=== PATIENT | male | born 1945 | race Caucasian/White ===

== ENCOUNTER 2022-01-26 15:00 | Observation (INO) | payer MEDICARE, OTHER, SELFPAY ==
[2022-01-26] VITALS (9 sets, daily range): BP systolic 93–149; BP diastolic 57–84; PULSE 46–97; RESP 19–25; TEMP 36.2–36.6; O2SAT 90–100
--- NOTE | ~2022-01-26 | XR_ITS ---
XR chest 2V 01/26/2022 16:31 Indication: Near syncope. Low blood pressure. Procedure: 2 view chest Comparison: Comparison to multiple prior studies sequentially, with oldest reviewed study dated 07/25. Findings: Bibasilar infiltrates. Borderline heart size. No pleural effusion or pneumothorax. No acute osseous abnormality. Impression: 1: Right basilar infiltrates may represent atelectasis, edema or developing pneumonia. Reviewed, dictated and finalized at location A. ERCIAL COLLECTIONS SPECIALIST Impression: 1: Right basilar infiltrates may represent atelectasis, edema or developing pne umonia.
--- NOTE | 2022-01-26 15:09 | ECG_ITS ---
Measurements Intervals [place] Rate: 46 P: [place]: 0 QRS: 95 QRSD: 110 T: 68 QT: 438 QTc: 385 Interpretive Statements ATRIAL FLUTTER WITH SLOW VENTRICULAR RESPONSE LOW QRS VOLTAGE IN PRECORDIAL LEADS [QRS DEFLECTION < 1.0 mV IN CHEST LEADS] BASELINE ARTIFACT LIMITS ECG INTERPRETATION ABNORMAL ECG COMPARED TO ECG 08/16/2019 08:57:20 ATRIAL FLUTTER NOW PRESENT Electronically Signed On 01-26-2022 16:07:31 SUPPORT STAFF by Michael Vides M.D.
--- NOTE | 2022-01-26 16:11 | ECG_ITS ---
Measurements Intervals [place] Rate: 66 P: [place]: 0 QRS: 72 QRSD: 98 T: 56 QT: 404 QTc: 424 Interpretive Statements ATRIAL FLUTTER LOW QRS VOLTAGE IN PRECORDIAL LEADS [QRS DEFLECTION < 1.0 mV IN CHEST LEADS] BASELINE ARTIFACT LIMITS INTERPRETATION ABNORMAL RHYTHM ECG COMPARED TO ECG 01/26/2022 15:12:32 NO SIGNIFICANT CHANGES Electronically Signed On 01-27-2022 9:40:26 WATCH LEADER by Michael Vides M.D.
[2022-01-26] MEDS: SODIUM CHLORIDE 0.9% IV 1,000 ML 999 ML IV CONT (16:40)
[2022-01-26 17:14] LABS: Basophils Percent Auto 0.3 % (0.2-1.2); Eosinophils Absolute Auto 0.4 K/mm3 (0-0.3); Eosinophils Percent Auto 3.7 % (0-4.4); Hematocrit 40.4 % (42.0-52.0); Hemoglobin 12.8 g/dL (14.0-18.0); Immature Granulocyte Absolute 0.03 K/mm3 (0.00-0.031); Immature Granulocyte Percent A 0.3 % (0-0.5); Lymphocytes Absolute Auto 0.98 K/mm3 (0.9-3.2); Mean Corpuscular HGB Conc 31.7 g/dl (32-36); Mean Corpuscular Hemoglobin 26.8 pg (26-34); Mean Corpuscular Volume 84.5 fl (80-100); Mean Platelet Volume 9.9 fl (7.4-10.4); Monocytes Absolute Auto 0.7 K/mm3 (0.1-0.6); Neutrophils Absolute Auto 7.7 K/mm3 (1.3-6.7); Neutrophils Percent Auto 78.7 % (45.5-73.1); Platelet Count Result 268 k/mm3 (150-375); Red Blood Count 4.78 M/mm3 (4.6-6.20); White Blood Count 9.8 K/mm3 (4.5-10.0)
--- NOTE | 2022-01-26 17:16 | ED.GENADULT ---
HPI - General Adult General Chief complaint: Recheck/Abnormal Lab/Rx Stated complaint: LOW BLOOD PRESSURE Time Seen by Provider: 01/26/22 16:10 History of Present Illness HPI narrative: Patient is a 76-year-old male who presents ER with near syncope. Patient reports he had multiple episodes today where he was bending over and would then stand up back up he would get lightheaded. It occurred while he was feeling up gas cans. It also occurs when he is walking up stairs or changing positions at home. No chest pain or chest pressure. No racing of the heart. Reports he called his PCP and tablet technician who instructed him to come to the ER for further evaluation. Denies any slurred speech. No facial droop. No weakness in arm or leg. Reports compliance with home medication. Patient reports history of cardiac ablation for arrhythmia. Chart review shows history of atrial flutter. Related Data Home Medications Medication Instructions Recorded Confirmed apixaban [Eliquis] 5 mg PO BID 01/26/22 01/26/22 atenolol 50 mg PO HS 01/26/22 01/26/22 diltiazem HCl 360 mg PO DAILY 01/26/22 01/26/22 finasteride 5 mg PO HS 01/26/22 01/26/22 glimepiride 4 mg PO DAILY 01/26/22 01/26/22 lisinopril 20 mg PO HS 01/26/22 01/26/22 loratadine 10 mg PO DAILY 01/26/22 01/26/22 metformin 1,000 mg PO BID 01/26/22 01/26/22 rosuvastatin 10 mg PO HS 01/26/22 01/26/22 tamsulosin 0.4 mg PO HS 01/26/22 01/26/22 Allergies Allergy/AdvReac Type Severity Reaction Status Date / Time No Known Allergies Allergy Verified 01/26/22 15:01 Review of Systems Review of Systems: All systems reviewed & are unremarkable except as noted in HPI and below Constitutional: Constitutional: Denies chills, Denies fever(s) and Denies weakness ENT: Denies nasal congestion and Denies sore throat Cardiovascular: Cardiovascular: Denies chest pain, Denies rapid heart rate, Denies radiating jaw, neck or arm pain and Denies slow heart rate Respiratory: Respiratory: Denies cough and Denies dyspnea Gastrointestinal: Gastrointestinal: Denies nausea and Denies vomiting Neurologic: Reports dizziness, Reports syncope (Near), Denies focal weakness and Denies numbness PMFSH Past Medical History Medical History (Updated 01/26/22 @ 22:05 by Bert Ayala MD) Atrial fibrillation and flutter CAD (coronary atherosclerotic disease) Diabetes Inguinal hernia Surgical History Surgical History (Updated 01/26/22 @ 17:23 by Bert Ayala MD) History of cardiac radiofrequency ablation Stented coronary artery Family History Family History (Updated 01/26/22 @ 21:41 by Nicolle Fierro RN) Other Unknown family medical history Social History Social History Smoking status: Never smoker Alcohol intake: never Substance use: never Spiritual care concerns: No Exam Narrative: GENERAL: Well-appearing, well-nourished, and in no acute distress. HEAD: Normocephalic, atraumatic. Ashes to forehead. EYES: PERRL and EOMI. ENT: Mucous membranes moist. CHEST: Clear to auscultation. No respiratory distress. HEART: Bradycardic and regular. Normal peripheral pulses. ABDOMEN: Soft, nontender, nondistended. EXTREMITIES: Normal range of motion. No edema. SKIN: Warm, dry, no rash. NEURO: Alert and oriented x3. PSYCH: Normal mood and affect. Course Course Emergency Course: Patient resting calmly. Blood pressure improving with fluids. Discussed case with cardiology. Plan is to admit for observation given bradycardia and hypotension with his near syncope. Patient could be dry and his medications are too strong. Could be he needs a med adjustment. Admit to hospitalist service. Vital Signs Vital signs: Vital Signs Temperature 98 F 01/26/22 15:03 Pulse Rate 46 L 01/26/22 15:03 Respiratory Rate 22 H 01/26/22 15:03 Blood Pressure 96/60 L 01/26/22 15:03 Pulse Oximetry 99 01/26/22 15:03 Temperature 98 F 01/26/22 15:03 Pulse Rate 66 01/26/22 18:1
[2022-01-26 17:21] LABS: Anion Gap 7 mmol/L (8-16); Blood Urea Nitrogen 15 mg/dL (9-20); Calcium 8.4 mg/dL (8.4-10.2); Carbon Dioxide 24 mmol/L (22-30); Chloride 102 mmol/L (98-107); Estimated CRCL calculation 54 ml/min; Estimated Glomerular Filt Rate 54; Glucose 111 mg/dL (65-110); Potassium 5.3 mmol/L (3.4-5.0); Sodium 133 mmol/L (137-145)
[2022-01-26 17:24] LABS: Partial Thromboplastin Time 34.5 SECONDS (22.3-36.8)
[2022-01-26 17:30] LABS: INR 1.3; Prothrombin Time 15.4 Seconds (11.1-14.7)
[2022-01-26 17:33] LABS: Troponin I < 0.012 ng/mL (0.000-0.034)
--- NOTE | 2022-01-26 19:14 | PC.NURSE ---
Called and added Trop on TSH that was drawn per nurse. 19:14
--- NOTE | 2022-01-26 19:17 | PC.NURSE ---
Report received from Zahra OLIVO & Josiah OLIVO
--- NOTE | 2022-01-26 19:54 | PM.IMHP ---
H&P: HPI History of Present Illness Date/Time: 01/26/22 19:54 Chief Complaint: Dizziness. Narrative: This is a 76-year-old male with past medical history significant for atrial flutter, anticoagulated rate controlled, benign prostatic hyperplasia, hypertension, type 2 diabetes mellitus controlled with oral agents and diet, obesity, dyslipidemia, coronary artery disease, history of ablation, history of PTCI. Patient presents to the emergency room after he had several episodes of dizziness and near syncopal episode. Patient denies any chest pain, palpitations, vision changes, diaphoresis, nausea, vomiting, chest pain, abdominal pain, diarrhea, no leg swelling, no PND, no orthopnea, no fevers, no rigors, no chills, no cough, no sputum production, patient has been his usual state of health patient noticed that this was happening mainly when he had postural changes from bending over to upright position. Preliminary workup was significant for EKG with atrial flutter heart rate in the 60s. A chest x-ray showed bilateral infiltrates. Patient is been admitted for further evaluation management and treatment. Review of Systems Review of Systems: Dizziness. Constitutional: Constitutional: Denies chills, Denies fatigue, Denies fever(s), Denies frequent falls, Denies headache(s), Denies malaise, Denies poor appetite and Denies weakness Eyes: Eyes: Denies change in vision ENT: Denies dysphagia, Reports dizziness, Denies nasal congestion, Denies nasal discharge, Denies nasal obstruction and Denies odynophagia Cardiovascular: Cardiovascular: Denies chest pain, Denies syncope, Denies pedal edema, Denies leg edema, Reports lightheadedness, Denies radiating jaw, neck or arm pain, Denies palpitations, Denies dyspnea on exertion, Denies orthopnea, Denies paroxysmal nocturnal dyspnea and Denies slow heart rate Respiratory: Respiratory: Denies cough, Denies excessive phlegm production, Denies dyspnea and Denies wheezing Gastrointestinal: Gastrointestinal: Denies abdominal pain, Denies dyspepsia, Denies heartburn, Denies diarrhea, Denies nausea and Denies vomiting Genitourinary: Genitourinary: Reports no additional male genitourinary complaints and Reports as per HPI Musculoskeletal: Musculoskeletal: Denies back pain, Denies arthralgias, Denies muscle weakness and Denies neck pain Integumentary/Breasts: Skin/Breast: Denies rash Neurologic: Denies focal weakness and Denies Sensory deficit (Neuro) Psychiatric: Psychiatric: Reports no additional psychiatric complaints and Reports as per HPI Endocrine: Endocrine: Denies cold intolerance, Denies heat intolerance, Denies polyphagia, Denies polydipsia, Denies polyuria and Denies palpitations Hematologic/Lymphatic: Hematologic/Lymphatic: Reports no additional hematologic/lymphatic complaints and Reports as per HPI Allergic/Immunologic: Allergic/Immunologic: Reports no additional allergic/immunologic complaints and Reports as per HPI PMFSH Past Medical History Medical History (Updated 01/27/22 @ 03:07 by Mac Durand MD) Atrial fibrillation and flutter CAD (coronary atherosclerotic disease) Diabetes Inguinal hernia Surgical History Surgical History (Updated 01/26/22 @ 17:23 by Bert Ayala MD) History of cardiac radiofrequency ablation Stented coronary artery Family History Family History (Updated 01/26/22 @ 21:41 by Nicolle Fierro RN) Other Unknown family medical history Social History Social History Smoking status: Never smoker Alcohol intake: never Substance use: never Spiritual care concerns: No Meds Home Medications and Allergies Home Medications Medication Instructions Recorded Confirmed Type apixaban [Eliquis] 5 mg PO BID 01/26/22 01/26/22 History atenolol 50 mg PO HS 01/26/22 01/26/22 History diltiazem HCl 360 mg PO DAILY 01/26/22 01/26/22 History finasteride 5 mg PO HS 01/26/22 01/26/22 History glimepiride 4 mg PO DAILY 01/26/22 01/26/22 Hist
[2022-01-26 20:05] LABS: Troponin I < 0.012 ng/mL (0.000-0.034)
--- NOTE | 2022-01-26 21:37 | ADMGEN ---
This patient, Joo Forman, was admitted to Medical Room 258-. Patient/family oriented to hospital policies and general routines including ID bracelet, bed and alarms, visiting hours, pain management, procedures, bathroom and other care routines, personal items, smoking policy, room service/diet, and visiting hours. Information on how to activate the Rapid Response Team has been discussed. Patient/Family are encouraged to report perceived risks to care and to ask questions if they do not understand what they are told or what they should do.
[2022-01-26 22:07] LABS: Glucose Point of Care 142 mg/dl (65-105)
[2022-01-26 22:26] LABS: Troponin I < 0.012 ng/mL (0.000-0.034)
[2022-01-27] VITALS (17 sets, daily range): BP systolic 107–150; BP diastolic 63–107; PULSE 66–136; RESP 16–21; TEMP 36.2–36.5; O2SAT 90–97
--- NOTE | 2022-01-27 | ECHO_ITS ---
Patient Info Name: Joo Fomran Age: 76 years : 1945 Gender: Male Ht: 70 in Wt: 235 lbs BSA: 2.33 m2 HR: 68 bpm BP: 134 / 96 mmHg Heart Rhythm: Atrial Flutter Exam Date: 01/27/2022 9:47 AM Exam Location: [facility] Patient Status: Outpatient Admit Date: 01/26/2022 Staff Ordering Physician: Mac Durand MD Marshmallow Runner: Aung Orona, ROSITA, RT Attending Provider: Oriana Park MD Referring Physician: Kizzy POND; Exam Type: CA echo doppler color flow Study Info Indications R00.1 - Bradycardia, unspecified R55 - Syncope and collapse Complete two-dimensional, color flow and Doppler transthoracic echocardiogram is performed. Strain analysis performed. Summary 1. Complete two-dimensional, color flow and Doppler transthoracic echocardiogram is performed. 2. Strain analysis performed. 3. Left ventricular systolic function is low normal, estimated at 50-55%. 4. The anterior wall, and apical cap are hypokinetic. 5. Left ventricular chamber dimension is mildly enlarged. 6. There is mildly increased left ventricular wall thickness. 7. The left ventricular diastolic function is indeterminate. 8. Global longitudinal strain is abnormal at -12 %. 9. Left atrial chamber dimension is moderately enlarged. 10. Right atrial chamber dimension is mildly enlarged. 11. There is mild aortic valve regurgitation. 12. There is moderate mitral valve regurgitation. 13. There is mild tricuspid valve regurgitation. 14. Moderate pulmonary hypertension, estimated pulmonary arterial systolic pressure is 51 mmHg. Left Ventricle Left ventricular systolic function is low normal, estimated at 50-55%. Left ventricular chamber dimension is mildly enlarged. There is mildly increased left ventricular wall thickness. The left ventricular diastolic function is indeterminate. Global longitudinal strain is abnormal at -12 %. The anterior wall, and apical cap are hypokinetic. All other miller appear normal. Right Ventricle Right ventricular chamber dimension is normal. Right ventricular systolic function is normal. Left Atria Left atrial chamber dimension is moderately enlarged. Right Atria Right atrial chamber dimension is mildly enlarged. Atrial Septum Intact interatrial septum visualized by color flow imaging. Aortic Valve The aortic valve is trileaflet. There is mild aortic valve sclerosis. There is no aortic valve stenosis. There is mild aortic valve regurgitation. Pulmonic Valve The pulmonic valve is normal. There is no pulmonic valve stenosis. There is trace pulmonic regurgitation. Mitral Valve The mitral valve has thickened leaflets. There is no mitral valve stenosis. There is moderate mitral valve regurgitation. Tricuspid Valve The tricuspid valve leaflets are normal. There is no significant tricuspid valve stenosis. There is mild tricuspid valve regurgitation. Moderate pulmonary hypertension, estimated pulmonary arterial systolic pressure is 51 mmHg. Pericardium/Pleural The pericardium appears normal. There is trivial pericardial effusion. Inferior Vena Cava Normal inferior vena cava with <50% collapse upon inspiration consistent with elevated right atrial pressure, 10 mmHg. Aorta The aortic root size at the sinus of Valsalva is normal. Left Ventricular Outflow Tract Name Value Normal ------
--- NOTE | 2022-01-27 02:58 | ECG_ITS ---
Measurements Intervals [place] Rate: 133 P: [place]: 0 QRS: 66 QRSD: 140 T: 8 QT: 313 QTc: 467 Interpretive Statements ATRIAL FLUTTER WITH RAPID VENTRICULAR RESPONSE INTRAVENTRICULAR CONDUCTION DELAY [130+ ms QRS DURATION] ABNORMAL ECG COMPARED TO ECG 01/26/2022 16:17:17 INTRAVENTRICULAR CONDUCTION DELAY NOW PRESENT Electronically Signed On 01-27-2022 9:57:24 AIR SAMPLING AND MONITORING by Michael Vides M.D.
[2022-01-27] MEDS: cefTRIAXone 2 GM in SODIUM CHLORIDE 0.9% IV 100 ML 200 ML IVPB ×2 (03:25→20:59)
[2022-01-27] MEDS: atenoloL 50 MG TABLET PO (04:31)
[2022-01-27] MEDS: FINASTERIDE 5 MG TABLET PO ×2 (04:31→20:57)
[2022-01-27] MEDS: TAMSULOSIN HCL 0.4 MG CAPSULE PO ×2 (04:31→20:57)
[2022-01-27] MEDS: lisinopriL 20 MG TABLET PO ×2 (04:31→20:57)
[2022-01-27] MEDS: dilTIAZem HCL CD 180 MG CAP.ER.24H 360 MG PO (06:17)
--- NOTE | 2022-01-27 06:19 | PC.NURSE ---
PT HR REMAINING IN THE 130S DESPITE RECEIVING NIGHTTIME BP/HR MEDS AROUND 0430. CALLED DR GILLESPIE SHE STATED IT WAS OK TO GIVE 9AM DOSE OF CARDIZEM EARLY AT 0615.
[2022-01-27 07:57] LABS: Glucose Point of Care 116 mg/dl (65-105)
--- NOTE | 2022-01-27 08:47 | PC.NURSE ---
Dr Almanza notified of pt on tele with heartrate 135 ST, bp 150/80
[2022-01-27 09:02] LABS: Alanine Aminotransferase 15 U/L (4-50); Alkaline Phosphatase 73 U/L (38-126); Anion Gap 9 mmol/L (8-16); Aspartate Amino Transferase 31 U/L (17-59); Blood Urea Nitrogen 11 mg/dL (9-20); Calcium 8.3 mg/dL (8.4-10.2); Carbon Dioxide 23 mmol/L (22-30); Chloride 102 mmol/L (98-107); Estimated CRCL calculation 76 ml/min; Estimated Glomerular Filt Rate > 60; Glucose 175 mg/dL (65-110); Potassium 4.5 mmol/L (3.4-5.0); Sodium 134 mmol/L (137-145)
[2022-01-27] MEDS: metFORMIN HCL 500 MG TABLET 1000 MG PO ×2 (09:17→17:07)
[2022-01-27] MEDS: APIXABAN 5 MG TABLET PO ×2 (09:17→17:08)
[2022-01-27] MEDS: LORATADINE 10 MG TABLET PO (09:17)
--- NOTE | 2022-01-27 09:19 | PM.CNCAR ---
Assessment and Plan Assessment and plan (1) CAD (coronary atherosclerotic disease): Code(s): I25.10 - Atherosclerotic heart disease of [place] coronary artery without angina pectoris Status: Acute Assessment and Plan: Asymptomatic. Continue statin (2) Near syncope: Code(s): R55 - Syncope and collapse Status: Acute Assessment and Plan: He has near syncopal because of marked bradycardia. He is reverted back into atrial flutter with slow ventricular response. Will reduce his atenolol to 25 mg daily as well as reduce his diltiazem to 120 mg daily. He may need one if not both of the stopped in the future but will need to keep him on telemetry to assess response. Continue anticoagulation. Will also plan on cardioversion tomorrow. He eventually needs referral back to electrophysiology. Will keep NPO after midnight. 2D echocardiogram Doppler is ordered will be reviewed. Will check a TSH and free T4 level. (3) Bradycardia: Code(s): R00.1 - Bradycardia, unspecified Status: Acute Assessment and Plan: As detailed above (4) Paroxysmal atrial flutter: Code(s): I48.92 - Unspecified atrial flutter Status: Acute Assessment and Plan: Recurrent. Continue anticoagulation (5) Chronic anticoagulation: Code(s): Z79.01 - detention (current) use of anticoagulants Status: Acute Assessment and Plan: On Eliquis. No bleeding problems. Will DC IV fluids History of Present Illness History of Present Illness Consult date/time: 01/27/22 09:19 Requesting physician: Bert Ayala MD Consult reason: Other (Presyncope, bradycardia, atrial flutter) Reason For Visit: Near Syncope, Bradycardia, Atrial Flutter Narrative: Requesting provider: Dr. Ayala Date of service 01/27/2022 Reason for consultation, near syncope, bradycardia, atrial flutter History patient is a 76-year-old male who has history of coronary disease in atrial flutter. He presented to the hospital back in 2003 secondary to acute coronary syndrome and underwent stenting to the LAD. He follows with Dr. Cannon as an outpatient. In he also received did stent to the diagonal branch also at that time. He has developed atrial fibrillation over the subsequent years. This has resulted in cardioversions in the past as well as 2 ablation procedures out at [facility] by electrophysiology for both atrial fibrillation and flutter. He called the office yesterday after having a significant presyncopal episode. Patient was getting gas and suddenly felt very dizzy and weak feeling everywhere. He ended up going home where he continued to feel very poorly. He had extreme dizziness but did not actually pass out. He checked his blood pressure and heart rate is heart rate was in the 40s is blood pressure was in 80s. He called the office and was instructed appropriately to go to the emergency department for further workup evaluation. He was found to be in atrial flutter with slow ventricular response the heart rate in 40s. He was hypotensive. He was given fluids and his blood pressure did finally increased. Overnight he went into atrial flutter with rapid ventricular response and is currently in atrial flutter with controlled response rate. He is no longer dizzy this morning. Denies any syncope, paroxysmal nocturnal dyspnea, orthopnea, chest pain or edema. No palpitations or bleeding problems. Review of Systems Review of Systems: All systems reviewed & are unremarkable except as noted in HPI and below Constitutional: Constitutional: Reports weakness Eyes: Eyes: Denies blurry vision ENT: Reports Normal hearing present Cardiovascular: Cardiovascular: Denies chest pain Respiratory: Respiratory: Denies dyspnea Gastrointestinal: Gastrointestinal: Denies abdominal pain Genitourinary: Genitourinary: Denies dysuria Musculoskeletal: Musculoskeletal: Denies neck pain Integumentary/Breasts: S
--- NOTE | 2022-01-27 11:28 | PC.NURSE ---
Carmita Jackson SALES REVIEW CLERK notified of hr dropping in 30's a flutter then jumping back up into the 50's. Pt is bed ans asymptomatic at this time.
[2022-01-27 11:32] LABS: Glucose Point of Care 127 mg/dl (65-105)
--- NOTE | 2022-01-27 14:31 | PC.NURSE ---
On 01/27/22, the student, [Ivett Jameson], provided care and completed [facility] documentation on this patient. I have reviewed the student's documentation and agree with the findings.
--- NOTE | 2022-01-27 16:00 | PM.IMPN ---
Progress Note: A&P Additional Plan Assessment and plan (1) Near syncope: Code(s): R55 - Syncope and collapse Status: Acute Assessment and Plan: - Daily intake and output - Troponin - x3. - ECHO = LVSF low normal at 50-55%. Mild hypokinesis of anterior wall and apical cap. Enlargement of LV chamber. mind AVR, moderate MVR, and Mild TCR. There is moderate pulmonary Hypertension. - Supervisor Firearms has consulted and will be doing a cardioversion tomorrow. - NPO after MN - Continue Telemetry (2) Symptomatic Bradycardia: Code(s): R00.1 - Bradycardia, unspecified Status: Acute Assessment and Plan: - Likely secondary to combination of beta-blockers and calcium channel blockers. Continue to monitor. - Further treatment and recommendations per Cardiology. (3) CAD (coronary atherosclerotic disease): Code(s): I25.10 - Atherosclerotic heart disease of [place] coronary artery without angina pectoris Status: Acute Assessment and Plan: - Chest pain-free - Continue to monitor (4) Atrial fibrillation and flutter: Code(s): I48.91 - Unspecified atrial fibrillation; I48.92 - Unspecified atrial flutter Status: Inactive Assessment and Plan: - Rate control and anticoagulated. - Continue to monitor. (5) Diabetes: Code(s): E11.9 - Type 2 diabetes mellitus without complications Status: Inactive Additional Plan - Accu-Cheks AC and HS - Insulin sliding scale - Holding metformin and glimepiride - Continue to monitor Time Spent With Patient Time with patient: 15 - 25 minutes Subjective Date/time seen: 01/27/22 1245 This pt. was examined at the bedside today in interval assessment. He has been evaluated by Cardiology and will be cardioverted tomorrow. He is NPO after MN. Currently his rate is stable and he is asymptomatic. He has no CP, palpitations, Dyspnea or any N/V. Review of Systems Review of Systems: A 12 point ROS was performed and is otherwise negative except as in HPI. All systems reviewed & are unremarkable except as noted in HPI and below Exam Narrative: Exam Narrative: Patient is laying in the stretcher. Const: General: cooperative, comfortable, no acute distress, well developed, alert and awake Nutritional Appearance: overweight Orientation/consciousness: patient oriented x3 HENMT: Head: normal to inspection, normocephalic and atraumatic Ears: hearing grossly normal bilaterally General nose exam: Normal external nose present Face and sinus: normal facial exam Mouth: Yes Normal oral and palatal mucosa present Eyes: General: appearance normal, both eyes and all related structures Alignment and Position: alignment normal Sclera: sclerae normal Pupils: Equal, round and reactive pupils present EOM: EOMs intact bilaterally Neck: Neck: normal visual inspection, full ROM, no lymphadenopathy, supple and no JVD Thyroid: thyroid normal Lymphatic: no lymphadenopathy noted Resp: Effort & Inspection: normal respiratory effort, able to speak in complete sentences and no cough Auscultation: clear to auscultation bilaterally, no crackles, no rales, no rhonchi and no wheezes Cardio: Jugular venous distension: no JVD Rate: regular rate Rhythm: regular rhythm Heart sounds: S1 normal heart sound present, S2 normal heart sound present, no gallops and no murmurs GI: Inspection: normal to inspection GI Palp: Yes Soft to palpation, No Tenderness to palpation present (GI), No Guarding due to palpation present (GI), Yes No hepatosplenomegaly present and No Rebound tenderness present : General: Yes deferred Skin: Rashes: no rashes Wounds: no wounds Neuro: General: patient oriented x3 and CN's II-XI intact bilaterally Cranial nerves: Yes CN's II-XII intact bilaterally and Yes Equal, round and reactive pupils present Cognition (Neuro): normal cognition Speech: normal speech Gait exam (Neuro): Normal gait present Motor exam (neuro): 5/5 motor strength
[2022-01-27 17:22] LABS: Glucose Point of Care 100 mg/dl (65-105)
[2022-01-27] MEDS: atenoloL 25 MG TABLET PO (20:57)
[2022-01-27] MEDS: ROSUVASTATIN 10 MG TABLET PO (20:57)
[2022-01-27 21:05] LABS: Glucose Point of Care 97 mg/dl (65-105)
[2022-01-28] VITALS (15 sets, daily range): BP systolic 117–153; BP diastolic 66–111; PULSE 61–139; RESP 14–22; TEMP 36–36.2; O2SAT 94–100; BMI 33.6
--- NOTE | 2022-01-28 | ECG_ITS ---
Measurements Intervals [place] Rate: 137 P: [place]: 0 QRS: 47 QRSD: 96 T: 17 QT: 296 QTc: 447 Interpretive Statements ATRIAL FLUTTER WITH RAPID VENTRICULAR RESPONSE INDETERMINATE AXIS PATTERN CONSISTENT WITH PULMONARY DISEASE ABNORMAL EKG Electronically Signed On 01-28-2022 10:41:52 HORIZONTAL RESAW OPERATOR by Michael Vides M.D.
--- NOTE | 2022-01-28 01:16 | PC.NURSE ---
PT HR INCREASED SUSTAINING IN THE 130S AND AT A FEW POINTS REACHING THE 150S CONTACTED DR MONTES. LEFT MESSAGE THROUGH THE EXCHANGE. RETURNED MY CALL AROUND 20 MINUTES LATER AND STATED HE DID NOT WANT TO DO ANYTHING ABOUT THE PATIENTS UNSTABLE HEART RATE.
[2022-01-28 04:51] LABS: Basophils Percent Auto 0.3 % (0.2-1.2); Eosinophils Absolute Auto 0.3 K/mm3 (0-0.3); Eosinophils Percent Auto 4.1 % (0-4.4); Hematocrit 40.7 % (42.0-52.0); Hemoglobin 12.6 g/dL (14.0-18.0); Immature Granulocyte Absolute 0.03 K/mm3 (0.00-0.031); Immature Granulocyte Percent A 0.4 % (0-0.5); Lymphocytes Absolute Auto 1.06 K/mm3 (0.9-3.2); Lymphocytes Percent Auto 15.2 % (18.3-44.2); Mean Corpuscular Hemoglobin 25.8 pg (26-34); Mean Corpuscular Volume 83.4 fl (80-100); Mean Platelet Volume 9.3 fl (7.4-10.4); Monocytes Absolute Auto 0.5 K/mm3 (0.1-0.6); Monocytes Percent Auto 7.6 % (2.6-8.5); Neutrophils Absolute Auto 5.1 K/mm3 (1.3-6.7); Neutrophils Percent Auto 72.4 % (45.5-73.1); Platelet Count Result 210 k/mm3 (150-375); Red Blood Count 4.88 M/mm3 (4.6-6.20); Red Cell Distribution Width 15.9 % (11.5-14.5)
[2022-01-28 04:58] LABS: Anion Gap 8 mmol/L (8-16); Blood Urea Nitrogen 10 mg/dL (9-20); Calcium 8.3 mg/dL (8.4-10.2); Carbon Dioxide 24 mmol/L (22-30); Chloride 105 mmol/L (98-107); Estimated CRCL calculation 76 ml/min; Estimated Glomerular Filt Rate > 60; Glucose 115 mg/dL (65-110); Magnesium 1.7 mg/dL (1.6-2.3); Potassium 4.1 mmol/L (3.4-5.0); Sodium 137 mmol/L (137-145)
[2022-01-28 07:46] LABS: Glucose Point of Care 119 mg/dl (65-105)
--- NOTE | 2022-01-28 08:00 | PC.NURSE ---
Spoke with the nurse from chest pain about patient's medications. She reviewed medications and stated patient may receive all medications this morning before cardioversion.
[2022-01-28] MEDS: APIXABAN 5 MG TABLET PO (08:14)
[2022-01-28] MEDS: LORATADINE 10 MG TABLET PO (08:14)
[2022-01-28] MEDS: metFORMIN HCL 500 MG TABLET 1000 MG PO (08:14)
--- NOTE | 2022-01-28 09:20 | PM.IMPN ---
Progress Note: A&P Additional Plan Assessment and plan (1) Near syncope: Code(s): R55 - Syncope and collapse Status: Acute Assessment and Plan: - Daily intake and output - Troponin - x3. - ECHO = LVSF low normal at 50-55%. Mild hypokinesis of anterior wall and apical cap. Enlargement of LV chamber. mind AVR, moderate MVR, and Mild TCR. There is moderate pulmonary Hypertension. - Health Education Coordinator has consulted and will hopefully be doing a cardioversion today as noted in the Cardiology progress notes. Pt. is tachycardic this AM in the 130s. He has been dosed with his AM Diltiazem with Cardiology's permission. Awaiting to see what happens. - NPO after MN - Continue Telemetry (2) Symptomatic Bradycardia: Code(s): R00.1 - Bradycardia, unspecified Status: Acute Assessment and Plan: - Likely secondary to combination of beta-blockers and calcium channel blockers. Continue to monitor. - Further treatment and recommendations per Cardiology. (3) CAD (coronary atherosclerotic disease): Code(s): I25.10 - Atherosclerotic heart disease of [place] coronary artery without angina pectoris Status: Acute Assessment and Plan: - Chest pain-free - Continue to monitor (4) Atrial fibrillation and flutter: Code(s): I48.91 - Unspecified atrial fibrillation; I48.92 - Unspecified atrial flutter Status: Inactive Assessment and Plan: - Rate fluctuating today with pulse reaching 120s and 130s overnight. - Continue to monitor. - Awaiting definitive treatment plan from Cardiology. (5) Diabetes: Code(s): E11.9 - Type 2 diabetes mellitus without complications Status: Inactive Additional Plan - Accu-Cheks AC and HS - Insulin sliding scale - Holding metformin and glimepiride - Continue to monitor Time Spent With Patient Time with patient: 15 - 25 minutes Subjective Date/time seen: 01/28/22 0730 This pt. was examined at the bedside this morning in interval assessment. He has continued episodes of RVR and remains in Atrial Fibrillation. According to Cardiology note, he will be cardioverted today. I was advised by the RN that she called and talked to them and that he was not on the schedule for a procedure today, however, Cardiology did keep him NPO. As he is tachycardic this morning, the pt. was given his Diltiazem as OK'd by Cards. He has no new complaints of pain or palpitations, he just continues to feel weak overall. Review of Systems Review of Systems: A full 12 point ROS was completed and is otherwise negative with exception of what is mentioned in HPI. All systems reviewed & are unremarkable except as noted in HPI and below Exam Narrative: Exam Narrative: Patient is laying in the stretcher. Const: General: cooperative, comfortable, no acute distress, well developed, alert and awake Nutritional Appearance: overweight Orientation/consciousness: patient oriented x3 HENMT: Head: normal to inspection, normocephalic and atraumatic Ears: hearing grossly normal bilaterally General nose exam: Normal external nose present Face and sinus: normal facial exam Mouth: Yes Normal oral and palatal mucosa present Eyes: General: appearance normal, both eyes and all related structures Alignment and Position: alignment normal Sclera: sclerae normal Pupils: Equal, round and reactive pupils present EOM: EOMs intact bilaterally Neck: Neck: normal visual inspection, full ROM, no lymphadenopathy, supple and no JVD Thyroid: thyroid normal Lymphatic: no lymphadenopathy noted Resp: Effort & Inspection: normal respiratory effort, able to speak in complete sentences and no cough Auscultation: clear to auscultation bilaterally, no crackles, no rales, no rhonchi and no wheezes Cardio: Jugular venous distension: no JVD Rate: regular rate Rhythm: regular rhythm Heart sounds: S1 normal heart sound present, S2 normal heart sound present, no gallops and no murmurs GI: Inspection: normal t
[2022-01-28 11:29] LABS: Glucose Point of Care 110 mg/dl (65-105)
--- NOTE | 2022-01-28 12:15 | PC.NURSE ---
To cardioversion. Report given. All questions answered.
--- NOTE | 2022-01-28 12:15 | ECG_ITS ---
Measurements Intervals [place] Rate: 62 P: 70 NM: 197 QRS: 0 QRSD: 93 T: 33 QT: 406 QTc: 415 Interpretive Statements SINUS RHYTHM LOW QRS VOLTAGE IN PRECORDIAL LEADS [QRS DEFLECTION < 1.0 mV IN CHEST LEADS] ANTERIOR MYOCARDIAL INFARCTION , OF INDETERMINATE AGE [40+ ms Q WAVE AND/OR ST/T ABNORMALITY IN V3/V4] INFERIOR MYOCARDIAL INFARCTION , OF INDETERMINATE AGE [40+ ms Q WAVE AND/OR ST/T ABNORMALITY IN II/aVF] COMPARED TO ECG 01/28/2022 10:27:45 SINUS RHYTHM REPLACES ATRIAL FLUTTER Electronically Signed On 01-28-2022 16:00:30 STAGE DRIVER by Arnold Cannon M.D.
--- NOTE | 2022-01-28 13:09 | P.PCNCC_ITS ---
Cardiac Cath Procedure Note Date of procedure:: 01/28/22 Performing physician:: Arnold Cannon MD Indication:: Persistent atrial flutter Brief clinical history:: this is a 76-year-old man with a history of coronary disease and atrial arrhythmias. He presented to the hospital with symptomatic bradycardia with atrial flutter with slow ventricular response. He is chronically anticoagulated with apixaban. He has undergone previous AF ablation. An attempt at restoring sinus rhythm has been recommended electrically. Procedure Procedure performed:: DC cardioversion Sedation/Medication given:: IV propofol and aliquots total dosage of 70 mg Estimated blood loss:: no blood loss Procedure note:: patient was brought to the cardiac catheterization lab in the postabsorptive state defibrillator patches were placed in the AP position. He had IV access in the left upper extremity. Saline was running at a good flush rate. He was sedated with propofol and aliquots with a total dosage of 70 mg which provided excellent procedural sedation. He was then counter shocked with 200 joules in a synchronized fashion x1 shock restoring normal sinus rhythm. Findings:: As above Conclusion:: successful uncomplicated DC cardioversion of atrial flutter restoring sinus rhythm using 200 joules x1 shock. Arnold Cannon MD [facility]
--- NOTE | 2022-01-28 15:04 | PM.DS ---
DS: Admitting Diagnosis Discharge Date 01/28/22 Admitting Diagnosis Near Syncope, Bradycardia, CAD, A-fib/A-flutter, DM DS: Discharge Diagnosis Discharge Diagnosis (1) Near syncope: Code(s): R55 - Syncope and collapse Status: Acute Assessment and Plan: - Pt. was cardioverted today and is asymptomatic. - Stable for discharge from cardiology standpoint. (2) Bradycardia: Code(s): R00.1 - Bradycardia, unspecified Status: Acute Assessment and Plan: - Cardiology made recommendations for medicine changes. (3) CAD (coronary atherosclerotic disease): Code(s): I25.10 - Atherosclerotic heart disease of [place] coronary artery without angina pectoris Status: Acute Assessment and Plan: - Chest pain-free - Continue to monitor (4) Atrial fibrillation and flutter: Code(s): I48.91 - Unspecified atrial fibrillation; I48.92 - Unspecified atrial flutter Status: Inactive Assessment and Plan: - Rate control and anticoagulated. - Cardioversion performed today by Cardiology. Successful conversion back to NSR in the 60s. (5) Diabetes: Code(s): E11.9 - Type 2 diabetes mellitus without complications Status: Inactive DS: Summary Hospital Course Reason for hospitalization: Near Syncopal Episode Hospital Course: This 76 year old male patient with significant PMH of Atrial Flutter/Fib on chronic anticoagulation, BPH, HTN, DM, Obesity, HLD, CAD, Ablation, PTCI previously, who presented to the ER after becoming dizzy and having near syncopal episode. He denied any pain, orthopnea, edema of legs or dyspnea. He was found to be in Atrial Fibrillation with RVR. He was admitted to the hospital and cardiac workup was started. His troponin's were negative and Cardiology evaluated. ECHO was performed that showed a low normal LVSF at 50-55%. Pt's heart rate was refractory to Cardizem and would continually rebound tachycardic. The pt. was taken today for a Cardioversion that was successful without any further complication and the pt. was easily converted back into NSR with one shock of 200 Joules. Cardiology has made medication changes as recommendations for discharge as noted in the discharge plan. Pt. is stable for discharge at this time. Status at Discharge Cognitive/behavioral status at discharge: Normal Functional status at discharge: independent ambulation Overall status at discharge: patient is back to baseline Time Spent with Patient Time attestation: Total time spent providing and/or coordinating discharge services: Time spent: Greater than 30 minutes Exam Narrative: Exam Narrative: Patient is laying in the stretcher. Const: General: cooperative, comfortable, no acute distress, well developed, alert and awake Nutritional Appearance: overweight Orientation/consciousness: patient oriented x3 HENMT: Head: normal to inspection, normocephalic and atraumatic Ears: hearing grossly normal bilaterally General nose exam: Normal external nose present Face and sinus: normal facial exam Mouth: Yes Normal oral and palatal mucosa present Eyes: General: appearance normal, both eyes and all related structures Alignment and Position: alignment normal Sclera: sclerae normal Pupils: Equal, round and reactive pupils present EOM: EOMs intact bilaterally Neck: Neck: normal visual inspection, full ROM, no lymphadenopathy, supple and no JVD Thyroid: thyroid normal Lymphatic: no lymphadenopathy noted Resp: Effort & Inspection: normal respiratory effort, able to speak in complete sentences and no cough Auscultation: clear to auscultation bilaterally, no crackles, no rales, no rhonchi and no wheezes Cardio: Jugular venous distension: no JVD Rate: regular rate Rhythm: regular rhythm Heart sounds: S1 normal heart sound present, S2 normal heart sound present, no gallops and no murmurs GI: Inspection: normal to inspection GI Palp: Yes Soft to palpation, No Tenderness to palpation pr
== END 2022-01-28 15:57 | disposition home or self-care (01) ==
LOC: ANHED 16:10 → ANH2MED 20:07
PROVIDERS: Internal Medicine; Internal Medicine Cardiovascular Disease; Specialist; Admitting Provider Family Medicine; Emergency Provider Emergency Medicine; PCP Family Medicine; Visit Provider Nurse Practitioner Adult Health
PROC: 5A2204Z Restoration of Cardiac Rhythm, Single (ICD-10-PCS; principal; 2022-01-28 12:45)
DX: R55 Syncope and collapse (principal); R00.1 Bradycardia, unspecified; I48.20 Chronic atrial fibrillation, unspecified; I25.10 Atherosclerotic heart disease of native coronary artery without angina pectoris; E11.9 Type 2 diabetes mellitus without complications; E78.5 Hyperlipidemia, unspecified; N40.0 Benign prostatic hyperplasia without lower urinary tract symptoms; Z95.5 Presence of coronary angioplasty implant and graft; Z79.01 Long term (current) use of anticoagulants; Z79.84 Long term (current) use of oral hypoglycemic drugs; I27.20 Pulmonary hypertension, unspecified; I08.3 Combined rheumatic disorders of mitral, aortic and tricuspid valves
CPT/HCPCS: 36415; 71046; 80048; 80053; 82948; 83735; 84436; 84443; 84484; 85025; 85610; 85730; 87040; 92960; 93005; 93306; 96361; 96365; 96366; 96367; 99285; A9270; G0378; J0456; J0696; J7030; J7040

== ENCOUNTER 2022-03-16 00:29 | Day surgery (SDC) | payer MEDICARE, OTHER, SELFPAY ==
[2022-03-15 15:04] VITALS: BMI 34.4
--- NOTE | 2022-03-16 08:30 | ECG_ITS ---
Measurements Intervals [place] Rate: 61 P: 73 [place]: 225 QRS: 30 QRSD: 97 T: 19 QT: 436 QTc: 442 Interpretive Statements SINUS RHYTHM WITH FIRST DEGREE AV BLOCK INDETERMINATE AXIS LOW QRS VOLTAGE IN PRECORDIAL LEADS [QRS DEFLECTION < 1.0 mV IN CHEST LEADS] CANNOT RULE OUT INFERIOR MYOCARDIAL INFARCTION, PROBABLY OLD [40+ ms Q WAVE AND/OR ST/T ABNORMALITY IN II/aVF] CANNOT RULE OUT ANTERIOR MYOCARDIAL INFARCTION, OF INDETERMINATE AGE [40+ ms Q WAVE IN V1-V4] ABNORMAL ECG COMPARED TO ECG 03/16/2022 08:57:05 SINUS RHYTHM HAS REPLACED ATRIAL FLUTTER Electronically Signed On 03-16-2022 18:01:45 CDT by Miguel Ford M.D.
[2022-03-16 09:07] VITALS: BP 155/92; PULSE 70; RESP 18; TEMP 36.4; O2SAT 97; BMI 33.2
[2022-03-16 09:20] LABS: Anion Gap 7 mmol/L (8-16); Blood Urea Nitrogen 11 mg/dL (9-20); Calcium 8.8 mg/dL (8.4-10.2); Carbon Dioxide 25 mmol/L (22-30); Chloride 104 mmol/L (98-107); Estimated CRCL calculation 73 ml/min; Estimated Glomerular Filt Rate > 60; Glucose 115 mg/dL (65-110); Magnesium 1.9 mg/dL (1.6-2.3); Potassium 4.3 mmol/L (3.4-5.0); Sodium 136 mmol/L (137-145)
--- NOTE | 2022-03-16 10:05 | WPDMODSED ---
Moderate Sedation Note-Pt Data Patient Data Diagnosis: Recurrent atrial flutter Present Complaint: Generalized fatigue Procedure to be performed/Plan: DC cardioversion Allergies Allergy/AdvReac Type Severity Reaction Status Date / Time No Known Allergies Allergy Verified 03/16/22 08:53 Home Medications Medication Instructions Recorded Confirmed Type Eliquis 5 mg PO BID 01/26/22 03/16/22 History finasteride 5 mg PO HS 01/26/22 03/16/22 History glimepiride 4 mg PO DAILY 01/26/22 03/16/22 History lisinopril 20 mg PO HS 01/26/22 03/16/22 History loratadine 10 mg PO DAILY 01/26/22 03/16/22 History metformin 1,000 mg PO BID 01/26/22 03/16/22 History tamsulosin 0.4 mg PO HS 01/26/22 03/16/22 History diltiazem HCl 360 mg PO DAILY 03/15/22 03/15/22 History rosuvastatin 10 mg PO DAILY 03/15/22 03/16/22 History sotalol 80 mg PO BID 03/15/22 03/15/22 History Current Medications: Active Medications Sodium Chloride (Normal Saline Iv) 1,000 mls @ 30 mls/hr IV CONT .Q24H DEBORAH Sedation/Anesthesia: No previous sedation/anesthesia problems (including family history). [facility] Past Medical History Medical History (Updated 01/27/22 @ 09:25 by Michael Vides MD) Atrial fibrillation and flutter CAD (coronary atherosclerotic disease) Chronic anticoagulation Diabetes Inguinal hernia Surgical History Surgical History (Updated 01/26/22 @ 17:23 by Bert Ayala MD) History of cardiac radiofrequency ablation Stented coronary artery Family History Family History (Updated 01/27/22 @ 09:23 by Michael Vides MD) Father Cerebrovascular accident Mother No problems noted. Other Unknown family medical history Social History Social History Smoking status: Never smoker Alcohol intake: never Substance use: never Substance use type: does not use Living arrangements: with family Spiritual care concerns: No Mod Sed Physical Exam Physical Exam Pre Procedural Exam: Normal: Neck, Throat, Airway, Lungs, Heart Size, Heart Rate, Neuro Exam and Extremities and Variation: Appearance (Overweight gentleman no apparent distress) and Heart Rhythm (Irregularly irregular) Hours since solid foods: 12 Hours since liquid intake: 12 Mallampati Classification: class II Internal Medicine - PN: Obj Da Vital Signs Vital Signs: Vital Signs - 24 hr 03/16/22 09:07 Temperature 36.4 C Pulse Rate 70 Respiratory Rate 18 Blood Pressure 155/92 H Pulse Oximetry 97 Meds/Results Medications: Active Medications Generic Name Dose Route Start Last Admin Trade Name Freq PRN Reason Stop Dose Admin Sodium Chloride 1,000 mls @ 30 mls/hr 03/16/22 08:30 Normal Saline Iv IV CONT .Q24H DEBORAH Labs CBC & Chem 7: 03/16/22 08:59 Labs: Laboratory Results - last 24 hr 03/16/22 08:59 Sodium 136 L Potassium 4.3 Chloride 104 Carbon Dioxide 25 Anion Gap 7 L BUN 11 Creatinine 0.90 Estim Creat Clear Calc 73 Estimated GFR > 60 Glucose 115 H Calcium 8.8 Magnesium 1.9 ASA Classification/Sedation ASA Classification/Sedation ASA Class: II Emergent: No Risks: Risks, benefits and alternatives explained and patient/family accepted plan for sedation. Patient re-evaluated immediately prior to sedation.
[2022-03-16 10:15] VITALS: BP 154/95; PULSE 88; RESP 18; O2SAT 99
[2022-03-16 10:21] VITALS: BP 145/82; PULSE 59; RESP 19; O2SAT 99
--- NOTE | 2022-03-16 10:21 | WPDCARDPROC ---
Cardiac Cath Procedure Note Date of procedure:: 03/16/22 Performing physician:: Arnold Cannon MD Indication:: Recurrent atrial flutter Brief clinical history:: This is a 76-year-old man with history of atrial flutter who has been treated with medication and ablation previously. He presents for outpatient cardioversion this morning being restarted on sotalol in attempt to restore sinus rhythm again. Procedure Procedure performed:: DC cardioversion Sedation/Medication given:: IV propofol and aliquots total dosage of 70 mg Estimated blood loss:: None Procedure note:: Patient was brought to the cardiac liaison inspection laboratory assistant holding area where he was in the postabsorptive state. Defibrillator patches were placed in the AP position. He was then sedated using propofol in aliquots with a total dose of 70 mg being administered. This provided excellent procedural sedation. He was then cardioverted with 200 joules in a synchronized fashion restoring normal sinus rhythm. Findings:: As above Conclusion:: Successful uncomplicated DC cardioversion terminating atrial flutter restoring sinus rhythm using 200 joules x1 shock Arnold Cannon MD [facility]
[2022-03-16 10:30] VITALS: BP 134/69; PULSE 57; RESP 11; O2SAT 97
--- NOTE | 2022-03-16 10:30 | ECG_ITS ---
Measurements Intervals [place] Rate: 86 P: [place]: 0 QRS: 34 QRSD: 100 T: 25 QT: 360 QTc: 431 Interpretive Statements ATRIAL FLUTTER/TACHYCARDIA LOW QRS VOLTAGE IN PRECORDIAL LEADS [QRS DEFLECTION < 1.0 mV IN CHEST LEADS] CANNOT RULE OUT ANTERIOR MYOCARDIAL INFARCTION , PROBABLY OLD [35 ms Q WAVE IN V3/V4] CANNOT RULE OUT INFERIOR MYOCARDIAL INFARCTION , PROBABLY OLD [40+ ms Q WAVE AND/OR ST/T ABNORMALITY IN II/aVF] ABNORMAL ECG COMPARED TO ECG 01/28/2022 13:06:49 ATRIAL FLUTTER NOW PRESENT Electronically Signed On 03-16-2022 17:56:45 CDT by Miguel Ford M.D.
[2022-03-16 10:45] VITALS: BP 123/74; PULSE 57; RESP 20; O2SAT 95
[2022-03-16 11:00] VITALS: BP 135/77; PULSE 57; RESP 15; O2SAT 97
== END 2022-03-16 11:43 | disposition home or self-care (01) ==
PROVIDERS: PCP Family Medicine; Visit Provider Specialist
PROC: 5A2204Z Restoration of Cardiac Rhythm, Single (ICD-10-PCS; principal; 2022-03-16 10:00)
DX: I48.92 Unspecified atrial flutter (principal); I25.10 Atherosclerotic heart disease of native coronary artery without angina pectoris; Z79.01 Long term (current) use of anticoagulants; Z79.84 Long term (current) use of oral hypoglycemic drugs; Z95.5 Presence of coronary angioplasty implant and graft
CPT/HCPCS: 36415; 80048; 83735; 92960; J2704; J7040

== ENCOUNTER 2022-12-15 11:49 | Emergency (ER) | payer OTHER, MEDICARE, SELFPAY ==
--- NOTE | ~2022-12-15 | US_ITS ---
EXAMINATION: US scrotum doppler DATE: 12/15/2022 13:37 INDICATION: Testicular pain and swelling TECHNIQUE: Testicular sonogram utilizing grayscale and Doppler COMPARISON: None. FINDINGS: The right testis measures 5.9 x 3.1 x 3.1 cm. The left testis measures 2.3 x 2.5 x 3.5 cm. There is a pair of cysts versus septated cyst together measuring 10 x 8 x 4 mm in the left testis near the rete testes Symmetric normal grayscale appearance to both testes. Vascular flow is identified at both jayne jayne however there is significantly more prominent in the left testis consistent with hyperemia and li carol orchitis. Anechoic epididymal cysts at the head of the right epididymis, the larger measuring 1 .3 cm in maximal diameter. Right epididymis is otherwise normal with normal vascular flow. There are a few small anechoic epididymal cyst at the head of the left epididymis, the largest measuring 9 mm i n maximal diameter. The left epididymis appears normal on grayscale imaging but with asymmetric incre ased vascular flow relative to the right consistent with epididymitis. There is no varicocele. Small to moderate left hydrocele. IMPRESSION: 1. Hyperemia of the left testis and epididymis consistent with left-sided epididymoorchitis. 2. Small to moderate sized likely reactive left hydrocele. Reviewed, dictated and finalized at location A. TRAINER IMPRESSION: 1. Hyperemia of the left testis and epididymis consistent with left-sided epid idymoorchitis. 2. Small to moderate sized likely reactive left hydrocele.
[2022-12-15 12:19] VITALS: BP 126/60; PULSE 70; RESP 18; TEMP 36.6; O2SAT 97
[2022-12-15 15:30] VITALS: BP 156/63; PULSE 66; RESP 16; O2SAT 98
[2022-12-15 15:40] VITALS: BP 166/68; PULSE 67; RESP 18; O2SAT 96
[2022-12-15 16:01] LABS: Basophils Percent Auto 0.2 % (0.2-1.2); Eosinophils Absolute Auto 0.3 K/mm3 (0-0.3); Eosinophils Percent Auto 2.8 % (0-4.4); Hematocrit 41.7 % (42.0-52.0); Hemoglobin 13.1 g/dL (14.0-18.0); Immature Granulocyte Absolute 0.05 K/mm3 (0.00-0.031); Immature Granulocyte Percent A 0.4 % (0-0.5); Lymphocytes Absolute Auto 1.32 K/mm3 (0.9-3.2); Lymphocytes Percent Auto 11.1 % (18.3-44.2); Mean Corpuscular HGB Conc 31.4 g/dl (32-36); Mean Corpuscular Volume 85.8 fl (80-100); Mean Platelet Volume 9.8 fl (7.4-10.4); Monocytes Absolute Auto 1.2 K/mm3 (0.1-0.6); Monocytes Percent Auto 10.1 % (2.6-8.5); Neutrophils Percent Auto 75.4 % (45.5-73.1); Platelet Count Result 215 k/mm3 (150-375); Red Blood Count 4.86 M/mm3 (4.6-6.20); Red Cell Distribution Width 15.4 % (11.5-14.5); White Blood Count 11.9 K/mm3 (4.5-10.0)
[2022-12-15] MEDS: levoFLOXacin 500 MG TABLET PO (16:01)
[2022-12-15 16:02] LABS: Appearance Urine Cloudy (Clear); Bilirubin Urine 1+ (Negative); Blood Urine 3+ (Negative); Color Urine Yellow (Yellow); Glucose Urine UA Trace mg/dL (Negative); Ketones Urine Negative (Negative); Leukocyte Esterase Ur 3+ LEU/UL (Negative); Nitrate Urine Negative (Negative); Protein Urine 3+ mg/dL (Negative); Specific Grav Ur 1.025 (1.001-1.035)
[2022-12-15 16:08] LABS: Bacteria Urine Trace /hpf; RBC Urine >75 /hpf (0-2); Squamous Epithelial Cell Urine Few /hpf (Few); WBC Urine >75 /hpf
[2022-12-15 16:15] VITALS: BP 120/72; PULSE 65; RESP 16; O2SAT 98
[2022-12-15 16:21] LABS: Add Urine Microscopic? YES
--- NOTE | 2022-12-15 16:21 | ED.MALEGU ---
HPI - Male Genitourinary General Chief complaint: Urogenital-Male Stated complaint: swollen testicle Time Seen by Provider: 12/15/22 14:44 History of Present Illness HPI Narrative: Patient states that the last few days he has been having creasing pain with urination, as well as some possible back pain, he is in today because he noticed increasing swelling and pain to his left testicle. Related Data Home Medications Medication Instructions Recorded Confirmed apixaban 5 mg tablet (Eliquis) 5 mg PO BID 01/26/22 03/16/22 finasteride 5 mg tablet 5 mg PO HS 01/26/22 03/16/22 glimepiride 4 mg tablet 4 mg PO DAILY 01/26/22 03/16/22 lisinopril 20 mg tablet 20 mg PO HS 01/26/22 03/16/22 loratadine 10 mg tablet 10 mg PO DAILY 01/26/22 03/16/22 metformin 1,000 mg tablet 1,000 mg PO BID 01/26/22 03/16/22 tamsulosin 0.4 mg capsule 0.4 mg PO HS 01/26/22 03/16/22 diltiazem HCl 120 mg capsule,24 360 mg PO DAILY 03/15/22 03/15/22 hr,extended release rosuvastatin 10 mg tablet 10 mg PO DAILY 03/15/22 03/16/22 sotalol 80 mg tablet 80 mg PO BID 03/15/22 03/15/22 Allergies Allergy/AdvReac Type Severity Reaction Status Date / Time No Known Allergies Allergy Verified 03/16/22 08:53 Review of Systems Review of Systems: CONST: No fever. HEENT: No sore throat C/V: No chest pain RESP: No cough GI: Some flank pain : dysuria. Left testicular swelling and pain M/S: No joint pain. SKIN: No rash. NEURO: [No headache or focal numbness or weakness] PSYCH: [No depression] [facility] Past Medical History Medical History Atrial fibrillation and flutter CAD (coronary atherosclerotic disease) Chronic anticoagulation Diabetes Inguinal hernia Surgical History Surgical History History of cardiac radiofrequency ablation Stented coronary artery Family History Family History Father Cerebrovascular accident Mother No problems noted. Other Unknown family medical history Social History Social History Smoking status: Never smoker Alcohol intake: never Substance use: never Substance use type: does not use Spiritual care concerns: No Exam Narrative: EXAMINATION OF ORGAN SYSTEMS/BODY AREAS: Constitutional: Vital signs per nursing GENERAL:[No acute distress, non-toxic appearing.] HEAD: Normal with no signs of head trauma. EYES: EOMI, conjunctiva normal ENT: Hearing grossly intact LUNGS: Nonlabored breathing. HEART: [Regular rate and rhythm] ABD: [Soft], [nontender to palpation] : Swelling and tenderness to left testicle EXT: Normal range of motion SKIN: [No rashes or lesions.] NEURO: [Alert and oriented x 3. No gross focal sensory or strength deficits.] PSYCH: Normal affect Course Vital Signs Vital signs: Vital Signs Temperature 97.9 F 12/15/22 12:19 Pulse Rate 70 12/15/22 12:19 Respiratory Rate 18 12/15/22 12:19 Blood Pressure 126/60 12/15/22 12:19 Pulse Oximetry 97 12/15/22 12:19 Oxygen Delivery Room Air 12/15/22 12:19 Temperature 97.9 F 12/15/22 12:19 Pulse Rate 65 12/15/22 16:15 Respiratory Rate 16 12/15/22 16:15 Blood Pressure 120/72 12/15/22 16:15 Pulse Oximetry 98 12/15/22 16:15 Oxygen Delivery Room Air 12/15/22 15:40 MDM - Male Genitourinary MDM Narrative Medical decision making narrative: 77-year-old male year-old patient presenting with left testicular pain and urinary symptoms consistent with UTI. Urinalysis is obtained and positive for signs of infection. Urine culture sent. Scrotal ultrasound obtained which confirms epididymo-orchitis. Patient started on levofloxacin after I checked an EKG as I did note that patient was on sotalol, Interpreted by me. [Sinus rhythm]. Rate 89. [Normal] axis. OR-interval [normal]. QRS duration [normal]. QTc [normal
[2022-12-15 16:26] LABS: Anion Gap 6 mmol/L (8-16); Blood Urea Nitrogen 10 mg/dL (9-20); Calcium 8.3 mg/dL (8.4-10.2); Carbon Dioxide 25 mmol/L (22-30); Chloride 105 mmol/L (98-107); Estimated CRCL calculation 93 ml/min; Estimated Glomerular Filt Rate > 60; Glucose 53 mg/dL (65-110); Potassium 4.2 mmol/L (3.4-5.0); Sodium 136 mmol/L (137-145)
[2022-12-15 17:57] LABS: Glucose Point of Care 121 mg/dl (65-105)
--- NOTE | 2022-12-15 18:44 | ECG_ITS ---
Measurements Intervals [place] Rate: 72 P: 65 [place]: 205 QRS: 40 QRSD: 95 T: 43 QT: 378 QTc: 414 Interpretive Statements SINUS RHYTHM BORDERLINE AV CONDUCTION DELAY LOW QRS VOLTAGE IN PRECORDIAL LEADS ANTEROSEPTAL INFARCT, AGE INDETERMINATE BASELINE ARTIFACT- I, III, AVF, V1 ABNORMAL ECG NO SIGNIFICANT CHANGES Electronically Signed On 12-15-2022 20:19:47 PULP AND PAPER TESTER by Feng Reddy D.O.
[2022-12-15 19:00] LABS: Glucose Point of Care 141 mg/dl (65-105)
[2022-12-15 19:15] VITALS: BP 168/76; PULSE 72; RESP 16; O2SAT 96
== END 2022-12-15 19:15 | disposition home or self-care (01) ==
PROVIDERS: Emergency Provider Emergency Medicine; PCP Family Medicine
DX: I48.91 Unspecified atrial fibrillation (principal); I48.92 Unspecified atrial flutter; I25.10 Atherosclerotic heart disease of native coronary artery without angina pectoris; E11.9 Type 2 diabetes mellitus without complications; Z95.5 Presence of coronary angioplasty implant and graft; N39.0 Urinary tract infection, site not specified; R31.9 Hematuria, unspecified; N45.3 Epididymo-orchitis; Z79.84 Long term (current) use of oral hypoglycemic drugs; Z79.01 Long term (current) use of anticoagulants
CPT/HCPCS: 36415; 51702; 76870; 80048; 81001; 82948; 85025; 87086; 87147; 87181; 87186; 93005; 93976; 99284; A9270

== ENCOUNTER 2022-12-25 16:16 | Emergency (ER) | payer MEDICARE, OTHER, SELFPAY ==
[2022-12-25 16:29] VITALS: BP 149/69; PULSE 104; RESP 15; TEMP 37.2; O2SAT 97
[2022-12-25 17:05] VITALS: BP 146/60; PULSE 89; RESP 18; TEMP 36.8; O2SAT 97
--- NOTE | 2022-12-25 17:08 | ED.GENADULT ---
HPI - General Adult General Chief complaint: Urogenital-Male Stated complaint: URINARY RETENTION Time Seen by Provider: 12/25/22 16:58 Source: RN notes reviewed History of Present Illness HPI narrative: Patient presents emergency department from home for urinary retention. Patient states has been unable to urinate since yesterday afternoon. States that is associated with lower abdominal pressure. Patient states that he has recently been treated for a infection in his testicles and had a catheter present that was recently removed and he was followed up with urologist denies any fevers or chills chest pain shortness of breath states his pressure in his testicles has been improving Related Data Home Medications Medication Instructions Recorded Confirmed apixaban 5 mg tablet (Eliquis) 5 mg PO BID 01/26/22 03/16/22 finasteride 5 mg tablet 5 mg PO HS 01/26/22 03/16/22 glimepiride 4 mg tablet 4 mg PO DAILY 01/26/22 03/16/22 lisinopril 20 mg tablet 20 mg PO HS 01/26/22 03/16/22 loratadine 10 mg tablet 10 mg PO DAILY 01/26/22 03/16/22 metformin 1,000 mg tablet 1,000 mg PO BID 01/26/22 03/16/22 tamsulosin 0.4 mg capsule 0.4 mg PO HS 01/26/22 03/16/22 diltiazem HCl 120 mg capsule,24 360 mg PO DAILY 03/15/22 03/15/22 hr,extended release rosuvastatin 10 mg tablet 10 mg PO DAILY 03/15/22 03/16/22 sotalol 80 mg tablet 80 mg PO BID 03/15/22 03/15/22 Allergies Allergy/AdvReac Type Severity Reaction Status Date / Time No Known Allergies Allergy Verified 03/16/22 08:53 Review of Systems Review of Systems: Gen.: Denies fevers or chills ENT: Denies congestion Respiratory: Denies shortness of breath or cough CV: Denies chest pain or palpitations GI: Reports lower abdominal pain denies nausea, emesis or diarrhea see HPI Musculoskeletal: Denies back pain or muscle pain Neuro: Denies numbness, tingling, weakness or focal weakness Skin: Denies rash Except as documented, all other systems reviewed and negative PMFSH Past Medical History Medical History Atrial fibrillation and flutter CAD (coronary atherosclerotic disease) Chronic anticoagulation Diabetes Inguinal hernia Surgical History Surgical History History of cardiac radiofrequency ablation Stented coronary artery Family History Family History Father Cerebrovascular accident Mother No problems noted. Other Unknown family medical history Social History Social History Smoking status: Never smoker Alcohol intake: never Substance use: never Substance use type: does not use Living arrangements: with family Spiritual care concerns: No Exam Narrative: APPEARANCE: No acute distress, nontoxic, resting in bed EYES: EOMI HEENT: Normocephalic, atraumatic, OMM RESPIRATORY: No respiratory distress Clear to auscultation bilaterally with no rhonchi wheezing or rales. CARDIOVASCULAR: Regular rate and rhythm without murmurs rubs or gallops. ABDOMINAL: Mild firmness in lower abdomen with mild distention noted nontender to palpation no rebound : Uncircumcised male no phimosis or paraphimosis mild scrotal edema no tenderness of the bilateral testicles, no scrotal erythema MUSCULOSKELETAl: Moves all extremities. No clubbing, cyanosis or edema. NEURO: Awake and alert. Following commands, speech normal, no focal deficits SKIN:: Warm, dry. No rashes lesions or abrasions PSYCHIATRIC: Normal affect/mood, Course Course Emergency Course: Patient with Hughes catheter in place emergency department approximately 300 mL out states she is feeling much better Discussed with Dr. Michael for Dr. Morrison for urology. Agrees with plan for discharge and follow-up as an outpatient Discussed with patient results of workup and diagnosis. Discussed need for follow-up with
[2022-12-25 17:21] LABS: Basophils Percent Auto 0.2 % (0.2-1.2); Eosinophils Absolute Auto 0.3 K/mm3 (0-0.3); Eosinophils Percent Auto 4.4 % (0-4.4); Hematocrit 39.3 % (42.0-52.0); Hemoglobin 12.6 g/dL (14.0-18.0); Immature Granulocyte Absolute 0.03 K/mm3 (0.00-0.031); Immature Granulocyte Percent A 0.5 % (0-0.5); Lymphocytes Percent Auto 10.6 % (18.3-44.2); Mean Corpuscular HGB Conc 32.1 g/dl (32-36); Mean Corpuscular Hemoglobin 27.1 pg (26-34); Mean Corpuscular Volume 84.5 fl (80-100); Mean Platelet Volume 8.9 fl (7.4-10.4); Monocytes Absolute Auto 0.8 K/mm3 (0.1-0.6); Monocytes Percent Auto 14.1 % (2.6-8.5); Neutrophils Percent Auto 70.2 % (45.5-73.1); Platelet Count Result 172 k/mm3 (150-375); Red Blood Count 4.65 M/mm3 (4.6-6.20); Red Cell Distribution Width 15.6 % (11.5-14.5); White Blood Count 5.7 K/mm3 (4.5-10.0)
[2022-12-25 17:22] LABS: Appearance Urine Slightly Cloudy (Clear); Bilirubin Urine Negative (Negative); Blood Urine Trace-intact (Negative); Color Urine Yellow (Yellow); Glucose Urine UA Negative (Negative); Ketones Urine Negative (Negative); Leukocyte Esterase Ur Negative LEU/UL (Negative); Nitrate Urine Negative (Negative); Protein Urine Negative (Negative); Specific Grav Ur 1.025 (1.001-1.035); Urobilinogen Urine 0.2 mg/dL (<2.0); pH Urine 5.5 (5.0-9.0)
[2022-12-25 17:31] LABS: Anion Gap 7 mmol/L (8-16); Blood Urea Nitrogen 14 mg/dL (9-20); Calcium 8.8 mg/dL (8.4-10.2); Carbon Dioxide 27 mmol/L (22-30); Chloride 99 mmol/L (98-107); Estimated CRCL calculation 50 ml/min; Estimated Glomerular Filt Rate 54; Glucose 72 mg/dL (65-110); Potassium 3.8 mmol/L (3.4-5.0); Sodium 133 mmol/L (137-145)
[2022-12-25 17:39] LABS: Bacteria Urine Trace /hpf; Calcium Oxalate Crystals Urine Present /hpf; Mucus Urine Rare /lpf; WBC Urine 0-3 /hpf
[2022-12-25 17:43] LABS: Add Urine Microscopic? YES
[2022-12-25 18:25] VITALS: BP 148/66; PULSE 86; RESP 18; O2SAT 96
== END 2022-12-25 18:27 | disposition home or self-care (01) ==
PROVIDERS: Emergency Provider Emergency Medicine; PCP Family Medicine
DX: R33.9 Retention of urine, unspecified (principal); I48.91 Unspecified atrial fibrillation; I48.92 Unspecified atrial flutter; I25.10 Atherosclerotic heart disease of native coronary artery without angina pectoris; E11.9 Type 2 diabetes mellitus without complications; Z79.84 Long term (current) use of oral hypoglycemic drugs; Z79.01 Long term (current) use of anticoagulants; Z95.5 Presence of coronary angioplasty implant and graft
CPT/HCPCS: 36415; 51702; 80048; 81001; 85025; 99283

== ENCOUNTER 2023-01-24 03:26 | Emergency (ER) | payer MEDICARE, OTHER, SELFPAY ==
[2023-01-24] VITALS (10 sets, daily range): BP systolic 154–178; BP diastolic 71–77; PULSE 69–72; RESP 17–18; TEMP 35.8; O2SAT 93–100
--- NOTE | 2023-01-24 04:50 | PC.NURSE ---
Per MD Go, aggarwal catheter exchanged at this time. 225ml yellow urine return.
[2023-01-24 04:53] LABS: Basophils Percent Auto 0.2 % (0.2-1.2); Eosinophils Absolute Auto 0.7 K/mm3 (0-0.3); Eosinophils Percent Auto 7.6 % (0-4.4); Hematocrit 40.5 % (42.0-52.0); Hemoglobin 12.9 g/dL (14.0-18.0); Immature Granulocyte Absolute 0.05 K/mm3 (0.00-0.031); Immature Granulocyte Percent A 0.6 % (0-0.5); Lymphocytes Absolute Auto 1.44 K/mm3 (0.9-3.2); Lymphocytes Percent Auto 16.6 % (18.3-44.2); Mean Corpuscular HGB Conc 31.9 g/dl (32-36); Mean Corpuscular Hemoglobin 27.2 pg (26-34); Mean Corpuscular Volume 85.3 fl (80-100); Mean Platelet Volume 9.9 fl (7.4-10.4); Monocytes Absolute Auto 0.6 K/mm3 (0.1-0.6); Monocytes Percent Auto 7.4 % (2.6-8.5); Neutrophils Absolute Auto 5.9 K/mm3 (1.3-6.7); Neutrophils Percent Auto 67.6 % (45.5-73.1); Platelet Count Result 193 k/mm3 (150-375); Red Blood Count 4.75 M/mm3 (4.6-6.20); Red Cell Distribution Width 15.9 % (11.5-14.5); White Blood Count 8.7 K/mm3 (4.5-10.0)
[2023-01-24 05:02] LABS: Appearance Urine Clear (Clear); Bacteria Urine None Seen /hpf; Bilirubin Urine Negative (Negative); Blood Urine 3+ (Negative); Color Urine Yellow (Yellow); Glucose Urine UA Negative (Negative); Ketones Urine Negative (Negative); Leukocyte Esterase Ur Trace LEU/UL (Negative); Need Manual Microscopic Reviewed; Nitrate Urine Negative (Negative); Non Pathogenic Casts 0-2; Protein Urine 1+ mg/dL (Negative); Specific Grav Ur 1.015 (1.001-1.035); Squamous Epithelial Cell Urine None seen /hpf (Few); WBC Urine 0-5 /hpf
[2023-01-24 05:03] LABS: Add Urine Microscopic? YES
[2023-01-24 05:11] LABS: Alanine Aminotransferase 15 U/L (6-50); Albumin Level 3.8 g/dL (3.5-5.1); Alkaline Phosphatase 58 U/L (38-126); Anion Gap 4 mmol/L (8-16); Aspartate Amino Transferase 16 U/L (17-59); Bilirubin,Total 0.7 mg/dL (0.2-1.3); Blood Urea Nitrogen 13 mg/dL (9-20); Calcium 8.4 mg/dL (8.4-10.2); Carbon Dioxide 26 mmol/L (22-30); Chloride 102 mmol/L (98-107); Estimated CRCL calculation 80 ml/min; Estimated Glomerular Filt Rate > 60; Glucose 98 mg/dL (65-110); Potassium 3.9 mmol/L (3.4-5.0); Sodium 132 mmol/L (137-145)
--- NOTE | 2023-01-24 05:29 | ED.MALEGU ---
HPI - Male Genitourinary General Chief complaint: Urogenital-Male Stated complaint: clogged catheter Time Seen by Provider: 01/24/23 04:16 Source: patient Mode of arrival: ambulatory Limitations: no limitations History of Present Illness HPI Narrative: This is a 77 year old male with history of urinary retention who presents for evaluation decreased urinary outpatient. Patient states last night he noticed that he did not have any drainage in his aggarwal bag since 8 pm . He is having lower abdominal pressure and bladder spasms. He also notes some leakage around his catheter. He denies nausea, vomiting, weakness, back pain or hematuria . He has appointment with urology tomorrow. Related Data Home Medications Medication Instructions Recorded Confirmed apixaban 5 mg tablet (Eliquis) 5 mg PO BID 01/26/22 12/26/22 finasteride 5 mg tablet 5 mg PO HS 01/26/22 03/16/22 glimepiride 4 mg tablet 4 mg PO DAILY 01/26/22 12/26/22 lisinopril 20 mg tablet 20 mg PO HS 01/26/22 12/26/22 loratadine 10 mg tablet 10 mg PO DAILY 01/26/22 12/26/22 metformin 1,000 mg tablet 1,000 mg PO BID 01/26/22 12/26/22 tamsulosin 0.4 mg capsule 0.4 mg PO HS 01/26/22 12/26/22 diltiazem HCl 120 mg capsule,24 360 mg PO DAILY 03/15/22 12/26/22 hr,extended release rosuvastatin 10 mg tablet 10 mg PO DAILY 03/15/22 12/26/22 sildenafil 100 mg tablet 100 mg PO 12/26/22 12/26/22 Allergies Allergy/AdvReac Type Severity Reaction Status Date / Time No Known Allergies Allergy Verified 01/24/23 04:10 Review of Systems Constitutional: Constitutional: Denies weakness Cardiovascular: Cardiovascular: Denies syncope, Denies rapid heart rate, Denies irregular heart rhythm, Denies leg edema and Denies dyspnea Respiratory: Respiratory: Denies chest congestion, Denies hemoptysis, Denies excessive phlegm production and Denies dyspnea Gastrointestinal: Gastrointestinal: Reports abdominal pain, Denies hematochezia, Denies diarrhea and Denies vomiting Genitourinary: Genitourinary: Denies hematuria, Reports oliguria, Denies dysuria, Denies penile discharge and Denies testicular pain Musculoskeletal: Musculoskeletal: Denies joint swelling, Denies loss of height and Denies muscle weakness Neurologic: Denies syncope, Denies focal weakness and Denies weakness PMFSH Past Medical History Medical History Atherosclerosis of aorta Atherosclerotic heart disease of [place] coronary artery without angina pectoris Atrial fibrillation and flutter Bradycardia Chronic anticoagulation Diabetes Heart failure, unspecified Hypertensive heart disease with heart failure Male erectile dysfunction, unspecified Pulmonary hypertension, unspecified Pure hypercholesterolemia, unspecified Type 2 diabetes mellitus with diabetic neuropathy, 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 Other Unknown family medical history Social History Social History Smoking status: Never smoker Alcohol intake: never Substance use: never Substance use type: does not use Living arrangements: with family Spiritual care concerns: No Exam Const: General: no acute distress and alert Nutritional Appearance: well nourished HENMT: Head: normal to inspection Eyes: EOM: EOMs intact bilaterally Chest: Chest palpation & inspection: normal inspection of the chest Resp: Effort & Inspection: normal respiratory effort Auscultation: clear to auscultation bilaterally Cardio: Rate: regular rate Rhythm: regular rhythm Heart sounds:
== END 2023-01-24 05:54 | disposition home or self-care (01) ==
PROVIDERS: Emergency Provider General Practice; PCP Family Medicine
DX: R33.9 Retention of urine, unspecified (principal); T83.9XXA Unspecified complication of genitourinary prosthetic device, implant and graft, initial encounter; I25.10 Atherosclerotic heart disease of native coronary artery without angina pectoris; I48.91 Unspecified atrial fibrillation; Z79.01 Long term (current) use of anticoagulants; I11.0 Hypertensive heart disease with heart failure; I50.9 Heart failure, unspecified; E78.5 Hyperlipidemia, unspecified; E11.40 Type 2 diabetes mellitus with diabetic neuropathy, unspecified; Z79.84 Long term (current) use of oral hypoglycemic drugs
CPT/HCPCS: 36415; 51702; 80053; 81001; 85025; 99283

== ENCOUNTER 2023-04-28 22:35 | Emergency (ER) | payer MEDICARE, OTHER, SELFPAY ==
[2023-04-28 22:39] VITALS: BP 158/97; PULSE 56; RESP 18; TEMP 37; O2SAT 98
--- NOTE | 2023-04-28 23:20 | PC.NURSE ---
This RN assumed care of patient.
--- NOTE | 2023-04-28 23:35 | PC.NURSE ---
Pt to ED with c/o of indwelling catheter not draining. Pt presents with indwelling catheter in tact. Pt had urine drainage or dribbling present. Bladder scan showed 211 mL.
--- NOTE | 2023-04-28 23:52 | PC.NURSE ---
16Fr aggarwal catheter irrigated using sterile saline. Approx 20ml instilled and approx 220ml returned. Urine is dark in color with mucus present but no obvious blood noted. Another 20ml instilled to continue irrigating, but could not draw syringe back. Repeat bladder scan shows 60ml urine retained. Pt reports feeling relief of pressure in his bladder. Aggarwal reconnected to leg bag.
--- NOTE | 2023-04-29 00:54 | ED.MALEGU ---
HPI - Male Genitourinary General Chief complaint: Urogenital-Male Stated complaint: catheter not draining since 1700 Time Seen by Provider: 04/29/23 00:48 History of Present Illness HPI Narrative: 77-year-old male with a history of urinary retention reports for evaluation of his Hughes catheter not draining. Patient states he had his catheter switch by his urologist, Dr. Morrison on 04/27. States the following day, he noticed blood in his catheter. Patient states he called Dr. Morrison' office who advised him to drink more fluids. States later in afternoon his catheter stopped draining around 3 PM, therefore he came to the ED. He denies fever, bodyaches, chills, abdominal pain or back pain. Related Data Home Medications Medication Instructions Recorded Confirmed apixaban 5 mg tablet (Eliquis) 5 mg PO BID 01/26/22 12/26/22 finasteride 5 mg tablet 5 mg PO HS 01/26/22 03/16/22 glimepiride 4 mg tablet 4 mg PO DAILY 01/26/22 12/26/22 lisinopril 20 mg tablet 20 mg PO HS 01/26/22 12/26/22 loratadine 10 mg tablet 10 mg PO DAILY 01/26/22 12/26/22 metformin 1,000 mg tablet 1,000 mg PO BID 01/26/22 12/26/22 tamsulosin 0.4 mg capsule 0.4 mg PO HS 01/26/22 12/26/22 diltiazem HCl 120 mg capsule,24 360 mg PO DAILY 03/15/22 12/26/22 hr,extended release rosuvastatin 10 mg tablet 10 mg PO DAILY 03/15/22 12/26/22 sildenafil 100 mg tablet 100 mg PO 12/26/22 12/26/22 Allergies Allergy/AdvReac Type Severity Reaction Status Date / Time No Known Allergies Allergy Verified 04/28/23 22:36 Review of Systems Review of Systems: CONSTITUTIONAL: Denies fever, chills EYES: Denies visual changes, redness, or discharge. ENT: Denies rhinorrhea, congestion, sore throat, or otalgia. CARDIOVASCULAR: Denies chest pain, palpitations, or edema. RESPIRATORY: Denies cough or dyspnea. GASTROINTESTINAL: Denies abdominal pain, nausea, vomiting, or diarrhea. GENITOURINARY: See HPI SKIN: Denies rash or itching. MUSCULOSKELETAL: Denies back pain, joint pain, or myalgia. NEUROLOGIC: Denies headache, numbness, dizziness, or weakness. PSYCHIATRIC: Denies anxiety or depression. 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 Other Unknown family medical history Social History Social History Smoking status: Never smoker Alcohol intake: never Substance use: never Substance use type: does not use Living arrangements: with family Spiritual care concerns: No Exam Narrative: GENERAL: Well-appearing, in no acute distress. HEAD: Normocephalic NECK: Supple. CHEST: No respiratory distress. Clear to auscultation, no adventitious breath sounds. HEART: Regular rate and rhythm. No murmur heard. Normal peripheral pulses. ABDOMEN: Soft, nontender, normal active bowel sounds. : Hughes catheter in place with leg bag. No penile discharge, rash or swelling. EXTREMITIES: Normal range of motion. No edema. SKIN: Warm, dry, no rash. NEURO: No focal deficits. Alert and oriented x3. PSYCH: Normal mood and affect.
--- NOTE | 2023-04-29 01:15 | PC.NURSE ---
Approx 50ml urine drained out of aggarwal bag and sent for UA.
[2023-04-29 01:25] LABS: Appearance Urine Cloudy (Clear); Bacteria Urine None Seen /hpf; Bilirubin Urine Negative (Negative); Blood Urine 3+ (Negative); Color Urine Yellow (Yellow); Glucose Urine UA Negative (Negative); Ketones Urine Negative (Negative); Leukocyte Esterase Ur 2+ LEU/UL (Negative); Need Manual Microscopic Reviewed; Nitrate Urine Negative (Negative); Non Pathogenic Casts 0-2; Protein Urine 2+ mg/dL (Negative); RBC Urine >100 /hpf (0-2); Specific Grav Ur 1.012 (1.001-1.035); Squamous Epithelial Cell Urine Few /hpf (Few); Urobilinogen Urine 0.2 mg/dL (<2.0); WBC Urine 21-50 /hpf; pH Urine 5.5 (5.0-9.0)
[2023-04-29 01:30] LABS: Add Urine Microscopic? YES
== END 2023-04-29 02:20 | disposition home or self-care (01) ==
PROVIDERS: Emergency Provider Physician Assistant; PCP Family Medicine
DX: T83.098A Other mechanical complication of other urinary catheter, initial encounter (principal); N39.0 Urinary tract infection, site not specified; I48.91 Unspecified atrial fibrillation; I48.92 Unspecified atrial flutter; I25.10 Atherosclerotic heart disease of native coronary artery without angina pectoris; I70.0 Atherosclerosis of aorta; I50.9 Heart failure, unspecified; I11.0 Hypertensive heart disease with heart failure; I27.20 Pulmonary hypertension, unspecified; E11.42 Type 2 diabetes mellitus with diabetic polyneuropathy; E11.59 Type 2 diabetes mellitus with other circulatory complications; Z95.5 Presence of coronary angioplasty implant and graft; Z79.01 Long term (current) use of anticoagulants; Z79.84 Long term (current) use of oral hypoglycemic drugs; Y84.6 Urinary catheterization as the cause of abnormal reaction of the patient, or of later complication, without mention of misadventure at the time of the procedure
CPT/HCPCS: 81001; 87077; 87086; 87186; 99283

== ENCOUNTER 2023-07-26 01:42 | Emergency (ER) | payer MEDICARE, OTHER, SELFPAY ==
[2023-07-26 01:44] VITALS: BP 164/88; PULSE 75; RESP 18; TEMP 36.4; O2SAT 96
--- NOTE | 2023-07-26 02:02 | PC.NURSE ---
Patient was bladder scanned. 120mL was recorded.
--- NOTE | 2023-07-26 04:36 | PC.NURSE ---
Patient was called in triage area to take vitals twice once at 0359 and again at 0435. No answer either time.
== END 2023-07-26 04:36 | disposition left against medical advice (07) ==
LOC: ANHED 05:39
PROVIDERS: PCP Family Medicine
DX: Z43.6 Encounter for attention to other artificial openings of urinary tract (principal)
CPT/HCPCS: 99199

== ENCOUNTER 2023-11-28 20:51 | Emergency (ER) | payer MEDICARE, OTHER, SELFPAY ==
[2023-11-28 21:26] VITALS: BP 125/47; PULSE 57; RESP 20; TEMP 36.6; O2SAT 98
[2023-11-28 22:13] LABS: Influenza A QL RT-PCR Negative (Negative); Influenza B QL RT-PCR Negative (Negative); RSV RNA, RT-PCR Negative (Negative); SARS-CoV-2 RNA PCR Negative (Negative)
--- NOTE | 2023-11-29 00:52 | ED.URI ---
HPI - URI/Sore Throat General Chief Complaint: Upper Respiratory Infection Stated Complaint: cough Time Seen by Provider: 11/28/23 23:41 History of Present Illness HPI Narrative: 78-year-old male presents to the emergency department for RSV testing. Patient presents with his family at bedside. His great granddaughter chest positive for RSV arm urgency department earlier the day and he is requesting testing given close contact. He denies symptoms including nasal congestion, cough, chest pain or shortness of breath, otalgia or sore throat. Denies fever. Related Data Home Medications Medication Instructions Recorded Confirmed apixaban 5 mg tablet (Eliquis) 5 mg PO BID 01/26/22 06/26/23 glimepiride 4 mg tablet 4 mg PO DAILY 01/26/22 06/26/23 lisinopril 20 mg tablet 20 mg PO HS 01/26/22 06/26/23 loratadine 10 mg tablet 10 mg PO DAILY 01/26/22 06/26/23 metformin 1,000 mg tablet 1,000 mg PO BID 01/26/22 06/26/23 diltiazem HCl 120 mg capsule,24 360 mg PO DAILY 03/15/22 06/26/23 hr,extended release rosuvastatin 10 mg tablet 10 mg PO DAILY 03/15/22 06/26/23 sildenafil 100 mg tablet 100 mg PO 12/26/22 12/26/22 Allergies Allergy/AdvReac Type Severity Reaction Status Date / Time No Known Allergies Allergy Verified 11/28/23 21:35 Review of Systems Review of Systems: CONSTITUTIONAL: Denies fever, chills, or sweats. EYES: Denies visual changes, redness, or discharge. ENT: Denies rhinorrhea, congestion, sore throat, or otalgia. CARDIOVASCULAR: Denies chest pain, palpitations, or edema. RESPIRATORY: Denies cough or dyspnea. GASTROINTESTINAL: Denies abdominal pain, nausea, vomiting, or diarrhea. GENITOURINARY: Denies dysuria or hematuria. SKIN: Denies rash or itching. MUSCULOSKELETAL: Denies back pain, joint pain, or myalgia. NEUROLOGIC: Denies headache, numbness, or weakness. PSYCHIATRIC: Denies anxiety or depression. 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 Other Unknown family medical history Social History Social History Smoking status: Never smoker Alcohol intake: never Substance use: never Substance use type: does not use Lack of Transportation: No Lack of Food: Never True Current Housing: I Have Housing Concerned About Future Housing: No Difficulty Paying Gas/Electric Bills: No Difficulty Paying for Meds: No Currently Unemployed: No Education: Associate Degree Difficulty w/ Childcare or Family Care: No Living arrangements: with family Occupation/Education: retired Gender identity (if verbalized by the patient): Male Sexual Orientation (if Verbalized by the Patient): Straight or Heterosexual Spiritual care concerns: No Exam Narrative: GENERAL: Well-appearing, well-nourished, and in no acute distress. HEAD: Normocephalic, atraumatic. EYES: PERRLA and EOMI. ENT: Nares clear, no rhinorrhea or epistaxis. Mucous membranes moist. Posterior pharynx without erythema or edema. No tonsillar hypertrophy. Uvula is midline. Bi
== END 2023-11-29 01:13 | disposition home or self-care (01) ==
PROVIDERS: Student in an Organized Health Care Education/Training Program; Emergency Provider Physician Assistant; PCP Family Medicine
DX: Z20.828 Contact with and (suspected) exposure to other viral communicable diseases (principal); E11.9 Type 2 diabetes mellitus without complications; I48.91 Unspecified atrial fibrillation; I25.10 Atherosclerotic heart disease of native coronary artery without angina pectoris; I11.0 Hypertensive heart disease with heart failure; I50.9 Heart failure, unspecified; Z20.822 Contact with and (suspected) exposure to COVID-19
CPT/HCPCS: 87637; 99283

== ENCOUNTER 2024-04-09 23:17 | Emergency (ER) | payer MEDICARE, OTHER, SELFPAY ==
[2024-04-09 23:22] VITALS: BP 181/72; PULSE 61; RESP 16; TEMP 36.6; O2SAT 98
--- NOTE | 2024-04-09 23:26 | PC.NURSE ---
at time of triage no urine in aggarwal bag.
--- NOTE | 2024-04-09 23:56 | ED.GENADULT ---
HPI - General Adult General Chief complaint: Urogenital-Male Stated complaint: cath problems Time Seen by Provider: 04/09/24 23:21 History of Present Illness HPI narrative: This is a 78-year-old male with a chronic indwelling Hughes presenting for Hughes malfunction. Patient is concerned because his Hughes did not drain throughout most of the day. He did notice that he has had some leakage around the Hughes that is associated with bladder spasms. The urine that has come out of his Hughes has been dark. The patient says that he has not drink any water all day. He denies fevers chills nausea vomiting diarrhea or flank pain. Patient had his Hughes switched out earlier today in Dr. Morrison' office. Related Data Home Medications Medication Instructions Recorded Confirmed apixaban 5 mg tablet (Eliquis) 5 mg PO BID 01/26/22 01/05/24 loratadine 10 mg tablet 10 mg PO DAILY 01/26/22 01/05/24 sildenafil 100 mg tablet 100 mg PO 12/26/22 01/05/24 Allergies Allergy/AdvReac Type Severity Reaction Status Date / Time No Known Allergies Allergy Verified 04/09/24 23:25 [facility] Past Medical History Medical History Atherosclerosis of aorta Atherosclerotic heart disease of [place] coronary artery without angina pectoris Atrial fibrillation and flutter Bradycardia Chronic anticoagulation Diabetes Heart failure, unspecified Hypertensive heart disease with heart failure Male erectile dysfunction, unspecified Pulmonary hypertension, unspecified Pure hypercholesterolemia, unspecified Type 2 diabetes mellitus with diabetic neuropathy, 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 Other Unknown family medical history Social History Social History Smoking status: Never smoker Alcohol intake: never Substance use: never Substance use type: does not use Lack of Transportation: No Lack of Food: Never True Current Housing: I Have Housing Concerned About Future Housing: No Difficulty Paying Gas/Electric Bills: No Difficulty Paying for Meds: No Currently Unemployed: No Education: Associate Degree Difficulty w/ Childcare or Family Care: No Living arrangements: with family Occupation/Education: retired Gender identity (if verbalized by the patient): Male Sexual Orientation (if Verbalized by the Patient): Straight or Heterosexual Spiritual care concerns: No Exam Narrative: APPEARANCE: No apparent distress. Head: atraumatic. EYES: EOMI, NOSE: Atraumatic NECK: Trachea midline RESPIRATORY: No increased rate of breathing CARDIOVASCULAR: RRR, ABDOMINAL: mild suprapubic tenderness, no suprapubic fullness, no guarding no rebound no CVA tenderness, ultrasound showed decompressed bladder MUSCULOSKELETAl: No obvious deformities NEURO: Alert. Moving 4/4 extremities SKIN:: Warm, dry. Normal color PSYCHIATRIC: Normal affect Course Vital Signs Vital signs: Vital Signs Temperature 98 F 04/09/24 23:22 Pulse Rate 61 04/09/24 23:22 Respiratory Rate 16 04/09/24 23:22 Blood Pressure 181/72 H 04/09/24 23:22 Pulse Oximetry 98 04/09/24 23:22 Oxygen Delivery Room Air 04/09/24 23:22 Temperature 98 F 04/09/24 23:22 Pulse Rate 61 04/09/24 23:22 Respiratory Rate 16 04/09/24 23:22 Blood Pressure 181/72 H 04/09/24 23:22 Pulse Oximetry 98 04/09/24 23:22 Oxygen Delivery Room Air 04/09/24 23:22 Medical Decision Making MDM Narrative Medical decision making narrative: -Course: 78-year-old male p
[2024-04-10 00:17] LABS: Appearance Urine Turbid (Clear); Bacteria Urine 4+ /hpf; Bilirubin Urine Negative (Negative); Blood Urine 3+ (Negative); Budding Yeast Urine Present /hpf; Color Urine Dark Yellow (Yellow); Glucose Urine UA Negative (Negative); Ketones Urine Negative (Negative); Leukocyte Esterase Ur 2+ LEU/UL (Negative); Need Manual Microscopic Reviewed; Nitrate Urine Positive (Negative); Non Pathogenic Casts 0-2; Protein Urine 3+ mg/dL (Negative); RBC Urine >100 /hpf (0-2); Specific Grav Ur 1.016 (1.001-1.035); Squamous Epithelial Cell Urine Occasional /hpf (Few); WBC Urine >100 /hpf (0-3); pH Urine 5.5 (5.0-9.0)
[2024-04-10 00:21] LABS: Add Urine Microscopic? YES
[2024-04-10] MEDS: CIPROFLOXACIN 400 MG/D5W 200ML 200 ML 200 MG IVPB (00:51)
[2024-04-10 00:58] LABS: Basophils Percent Auto 0.2 % (0.2-1.2); Eosinophils Absolute Auto 0.7 K/mm3 (0-0.3); Eosinophils Percent Auto 8.1 % (0-4.4); Hematocrit 37.3 % (42.0-52.0); Hemoglobin 11.7 g/dL (14.0-18.0); Immature Granulocyte Absolute 0.03 K/mm3 (0.00-0.031); Immature Granulocyte Percent A 0.3 % (0-0.5); Lymphocytes Percent Auto 18.6 % (18.3-44.2); Mean Corpuscular HGB Conc 31.4 g/dl (32-36); Mean Corpuscular Hemoglobin 26.7 pg (26-34); Mean Platelet Volume 9.4 fl (7.4-10.4); Monocytes Absolute Auto 0.6 K/mm3 (0.1-0.6); Monocytes Percent Auto 7.2 % (2.6-8.5); Neutrophils Absolute Auto 5.7 K/mm3 (1.3-6.7); Neutrophils Percent Auto 65.6 % (45.5-73.1); Platelet Count Result 199 k/mm3 (150-375); Red Blood Count 4.39 M/mm3 (4.6-6.20); Red Cell Distribution Width 15.2 % (11.5-14.5); White Blood Count 8.6 K/mm3 (4.5-10.0)
[2024-04-10 01:10] LABS: Alanine Aminotransferase 9 U/L (6-50); Albumin Level 3.9 g/dL (3.5-5.1); Alkaline Phosphatase 64 U/L (38-126); Anion Gap 9 mmol/L (4-12); Aspartate Amino Transferase 17 U/L (17-59); Bilirubin,Total 0.8 mg/dL (0.2-1.3); Blood Urea Nitrogen 17 mg/dL (9-20); Calcium 8.7 mg/dL (8.4-10.2); Carbon Dioxide 23 mmol/L (22-30); Chloride 106 mmol/L (98-107); Estimated CRCL calculation 55 ml/min; Estimated Glomerular Filt Rate > 60; Glucose 72 mg/dL (65-110); Lactic Acid Reflex 0.7 mmol/L (0.7-2.0); Potassium 3.7 mmol/L (3.4-5.0); Sodium 138 mmol/L (137-145)
[2024-04-10 02:15] VITALS: BP 118/76; PULSE 68; RESP 16; O2SAT 97
== END 2024-04-10 02:25 | disposition home or self-care (01) ==
PROVIDERS: Emergency Provider Emergency Medicine; PCP Family Medicine
DX: T83.091A Other mechanical complication of indwelling urethral catheter, initial encounter (principal); N39.0 Urinary tract infection, site not specified; I48.91 Unspecified atrial fibrillation; Z79.01 Long term (current) use of anticoagulants; I25.10 Atherosclerotic heart disease of native coronary artery without angina pectoris; E78.00 Pure hypercholesterolemia, unspecified; E11.9 Type 2 diabetes mellitus without complications; I11.0 Hypertensive heart disease with heart failure
CPT/HCPCS: 36415; 51702; 80053; 81001; 83605; 85025; 87040; 87077; 87086; 87088; 87186; 96365; 99284; J0744

== ENCOUNTER 2024-07-05 13:22 | Outpatient (CLI) | payer MEDICARE, SELFPAY ==
--- NOTE | ~2024-07-05 | CT_ITS ---
Non-contrast CT scan of the Abdomen and Pelvis Clinical indication: Urinary retention Technique: 2.5 mm axial scans were obtained through the abdomen and pelvis without intravenous or or al contrast. Dose reduction technique was used on this scan by utilizing automated exposure control a nd iterative reconstruction technique. The dose-length product (DLP) was 988.58 mGy-cm. Findings: Images through the lung bases reveal no abnormalities. There are two 8 mm renal stones in the dilated left renal pelvis, nonobstructing. No left hydronephro sis. No left ureteral stone. No right renal or right ureteral stone. No right hydronephrosis. The liver, spleen, pancreas, and adrenals appear normal. Multiple large calcified gallstones are pres ent. There are atherosclerotic calcifications of the aorta. . There is no evidence of bowel obstruction. Images through the pelvis were performed. There is no evidence of ascites or lymphadenopathy. Hughes c atheter present in the urinary bladder. Prostate gland markedly enlarged. There is large fat-containi ng right inguinal hernia, with portion of the right ureter probably also entering into the hernia. Bilateral L5 pars interarticularis defects are present, without subluxation. Impression: Nonobstructing stones in the left renal pelvis, as detailed above. Large fat-containing right inguinal hernia, with probably portion of the right ureter entering into t he hernia as well. Cholelithiasis. Prostatomegaly. Reviewed, dictated and finalized at [facility]. Impression: Nonobstructing stones in the left renal pelvis, as detailed above. Large fat-containing right inguinal hernia, with probably portion of the right ureter entering into the hernia as well. Cholelithiasis. Prostatomegaly.
== END 2024-07-05 13:23 ==
LOC: MICIMG 13:23
PROVIDERS: PCP Physician Assistant; Visit Provider Physician Assistant
DX: R33.9 Retention of urine, unspecified (principal); N20.0 Calculus of kidney; K80.20 Calculus of gallbladder without cholecystitis without obstruction; N40.0 Benign prostatic hyperplasia without lower urinary tract symptoms; K40.90 Unilateral inguinal hernia, without obstruction or gangrene, not specified as recurrent
CPT/HCPCS: 74176

== ENCOUNTER 2024-07-22 12:34 | Emergency (ER) | payer MEDICARE, SELFPAY ==
[2024-07-22 12:44] VITALS: BP 130/57; PULSE 53; RESP 18; TEMP 36.6; O2SAT 100
--- NOTE | 2024-07-22 12:51 | ED.URI ---
HPI - URI/Sore Throat General Chief Complaint: Upper Respiratory Infection Stated Complaint: covid symptoms History of Present Illness HPI Narrative: did not see this pt. visit cancelled as pt wanted covid test to take home with him. Related Data Home Medications Medication Instructions Recorded Confirmed loratadine 10 mg tablet 10 mg PO DAILY 01/26/22 07/22/24 sildenafil 100 mg tablet 100 mg PO PRN 12/26/22 07/22/24 Allergies Allergy/AdvReac Type Severity Reaction Status Date / Time No Known Allergies Allergy Verified 07/22/24 12:48 [facility] Past Medical History Medical History Atherosclerosis of aorta Atherosclerotic heart disease of [place] coronary artery without angina pectoris Atrial fibrillation and flutter Bradycardia Chronic anticoagulation Diabetes Heart failure, unspecified Hypertensive heart disease with heart failure Male erectile dysfunction, unspecified Pulmonary hypertension, unspecified Pure hypercholesterolemia, unspecified Type 2 diabetes mellitus with diabetic neuropathy, 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 Other Unknown family medical history Social History Social History Smoking status: Never smoker Alcohol intake: never Substance use: never Substance use type: does not use Do You Feel Safe in your Home?: Yes Lack of Transportation: No Lack of Food: Never True Current Housing: I Have Housing Concerned About Future Housing: No Difficulty Paying Gas/Electric Bills: No Difficulty Paying for Meds: No Currently Unemployed: No Education: Associate Degree Difficulty w/ Childcare or Family Care: No Living arrangements: with family Occupation/Education: retired Gender identity (if verbalized by the patient): Male Sexual Orientation (if Verbalized by the Patient): Straight or Heterosexual Spiritual care concerns: No Course Course Level of Care: Express Care Visit Vital Signs Vital signs: Vital Signs Temperature 36.6 C 07/22/24 12:44 Pulse Rate 53 L 07/22/24 12:44 Respiratory Rate 18 07/22/24 12:44 Blood Pressure 130/57 L 07/22/24 12:44 Pulse Oximetry 100 07/22/24 12:44 Oxygen Delivery Room Air 07/22/24 12:44 Temperature 36.6 C 07/22/24 12:44 Pulse Rate 53 L 07/22/24 12:44 Respiratory Rate 18 07/22/24 12:44 Blood Pressure 130/57 L 07/22/24 12:44 Pulse Oximetry 100 07/22/24 12:44 Oxygen Delivery Room Air 07/22/24 12:44 Discharge Plan Discharge Patient Disposition: Left Without Being Sn Triaged Prescriptions: No Action sildenafil 100 mg tablet 100 mg PO PRN loratadine 10 mg Tablet 10 mg PO DAILY metformin 1,000 mg tablet 1,000 mg PO BID Qty: 200 1RF rosuvastatin 10 mg tablet 10 mg PO DAILY Qty: 100 1RF diltiazem HCl [DILT-XR] 180 mg capsule,ext.rel 24h degradable 180 mg PO DAILY Qty: 100 1RF sotalol 80 mg tablet 80 mg PO BID Qty: 200 1RF lisinopril 20 mg tablet 20 mg PO HS Qty: 100 1RF glimepiride 4 mg tablet 4 mg PO DAILY Qty: 100 1RF finasteride 5 mg tablet 5 mg PO HS Qty: 90 1RF Eliquis 5 mg tablet 5 mg PO BID Qty: 200 2RF molnupiravir 200 mg capsule 800 mg PO Q12H 5 Days Qty: 40 0RF Follow-up/Referrals: Pratik Hernandez MD [Primary Care Provider] -
--- NOTE | 2024-07-22 12:55 | PC.NURSE ---
Patient presents to the urgent care clinic needing covid test kits. This nurse informed him that we do not give out the covid test kits, but I can test him for covid. He declined covid testing in the clinic stating I needs the test kits, I would rather not been seen by the provider if I am going to be charged a urgent care visit Patient proceded to leave. Patient seen by the nurse, but not the provider.
== END 2024-07-22 12:55 | disposition left against medical advice (07) ==
LOC: EXPTROY 12:38
PROVIDERS: Emergency Provider Nurse Practitioner Family; PCP Family Medicine
DX: Z53.21 Procedure and treatment not carried out due to patient leaving prior to being seen by health care provider (principal)
CPT/HCPCS: 99199

== ENCOUNTER 2024-08-09 12:45 | Outpatient (CLI) | payer MEDICARE, SELFPAY ==
--- NOTE | 2024-08-09 12:54 | ECG_ITS ---
Test Date: 2024-08-09 13:07:40 Measurements Intervals Dante Rate: 62 P: 63 DE: 199 QRS: 11 QRSD: 96 T: 28 QT: 429 QTc: 439 Interpretive Statements SINUS RHYTHM LOW QRS VOLTAGE IN PRECORDIAL LEADS EXTENSIVE ANTERIOR INFARCT, AGE INDETERMINATE ANTERIOR INFARCT, AGE INDETERMINATE BASELINE ARTIFACT- I, III ABNORMAL ECG No previous ECG available for comparison Electronically Signed On 08-09-2024 13:11:26 CDT by Feng Reddy D.O.
== END 2024-08-09 12:46 | disposition home or self-care (01) ==
LOC: ANHSURGERY 12:51
PROVIDERS: PCP Family Medicine; Visit Provider Urology
DX: I11.0 Hypertensive heart disease with heart failure (principal); I50.9 Heart failure, unspecified
CPT/HCPCS: 93005

== ENCOUNTER 2024-08-15 01:44 | Day surgery (SDC) | payer MEDICARE, SELFPAY ==
--- NOTE | 2024-07-30 07:58 | PM.HPGS ---
History of Present Illness History of Present Illness Consent: Risks, benefits, and alternatives have been discussed and questions answered. Patient agrees to proceed with procedure. Chief complaint: left renal stone,urine retention Narrative: Joo Forman is a 78 year old male with an atonic bladder recurrent chronic urethral catheterization. He is developed significant urethral irritation and, after discussion, opted for placement of a suprapubic catheter. CT imaging also demonstrates 2 stones in his left renal pelvis. We will plan cystoscopy with left ureteroscopy, laser lithotripsy ureteral / renal pelvic stones with possible retrograde pyelography and stent placement at the time of his suprapubic catheter placement. He is aware of the risk including, but not limited to, bowel injury, ureteral injury, need for additional procedures for the stones Review of Systems Review of Systems: All systems reviewed & are unremarkable except as noted in HPI and below PMFSH Past Medical History Medical History Atherosclerosis of aorta Atherosclerotic heart disease of [place] coronary artery without angina pectoris Atrial fibrillation and flutter Bradycardia Chronic anticoagulation Diabetes Heart failure, unspecified Hypertensive heart disease with heart failure Male erectile dysfunction, unspecified Pulmonary hypertension, unspecified Pure hypercholesterolemia, unspecified Type 2 diabetes mellitus with diabetic neuropathy, 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 Other Unknown family medical history Social History Social History Smoking status: Never smoker Alcohol intake: never Substance use: never Substance use type: does not use Do You Feel Safe in your Home?: Yes Lack of Transportation: No Lack of Food: Never True Current Housing: I Have Housing Concerned About Future Housing: No Difficulty Paying Gas/Electric Bills: No Difficulty Paying for Meds: No Currently Unemployed: No Education: Associate Degree Difficulty w/ Childcare or Family Care: No Living arrangements: with family Occupation/Education: retired Gender identity (if verbalized by the patient): Male Sexual Orientation (if Verbalized by the Patient): Straight or Heterosexual Spiritual care concerns: No Meds Home Medications and Allergies Home Medications Medication Instructions Recorded Confirmed Type loratadine 10 mg tablet 10 mg PO DAILY 01/26/22 07/22/24 History sildenafil 100 mg tablet 100 mg PO PRN 12/26/22 07/22/24 History metformin 1,000 mg tablet 1,000 mg PO BID #200 tabs 03/11/24 07/22/24 Rx rosuvastatin 10 mg tablet 10 mg PO DAILY #100 tabs 03/11/24 07/22/24 Rx apixaban 5 mg tablet (Eliquis) 5 mg PO BID #200 tabs 06/21/24 07/09/24 Rx diltiazem HCl 180 mg 180 mg PO DAILY #100 caps 06/21/24 07/22/24 Rx capsule,extended release 24 hr, controlled (DILT-XR) finasteride 5 mg tablet 5 mg PO HS #90 tabs 06/21/24 07/22/24 Rx glimepiride 4 mg tablet 4 mg PO DAILY #100 tabs 06/21/24 07/22/24 Rx lisinopril 20 mg tablet 20 mg PO HS #100 tabs 06/21/24 07/22/24 Rx sotalol 80 mg tablet 80 mg PO BID #200 tabs 06/21/24 07/22/24 Rx Allergies Allergy/AdvReac Type Severity Reaction Status Date / Time No Known Allergies Allergy Verified 07/22/24 12:48 Exam Const: General: no acute distress Resp: Effort & Inspection: normal respiratory effort GI: Inspection: non-distended GI Palp: No abdominal tenderness and No Guarding due to pal
[2024-08-09 08:52] VITALS: BMI 30.2
--- NOTE | 2024-08-09 09:28 | PC.NURSE ---
Report to the Outpatient Waiting Room, entrance under the green pavilion located off [facility], at time _7:15AM_ on date _08/15/24_. Planned Procedure Time: _9:15AM_.? Time changes happen often and if your time is changed the preop area will call you the afternoon before. - You and your visitor will be asked to self-screen and do not enter if you have any COVID symptoms. Please call surgeon if you need to reschedule. - A mask is optional within the hospital at this time. Patients may have clear liquids (water, carbonated beverages, clear teas, apple juice) until 3 hours prior to surgery with a maximum of 20 ounces. - No food from midnight until time of surgery and no smoking. Take only the following medications with a SIP of water on the morning of surgery: __DILTIAZEM & SOTALOL DO NOT STOP ANY OF YOUR OTHER PRESCRIPTION MEDICATIONS PRIOR TO SURGERY EXCEPT THE FOLLOWING Medications to discontinue per physician ____HOLD ELIQUIS PER DR SANTOS-PATIENT ASKING MD AT APPOINTMENT TODAY Please no make-up, nail greenlandic, hairspray, perfume, deodorant, or body powder the day of surgery.? No jewelry (including any body piercings) or valuables the day of surgery, leave them at home.? Please take a shower or bath the night before, or the morning of, surgery with an antibacterial soap.? Wear comfortable, loose fitting clothing.? - Jewelry must be removed prior to entering the operating room.? Rings and piercings that are not removed may be cut off. - The hospital will not accept responsibility for valuables.? - Please leave all valuables, including medications, at home the day of surgery. If you are going home after surgery, a licensed public transit bus driver must drive you home.? - NO public transportation without another adult if you receive anesthesia. - We recommend that an adult stay with you for 24 hours following discharge. - We also recommend that you do not drive, make important decision, drink alcoholic beverages, or take any drugs that were not prescribed by your health care provider for at least 24 hours after your discharge time. Follow any additional instructions given to you from your surgeon. Telephone instructions given to ____PATIENT and asked if any additional questions and then verbalized understanding. Patient advised to call surgeon office or pre surgery nurse liaison [phone] if any additional questions.
[2024-08-15] VITALS (11 sets, daily range): BP systolic 137–159; BP diastolic 60–70; PULSE 52–55; RESP 12–18; TEMP 36.2; O2SAT 96–100
--- NOTE | ~2024-08-15 | XR_ITS ---
EXAMINATION: XR fluoroscopy no charge DATE: 08/15/2024 10:07 INDICATION: Suprapubic tube placement. TECHNIQUE: 3 intraoperative fluoroscopic views of the abdomen and pelvis were obtained. I was not pre sent. Fluoroscopy exposure time was 17 seconds. COMPARISON: CT abdomen and pelvis 07/05/2024 FINDINGS: Images demonstrate an instrument overlying the bladder. IMPRESSION: 1. Instrument overlying the bladder. Reviewed, dictated and finalized at location A.
--- NOTE | 2024-08-15 06:44 | WPDHPUPDATE1 ---
History and Physical Update Update Date/Time: 08/15/24 06:44 History and Physical has been reviewed, including an updated exam of the patient. There are NO changes in the patient's condition. Risks, benefits, and alternatives have been discussed and questions answered. Patient agrees to proceed with procedure.
[2024-08-15] MEDS: LACTATED RINGERS 1,000 ML 30 ML IV CONT (07:38)
[2024-08-15 07:45] LABS: Glucose Point of Care 74 mg/dl (65-105)
--- NOTE | 2024-08-15 09:05 | WPDANESEPPF ---
Anes - Initial Pre Proc Eval Procedure: Operation Date: 08/15/24 09:15 Proposed Procedures p Cystoscopy, Left Ureteroscopy, Possible Left Retrograde Pyelogram, Possible Left Stone Extraction, Possible Left Stent Placement, Possible Holmium Laser Procedure, - Ricardo Morrison MD s Insertion Suprapubic Tube - Ricardo Morrison MD Date/Time: 08/15/24 09:05 Surgeon: Ricardo Morrison MD Pre Op Diagnosis: left renal stone,urine retention Patient Data Age: 78 Gender: M Height: 1.75 m Weight: 93 kg Last Vital Signs Temp 36.2 C L 08/15/24 07:25 Pulse 53 L 08/15/24 07:25 Resp 18 08/15/24 07:25 BP 139/63 08/15/24 07:25 Pulse Ox 97 08/15/24 07:25 O2 Del Method Room Air 08/15/24 07:25 Allergies Allergy/AdvReac Type Severity Reaction Status Date / Time No Known Allergies Allergy Verified 08/15/24 07:28 Home Medications Medication Instructions Recorded Confirmed Type loratadine 10 mg tablet 10 mg PO DAILY 01/26/22 08/15/24 History metformin 1,000 mg tablet 1,000 mg PO BID #200 tabs 03/11/24 08/15/24 Rx rosuvastatin 10 mg tablet 10 mg PO DAILY #100 tabs 03/11/24 08/15/24 Rx apixaban 5 mg tablet (Eliquis) 5 mg PO BID #200 tabs 06/21/24 08/15/24 Rx diltiazem HCl 180 mg 180 mg PO DAILY #100 caps 06/21/24 08/15/24 Rx capsule,extended release 24 hr, controlled (DILT-XR) finasteride 5 mg tablet 5 mg PO HS #90 tabs 06/21/24 08/15/24 Rx glimepiride 4 mg tablet 4 mg PO DAILY #100 tabs 06/21/24 08/15/24 Rx lisinopril 20 mg tablet 20 mg PO HS #100 tabs 06/21/24 08/15/24 Rx sotalol 80 mg tablet 80 mg PO BID #200 tabs 06/21/24 08/15/24 Rx nitroglycerin 0.4 mg sublingual 0.4 mg sublingual DIRECTED 08/09/24 08/15/24 History tablet Laboratory Tests 08/15/24 07:43 POC Capillary Glucose 74 mg/dl (65-105) Patient hx anesthesia problems: none Family hx anesthesia problems: none Results Review: All pre-operative results and documents have been reviewed as part of the pre-operative evaluation. 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 Other Unknown family medical history Social History Social History Smoking status: Never smoker Alcohol intake: never Substance use: never Substance use type: does not use Do You Feel Safe in your Home?: Yes Lack of Transportation: No Lack of Food: Never True Current Housing: I Have Housing Concerned About Future Housing: No Difficulty Paying Gas/Electric Bills: No Difficulty Paying for Meds: No Currently Unemployed: No Education: Associate Degree Difficulty w/ Childcare or Family Care: No Living arrangements: with family Additional living arrangements comments: & GRANDCHILDREN Occupation/Education: retired Gender identity (if verbalized by the patient): Male Sexual Orientation (if Verbalized by the Patient): Straight or Heterosexual Spiritual care concerns: No Anes - Eval Final PreProcedure Day of Procedure 08/15/24 09:05 Patient w
[2024-08-15] MEDS: ceFAZolin 2 GM/D5W 50 ML 2 GM/50 ML BAG IVPB (09:17)
[2024-08-15] MEDS: LIDOCAINE HCL 1% LOCAL INJ 20 ML VIAL 5 ML INFILTRATE (09:58)
[2024-08-15 10:15] LABS: Glucose Point of Care 89 mg/dl (65-105)
--- NOTE | 2024-08-15 10:21 | W.PM.PROC2 ---
Procedure Note - Detailed Date of Procedure 08/15/24 Pre-op Diagnosis Left renal stone, atonic bladder with urinary retention Post-op Diagnosis Same Procedure Performed Cystoscopy, attempted left ureteroscopy, placement suprapubic catheter Surgeon Ricardo Morrison MD Anesthesia General Description of Procedure patient is brought to the op suite was prepped draped in routine sterile fashion while in dorsal lithotomy position after the uneventful induction of a general anesthetic. Cystoscopy was undertaken with a 19 F rigid cystoscope. He has no urethral stricture but a massively enlarged prostate with large median lobe. His prostate is quite friable and bleeds with simple cystoscopy. Due to the size of his prostate I was unable to identify his ureteral orifices. In light of the fact that his renal stone for lower pole and not obstructing I opted not to pursue additional intervention for that at this time. I did fill his bladder and place a spinal needle at the anticipated site of suprapubic catheter placement. A 0.035 in glidewire was advanced to the bladder and the suprapubic tract was dilated 22 F with Amplatz dilators. An 18 F catheter was placed through the dome of the bladder to act as a suprapubic catheter. This was secured with a 3-0 nylon. Blood loss was less than 10 cc. He tolerated this procedure well. Estimated Blood Loss 5 Pathology None sent
[2024-08-15] MEDS: oxyCODONE HCL (*CRX) 5 MG TAB IR PO (12:15)
--- NOTE | 2024-08-15 12:15 | SUR.PHASEII ---
1155 - MD Parres contacted regarding hematuria in leg bag with clots. MD at bedside to perform bladder irrigation. Pt is to be discharge home with irrigation kit per MD. Education provided to pt and spouse ([place]).
== END 2024-08-15 12:45 | disposition home or self-care (01) ==
PROVIDERS: PCP Family Medicine; Visit Provider Urology
PROC: (CPT 52352; principal; 2024-08-15 09:15)
PROC: 0T9B30Z Drainage of Bladder with Drainage Device, Percutaneous Approach (ICD-10-PCS; CPT 51102; 2024-08-15 09:15)
DX: N20.0 Calculus of kidney (principal); N31.2 Flaccid neuropathic bladder, not elsewhere classified; R33.8 Other retention of urine; N40.0 Benign prostatic hyperplasia without lower urinary tract symptoms; I11.0 Hypertensive heart disease with heart failure; I50.9 Heart failure, unspecified; I25.10 Atherosclerotic heart disease of native coronary artery without angina pectoris; I70.0 Atherosclerosis of aorta; I48.91 Unspecified atrial fibrillation; I48.92 Unspecified atrial flutter; N52.9 Male erectile dysfunction, unspecified; I27.20 Pulmonary hypertension, unspecified; E78.00 Pure hypercholesterolemia, unspecified; E11.40 Type 2 diabetes mellitus with diabetic neuropathy, unspecified; E11.59 Type 2 diabetes mellitus with other circulatory complications; R39.11 Hesitancy of micturition; R33.9 Retention of urine, unspecified; E66.9 Obesity, unspecified; Z68.30 Body mass index [BMI] 30.0-30.9, adult; Z79.84 Long term (current) use of oral hypoglycemic drugs; Z79.01 Long term (current) use of anticoagulants; Z98.890 Other specified postprocedural states; Z95.5 Presence of coronary angioplasty implant and graft; Z86.79 Personal history of other diseases of the circulatory system; Z82.49 Family history of ischemic heart disease and other diseases of the circulatory system
CPT/HCPCS: 51102; 82948; 99199; A9270; C1726; C1769; C1894; J0690; J1100; J2405; J2704; J3010; J7120

== ENCOUNTER 2024-10-21 10:17 | Emergency (ER) | payer MEDICARE, SELFPAY ==
--- NOTE | ~2024-10-21 | CT_ITS ---
CT abdomen pelvis w con Ordering provider: Lyudmila Diaz III, DO History: 79 years Male with . low abdominal pain . Comparison: None. Technique: CT abdomen and pelvis with IV and without oral contrast. Automated exposure control and it erative reconstruction technique were employed. The dose-length product was 720.06 mGy-cm. 100 mL Omnipaque 350 was given IV. Findings: VISUALIZED LOWER CHEST: Normal. Thickening in the pleura is seen posteriorly. UPPER ABDOMINAL ORGANS: Liver: Normal. Minimal fluid around the liver. Gallbladder: Cholelithiasis. Spleen: Normal. Benign calcifications. Stomach/duodenum: Normal. Pancreas: Normal. Adrenals: Normal. Kidneys: Left hydronephrotic changes with a kidney stone measuring 9 mm. Stone in the left renal pelv is also seen measuring 8 mm. Slight dilatation of the left ureter with no definite stones in the uret er. Fat stranding seen in the left ureter. Mild right hydronephrotic changes. Slight dilatation of the right ureter which is seen to extend into the right inguinal hernia. PELVIC ORGANS: Suprapubic catheter is noted. Slight thickening of the bladder wall is seen. Enlarged prostate. Stranding is seen bilaterally in the pelvic fat around the bladder. BOWEL AND MESENTERY: Colon: Mild sigmoid diverticulosis without diverticulitis. Normal appendix. Small Bowel: Normal. No obstruction. Peritoneum/mesentery: No free air with minimal free fluid in the pelvis. No mesenteric lymphadenopath y. RETROPERITONEUM: Mild atheromatous disease of the abdominal aorta. No retroperitoneal lymphadenopat hy. MUSCULOSKELETAL: Superficial soft tissues: Right fat-containing inguinal hernias larger on the right side. Otherwise, The superficial soft tissues are normal. Bones: Age appropriate degenerative changes of the spine. IMPRESSION: 1. No evidence of appendicitis, diverticulitis or intestinal obstruction. 2. Left kidney stones with hydronephrotic changes and hydroureter. 3. Right hydronephrotic changes with no definite stones. 4. Fat stranding seen around the left ureter and around the bladder. This may be inflammatory or due to the obstruction or post procedural. Clinical correlation advised. 5. Suprapubic catheter with thickened wall of the bladder and enlarged prostate. 6. Bilateral fat containing inguinal hernias 7. Cholelithiasis. Reviewed, dictated and finalized at location [facility] IMPRESSION: 1. No evidence of appendicitis, diverticulitis or intestinal obstruction. 2. Left kidney stones with hydronephrotic changes and hydroureter. 3. Right hydronephrotic changes with no definite stones. 4. Fat stranding seen around the left ureter and around the bladder. This may be inflammatory or due to the obstruction or post procedural. Clinical correlat ion advised. 5. Suprapubic catheter with thickened wall of the bladder and enlarged prostat e. 6. Bilateral fat containing inguinal hernias 7. Cholelithiasis.
[2024-10-21 10:19] VITALS: BP 163/70; PULSE 74; RESP 16; TEMP 36.2; O2SAT 99
[2024-10-21 12:33] VITALS: BP 162/65; PULSE 73; RESP 17; O2SAT 97
--- NOTE | 2024-10-21 12:36 | ED_ITS ---
HPI - Nausea/Vomiting/Diarrhea General Chief complaint: Nausea/Vomiting/Diarrhea Stated complaint: constipation, now diarrhea, pains in my penis Time Seen by Provider: 10/21/24 12:12 History of Present Illness HPI Narrative: Pt says he had very little appetite two days ago and later developed crampy abdominal pain which was intermittent in nature. Pt thought he was constipated because he had cramps but could not move bowels. Pt says the cramps started again and now is having diarrhea. Pt denies vomiting. 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 Related Data Home Medications Medication Instructions Recorded Confirmed loratadine 10 mg tablet 10 mg PO DAILY 01/26/22 10/07/24 nitroglycerin 0.4 mg sublingual 0.4 mg sublingual DIRECTED 08/09/24 10/07/24 tablet tamsulosin 0.4 mg capsule 0.4 mg PO DAILY 10/04/24 10/07/24 Allergies Allergy/AdvReac Type Severity Reaction Status Date / Time No Known Allergies Allergy Verified 10/04/24 08:44 Review of Systems Review of Systems: All systems reviewed & are unremarkable except as noted in HPI and below [facility] Past Medical History Medical History Atherosclerosis of aorta Atherosclerotic heart disease of [place] coronary artery without angina pectoris Atrial fibrillation and flutter Bradycardia Chronic anticoagulation Diabetes Heart failure, unspecified Hypertensive heart disease with heart failure Male erectile dysfunction, unspecified Pulmonary hypertension, unspecified Pure hypercholesterolemia, unspecified Type 2 diabetes mellitus with diabetic neuropathy, 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 Other Unknown family medical history Social History Social History Smoking status: Never smoker Alcohol intake: never Substance use: never Substance use type: does not use Do You Feel Safe in your Home?: Yes Lack of Transportation: No Lack of Food: Never True Current Housing: I Have Housing Concerned About Future Housing: No Difficulty Paying Gas/Electric Bills: No Difficulty Paying for Meds: No Currently Unemployed: No Education: Associate Degree Difficulty w/ Childcare or Family Care: No Living arrangements: with family Additional living arrangements comments: & GRANDCHILDREN Occupation/Education: retired Gender identity (if verbalized by the patient): Male Sexual Orientation (if Verbalized by the Patient): Straight or Heterosexual Spiritual care concerns: No Exam Const: General: healthy appearing and no acute distress Nutritional Appearance: well nourished Orientation/consciousness: patient oriented x3 Limitations: no limitations HENMT: Mouth: Yes dry mucous membranes Cardio: Rate: regular rate Rhythm: regular rhythm GI: GI Palp: Yes Soft to palpation and Yes Tenderness to palpation present (GI) (low abdomen) Auscultation: normal bowel sounds Neuro: General: patient oriented x3, moves all extremities and no focal motor deficits Cranial nerves: Yes Nystagmus not present Speech: normal speech Extrem: General: normal to inspection and no clubbing, cyanosis or edema Psych: Mental Status: mental status grossly normal Affect: normal affect Attitude: cooperative Course Vital Signs Vital signs: Vital Signs Temperature 97.2 F L 10/21/24 10:19 Pulse Rate 74 10/21/24 10:19 Respiratory Rate 16 10/21/24 10:19 Blood Pressure 163/70 H 10/21/24 10:19 Pulse Oximetry 99 10/21/24 10:19 Temperature 97.5 F L 10/21/24 15:02 Pulse Rate 77 10/21/24 15:02 Respiratory Rate 17 10/21/24 15:02 Blood Pressure 170/70 H 10/21/24 15:02 Pulse Oximetry 98 10/21/24 15:02 MDM - Nausea/Vomiting/Diarrhea MDM Narrative Medical decision making narrative: pt has crampy pain and diarrhea and looks a little dry. will check labs and get CT given recent suprpubic cather insertin and low abdominla tenderness. CT unremarkable, wnc elevated but elecrolytes fine, UA infected. will place on antibiotics and bentyl and home Differential Diagnosis Differential diagnosis: Likely gastroenteritis, dehydration and other (absces or leakage or post of complication) Lab Data 10/21/24 12:35 10/21/24 12:49 Labs: Lab Results 10/21/24 10/21/24 10/21/24 Range/Units 06:50 12:35 12:49 WBC 17.7 H (4.5-10.0) K/mm3 RBC 4.71 (4.6-6.20) M/mm3 Hgb 12.5 L (14.0-18.0) g/dL Hct 40.3 L (42.0-52.0) % MCV 85.6 (80-100) fl MCH 26.5 (26-34) pg MCHC 31.0 L (32-36) g/dl RDW 16.0 H (11.5-14.5) % Plt Count 264 (150-375) k/mm3 MPV 9.2 (7.4-10.4) fl Immature Gran % (Auto) 0.5 (0-0.5) % Neut % (Auto) 89.1 H (45.5-73.1) % Lymph % (Auto) 5.1 L (18.3-44.2) % [place] % (Auto) 5.1 (2.6-8.5) % Eos % (Auto) 0.1 (0-4.4) % Baso % (Auto) 0.1 L (0.2-1.2) % Lymph # (Auto) 0.90 (0.9-3.2) K/mm3 [place] # (Auto) 0.9 H (0.1-0.6) K/mm3 Eos # (Auto) 0.0 (0-0.3) K/mm3 Baso # (Auto) 0.0 (0.0-0.1) K/mm3 Abs Immat Gran (auto) 0.09 H (0.00-0.031) K/mm3 Absolute Neuts (auto) 15.8 H (1.3-6.7) K/mm3 Absolute Nucleated RBC 0.000 (0.0-0.012) K/mm3 Nucleated RBC % 0.0 (0.0-0.2) % PT 22.4 H (11.1-14.7) Seconds INR 1.9 APTT 37.7 H (22.3-36.8) Seconds Sodium 137 (137-145) mmol/L Potassium 4.7 (3.4-5.0) mmol/L Chloride 105 (98-107) mmol/L Carbon Dioxide 21 L (22-30) mmol/L Anion Gap 11 (4-12) mmol/L BUN 29 H D (9-20) mg/dL Creatinine 1.80 H 1.90 H (0.7-1.3) mg/dL Estim Creat Clear Calc 31 29 ml/min Estimated GFR 37 L 34 L (59 - ) Glucose 114 H (65-110) mg/dL Calcium 9.2 (8.4-10.2) mg/dL Total Bilirubin 1.2 (0.2-1.3) mg/dL AST 29 (17-59) U/L ALT 14 (6-50) U/L Alkaline Phosphatase 56 (38-126) U/L Total Protein 7.0 (6.3-8.2) g/dL Albumin 4.2 (3.5-5.1) g/dL Lipase 39 (23-300) U/L Urine Color (Yellow) Urine Appearance (Clear) Urine pH (5.0-9.0) Ur Specific [place] (1.001-1.035) Urine Protein (Negative) mg/dL Urine Glucose (UA) (Negative) mg/dL Urine Ketones (Negative) mg/dL Ur Blood (Man) (Negative) Urine Nitrate (Negative) Urine Bilirubin (Negative) Urine Urobilinogen (<2.0) mg/dL Add Ur Microanalysis Leukocyte Esterase Rfl (Negative) SCAR/UL Urine RBC (0-2) /hpf Urine WBC (0-3) /hpf Ur Squamous Epith Cells (Few) /hpf Triple Phos Crystals (None) /hpf Urine Bacteria /hpf Urine Casts 10/21/ Range/Units 13:10 WBC (4.5-10.0) K/mm3 RBC (4.6-6.20) M/mm3 Hgb (14.0-18.0) g/dL Hct (42.0-52.0) % MCV (80-100) fl MCH (26-34) pg MCHC (32-36) g/dl RDW (11.5-14.5) % Plt Count (150-375) k/mm3 MPV (7.4-10.4) fl Immature Gran % (Auto) (0-0.5) % Neut % (Auto) (45.5-73.1) % Lymph % (Auto) (18.3-44.2) % [place] % (Auto) (2.6-8.5) % Eos % (Auto) (0-4.4) % Baso % (Auto) (0.2-1.2) % Lymph # (Auto) (0.9-3.2) K/mm3 [place] # (Auto) (0.1-0.6) K/mm3 Eos # (Auto) (0-0.3) K/mm3 Baso # (Auto) (0.0-0.1) K/mm3 Abs Immat Gran (auto) (0.00-0.031) K/mm3 Absolute Neuts (auto) (1.3-6.7) K/mm3 Absolute Nucleated RBC (0.0-0.012) K/mm3 Nucleated RBC % (0.0-0.2) % PT (11.1-14.7) Seconds INR APTT (22.3-36.8) Seconds Sodium (137-145) mmol/L Potassium (3.4-5.0) mmol/L Chloride (98-107) mmol/L Carbon Dioxide (22-30) mmol/L Anion Gap (4-12) mmol/L BUN (9-20) mg/dL Creatinine (0.7-1.3) mg/dL Estim Creat Clear Calc ml/min Estimated GFR (59 - ) Glucose (65-110) mg/dL Calcium (8.4-10.2) mg/dL Total Bilirubin (0.2-1.3) mg/dL AST (17-59) U/L ALT (6-50) U/L Alkaline Phosphatase (38-126) U/L Total Protein (6.3-8.2) g/dL Albumin (3.5-5.1) g/dL Lipase (23-300) U/L Urine Color [place] H (Yellow) Urine Appearance Turbid H (Clear) Urine pH 8.5 (5.0-9.0) Ur Specific [place] 1.021 (1.001-1.035) Urine Protein 4+ H (Negative) mg/dL Urine Glucose (UA) Negative (Negative) mg/dL Urine Ketones Negative (Negative) mg/dL Ur Blood (Man) 3+ H (Negative) Urine Nitrate Negative (Negative) Urine Bilirubin Negative (Negative) Urine Urobilinogen 0.2 (<2.0) mg/dL Add Ur Microanalysis Reviewed Leukocyte Esterase Rfl 3+ H (Negative) SCAR/UL Urine RBC >100 H (0-2) /hpf Urine WBC >100 H (0-3) /hpf Ur Squamous Epith Cells Few (Few) /hpf Triple Phos Crystals Present H (None) /hpf Urine Bacteria 4+ /hpf Urine Casts >20 Discharge Plan Discharge Clinical Impression: Acute UTI, Diarrhea Patient Disposition: Home, Self-Care Condition: Improved Instructions: Antibiotic Form, Urinary Tract Infection in Men (DC), Acute Diarrhea (ED) Prescriptions: New cefdinir 300 mg capsule 300 mg PO Q12H Qty: 14 0RF dicyclomine 20 mg tablet 20 mg PO QID PRN (Reason: abdominal pain) Qty: 20 0RF No Action tamsulosin 0.4 mg capsule 0.4 mg PO DAILY loratadine 10 mg Tablet 10 mg PO DAILY nitroglycerin 0.4 mg tablet, sublingual 0.4 mg sublingual DIRECTED diltiazem HCl [DILT-XR] 180 mg capsule,ext.rel 24h degradable 180 mg PO DAILY Qty: 100 1RF Patient Comments: QAM sotalol 80 mg tablet 80 mg PO BID Qty: 200 1RF lisinopril 20 mg tablet 20 mg PO HS Qty: 100 1RF glimepiride 4 mg tablet 4 mg PO DAILY Qty: 100 1RF Patient Comments: QAM Eliquis 5 mg tablet 5 mg PO BID Qty: 200 2RF Hold Instructions: Resume on 08/17/24. rosuvastatin 10 mg tablet 10 mg PO DAILY Qty: 100 1RF metformin 1,000 mg tablet 1,000 mg PO BID Qty: 200 1RF finasteride 5 mg tablet 5 mg PO HS Qty: 100 1RF hydrocortisone 2.5 % cream with perineal applicator 1 applic RECTAL DAILY PRN (Reason: hemorrhoids) Qty: 30 0RF Follow-up/Referrals: Pratik Hernandez MD [Primary Care Provider] -
[2024-10-21 12:40] LABS: Basophils Percent Auto 0.1 % (0.2-1.2); Eosinophils Percent Auto 0.1 % (0-4.4); Hematocrit 40.3 % (42.0-52.0); Hemoglobin 12.5 g/dL (14.0-18.0); Immature Granulocyte Absolute 0.09 K/mm3 (0.00-0.031); Immature Granulocyte Percent A 0.5 % (0-0.5); Lymphocytes Percent Auto 5.1 % (18.3-44.2); Mean Corpuscular Hemoglobin 26.5 pg (26-34); Mean Corpuscular Volume 85.6 fl (80-100); Mean Platelet Volume 9.2 fl (7.4-10.4); Monocytes Absolute Auto 0.9 K/mm3 (0.1-0.6); Monocytes Percent Auto 5.1 % (2.6-8.5); Neutrophils Absolute Auto 15.8 K/mm3 (1.3-6.7); Neutrophils Percent Auto 89.1 % (45.5-73.1); Platelet Count Result 264 k/mm3 (150-375); Red Blood Count 4.71 M/mm3 (4.6-6.20); White Blood Count 17.7 K/mm3 (4.5-10.0)
[2024-10-21 12:51] LABS: Estimated CRCL calculation 29 ml/min; Estimated Glomerular Filt Rate 34
[2024-10-21 12:57] LABS: Albumin Level 4.2 g/dL (3.5-5.1); Aspartate Amino Transferase 29 U/L (17-59); Bilirubin,Total 1.2 mg/dL (0.2-1.3); Blood Urea Nitrogen 29 mg/dL (9-20); Calcium 9.2 mg/dL (8.4-10.2); Carbon Dioxide 21 mmol/L (22-30); Estimated CRCL calculation 31 ml/min; Estimated Glomerular Filt Rate 37; Glucose 114 mg/dL (65-110)
[2024-10-21 12:58] LABS: INR 1.9; Prothrombin Time 22.4 Seconds (11.1-14.7)
[2024-10-21 12:59] LABS: Partial Thromboplastin Time 37.7 Seconds (22.3-36.8)
[2024-10-21] MEDS: ONDANSETRON INJ 4 MG/2 ML VIAL IV PUSH (13:03)
[2024-10-21] MEDS: MORPHINE SULFATE (*CRX) 4 MG/ML INJ IV PUSH (13:03)
[2024-10-21] MEDS: SODIUM CHLORIDE 0.9% IV 1,000 ML 999 ML IV CONT (13:03)
[2024-10-21 13:04] LABS: Alanine Aminotransferase 14 U/L (6-50); Alkaline Phosphatase 56 U/L (38-126); Anion Gap 11 mmol/L (4-12); Chloride 105 mmol/L (98-107); Lipase 39 U/L (23-300); Potassium 4.7 mmol/L (3.4-5.0); Sodium 137 mmol/L (137-145)
[2024-10-21 13:41] LABS: Bacteria Urine 4+ /hpf; Need Manual Microscopic Reviewed; Non Pathogenic Casts >20; RBC Urine >100 /hpf (0-2); Squamous Epithelial Cell Urine Few /hpf (Few); Triple Phosphate Crystal Urine Present /hpf; WBC Urine >100 /hpf (0-3)
[2024-10-21 13:42] LABS: Add Urine Microscopic? YES; Appearance Urine Turbid (Clear); Bilirubin Urine Negative (Negative); Blood Urine 3+ (Negative); Color Urine Orange (Yellow); Glucose Urine UA Negative (Negative); Ketones Urine Negative (Negative); Leukocyte Esterase Ur 3+ LEU/UL (Negative); Nitrate Urine Negative (Negative); Protein Urine 4+ mg/dL (Negative); Specific Grav Ur 1.021 (1.001-1.035); Urobilinogen Urine 0.2 mg/dL (<2.0); pH Urine 8.5 (5.0-9.0)
[2024-10-21 15:02] VITALS: BP 170/70; PULSE 77; RESP 17; TEMP 36.4; O2SAT 98
== END 2024-10-21 15:04 | disposition home or self-care (01) ==
PROVIDERS: Emergency Provider Emergency Medicine; PCP Family Medicine
DX: N39.0 Urinary tract infection, site not specified (principal); R19.7 Diarrhea, unspecified; I25.10 Atherosclerotic heart disease of native coronary artery without angina pectoris; I48.91 Unspecified atrial fibrillation; Z79.01 Long term (current) use of anticoagulants; E11.9 Type 2 diabetes mellitus without complications; I11.0 Hypertensive heart disease with heart failure; I50.9 Heart failure, unspecified
CPT/HCPCS: 36415; 74177; 80053; 81001; 83690; 85025; 85610; 85730; 87086; 96361; 96374; 96375; 99284; J2270; J2405; J7030; Q9967

== ENCOUNTER 2024-10-23 04:28 | Inpatient (IN) | payer MEDICARE, SELFPAY ==
[2024-10-23] VITALS (24 sets, daily range): BP systolic 97–174; BP diastolic 50–106; PULSE 69–164; RESP 13–26; TEMP 36.3–38.1; O2SAT 92–100; BMI 29.9
--- NOTE | ~2024-10-23 | XR_ITS ---
EXAMINATION: XR chest 1V portable DATE: 10/23/2024 05:22 INDICATION: Weakness. Atrial fibrillation. TECHNIQUE: A single frontal view of the chest was obtained. COMPARISON: Chest 2 views 01/26/2022, CT abdomen and pelvis 10/21/2024 FINDINGS: There is mild atelectasis at left lung base. A calcified right lung nodule and calcified ri ght hilar lymph nodes are consistent with old granulomatous disease. No pleural effusion or pneumotho rax. The heart size is normal. IMPRESSION: 1. Mild atelectasis at left lung base. Reviewed, dictated and finalized at location A. EST FIELD TICKETER
--- NOTE | 2024-10-23 04:33 | ECG_ITS ---
Test Date: 2024-10-23 07:42:51 Measurements Intervals [place] Rate: 116 P: 0 DC: 0 QRS: 18 QRSD: 102 T: 16 QT: 359 QTc: 499 Interpretive Statements ATRIAL FLUTTER/TACHYCARDIA WITH RAPID VENTRICULAR RESPONSE ANTEROLATERAL MYOCARDIAL INFARCTION , PROBABLY OLD MINIMAL Q WAVES- INFERIOR LEADS ABNORMAL ECG Compared to ECG 08/09/2024 13:07:40 Sinus rhythm no longer present Electronically Signed On 10-23-2024 08:26:56 TABULATING CLERK by Feng Reddy D.O.
[2024-10-23 04:42] LABS: Basophils Percent Auto 0.1 % (0.2-1.2); Hemoglobin 11.9 g/dL (14.0-18.0); Immature Granulocyte Absolute 0.16 K/mm3 (0.00-0.031); Immature Granulocyte Percent A 1.1 % (0-0.5); Lymphocytes Absolute Auto 0.41 K/mm3 (0.9-3.2); Lymphocytes Percent Auto 2.8 % (18.3-44.2); Mean Corpuscular HGB Conc 32.2 g/dl (32-36); Mean Corpuscular Hemoglobin 26.6 pg (26-34); Mean Corpuscular Volume 82.8 fl (80-100); Mean Platelet Volume 9.4 fl (7.4-10.4); Monocytes Absolute Auto 0.7 K/mm3 (0.1-0.6); Neutrophils Absolute Auto 13.2 K/mm3 (1.3-6.7); Platelet Count Result 193 k/mm3 (150-375); Red Blood Count 4.47 M/mm3 (4.6-6.20); White Blood Count 14.5 K/mm3 (4.5-10.0)
[2024-10-23] MEDS: dilTIAZem 100 MG/100 ML 100 MG/100 ML BAG IV CONT (04:47)
[2024-10-23] MEDS: dilTIAZem HCl INJ 25 MG/5 ML VIAL 20 MG IV PUSH (04:49)
[2024-10-23 04:56] LABS: Alanine Aminotransferase 23 U/L (6-50); Albumin Level 3.6 g/dL (3.5-5.1); Alkaline Phosphatase 74 U/L (38-126); Anion Gap 10 mmol/L (4-12); Aspartate Amino Transferase 76 U/L (17-59); Bilirubin,Total 1.2 mg/dL (0.2-1.3); Blood Urea Nitrogen 42 mg/dL (9-20); Calcium 8.4 mg/dL (8.4-10.2); Carbon Dioxide 21 mmol/L (22-30); Chloride 99 mmol/L (98-107); Estimated CRCL calculation 38 ml/min; Estimated Glomerular Filt Rate 39; Glucose 123 mg/dL (65-110); Potassium 3.8 mmol/L (3.4-5.0); Sodium 130 mmol/L (137-145)
[2024-10-23 05:13] LABS: NT Pro B Type Natriuretic Pept 3260 pg/mL (19.9-100)
[2024-10-23 05:13] LABS: Bacteria Urine 2+ /hpf; Bilirubin Urine Negative (Negative); Blood Urine 3+ (Negative); Color Urine Yellow (Yellow); Glucose Urine UA Negative (Negative); Ketones Urine Trace mg/dL (Negative); Leukocyte Esterase Ur 3+ LEU/UL (Negative); Nitrate Urine Positive (Negative); Non Pathogenic Casts 0-2; Protein Urine 2+ mg/dL (Negative); RBC Urine 51-100 /hpf (0-2); Specific Grav Ur 1.012 (1.001-1.035); Squamous Epithelial Cell Urine None Seen /hpf (Few); Urobilinogen Urine 0.2 mg/dL (<2.0); WBC Urine >100 /hpf (0-3); pH Urine 5.5 (5.0-9.0)
[2024-10-23 05:14] LABS: Add Urine Microscopic? YES
[2024-10-23 05:15] LABS: Appearance Urine Cloudy (Clear)
--- NOTE | 2024-10-23 05:18 | ED.GENADULT ---
HPI - General Adult General Chief complaint: Weakness Stated complaint: weakness, low blood sugar Time Seen by Provider: 10/23/24 04:37 History of Present Illness HPI narrative: Patient is 71 year old gentleman last evening. Patient has prior history of atrial fibrillation and takes Cardizem the patient states that he has been feeling weak today reports that he is not really able to get up and walk around for the last few days the patient did have a blood sugar 51 whenever EMS arrived, the patient was found patient ventricular rate 160s the patient denies chest pain Related Data Home Medications Medication Instructions Recorded Confirmed loratadine 10 mg tablet 10 mg PO DAILY 01/26/22 10/07/24 nitroglycerin 0.4 mg sublingual 0.4 mg sublingual DIRECTED 08/09/24 10/07/24 tablet tamsulosin 0.4 mg capsule 0.4 mg PO DAILY 10/04/24 10/07/24 Allergies Allergy/AdvReac Type Severity Reaction Status Date / Time No Known Allergies Allergy Verified 10/04/24 08:44 [facility] Past Medical History Medical History Atherosclerosis of aorta Atherosclerotic heart disease of [place] coronary artery without angina pectoris Atrial fibrillation and flutter Bradycardia Chronic anticoagulation Diabetes Heart failure, unspecified Hypertensive heart disease with heart failure Male erectile dysfunction, unspecified Pulmonary hypertension, unspecified Pure hypercholesterolemia, unspecified Type 2 diabetes mellitus with diabetic neuropathy, 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 Other Unknown family medical history Social History Social History Smoking status: Never smoker Alcohol intake: never Substance use: never Substance use type: does not use Do You Feel Safe in your Home?: Yes Lack of Transportation: No Lack of Food: Never True Current Housing: I Have Housing Concerned About Future Housing: No Difficulty Paying Gas/Electric Bills: No Difficulty Paying for Meds: No Currently Unemployed: No Education: Associate Degree Difficulty w/ Childcare or Family Care: No Living arrangements: with family Additional living arrangements comments: & GRANDCHILDREN Occupation/Education: retired Gender identity (if verbalized by the patient): Male Sexual Orientation (if Verbalized by the Patient): Straight or Heterosexual Spiritual care concerns: No Course Vital Signs Vital signs: Vital Signs Temperature 37.6 C H 10/23/24 04:25 Pulse Rate 164 H 10/23/24 04:25 Respiratory Rate 20 10/23/24 04:25 Blood Pressure 147/106 H 10/23/24 04:25 Pulse Oximetry 98 10/23/24 04:25 Oxygen Delivery Room Air 10/23/24 04:25 Temperature 37.6 C H 10/23/24 04:25 Pulse Rate 140 H 10/23/24 06:09 Respiratory Rate 20 10/23/24 04:25 Blood Pressure 120/56 L 10/23/24 06:09 Pulse Oximetry 98 10/23/24 04:25 Oxygen Delivery Room Air 10/23/24 04:25 Medical Decision Making [facility] Narrative Medical decision making narrative: Differential diagnosis includes AFib RVR, UTI, sepsis, pneumonia, ACS EKG initially showed atrial fibrillation with rapid ventricular response the patient has prior history of AFib the patient was started on a Cardizem drip Urinalysis shows greater than 100 white blood cells the patient does have a leukocytosis with a white count of 14 5 creatinine was 1.7 Vital Signs Vital Signs: Vital Signs Temperature 37.6 C H 10/23/24 04:25 Pulse Rate 164 H 10/23/24 04:25 Respiratory Rate 20 10/23/24 04:25 Blood Pressure 147/106 H 10/23/24 04:25 Pulse Oximetry 98 10/23/24 04:25 Oxygen Delivery Room Air 10/23/24 04:25 Temperature 37.6 C H 10/23/24 04:25 Pulse Rate 140 H 10/23/24 06:09 Respiratory Rate 20 10/23/24 04:25 Blood Pressure 120/56 L 10/23/24 06:09 Pulse Oximetry 98 10/23/24 04:25 Oxygen Delivery Room Air 10/23/24 04:25 Lab Data 10/23/24 04:36 10/23/24 04:36 Labs: Lab Results 10/23/24 10/23/24 Range/Units 04:36 04:56 WBC 14.5 H (4.5-10.0) K/mm3 RBC 4.47 L (4.6-6.20) M/mm3 Hgb 11.9 L (14.0-18.0) g/dL Hct 37.0 L (42.0-52.0) % MCV 82.8 (80-100) fl MCH 26.6 (26-34) pg MCHC 32.2 (32-36) g/dl RDW 16.0 H (11.5-14.5) % Plt Count 193 (150-375) k/mm3 MPV 9.4 (7.4-10.4) fl Immature Gran % (Auto) 1.1 H (0-0.5) % Neut % (Auto) 91.0 H (45.5-73.1) % Lymph % (Auto) 2.8 L (18.3-44.2) % [place] % (Auto) 5.0 (2.6-8.5) % Eos % (Auto) 0.0 (0-4.4) % Baso % (Auto) 0.1 L (0.2-1.2) % Lymph # (Auto) 0.41 L (0.9-3.2) K/mm3 [place] # (Auto) 0.7 H (0.1-0.6) K/mm3 Eos # (Auto) 0.0 (0-0.3) K/mm3 Baso # (Auto) 0.0 (0.0-0.1) K/mm3 Abs Immat Gran (auto) 0.16 H (0.00-0.031) K/mm3 Absolute Neuts (auto) 13.2 H (1.3-6.7) K/mm3 Absolute Nucleated RBC 0.000 (0.0-0.012) K/mm3 Nucleated RBC % 0.0 (0.0-0.2) % Sodium 130 L (137-145) mmol/L Potassium 3.8 (3.4-5.0) mmol/L Chloride 99 (98-107) mmol/L Carbon Dioxide 21 L (22-30) mmol/L Anion Gap 10 (4-12) mmol/L BUN 42 H D (9-20) mg/dL Creatinine 1.70 H (0.7-1.3) mg/dL Estim Creat Clear Calc 38 ml/min Estimated GFR 39 L (59 - ) Glucose 123 H (65-110) mg/dL Calcium 8.4 (8.4-10.2) mg/dL Magnesium 2.0 (1.6-2.3) mg/dL Total Bilirubin 1.2 (0.2-1.3) mg/dL AST 76 H (17-59) U/L ALT 23 (6-50) U/L Alkaline Phosphatase 74 (38-126) U/L Troponin I 0.048 H* (0.000-0.034) ng/mL NT-Pro-B Natriuret Pep 3260 H (19.9-100) pg/mL Total Protein 6.0 L (6.3-8.2) g/dL Albumin 3.6 (3.5-5.1) g/dL Urine Color Yellow (Yellow) Urine Appearance Cloudy H (Clear) Urine pH 5.5 (5.0-9.0) Ur Specific [place] 1.012 (1.001-1.035) Urine Protein 2+ H (Negative) mg/dL Urine Glucose (UA) Negative (Negative) mg/dL Urine Ketones Trace H (Negative) mg/dL Ur Blood (Man) 3+ H (Negative) Urine Nitrate Positive H (Negative) Urine Bilirubin Negative (Negative) Urine Urobilinogen 0.2 (<2.0) mg/dL Leukocyte Esterase Rfl 3+ H (Negative) SCAR/UL Urine RBC 51-100 H (0-2) /hpf Urine WBC >100 H (0-3) /hpf Ur Squamous Epith Cells None seen (Few) /hpf Urine Bacteria 2+ H /hpf Urine Casts 0-2 Critical Care Time Critical Care Time Critical Care Time: Yes Total Critical Care Time: 30 Discharge Plan Discharge Clinical Impression: Atrial fibrillation with RVR, Acute UTI Patient Disposition: Still a Patient Condition: Stable Prescriptions: No Action tamsulosin 0.4 mg capsule 0.4 mg PO DAILY loratadine 10 mg Tablet 10 mg PO DAILY cefdinir 300 mg capsule 300 mg PO Q12H Qty: 14 0RF dicyclomine 20 mg tablet 20 mg PO QID PRN (Reason: abdominal pain) Qty: 20 0RF nitroglycerin 0.4 mg tablet, sublingual 0.4 mg sublingual DIRECTED diltiazem HCl [DILT-XR] 180 mg capsule,ext.rel 24h degradable 180 mg PO DAILY Qty: 100 1RF Patient Comments: QAM sotalol 80 mg tablet 80 mg PO BID Qty: 200 1RF lisinopril 20 mg tablet 20 mg PO HS Qty: 100 1RF glimepiride 4 mg tablet 4 mg PO DAILY Qty: 100 1RF Patient Comments: QAM Eliquis 5 mg tablet 5 mg PO BID Qty: 200 2RF Hold Instructions: Resume on 08/17/24. rosuvastatin 10 mg tablet 10 mg PO DAILY Qty: 100 1RF metformin 1,000 mg tablet 1,000 mg PO BID Qty: 200 1RF finasteride 5 mg tablet 5 mg PO HS Qty: 100 1RF hydrocortisone 2.5 % cream with perineal applicator 1 applic RECTAL DAILY PRN (Reason: hemorrhoids) Qty: 30 0RF Follow-up/Referrals: Pratik Hernandez MD [Primary Care Provider] - Time of Disposition: 06:22
[2024-10-23 05:24] LABS: Troponin I 0.048 ng/mL (0.000-0.034)
[2024-10-23] MEDS: ACETAMINOPHEN 500 MG TABLET 1000 MG PO (05:42)
[2024-10-23] MEDS: SODIUM CHLORIDE 0.9% IV 1,000 ML 999 ML IV CONT ×2 (06:20→06:27)
[2024-10-23] MEDS: ASPIRIN 81 MG CHEWABLE TABLET 324 MG PO (06:26)
--- NOTE | 2024-10-23 07:31 | ECG_ITS ---
Test Date: 2024-10-23 04:30:10 Measurements Intervals [place] Rate: 154 P: 0 VT: 0 QRS: -5 QRSD: 102 T: -4 QT: 303 QTc: 486 Interpretive Statements ATRIAL FIBRILLATION WITH RAPID VENTRICULAR RESPONSE ANTEROSEPTAL INFARCT, AGE INDETERMINATE BORDERLINE ST-T WAVE ABNORMALITY- INFERIOR LEADS BASELINE ARTIFACT- I, II, III, AVR, AVL,A VF, V1-V6 ABNORMAL ECG Compared to ECG 08/09/2024 13:07:40 SINUS RHYTHM NO LONGER PRESENT Electronically Signed On 10-23-2024 09:32:46 [employer] PLANTER by Feng Reddy D.O.
[2024-10-23 08:36] LABS: Troponin I 0.049 ng/mL (0.000-0.034)
[2024-10-23] MEDS: SODIUM CHLORIDE 0.9% IV 1,000 ML 75 ML IV CONT ×2 (08:51→20:25)
--- NOTE | 2024-10-23 09:15 | P.HP_ITS ---
H&P: HPI History of Present Illness Date/Time: 10/23/24 09:15 Chief Complaint: Generalized weakness Narrative: 79 years old male with history of hypertension, no dependent diabetes, atrial fibrillation had recently placed suprapubic catheter was admitted through the emergency room with a complaint of having generalized weakness going on for the last few days. EMS also found that patient was hypoglycemic and got better with treatment. On arrival in the ER patient was found to atrial fibrillation with rapid ventricular response. Patient also was found to have urinary tract infection. However patient denied any chest pain or shortness of breath. Patient also denied fever. In the ER patient was started on Cardizem drip. Culture were done and antibiotic was started. Patient was transferred to [facility] treatment. At present patient is feeling slightly better. Patient denies any chest pain or shortness breath, however patient troponin is high. Review of Systems Review of Systems: All systems reviewed & are unremarkable except as noted in HPI and below (the history and physical examination.) [facility] Past Medical History Medical History (Updated 10/23/24 @ 09:22 by Robby Albert MD) Atherosclerosis of aorta Atherosclerotic heart disease of [place] coronary artery without angina pectoris Atrial fibrillation and flutter Bradycardia Chronic anticoagulation Diabetes Heart failure, unspecified Hypertensive heart disease with heart failure Male erectile dysfunction, unspecified Pulmonary hypertension, unspecified Pure hypercholesterolemia, unspecified Type 2 diabetes mellitus with diabetic neuropathy, 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 Other Unknown family medical history Social History Social History Smoking status: Never smoker Alcohol intake: never Substance use: never Substance use type: does not use Do You Feel Safe in your Home?: Yes Lack of Transportation: No Lack of Food: Never True Current Housing: I Have Housing Concerned About Future Housing: No Difficulty Paying Gas/Electric Bills: No Difficulty Paying for Meds: No Currently Unemployed: No Education: Associate Degree Difficulty w/ Childcare or Family Care: No Living arrangements: with family Additional living arrangements comments: & GRANDCHILDREN Occupation/Education: retired Gender identity (if verbalized by the patient): Male Sexual Orientation (if Verbalized by the Patient): Straight or Heterosexual Spiritual care concerns: No Meds Home Medications and Allergies Home Medications Medication Instructions Recorded Confirmed Type loratadine 10 mg tablet 10 mg PO DAILY 01/26/22 10/07/24 History apixaban 5 mg tablet (Eliquis) 5 mg PO BID #200 tabs 06/21/24 10/07/24 Rx diltiazem HCl 180 mg 180 mg PO DAILY #100 caps 06/21/24 10/07/24 Rx capsule,extended release 24 hr, controlled (DILT-XR) glimepiride 4 mg tablet 4 mg PO DAILY #100 tabs 06/21/24 10/07/24 Rx lisinopril 20 mg tablet 20 mg PO HS #100 tabs 06/21/24 10/07/24 Rx sotalol 80 mg tablet 80 mg PO BID #200 tabs 06/21/24 10/07/24 Rx nitroglycerin 0.4 mg sublingual 0.4 mg sublingual DIRECTED 08/09/24 10/07/24 History tablet finasteride 5 mg tablet 5 mg PO HS #100 tabs 09/24/24 10/07/24 Rx metformin 1,000 mg tablet 1,000 mg PO BID #200 tabs 09/24/24 10/07/24 Rx rosuvastatin 10 mg tablet 10 mg PO DAILY #100 tabs 09/24/24 10/07/24 Rx hydrocortisone 2.5 % topical cream 1 applic RECTAL DAILY PRN 10/01/24 10/07/24 Rx with perineal applicator hemorrhoids #30 grams tamsulosin 0.4 mg capsule 0.4 mg PO DAILY 10/04/24 10/07/24 History cefdinir 300 mg capsule 300 mg PO Q12H #14 caps 10/21/24 Rx dicyclomine 20 mg tablet 20 mg PO QID PRN abdominal pain 10/21/24 Rx #20 tabs Allergies Allergy/AdvReac Type Severity Reaction Status Date / Time No Known Allergies Allergy Verified 10/23/24 06:30 Vital Signs Vital Signs - 24 hr 10/23/24 04:25 10/23/24 04:47 10/23/24 05:30 Temperature 37.6 C H Pulse Rate 164 H 161 H 155 H Respiratory Rate 20 Blood Pressure 147/106 H 174/81 H 98/77 L Pulse Oximetry 98 Oxygen Delivery Room Air 10/23/24 06:09 10/23/24 06:31 10/23/24 05:55 Temperature 37.3 C Pulse Rate 140 H 142 H Respiratory Rate 13 Blood Pressure 120/56 L 120/56 L Pulse Oximetry 98 Oxygen Delivery 10/23/24 05:57 10/23/24 06:50 10/23/24 07:02 Temperature Pulse Rate 136 H 128 H 117 H Respiratory Rate 26 H 17 17 Blood Pressure 120/56 L 137/80 149/57 H Pulse Oximetry 95 98 100 Oxygen Delivery 10/23/24 07:17 10/23/24 08:14 Temperature Pulse Rate 123 H 113 H Respiratory Rate 20 15 Blood Pressure 117/73 125/84 Pulse Oximetry 100 99 Oxygen Delivery Exam Narrative: Exam Const: General: healthy a ppearing and no ac [place] distress Nutr itional Appearance : well nourished Orientation/consci ousness: patient o riented x3 Limita tions: no limitati ons HENMT: Mouth: Yes dry muc ous membranes Cardio: Rate: irregular ra te Rhythm: irregu lar rhythm GI: GI Palp: Yes Soft to palpation and Y es Tenderness to p alpation present ( GI) (low abdomen) Auscultation: nor mal bowel sounds S upra pubic cathete r in place. Neuro: General: patient o riented x3, moves all extremities an d no focal motor d eficits Cranial n erves: Yes Nystagm us not present Sp eech: normal speec h Extrem: General: normal to inspection and no clubbing, cyanosi s or edema Psych: Mental Status: men vinnie status grossly normal Affect: n ormal affect Atti tude: cooperative H&P: Results Labs Labs: Short CBC 10/23/24 Range/Units 04:36 WBC 14.5 H (4.5-10.0) K/mm3 Hgb 11.9 L (14.0-18.0) g/dL Hct 37.0 L (42.0-52.0) % Plt Count 193 (150-375) k/mm3 BMP 10/23/24 04:36 Sodium 130 L Potassium 3.8 Chloride 99 Carbon Dioxide 21 L BUN 42 H D Creatinine 1.70 H Glucose 123 H Calcium 8.4 Cardiac Enzymes 10/23/24 10/23/24 Range/Units 04:36 06:11 Troponin I 0.048 H* 0.049 H* (0.000-0.034) ng/mL Liver Function 10/23/24 Range/Units 04:36 Total Bilirubin 1.2 (0.2-1.3) mg/dL AST 76 H (17-59) U/L ALT 23 (6-50) U/L Alkaline Phosphatase 74 (38-126) U/L Albumin 3.6 (3.5-5.1) g/dL Urine 10/23/24 Range/Units 04:56 Urine Color Yellow (Yellow) Urine Appearance Cloudy H (Clear) Urine pH 5.5 (5.0-9.0) Ur Specific [place] 1.012 (1.001-1.035) Urine Protein 2+ H (Negative) mg/dL Urine Glucose (UA) Negative (Negative) mg/dL Assessment and Plan Assessment and plan (1) Atrial fibrillation with RVR: Code(s): I48.91 - Unspecified atrial fibrillation Status: Acute Assessment and Plan: Plan is to continue with Cardizem drip. Control heart rate. Continue with anticoagulation. Cardiology consult. (2) Acute UTI: Code(s): N39.0 - Urinary tract infection, site not specified Status: Acute Assessment and Plan: Urine culture was sent. Patient is on IV ceftriaxone. (3) Diabetes: Code(s): E11.9 - Type 2 diabetes mellitus without complications Status: Acute Assessment and Plan: Continue home medication monitor closely. (4) Essential hypertension: Code(s): I10 - Essential (primary) hypertension Status: Acute Assessment and Plan: Continue with home medications and monitor closely (5) Renal insufficiency: Code(s): N28.9 - Disorder of kidney and ureter, unspecified Status: Acute Assessment and Plan: Gentle hydration and monitor closely. (6) Abnormal cardiac enzyme level: Code(s): R74.8 - Abnormal levels of other serum enzymes Status: Acute Assessment and Plan: Cardiology evaluation and serial cardiac enzymes. Quality VTE Prophylaxis VTE prophylaxis: pharmacologic ordered Patient will stay for more than 2 days in the hospital. Patient is full code at present. Plan is to admit on telemetry bed. Continue home medication. Control heart. Cardiology consult.
[2024-10-23] MEDS: FINASTERIDE 5 MG TABLET PO (10:07)
[2024-10-23] MEDS: TAMSULOSIN HCL 0.4 MG CAPSULE PO (10:07)
[2024-10-23] MEDS: ROSUVASTATIN 10 MG TABLET PO (10:07)
[2024-10-23] MEDS: APIXABAN 5 MG TABLET PO ×2 (10:07→20:25)
[2024-10-23] MEDS: dilTIAZem 100 MG/100 ML 100 MG/100 ML BAG 20 MG IV CONT ×2 (10:10→11:52)
--- NOTE | 2024-10-23 11:31 | PM.CNCAR ---
Assessment and Plan Assessment and plan (1) Atrial fibrillation with RVR: Code(s): I48.91 - Unspecified atrial fibrillation Status: Acute Assessment and Plan: Likely precipitated by UTI, not taking his meds since 10/21 (seems like he missed two doses of Sotalol and Diltiazem). Continue Diltiazem drip for now. Wean off as tolerated by heart rates. On Sotalol 80mg BID at home. Resume Sotalol, however, will reduce the dose in half due to CHRISTOPHER. Check an EKG 1 hour after each Sotalol dose. If CHRISTOPHER resolves, then probably will be able to increase his Sotalol dose back to his usual 80mg BID. (2) Acute UTI: Code(s): N39.0 - Urinary tract infection, site not specified Status: Acute Assessment and Plan: On antibiotics as per Hospitalist. (3) CHRISTOPHER (acute kidney injury): Code(s): N17.9 - Acute kidney failure, unspecified Status: Acute Assessment and Plan: Closely monitor renal function. (4) Atherosclerotic heart disease of [place] coronary artery without angina pectoris: Qualifiers: [place] vs. transplanted heart: [place] heart Qualified Code(s): I25.10 - Atherosclerotic heart disease of [place] coronary artery without angina pectoris Code(s): I25.10 - Atherosclerotic heart disease of [place] coronary artery without angina pectoris Status: Acute Assessment and Plan: Stable, continue statin. (5) Chronic anticoagulation: Code(s): Z79.01 - oysterman (current) use of anticoagulants Status: Acute Assessment and Plan: Continue Eliquis. (6) Essential hypertension: Code(s): I10 - Essential (primary) hypertension Status: Acute Assessment and Plan: Stable (7) Diabetes: Code(s): E11.9 - Type 2 diabetes mellitus without complications Status: Acute Assessment and Plan: Management as per Hospitalist. History of Present Illness History of Present Illness Consult date/time: 10/23/24 11:31 Requesting physician: Robby Albert MD Consult reason: atrial fibrillation Reason For Visit: UTI, Elevated Troponin, AFib with RVR Narrative: We are consulted for atrial fibrillation with RVR. Patient follows with Dr. Cannon. He has coronary artery disease s/p stent to the LAD and diagonal and history of atrial fibrillation / atrial flutter. He has been maintained on Sotalol since 2021. Patient presented to [place] this morning for weakness. He was recently seen in the ED on 10/21, diagnosed with a UTI, and prescribed an antibiotic, but had not started taking it. In the ER this morning, he was noted to be in atrial fibrillation with RVR. Started on Diltiazem drip. Upon my evaluation, patient denies any palpitations from the RVR, does not even notice it per his words. He has not taken any of his medications since 10/21. Workup shows WBC of 14.5, was 17.7. Troponins are 0.048, 0.049. Of note, patient now has an CHRISTOPHER. Review of Systems Review of Systems: All systems reviewed & are unremarkable except as noted in HPI and below (HPI) [facility] Past Medical History Medical History Atherosclerosis of aorta Atherosclerotic heart disease of [place] coronary artery without angina pectoris Atrial fibrillation and flutter Bradycardia Chronic anticoagulation Diabetes Heart failure, unspecified Hypertensive heart disease with heart failure Male erectile dysfunction, unspecified Pulmonary hypertension, unspecified Pure hypercholesterolemia, unspecified Type 2 diabetes mellitus with diabetic neuropathy, 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 Other Unknown family medical history Social History Social History Smoking status: Never smoker Alcohol intake: never Substance use: never Substance use type: does not use Do You Feel Safe in your Home?: Yes Lack of Transportation: No Lack of Food: Never True Current Housing: I Have Housing Concerned About Future Housing: No Difficulty Paying Gas/Electric Bills: No Difficulty Paying for Meds: No Currently Unemployed: No Education: Associate Degree Difficulty w/ Childcare or Family Care: No Living arrangements: with family Additional living arrangements comments: & GRANDCHILDREN Occupation/Education: retired Gender identity (if verbalized by the patient): Male Sexual Orientation (if Verbalized by the Patient): Straight or Heterosexual Spiritual care concerns: No Meds Home Medications and Allergies Home Medications Medication Instructions Recorded Confirmed Type loratadine 10 mg tablet 10 mg PO DAILY 01/26/22 10/23/24 History apixaban 5 mg tablet (Eliquis) 5 mg PO BID #200 tabs 06/21/24 10/23/24 Rx diltiazem HCl 180 mg 180 mg PO DAILY #100 caps 06/21/24 10/23/24 Rx capsule,extended release 24 hr, controlled (DILT-XR) glimepiride 4 mg tablet 4 mg PO DAILY #100 tabs 06/21/24 10/23/24 Rx lisinopril 20 mg tablet 20 mg PO HS #100 tabs 06/21/24 10/23/24 Rx sotalol 80 mg tablet 80 mg PO BID #200 tabs 06/21/24 10/23/24 Rx nitroglycerin 0.4 mg sublingual 0.4 mg sublingual DIRECTED 08/09/24 10/23/24 History tablet finasteride 5 mg tablet 5 mg PO HS #100 tabs 09/24/24 10/23/24 Rx metformin 1,000 mg tablet 1,000 mg PO BID #200 tabs 09/24/24 10/23/24 Rx rosuvastatin 10 mg tablet 10 mg PO DAILY #100 tabs 09/24/24 10/23/24 Rx hydrocortisone 2.5 % topical cream 1 applic RECTAL DAILY PRN 10/01/24 10/23/24 Rx with perineal applicator hemorrhoids #30 grams tamsulosin 0.4 mg capsule 0.4 mg PO DAILY 10/04/24 10/23/24 History Allergies Allergy/AdvReac Type Severity Reaction Status Date / Time No Known Allergies Allergy Verified 10/23/24 06:30 Vital Signs Vital Signs - 24 hr 10/23/24 04:25 10/23/24 04:47 10/23/24 05:30 Temperature 37.6 C H Pulse Rate 164 H 161 H 155 H Respiratory Rate 20 Blood Pressure 147/106 H 174/81 H 98/77 L Pulse Oximetry 98 Oxygen Delivery Room Air 10/23/24 06:09 10/23/24 06:31 10/23/24 05:55 Temperature 37.3 C Pulse Rate 140 H 142 H Respiratory Rate 13 Blood Pressure 120/56 L 120/56 L Pulse Oximetry 98 Oxygen Delivery 10/23/24 05:57 10/23/24 06:50 10/23/24 07:02 Temperature Pulse Rate 136 H 128 H 117 H Respiratory Rate 26 H 17 17 Blood Pressure 120/56 L 137/80 149/57 H Pulse Oximetry 95 98 100 Oxygen Delivery 10/23/24 07:17 10/23/24 08:14 10/23/24 10:02 Temperature 36.8 C Pulse Rate 123 H 113 H 133 H Respiratory Rate 20 15 20 Blood Pressure 117/73 125/84 115/64 Pulse Oximetry 100 99 99 Oxygen Delivery 10/23/24 10:10 10/23/24 11:19 Temperature 36.3 C L Pulse Rate 138 H 137 H Respiratory Rate 20 Blood Pressure 115/64 117/66 Pulse Oximetry 98 Oxygen Delivery Exam Const: General: comfortable and no acute distress HENMT: Mouth: Yes dry mucous membranes Eyes: General: appearance normal, both eyes and all related structures Sclera: sclerae normal Resp: Effort & Inspection: normal respiratory effort Cardio: Rate: tachycardic Rhythm: abnormal rhythm irregularly irregular Heart sounds: no murmurs Skin: General skin exam: normal color Psych: Mental Status: mental status grossly normal Affect: normal affect Results Labs and Meds 10/23/24 04:36 10/23/24 04:36 Lab results: Cardiac Enzymes 10/23/24 10/23/24 Range/Units 04:36 06:11 AST 76 H (17-59) U/L Troponin I 0.048 H* 0.049 H* (0.000-0.034) ng/mL CBC 10/23/24 Range/Units 04:36 WBC 14.5 H (4.5-10.0) K/mm3 RBC 4.47 L (4.6-6.20) M/mm3 Hgb 11.9 L (14.0-18.0) g/dL Hct 37.0 L (42.0-52.0) % Plt Count 193 (150-375) k/mm3 Lymph # (Auto) 0.41 L (0.9-3.2) K/mm3 [place] # (Auto) 0.7 H (0.1-0.6) K/mm3 Eos # (Auto) 0.0 (0-0.3) K/mm3 Baso # (Auto) 0.0 (0.0-0.1) K/mm3 Comprehensive Metabolic Panel 10/23/24 Range/Units 04:36 Sodium 130 L (137-145) mmol/L Potassium 3.8 (3.4-5.0) mmol/L Chloride 99 (98-107) mmol/L Carbon Dioxide 21 L (22-30) mmol/L BUN 42 H D (9-20) mg/dL Creatinine 1.70 H (0.7-1.3) mg/dL Glucose 123 H (65-110) mg/dL Calcium 8.4 (8.4-10.2) mg/dL AST 76 H (17-59) U/L ALT 23 (6-50) U/L Alkaline Phosphatase 74 (38-126) U/L Total Protein 6.0 L (6.3-8.2) g/dL Albumin 3.6 (3.5-5.1) g/dL Intake and Output 10/22/24 10/23/24 10/23/24 23:59 07:59 15:59 Intake Total 60.1 2000 Balance 60.1 2000 Intake: IV 60.1 2000 Sodium Chloride 0.9% IV 1,000 2000 ml @ 999 mls/hr IV CONT .Q1H1M STA Rx#:[id number] dilTIAZem 100 MG/100 ML 100 mg 10.1 In 100 ml @ 5 MG/HR 5 mls/hr IV CONT .Q20H STA Rx#:[id number] cefTRIAXone 1 GM/NS 50 ML 1 gm 50 In 50 ml @ 100 mls/hr IVPB ONCE STA Rx#:[id number] Patient Weight 10/23/24 23:59 Weight 92.1 kg
[2024-10-23] MEDS: SOTALOL HCL 80 MG TABLET PO (11:54)
--- NOTE | 2024-10-23 13:48 | ECG_ITS ---
Test Date: 2024-10-23 13:57:41 Measurements Intervals [place] Rate: 79 P: 0 [place]: 0 QRS: 3 QRSD: 100 T: 16 QT: 421 QTc: 483 Interpretive Statements ATRIAL FLUTTER/TACHYCARDIA INCOMPLETE RIGHT BUNDLE BRANCH BLOCK LOW QRS VOLTAGE IN PRECORDIAL LEADS CPMSODER INFERIOR INFARCT, AGE INDETERMINATE ANTEROLATERAL INFARCT, AGE INDETERMINATE ABNORMAL ECG Compared to ECG 10/23/2024 07:42:51 HEART RATE HAS DECREASED Electronically Signed On 10-23-2024 14:25:37 SUPERVISOR OF GUIDANCE AND TESTING by Feng Reddy D.O.
--- NOTE | 2024-10-23 15:29 | ADMGEN ---
This patient, Joo Forman, was admitted to IMU Room 213-01 at 0825. Patient/family oriented to hospital policies and general routines including ID bracelet, bed and alarms, visiting hours, pain management, procedures, bathroom and other care routines, personal items, smoking policy, room service/diet, and visiting hours. Information on how to activate the Rapid Response Team has been discussed. Patient/Family are encouraged to report perceived risks to care and to ask questions if they do not understand what they are told or what they should do.
[2024-10-23 16:16] LABS: Glucose Point of Care 103 mg/dl (65-105)
[2024-10-23] MEDS: SOTALOL HCL 40 MG TABLET PO (17:10)
--- NOTE | 2024-10-23 18:54 | ECG_ITS ---
Test Date: 2024-10-23 19:01:30 Measurements Intervals [place] Rate: 102 P: 0 [place]: 0 QRS: 7 QRSD: 102 T: 6 QT: 388 QTc: 506 Interpretive Statements ATRIAL FLUTTER/TACHYCARDIA WITH RAPID VENTRICULAR RESPONSE ANTEROLATERAL INFARCT, AGE INDETERMINATE INFERIOR INFARCT, AGE INDETERMINATE BASELINE ARTIFACT- I, II, AVR, V5 ABNORMAL ECG Compared to ECG 10/23/2024 13:57:41 HEART RATE HAS INCREASED Electronically Signed On 10-24-2024 07:25:34 APPLICATION SYSTEMS ADMINISTRATOR by Feng Reddy D.O.
[2024-10-23 20:52] LABS: Glucose Point of Care 144 mg/dl (65-105)
[2024-10-23] MEDS: ACETAMINOPHEN 325 MG TABLET 650 MG PO (23:19)
[2024-10-24] VITALS (13 sets, daily range): BP systolic 96–167; BP diastolic 59–109; PULSE 136–144; RESP 18–22; TEMP 36.8–38.2; O2SAT 96–98
[2024-10-24 05:04] LABS: Hematocrit 38.7 % (42.0-52.0); Hemoglobin 11.8 g/dL (14.0-18.0); Mean Corpuscular HGB Conc 30.5 g/dl (32-36); Mean Corpuscular Hemoglobin 25.9 pg (26-34); Mean Corpuscular Volume 85.1 fl (80-100); Mean Platelet Volume 9.8 fl (7.4-10.4); Platelet Count Result 164 k/mm3 (150-375); Red Blood Count 4.55 M/mm3 (4.6-6.20); Red Cell Distribution Width 15.9 % (11.5-14.5); White Blood Count 8.3 K/mm3 (4.5-10.0)
[2024-10-24 05:16] LABS: Alanine Aminotransferase 19 U/L (6-50); Alkaline Phosphatase 71 U/L (38-126); Anion Gap 10 mmol/L (4-12); Aspartate Amino Transferase 44 U/L (17-59); Bilirubin,Total 0.9 mg/dL (0.2-1.3); Blood Urea Nitrogen 29 mg/dL (9-20); Calcium 7.6 mg/dL (8.4-10.2); Carbon Dioxide 23 mmol/L (22-30); Chloride 103 mmol/L (98-107); Estimated CRCL calculation 47 ml/min; Estimated Glomerular Filt Rate 53; Glucose 104 mg/dL (65-110); Potassium 3.1 mmol/L (3.4-5.0); Sodium 136 mmol/L (137-145)
[2024-10-24] MEDS: ROSUVASTATIN 10 MG TABLET PO (08:16)
[2024-10-24] MEDS: TAMSULOSIN HCL 0.4 MG CAPSULE PO (08:16)
[2024-10-24] MEDS: SOTALOL HCL 40 MG TABLET PO (08:16)
[2024-10-24] MEDS: FINASTERIDE 5 MG TABLET PO (08:17)
[2024-10-24] MEDS: APIXABAN 5 MG TABLET PO ×2 (08:17→20:48)
[2024-10-24 08:39] LABS: Glucose Point of Care 107 mg/dl (65-105)
--- NOTE | 2024-10-24 10:09 | ECG_ITS ---
Test Date: 2024-10-24 10:23:03 Measurements Intervals [place] Rate: 139 P: 0 [place]: 0 QRS: -8 QRSD: 96 T: -3 QT: 302 QTc: 460 Interpretive Statements ATRIAL FLUTTER/TACHYCARDIA WITH RAPID VENTRICULAR RESPONSE LOW QRS VOLTAGE IN PRECORDIAL LEADS ANTERIOR INFARCT, AGE INDETERMINATE INFERIOR INFARCT, AGE INDETERMINATE BASELINE ARTIFACT- I, III, AVR, AVL, V2 ABNORMAL ECG Compared to ECG 10/23/2024 19:01:30 HEART RATE HAS INCREASED Electronically Signed On 10-24-2024 11:49:22 BIOTECHNICIAN by Feng Reddy D.O.
--- NOTE | 2024-10-24 10:55 | PM.IMPN ---
Progress Note: A&P Assessment and Plan (1) Sepsis: Code(s): A41.9 - Sepsis, unspecified organism Status: Acute Assessment and Plan: Patient blood culture is positive for CAD negative rods. Patient ceftriaxone was increased to 2 g IV piggyback daily. Will monitor urine and blood culture report (2) Atrial fibrillation with RVR: Code(s): I48.91 - Unspecified atrial fibrillation Status: Acute Assessment and Plan: Plan is to continue with Cardizem drip. Control heart rate. Continue with anticoagulation. Cardiology consult noted. (3) Acute UTI: Code(s): N39.0 - Urinary tract infection, site not specified Status: Acute Assessment and Plan: Urine culture was sent. Patient is on IV ceftriaxone. (4) Diabetes: Code(s): E11.9 - Type 2 diabetes mellitus without complications Status: Acute Assessment and Plan: Continue home medication monitor closely. (5) Essential hypertension: Code(s): I10 - Essential (primary) hypertension Status: Acute Assessment and Plan: Continue with home medications and monitor closely (6) Renal insufficiency: Code(s): N28.9 - Disorder of kidney and ureter, unspecified Status: Acute Assessment and Plan: Gentle hydration and monitor closely. (7) Abnormal cardiac enzyme level: Code(s): R74.8 - Abnormal levels of other serum enzymes Status: Acute Assessment and Plan: Cardiology evaluation and serial cardiac enzymes. Subjective Date/time seen: 10/24/24 10:55 Patient was seen during the morning rounds today. Patient is feeling slightly better. No shortness of breath or chest pain. No abdominal pain, nausea, no vomiting. Mood state Review of Systems Review of Systems: All systems reviewed & are unremarkable except as noted in HPI and below (the history and physical examination.) Exam Narrative: Exam Const: General: healthy a ppearing and no ac shruti distress Nutr itional Appearance : well nourished Orientation/consci ousness: patient o riented x3 Limita tions: no limitati ons HENMT: Mouth: Yes dry muc ous membranes Cardio: Rate: irregular ra te Rhythm: irregu lar rhythm GI: GI Palp: Yes Soft to palpation and Y es Tenderness to p alpation present ( GI) (low abdomen) Auscultation: nor mal bowel sounds S upra pubic cathete r in place. Neuro: General: patient o riented x3, moves all extremities an d no focal motor d eficits Cranial n erves: Yes Nystagm us not present Sp eech: normal speec h Extrem: General: normal to inspection and no clubbing, cyanosi s or edema Psych: Mental Status: men vinnie status grossly normal Affect: n ormal affect Atti tude: cooperative Objective Data Vital Signs Vital Signs: Vital Signs - 24 hr 10/23/24 11:19 10/23/24 11:52 10/23/24 11:52 Temperature 36.3 C L Pulse Rate 137 H 132 H 132 H Respiratory Rate 20 Blood Pressure 117/66 115/64 115/64 Pulse Oximetry 98 Oxygen Delivery 10/23/24 12:00 10/23/24 12:00 10/23/24 14:41 Temperature Pulse Rate 131 H 69 Respiratory Rate Blood Pressure 97/50 L Pulse Oximetry Oxygen Delivery Room Air 10/23/24 12:00 10/23/24 14:00 10/23/24 15:45 Temperature 37.4 C Pulse Rate 132 H 69 78 Respiratory Rate 20 Blood Pressure 115/64 97/50 L 99/51 L Pulse Oximetry 95 Oxygen Delivery 10/23/24 16:00 10/23/24 17:10 10/23/24 16:00 Temperature Pulse Rate 98 78 Respiratory Rate Blood Pressure 99/51 L Pulse Oximetry Oxygen Delivery Room Air 10/23/24 17:10 10/23/24 16:00 10/23/24 20:00 Temperature 37.4 C Pulse Rate 94 71 100 Respiratory Rate 20 Blood Pressure 134/70 Pulse Oximetry 98 Oxygen Delivery 10/23/24 20:00 10/23/24 20:00 10/23/24 22:00 Temperature Pulse Rate 108 H 118 H Respiratory Rate Blood Pressure Pulse Oximetry Oxygen Delivery Room Air 10/23/24 23:36 10/23/24 23:40 10/24/24 00:00 Temperature 38.1 C H Pulse Rate 139 H 136 H Respiratory Rate 20 Blood Pressure 138/79 Pulse Oximetry 92 Oxygen Delivery Room Air 10/24/24 02:00 10/24/24 04:00 10/24/24 04:00 Temperature 37.1 C Pulse Rate 136 H 139 H Respiratory Rate 22 H Blood Pressure 159/92 H Pulse Oximetry 96 Oxygen Delivery Room Air 10/24/24 04:00 10/24/24 06:00 10/24/24 08:16 Temperature Pulse Rate 138 H 140 H 142 H Respiratory Rate Blood Pressure Pulse Oximetry Oxygen Delivery 10/24/24 08:00 10/24/24 08:00 10/24/24 10:00 Temperature 37.2 C Pulse Rate 142 H 142 H 142 H Respiratory Rate 18 Blood Pressure 140/98 H Pulse Oximetry 97 Oxygen Delivery Intake/Output Intake/Output: Intake & Output 10/21/24 10/22/24 10/23/24 10/24/24 23:59 23:59 23:59 23:59 Intake Total 3522.9 1010 Output Total 1100 1400 Balance 2422.9 -390 Meds/Results Medications: Active Medications Generic Name Dose Route Start Last Admin Trade Name Freq PRN Reason Stop Dose Admin Acetaminophen 650 mg 10/23/24 06:20 10/23/24 23:19 Acetaminophen 325 Mg Tablet PO 650 mg Q4H PRN Administration Mild Pain (1-3) or Fever Apixaban 5 mg 10/23/24 09:30 10/24/24 08:17 Apixaban 5 Mg Tablet PO 5 mg Q12HR DEBORAH Administration Dextrose 12.5 gm 10/23/24 16:01 Dextrose 50% 25 Gm/50 Ml Syringe IV PUSH PRN PRN Hypoglycemia Protocol Finasteride 5 mg 10/23/24 09:30 10/24/24 08:17 Finasteride 5 Mg Tablet PO 5 mg QAM DEBORAH Administration Glucagon 1 mg 10/23/24 16:01 Glucagon For Inj 1 Mg Vial IM PRN PRN Hypoglycemia Protocol Glucose 15 gm 10/23/24 16:01 Glucose Oral Gel 15 Gm Of Glucse In 37.5 Gm Tube PO PRN PRN Hypoglycemia Protocol Dextrose 1,000 mls @ 100 mls/hr 10/23/24 16:01 Dextrose 5% 1,000 Ml IVPB PRN PRN Hypoglycemia Protocol Ceftriaxone Sodium 2 gm in 100 mls @ 200 mls/hr 10/25/24 09:00 Rocephin 2 Gm/Ns 100 Ml IVPB DAILY DEBORAH Insulin Aspart 2 - 5 units 10/23/24 17:00 10/24/24 10:11 Insulin Aspart (*Bkc) 100 Units/Ml SUB-Q Not Given TIDWM DEBORAH Protocol Ondansetron HCl 4 mg 10/23/24 06:20 Ondansetron Inj 4 Mg/2 Ml Vial IV PUSH Q4H PRN Nausea Rosuvastatin Calcium 10 mg 10/23/24 09:30 10/24/24 08:16 Rosuvastatin 10 Mg Tablet PO 10 mg QAM DEBORAH Administration Sotalol HCl 40 mg 10/23/24 17:00 10/24/24 08:16 Sotalol Hcl 40 Mg Tablet PO 40 mg BID DEBORAH Administration Tamsulosin HCl 0.4 mg 10/23/24 09:30 10/24/24 08:16 Tamsulosin Hcl 0.4 Mg Capsule PO 0.4 mg QAM DEBORAH Administration Radiology Results: ITS Impressions Chest X-Ray 10/23/24 06:03 IMPRESSION: 1. Mild atelectasis at left lung base. Labs Labs: Laboratory Results - last 24 hr 10/23/24 10/23/24 10/24/24 16:14 20:49 04:49 WBC 8.3 RBC 4.55 L Hgb 11.8 L Hct 38.7 L MCV 85.1 MCH 25.9 L MCHC 30.5 L RDW 15.9 H Plt Count 164 MPV 9.8 Sodium 136 L Potassium 3.1 L Chloride 103 Carbon Dioxide 23 Anion Gap 10 BUN 29 H D Creatinine 1.30 Estim Creat Clear Calc 47 Estimated GFR 53 L Glucose 104 POC Capillary Glucose 103 144 H Calcium 7.6 L Total Bilirubin 0.9 AST 44 ALT 19 Alkaline Phosphatase 71 Total Protein 6.0 L Albumin 3.0 L 10/24/24 07:54 WBC RBC Hgb Hct MCV MCH MCHC RDW Plt Count MPV Sodium Potassium Chloride Carbon Dioxide Anion Gap BUN Creatinine Estim Creat Clear Calc Estimated GFR Glucose POC Capillary Glucose 107 H Calcium Total Bilirubin AST ALT Alkaline Phosphatase Total Protein Albumin Quality VTE Prophylaxis VTE prophylaxis: pharmacologic ordered
--- NOTE | 2024-10-24 11:10 | PM.PNCARD ---
Progress Note: A&P Assessment and Plan (1) Paroxysmal atrial flutter: Code(s): I48.92 - Unspecified atrial flutter Status: Acute Plan 79-year-old man with history of atrial fib and atrial flutter presenting with weakness/shortness of breath could get off the floor at his home and found to be in atrial flutter with RVR. Patient states that he was taking his sotalol without missing doses which is not with the admitting notes indicate. In any event he is hemodynamically stable I will advance the dosage of his sotalol back to 80 mg twice daily today and scheduled for electrical cardioversion tomorrow morning. Anticipate referral to electrophysiology after this to consider flutter ablation. 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 He has a history of atrial fib and flutter and has had at least 2 ablation procedures elsewhere no arrhythmias for a number of years. He is persisting in atrial flutter on telemetry at this time otherwise appears to be asymptomatic is comfortable and visiting with family. Exam Const: General: comfortable and no acute distress HENMT: Face/Nose/Sinus: Normal nares present Eyes: Sclera: sclerae normal Pupils: Equal, round and reactive pupils present Neck: Neck: supple and no JVD Resp: Effort & Inspection: normal respiratory effort Auscultation: clear to auscultation bilaterally Cardio: Rate: tachycardic Rhythm: regular rhythm GI: GI Palp: Yes Soft to palpation Auscultation: normal bowel sounds Skin: General skin exam: normal color Neuro: Other: Alert and oriented x3 Extrem: General: normal to inspection Objective Data Vital Signs Vital Signs: Vital Signs - 24 hr 10/23/24 11:19 10/23/24 11:52 10/23/24 11:52 Temperature 36.3 C L Pulse Rate 137 H 132 H 132 H Respiratory Rate 20 Blood Pressure 117/66 115/64 115/64 Pulse Oximetry 98 Oxygen Delivery 10/23/24 12:00 10/23/24 12:00 10/23/24 14:41 Temperature Pulse Rate 131 H 69 Respiratory Rate Blood Pressure 97/50 L Pulse Oximetry Oxygen Delivery Room Air 10/23/24 12:00 10/23/24 14:00 10/23/24 15:45 Temperature 37.4 C Pulse Rate 132 H 69 78 Respiratory Rate 20 Blood Pressure 115/64 97/50 L 99/51 L Pulse Oximetry 95 Oxygen Delivery 10/23/24 16:00 10/23/24 17:10 10/23/24 16:00 Temperature Pulse Rate 98 78 Respiratory Rate Blood Pressure 99/51 L Pulse Oximetry Oxygen Delivery Room Air 10/23/24 17:10 10/23/24 16:00 10/23/24 20:00 Temperature 37.4 C Pulse Rate 94 71 100 Respiratory Rate 20 Blood Pressure 134/70 Pulse Oximetry 98 Oxygen Delivery 10/23/24 20:00 10/23/24 20:00 10/23/24 22:00 Temperature Pulse Rate 108 H 118 H Respiratory Rate Blood Pressure Pulse Oximetry Oxygen Delivery Room Air 10/23/24 23:36 10/23/24 23:40 10/24/24 00:00 Temperature 38.1 C H Pulse Rate 139 H 136 H Respiratory Rate 20 Blood Pressure 138/79 Pulse Oximetry 92 Oxygen Delivery Room Air 10/24/24 02:00 10/24/24 04:00 10/24/24 04:00 Temperature 37.1 C Pulse Rate 136 H 139 H Respiratory Rate 22 H Blood Pressure 159/92 H Pulse Oximetry 96 Oxygen Delivery Room Air 10/24/24 04:00 10/24/24 06:00 10/24/24 08:16 Temperature Pulse Rate 138 H 140 H 142 H Respiratory Rate Blood Pressure Pulse Oximetry Oxygen Delivery 10/24/24 08:00 10/24/24 08:00 10/24/24 10:00 Temperature 37.2 C Pulse Rate 142 H 142 H 142 H Respiratory Rate 18 Blood Pressure 140/98 H Pulse Oximetry 97 Oxygen Delivery Intake/Output Intake/Output: Intake & Output 10/21/24 10/22/24 10/23/24 10/24/24 23:59 23:59 23:59 23:59 Intake Total 3522.9 1010 Output Total 1100 1400 Balance 2422.9 -390 Meds/Results Medications: Active Medications Generic Name Dose Route Start Last Admin Trade Name Freq PRN Reason Stop Dose Admin Acetaminophen 650 mg 10/23/24 06:20 10/23/24 23:19 Acetaminophen 325 Mg Tablet PO 650 mg Q4H PRN Administration Mild Pain (1-3) or Fever Apixaban 5 mg 10/23/24 09:30 10/24/24 08:17 Apixaban 5 Mg Tablet PO 5 mg Q12HR DEBORAH Administration Dextrose 12.5 gm 10/23/24 16:01 Dextrose 50% 25 Gm/50 Ml Syringe IV PUSH PRN PRN Hypoglycemia Protocol Finasteride 5 mg 10/23/24 09:30 10/24/24 08:17 Finasteride 5 Mg Tablet PO 5 mg QAM DEBORAH Administration Glucagon 1 mg 10/23/24 16:01 Glucagon For Inj 1 Mg Vial IM PRN PRN Hypoglycemia Protocol Glucose 15 gm 10/23/24 16:01 Glucose Oral Gel 15 Gm Of Glucse In 37.5 Gm Tube PO PRN PRN Hypoglycemia Protocol Dextrose 1,000 mls @ 100 mls/hr 10/23/24 16:01 Dextrose 5% 1,000 Ml IVPB PRN PRN Hypoglycemia Protocol Ceftriaxone Sodium 2 gm in 100 mls @ 200 mls/hr 10/25/24 09:00 Rocephin 2 Gm/Ns 100 Ml IVPB DAILY DEBORAH Insulin Aspart 2 - 5 units 10/23/24 17:00 10/24/24 10:11 Insulin Aspart (*Bkc) 100 Units/Ml SUB-Q Not Given TIDWM [facility] Protocol Ondansetron HCl 4 mg 10/23/24 06:20 Ondansetron Inj 4 Mg/2 Ml Vial IV PUSH Q4H PRN Nausea Rosuvastatin Calcium 10 mg 10/23/24 09:30 10/24/24 08:16 Rosuvastatin 10 Mg Tablet PO 10 mg QAM DEBORAH Administration Sotalol HCl 80 mg 10/24/24 17:00 Sotalol Hcl 80 Mg Tablet PO BID DEBORAH Tamsulosin HCl 0.4 mg 10/23/24 09:30 10/24/24 08:16 Tamsulosin Hcl 0.4 Mg Capsule PO 0.4 mg QAM DEBORAH Administration Radiology Results: ITS Impressions Chest X-Ray 10/23/24 06:03 IMPRESSION: 1. Mild atelectasis at left lung base. Labs Labs: Laboratory Results - last 24 hr 10/23/24 10/23/24 10/24/24 16:14 20:49 04:49 WBC 8.3 RBC 4.55 L Hgb 11.8 L Hct 38.7 L MCV 85.1 MCH 25.9 L MCHC 30.5 L RDW 15.9 H Plt Count 164 MPV 9.8 Sodium 136 L Potassium 3.1 L Chloride 103 Carbon Dioxide 23 Anion Gap 10 BUN 29 H D Creatinine 1.30 Estim Creat Clear Calc 47 Estimated GFR 53 L Glucose 104 POC Capillary Glucose 103 144 H Calcium 7.6 L Total Bilirubin 0.9 AST 44 ALT 19 Alkaline Phosphatase 71 Total Protein 6.0 L Albumin 3.0 L 10/24/24 07:54 WBC RBC Hgb Hct MCV MCH MCHC RDW Plt Count MPV Sodium Potassium Chloride Carbon Dioxide Anion Gap BUN Creatinine Estim Creat Clear Calc Estimated GFR Glucose POC Capillary Glucose 107 H Calcium Total Bilirubin AST ALT Alkaline Phosphatase Total Protein Albumin
[2024-10-24 11:58] LABS: Glucose Point of Care 111 mg/dl (65-105)
[2024-10-24] MEDS: SODIUM CHLORIDE 0.9% IV 1,000 ML 75 ML IV CONT (13:03)
[2024-10-24] MEDS: POTASSIUM CHLORIDE 20 MEQ ER TABLET 40 MEQ PO (13:04)
[2024-10-24 16:35] LABS: Glucose Point of Care 106 mg/dl (65-105)
[2024-10-24] MEDS: SOTALOL HCL 80 MG TABLET PO (18:50)
--- NOTE | 2024-10-24 20:15 | PC.NURSE ---
[id number], bp 140s-150s, Dr. Cannon called and notified, no new orders at this time, he is aware.
[2024-10-25] VITALS (24 sets, daily range): BP systolic 130–172; BP diastolic 73–112; PULSE 71–148; RESP 14–22; TEMP 36.9–37.2; O2SAT 96–99
[2024-10-25 05:50] LABS: Alanine Aminotransferase 24 U/L (6-50); Albumin Level 2.9 g/dL (3.5-5.1); Alkaline Phosphatase 85 U/L (38-126); Anion Gap 9 mmol/L (4-12); Aspartate Amino Transferase 50 U/L (17-59); Bilirubin,Total 0.8 mg/dL (0.2-1.3); Blood Urea Nitrogen 25 mg/dL (9-20); Calcium 7.7 mg/dL (8.4-10.2); Carbon Dioxide 21 mmol/L (22-30); Chloride 104 mmol/L (98-107); Estimated CRCL calculation 52 ml/min; Estimated Glomerular Filt Rate 59; Glucose 90 mg/dL (65-110); Potassium 3.3 mmol/L (3.4-5.0); Sodium 134 mmol/L (137-145)
[2024-10-25 08:18] LABS: Glucose Point of Care 89 mg/dl (65-105)
[2024-10-25] MEDS: cefTRIAXone 2 GM/NS 100 ML 2 GM/100 ML BAG IVPB (08:48)
[2024-10-25] MEDS: SOTALOL HCL 80 MG TABLET PO ×2 (08:49→17:03)
[2024-10-25] MEDS: ROSUVASTATIN 10 MG TABLET PO (08:49)
[2024-10-25] MEDS: TAMSULOSIN HCL 0.4 MG CAPSULE PO (08:49)
[2024-10-25] MEDS: FINASTERIDE 5 MG TABLET PO (08:49)
[2024-10-25] MEDS: APIXABAN 5 MG TABLET PO ×2 (08:49→20:15)
[2024-10-25 11:28] LABS: Glucose Point of Care 81 mg/dl (65-105)
--- NOTE | 2024-10-25 12:13 | P.PNIM_ITS ---
Progress Note: A&P Assessment and Plan (1) Sepsis: Code(s): A41.9 - Sepsis, unspecified organism Status: Acute Assessment and Plan: Patient blood culture is positive for gram negative rods. Ceftriaxone 2 g daily Urine culture 10/23: Providencia rettgeri Blood culture x2 Providencia rettgeri Urine culture 10/23: Enterococcus species (2) Atrial fibrillation with RVR: Code(s): I48.91 - Unspecified atrial fibrillation Status: Acute Assessment and Plan: Patient on sotalol the dose of which is increased Plan cardioversion today Cardiology on board (3) Acute UTI: Code(s): N39.0 - Urinary tract infection, site not specified Status: Acute Assessment and Plan: Urine culture with Providencia and Enterococcus On ceftriaxone Add vancomycin for Enterococcus coverage (4) Diabetes: Code(s): E11.9 - Type 2 diabetes mellitus without complications Status: Acute Assessment and Plan: Continue home medication monitor closely. (5) Essential hypertension: Code(s): I10 - Essential (primary) hypertension Status: Acute Assessment and Plan: Continue with home medications and monitor closely (6) Renal insufficiency: Code(s): N28.9 - Disorder of kidney and ureter, unspecified Status: Acute Assessment and Plan: Gentle hydration and monitor closely. Admission creatinine 1.8 CHRISTOPHER resolved (7) Abnormal cardiac enzyme level: Code(s): R74.8 - Abnormal levels of other serum enzymes Status: Acute Assessment and Plan: Cardiology evaluation and serial cardiac enzymes. Plan DVT prophylaxis on Eliquis Code status full code Subjective Date/time seen: 10/25/24 12:13 Interval history: Chart reviewed. Still in AFib with RVR Review of Systems Review of Systems: All systems reviewed & are unremarkable except as noted in HPI and below (the history and physical examination.) Exam Narrative: Const: General: healthy appearing and no acute distress Nutritional Appearance: well nourished Orientation/consciousness: patient oriented x3 Limitations: no limitations HENMT: Mouth: Yes dry mucous membranes Cardio: Rate: irregular rate Rhythm: irregular rhythm GI: GI Palp: Yes Soft to palpation and Yes Tenderness to palpation present (GI) (low abdomen) Auscultation: normal bowel sounds Supra pubic catheter in place. Neuro: General: patient oriented x3, moves all extremities and no focal motor deficits Cranial nerves: Yes Nystagmus not present Speech: normal speech Extrem: General: normal to inspection and no clubbing, cyanosis or edema Psych: Mental Status: mental status grossly normal Affect: normal affect Attitude: cooperative Objective Data Vital Signs Vital Signs: Vital Signs - 24 hr 10/24/24 15:11 10/24/24 16:00 10/24/24 16:00 Temperature 100.7 F H Pulse Rate 144 H 144 H Respiratory Rate 18 18 Blood Pressure 96/59 L 159/109 H Pulse Oximetry 98 98 Oxygen Delivery Room Air 10/24/24 16:00 10/24/24 18:55 10/24/24 20:00 Temperature 98.6 F Pulse Rate 144 H 144 H 143 H Respiratory Rate 18 Blood Pressure 167/108 H Pulse Oximetry 97 Oxygen Delivery 10/25/24 00:00 10/24/24 22:00 10/25/24 02:00 Temperature 98.8 F Pulse Rate 143 H 142 H 144 H Respiratory Rate 18 Blood Pressure 156/101 H Pulse Oximetry 97 Oxygen Delivery 10/25/24 00:00 10/25/24 04:00 10/25/24 04:00 Temperature 98.4 F Pulse Rate 143 H 145 H 145 H Respiratory Rate 14 Blood Pressure 166/112 H Pulse Oximetry 97 Oxygen Delivery 10/25/24 06:00 10/25/24 07:46 10/25/24 08:49 Temperature 98.4 F Pulse Rate 145 H 146 H 147 H Respiratory Rate 16 Blood Pressure 172/107 H Pulse Oximetry 97 Oxygen Delivery 10/25/24 11:35 Temperature 98.4 F Pulse Rate 146 H Respiratory Rate 18 Blood Pressure 150/103 H Pulse Oximetry 97 Oxygen Delivery Intake/Output Intake/Output: Intake & Output 10/22/24 10/23/24 10/24/24 10/25/24 23:59 23:59 23:59 23:59 Intake Total 3522.9 4590 1475 Output Total 2856 2625 2009 Balance 2422.9 1965 -535 Meds/Results Medications: Active Medications Generic Name Dose Route Start Last Admin Trade Name Freq PRN Reason Stop Dose Admin Acetaminophen 650 mg 10/23/24 06:20 10/23/24 23:19 Acetaminophen 325 Mg Tablet PO 650 mg Q4H PRN Administration Mild Pain (1-3) or Fever Apixaban 5 mg 10/23/24 09:30 10/25/24 08:49 Apixaban 5 Mg Tablet PO 5 mg Q12HR DEBORAH Administration Dextrose 12.5 gm 10/23/24 16:01 Dextrose 50% 25 Gm/50 Ml Syringe IV PUSH PRN PRN Hypoglycemia Protocol Finasteride 5 mg 10/23/24 09:30 10/25/24 08:49 Finasteride 5 Mg Tablet PO 5 mg QAM DEBORAH Administration Glucagon 1 mg 10/23/24 16:01 Glucagon For Inj 1 Mg Vial IM PRN PRN Hypoglycemia Protocol Glucose 15 gm 10/23/24 16:01 Glucose Oral Gel 15 Gm Of Glucse In 37.5 Gm Tube PO PRN PRN Hypoglycemia Protocol Dextrose 1,000 mls @ 100 mls/hr 10/23/24 16:01 Dextrose 5% 1,000 Ml IVPB PRN PRN Hypoglycemia Protocol Ceftriaxone Sodium 2 gm in 100 mls @ 200 mls/hr 10/25/24 09:00 10/25/24 08:48 Rocephin 2 Gm/Ns 100 Ml IVPB 200 mls/hr DAILY DEBORAH Administration Insulin Aspart 2 - 5 units 10/23/24 17:00 10/25/24 07:44 Insulin Aspart (*Bkc) 100 Units/Ml SUB-Q Not Given TIDWM [facility] Protocol Ondansetron HCl 4 mg 10/23/24 06:20 Ondansetron Inj 4 Mg/2 Ml Vial IV PUSH Q4H PRN Nausea Rosuvastatin Calcium 10 mg 10/23/24 09:30 10/25/24 08:49 Rosuvastatin 10 Mg Tablet PO 10 mg QAM DEBORAH Administration Sotalol HCl 80 mg 10/24/24 17:00 10/25/24 08:49 Sotalol Hcl 80 Mg Tablet PO 80 mg BID DEBORAH Administration Tamsulosin HCl 0.4 mg 10/23/24 09:30 10/25/24 08:49 Tamsulosin Hcl 0.4 Mg Capsule PO 0.4 mg QAM DEBORAH Administration Radiology Results: ITS Impressions Chest X-Ray 10/23/24 06:03 IMPRESSION: 1. Mild atelectasis at left lung base. Labs Labs: Laboratory Results - last 24 hr 10/24/24 10/25/24 10/25/24 15:53 05:19 07:21 Sodium 134 L Potassium 3.3 L Chloride 104 Carbon Dioxide 21 L Anion Gap 9 BUN 25 H Creatinine 1.20 Estim Creat Clear Calc 52 Estimated GFR 59 Glucose 90 POC Capillary Glucose 106 H 89 Calcium 7.7 L Total Bilirubin 0.8 AST 50 ALT 24 Alkaline Phosphatase 85 Total Protein 6.0 L Albumin 2.9 L 10/25/24 11:21 Sodium Potassium Chloride Carbon Dioxide Anion Gap BUN Creatinine Estim Creat Clear Calc Estimated GFR Glucose POC Capillary Glucose 81 Calcium Total Bilirubin AST ALT Alkaline Phosphatase Total Protein Albumin
--- NOTE | 2024-10-25 12:40 | P.SEDATION_ITS ---
Moderate Sedation Note-Pt Data Patient Data Diagnosis: Recurrent atrial flutter Present Complaint: Dyspnea/palpitation Procedure to be performed/Plan: DC cardioversion Allergies Allergy/AdvReac Type Severity Reaction Status Date / Time No Known Allergies Allergy Verified 10/23/24 06:30 Home Medications Medication Instructions Recorded Confirmed Type loratadine 10 mg tablet 10 mg PO DAILY 01/26/22 10/23/24 History apixaban 5 mg tablet (Eliquis) 5 mg PO BID #200 tabs 06/21/24 10/23/24 Rx diltiazem HCl 180 mg 180 mg PO DAILY #100 caps 06/21/24 10/23/24 Rx capsule,extended release 24 hr, controlled (DILT-XR) glimepiride 4 mg tablet 4 mg PO DAILY #100 tabs 06/21/24 10/23/24 Rx lisinopril 20 mg tablet 20 mg PO HS #100 tabs 06/21/24 10/23/24 Rx sotalol 80 mg tablet 80 mg PO BID #200 tabs 06/21/24 10/23/24 Rx nitroglycerin 0.4 mg sublingual 0.4 mg sublingual DIRECTED 08/09/24 10/23/24 History tablet finasteride 5 mg tablet 5 mg PO HS #100 tabs 09/24/24 10/23/24 Rx metformin 1,000 mg tablet 1,000 mg PO BID #200 tabs 09/24/24 10/23/24 Rx rosuvastatin 10 mg tablet 10 mg PO DAILY #100 tabs 09/24/24 10/23/24 Rx hydrocortisone 2.5 % topical cream 1 applic RECTAL DAILY PRN 10/01/24 10/23/24 Rx with perineal applicator hemorrhoids #30 grams tamsulosin 0.4 mg capsule 0.4 mg PO DAILY 10/04/24 10/23/24 History Current Medications: Active Medications Acetaminophen (Acetaminophen 325 Mg Tablet) 650 mg PO Q4H PRN PRN Reason: Mild Pain (1-3) or Fever Last Admin: 10/23/24 23:19 Dose: 650 mg Apixaban (Apixaban 5 Mg Tablet) 5 mg PO Q12HR DEBORAH Last Admin: 10/25/24 08:49 Dose: 5 mg Dextrose (Dextrose 50% 25 Gm/50 Ml Syringe) 12.5 gm IV PUSH PRN PRN; Protocol PRN Reason: Hypoglycemia Finasteride (Finasteride 5 Mg Tablet) 5 mg PO QAM [facility] Last Admin: 10/25/24 08:49 Dose: 5 mg Glucagon (Glucagon For Inj 1 Mg Vial) 1 mg IM PRN PRN; Protocol PRN Reason: Hypoglycemia Glucose (Glucose Oral Gel 15 Gm Of Glucse In 37.5 Gm Tube) 15 gm PO PRN PRN; Protocol PRN Reason: Hypoglycemia Dextrose (Dextrose 5% 1,000 Ml) 1,000 mls @ 100 mls/hr IVPB PRN PRN; Protocol PRN Reason: Hypoglycemia Ceftriaxone Sodium (Rocephin 2 Gm/Ns 100 Ml) 2 gm in 100 mls @ 200 mls/hr IVPB DAILY [facility] Last Admin: 10/25/24 08:48 Dose: 200 mls/hr Potassium Chloride 40 meq/ (Sodium Chloride) 520 mls @ 130 mls/hr IVPB ONCE ONE Stop: 10/25/24 16:59 Vancomycin HCl (Vancomycin 1,500 Mg/Ns 500 Ml) 1,500 mg in 500 mls @ 250 mls/hr IVPB Q24H DEBORAH Insulin Aspart (Insulin Aspart (*Bkc) 100 Units/Ml) 2 - 5 units SUB-Q TIDWM DEBORAH; Protocol Last Admin: 10/25/24 07:44 Dose: Not Given Ondansetron HCl (Ondansetron Inj 4 Mg/2 Ml Vial) 4 mg IV PUSH Q4H PRN PRN Reason: Nausea Rosuvastatin Calcium (Rosuvastatin 10 Mg Tablet) 10 mg PO QAM [facility] Last Admin: 10/25/24 08:49 Dose: 10 mg Sotalol HCl (Sotalol Hcl 80 Mg Tablet) 80 mg PO BID [facility] Last Admin: 10/25/24 08:49 Dose: 80 mg Tamsulosin HCl (Tamsulosin Hcl 0.4 Mg Capsule) 0.4 mg PO QAM [facility] Last Admin: 10/25/24 08:49 Dose: 0.4 mg Sedation/Anesthesia: No previous sedation/anesthesia problems (including family history). 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 Other Unknown family medical history Social History Social History Smoking status: Never smoker Alcohol intake: never Substance use: never Substance use type: does not use Do You Feel Safe in your Home?: Yes Lack of Transportation: No Lack of Food: Never True Current Housing: I Have Housing Concerned About Future Housing: No Difficulty Paying Gas/Electric Bills: No Difficulty Paying for Meds: No Currently Unemployed: No Education: Associate Degree Difficulty w/ Childcare or Family Care: No Living arrangements: with family Additional living arrangements comments: & GRANDCHILDREN Occupation/Education: retired Gender identity (if verbalized by the patient): Male Sexual Orientation (if Verbalized by the Patient): Straight or Heterosexual Spiritual care concerns: No Mod Sed Physical Exam Physical Exam Pre Procedural Exam: Normal: Appearance, Neck, Throat, Airway, Lungs, Heart Size, Neuro Exam and Extremities and Variation: Heart Rate (Atrial flutter with two-to-one conduction) and Heart Rhythm Hours since solid foods: 14 Hours since liquid intake: 14 Mallampati Classification: class II Internal Medicine - PN: Obj Da Vital Signs Vital Signs: Vital Signs - 24 hr 10/24/24 15:11 10/24/24 16:00 10/24/24 16:00 Temperature 38.2 C H Pulse Rate 144 H 144 H Respiratory Rate 18 18 Blood Pressure 96/59 L 159/109 H Pulse Oximetry 98 98 Oxygen Delivery Room Air 10/24/24 16:00 10/24/24 18:55 10/24/24 20:00 Temperature 37.0 C Pulse Rate 144 H 144 H 143 H Respiratory Rate 18 Blood Pressure 167/108 H Pulse Oximetry 97 Oxygen Delivery 10/25/24 00:00 10/24/24 22:00 10/25/24 02:00 Temperature 37.1 C Pulse Rate 143 H 142 H 144 H Respiratory Rate 18 Blood Pressure 156/101 H Pulse Oximetry 97 Oxygen Delivery 10/25/24 00:00 10/25/24 04:00 10/25/24 04:00 Temperature 36.9 C Pulse Rate 143 H 145 H 145 H Respiratory Rate 14 Blood Pressure 166/112 H Pulse Oximetry 97 Oxygen Delivery 10/25/24 06:00 10/25/24 07:46 10/25/24 08:49 Temperature 36.9 C Pulse Rate 145 H 146 H 147 H Respiratory Rate 16 Blood Pressure 172/107 H Pulse Oximetry 97 Oxygen Delivery 10/25/24 11:35 Temperature 36.9 C Pulse Rate 146 H Respiratory Rate 18 Blood Pressure 150/103 H Pulse Oximetry 97 Oxygen Delivery Intake/Output Intake/Output: Intake & Output 10/22/24 10/23/24 10/24/24 10/25/24 23:59 23:59 23:59 23:59 Intake Total 3522.9 4590 1475 Output Total 1100 2625 2010 Balance 2422.9 1965 -535 Meds/Results Medications: Active Medications Generic Name Dose Route Start Last Admin Trade Name Freq PRN Reason Stop Dose Admin Acetaminophen 650 mg 10/23/24 06:20 10/23/24 23:19 Acetaminophen 325 Mg Tablet PO 650 mg Q4H PRN Administration Mild Pain (1-3) or Fever Apixaban 5 mg 10/23/24 09:30 10/25/24 08:49 Apixaban 5 Mg Tablet PO 5 mg Q12HR DEBORAH Administration Dextrose 12.5 gm 10/23/24 16:01 Dextrose 50% 25 Gm/50 Ml Syringe IV PUSH PRN PRN Hypoglycemia Protocol Finasteride 5 mg 10/23/24 09:30 10/25/24 08:49 Finasteride 5 Mg Tablet PO 5 mg QAM DEBORAH Administration Glucagon 1 mg 10/23/24 16:01 Glucagon For Inj 1 Mg Vial IM PRN PRN Hypoglycemia Protocol Glucose 15 gm 10/23/24 16:01 Glucose Oral Gel 15 Gm Of Glucse In 37.5 Gm Tube PO PRN PRN Hypoglycemia Protocol Dextrose 1,000 mls @ 100 mls/hr 10/23/24 16:01 Dextrose 5% 1,000 Ml IVPB PRN PRN Hypoglycemia Protocol Ceftriaxone Sodium 2 gm in 100 mls @ 200 mls/hr 10/25/24 09:00 10/25/24 08:48 Rocephin 2 Gm/Ns 100 Ml IVPB 200 mls/hr DAILY DEBORAH Administration Potassium Chloride 40 meq/ 520 mls @ 130 mls/hr 10/25/24 13:00 Sodium Chloride IVPB 10/25/24 16:59 ONCE ONE Vancomycin HCl 1,500 mg in 500 mls @ 250 mls/hr 10/25/24 13:00 Vancomycin 1,500 Mg/Ns 500 Ml IVPB Q24H [facility] Insulin Aspart 2 - 5 units 10/23/24 17:00 10/25/24 07:44 Insulin Aspart (*Bkc) 100 Units/Ml SUB-Q Not Given TIDWM [facility] Protocol Ondansetron HCl 4 mg 10/23/24 06:20 Ondansetron Inj 4 Mg/2 Ml Vial IV PUSH Q4H PRN Nausea Rosuvastatin Calcium 10 mg 10/23/24 09:30 10/25/24 08:49 Rosuvastatin 10 Mg Tablet PO 10 mg QAM DEBORAH Administration Sotalol HCl 80 mg 10/24/24 17:00 10/25/24 08:49 Sotalol Hcl 80 Mg Tablet PO 80 mg BID DEBORAH Administration Tamsulosin HCl 0.4 mg 10/23/24 09:30 10/25/24 08:49 Tamsulosin Hcl 0.4 Mg Capsule PO 0.4 mg QAM DEBORAH Administration Radiology Results: ITS Impressions Chest X-Ray 10/23/24 06:03 IMPRESSION: 1. Mild atelectasis at left lung base. Labs 10/24/24 04:49 10/25/24 05:19 Labs: Laboratory Results - last 24 hr 10/24/24 10/25/24 10/25/24 15:53 05:19 07:21 Sodium 134 L Potassium 3.3 L Chloride 104 Carbon Dioxide 21 L Anion Gap 9 BUN 25 H Creatinine 1.20 Estim Creat Clear Calc 52 Estimated GFR 59 Glucose 90 POC Capillary Glucose 106 H 89 Calcium 7.7 L Total Bilirubin 0.8 AST 50 ALT 24 Alkaline Phosphatase 85 Total Protein 6.0 L Albumin 2.9 L 10/25/24 11:21 Sodium Potassium Chloride Carbon Dioxide Anion Gap BUN Creatinine Estim Creat Clear Calc Estimated GFR Glucose POC Capillary Glucose 81 Calcium Total Bilirubin AST ALT Alkaline Phosphatase Total Protein Albumin ASA Classification/Sedation ASA Classification/Sedation ASA Class: III Emergent: No Risks: Risks, benefits and alternatives explained and patient/family accepted plan for sedation. Patient re-evaluated immediately prior to sedation.
--- NOTE | 2024-10-25 12:46 | ECG_ITS ---
Test Date: 2024-10-25 09:47:37 Measurements Intervals [place] Rate: 147 P: 0 CO: 0 QRS: -14 QRSD: 92 T: 13 QT: 298 QTc: 466 Interpretive Statements ATRIAL FLUTTER/TACHYCARDIA WITH RAPID VENTRICULAR RESPONSE INFERIOR INFARCT, AGE INDETERMINATE ANTEROLATERAL INFARCT, AGE INDETERMINATE BASELINE ARTIFACT- I, II, AVR ABNORMAL ECG Compared to ECG 10/24/2024 10:23:03 No significant changes Electronically Signed On 10-25-2024 13:21:20 DROP PIT WORKER by Feng Reddy D.O.
--- NOTE | 2024-10-25 12:50 | P.PCNCC_ITS ---
Cardiac Cath Procedure Note Date of procedure:: 10/25/24 Performing physician:: Arnold Cannon MD Indication:: Recurrent persistent atrial flutter Brief clinical history:: This is a 79-year-old man with atrial fib and atrial flutter was admitted with a symptomatic recurrence of his atrial flutter. He DC cardioversion has been recommended for today. He is on sotalol for rhythm control and apixaban for [facility] anticoagulation Procedure Procedure performed:: DC cardioversion Sedation/Medication given:: IV propofol total dose at 40 mg Estimated blood loss:: None Procedure note:: Patient was brought to the cardiac director of laboratory operations holding area where he was in the supine position with defibrillator patches placed in the AP position. He was then sedated with propofol 140 mg bolus provided excellent sedation. He was then counter shocked with 200 joules in a synchronized fashion x1 shock restoring sinus rhythm. Findings:: As above Conclusion:: Successful uncomplicated DC cardioversion of atrial flutter restoring sinus rhythm using 200 joules x1 shock Arnold Cannon MD [facility]
--- NOTE | 2024-10-25 12:53 | P.PNCA_ITS ---
Progress Note: A&P Assessment and Plan (1) Paroxysmal atrial flutter: Code(s): I48.92 - Unspecified atrial flutter Status: Acute Plan 79-year-old man with history of atrial fib and atrial flutter with symptomatic recurrence of atrial flutter. He has been cardioverted electrically restoring sinus rhythm. He should be maintained on sotalol and apixaban. If he is stable this afternoon following recovery from sedation he can be discharged I will arrange timely follow-up in my office. Arnold Cannon MD [facility] Subjective Date/time seen: Date of service 10/25/24 12:53 Interval history: Follow-up visit in this 79-year-old man with coronary artery disease with previous PCI to the LAD/ diagonal and admission to the hospital with symptomatic recurrent atrial flutter. He has a history of atrial fib and flutter and has had at least 2 ablation procedures elsewhere no arrhythmias for a number of years. He is persisting in atrial flutter on telemetry at this time otherwise appears to be asymptomatic is comfortable and visiting with family. 11 08/16/2024: Patient is doing well following DC cardioversion a short time ago restoring sinus rhythm. Exam Const: General: comfortable and no acute distress HENMT: Face/Nose/Sinus: Normal nares present Mouth: Yes dry mucous membranes Eyes: General: appearance normal, both eyes and all related structures Sclera: sclerae normal Pupils: Equal, round and reactive pupils present Neck: Neck: supple and no JVD Resp: Effort & Inspection: normal respiratory effort Auscultation: clear to auscultation bilaterally Cardio: Rate: tachycardic Rhythm: regular rhythm and abnormal rhythm irregularly irregular Heart sounds: no murmurs GI: Auscultation: normal bowel sounds Skin: General skin exam: normal color Neuro: Cranial nerves: Yes Equal, round and reactive pupils present Other: Alert and oriented x3 Extrem: General: normal to inspection Psych: Mental Status: mental status grossly normal Affect: normal affect Objective Data Vital Signs Vital Signs: Vital Signs - 24 hr 10/24/24 15:11 10/24/24 16:00 10/24/24 16:00 Temperature 38.2 C H Pulse Rate 144 H 144 H Respiratory Rate 18 18 Blood Pressure 96/59 L 159/109 H Pulse Oximetry 98 98 Oxygen Delivery Room Air Oxygen Flow Rate 10/24/24 16:00 10/24/24 18:55 10/24/24 20:00 Temperature 37.0 C Pulse Rate 144 H 144 H 143 H Respiratory Rate 18 Blood Pressure 167/108 H Pulse Oximetry 97 Oxygen Delivery Oxygen Flow Rate 10/25/24 00:00 10/24/24 22:00 10/25/24 02:00 Temperature 37.1 C Pulse Rate 143 H 142 H 144 H Respiratory Rate 18 Blood Pressure 156/101 H Pulse Oximetry 97 Oxygen Delivery Oxygen Flow Rate 10/25/24 00:00 10/25/24 04:00 10/25/24 04:00 Temperature 36.9 C Pulse Rate 143 H 145 H 145 H Respiratory Rate 14 Blood Pressure 166/112 H Pulse Oximetry 97 Oxygen Delivery Oxygen Flow Rate 10/25/24 06:00 10/25/24 07:46 10/25/24 08:49 Temperature 36.9 C Pulse Rate 145 H 146 H 147 H Respiratory Rate 16 Blood Pressure 172/107 H Pulse Oximetry 97 Oxygen Delivery Oxygen Flow Rate 10/25/24 11:35 10/25/24 12:40 10/25/24 12:45 Temperature 36.9 C Pulse Rate 146 H 148 H 75 Respiratory Rate 18 22 H 19 Blood Pressure 150/103 H 146/109 H 130/91 H Pulse Oximetry 97 98 99 Oxygen Delivery Nasal Cannula Nasal Cannula Oxygen Flow Rate 2 2 Intake/Output Intake/Output: Intake & Output 10/22/24 10/23/24 10/24/24 10/25/24 23:59 23:59 23:59 23:59 Intake Total 3522.9 4590 1475 Output Total 1100 2625 2009 Balance 2422.9 1965 -535 Meds/Results Medications: Active Medications Generic Name Dose Route Start Last Admin Trade Name Freq PRN Reason Stop Dose Admin Acetaminophen 650 mg 10/23/24 06:20 10/23/24 23:19 Acetaminophen 325 Mg Tablet PO 650 mg Q4H PRN Administration Mild Pain (1-3) or Fever Apixaban 5 mg 10/23/24 09:30 10/25/24 08:49 Apixaban 5 Mg Tablet PO 5 mg Q12HR DEBORAH Administration Dextrose 12.5 gm 10/23/24 16:01 Dextrose 50% 25 Gm/50 Ml Syringe IV PUSH PRN PRN Hypoglycemia Protocol Finasteride 5 mg 10/23/24 09:30 10/25/24 08:49 Finasteride 5 Mg Tablet PO 5 mg QAM DEBORAH Administration Glucagon 1 mg 10/23/24 16:01 Glucagon For Inj 1 Mg Vial IM PRN PRN Hypoglycemia Protocol Glucose 15 gm 10/23/24 16:01 Glucose Oral Gel 15 Gm Of Glucse In 37.5 Gm Tube PO PRN PRN Hypoglycemia Protocol Dextrose 1,000 mls @ 100 mls/hr 10/23/24 16:01 Dextrose 5% 1,000 Ml IVPB PRN PRN Hypoglycemia Protocol Ceftriaxone Sodium 2 gm in 100 mls @ 200 mls/hr 10/25/24 09:00 10/25/24 08:48 Rocephin 2 Gm/Ns 100 Ml IVPB 200 mls/hr DAILY DEBORAH Administration Potassium Chloride 40 meq/ 520 mls @ 130 mls/hr 10/25/24 13:00 Sodium Chloride IVPB 10/25/24 16:59 ONCE ONE Vancomycin HCl 1,500 mg in 500 mls @ 250 mls/hr 10/25/24 13:00 Vancomycin 1,500 Mg/Ns 500 Ml IVPB Q24H DEBORAH Insulin Aspart 2 - 5 units 10/23/24 17:00 10/25/24 12:48 Insulin Aspart (*Bkc) 100 Units/Ml SUB-Q Not Given TIDWM [facility] Protocol Ondansetron HCl 4 mg 10/23/24 06:20 Ondansetron Inj 4 Mg/2 Ml Vial IV PUSH Q4H PRN Nausea Rosuvastatin Calcium 10 mg 10/23/24 09:30 10/25/24 08:49 Rosuvastatin 10 Mg Tablet PO 10 mg QAM DEBORAH Administration Sotalol HCl 80 mg 10/24/24 17:00 10/25/24 08:49 Sotalol Hcl 80 Mg Tablet PO 80 mg BID DEBORAH Administration Tamsulosin HCl 0.4 mg 10/23/24 09:30 10/25/24 08:49 Tamsulosin Hcl 0.4 Mg Capsule PO 0.4 mg QAM DEBORAH Administration Radiology Results: ITS Impressions Chest X-Ray 10/23/24 06:03 IMPRESSION: 1. Mild atelectasis at left lung base. Labs Labs: Laboratory Results - last 24 hr 10/24/24 10/25/24 10/25/24 15:53 05:19 07:21 Sodium 134 L Potassium 3.3 L Chloride 104 Carbon Dioxide 21 L Anion Gap 9 BUN 25 H Creatinine 1.20 Estim Creat Clear Calc 52 Estimated GFR 59 Glucose 90 POC Capillary Glucose 106 H 89 Calcium 7.7 L Total Bilirubin 0.8 AST 50 ALT 24 Alkaline Phosphatase 85 Total Protein 6.0 L Albumin 2.9 L 10/25/24 11:21 Sodium Potassium Chloride Carbon Dioxide Anion Gap BUN Creatinine Estim Creat Clear Calc Estimated GFR Glucose POC Capillary Glucose 81 Calcium Total Bilirubin AST ALT Alkaline Phosphatase Total Protein Albumin
--- NOTE | 2024-10-25 13:03 | ECG_ITS ---
Test Date: 2024-10-25 12:52:42 Measurements Intervals [place] Rate: 76 P: 67 [place]: 171 QRS: 30 QRSD: 98 T: 42 QT: 418 QTc: 471 Interpretive Statements SINUS RHYTHM LOW QRS VOLTAGE IN LIMB LEADS INFERIOR INFARCT, AGE INDETERMINATE ANTERIOR INFARCT, AGE INDETERMINATE ABNORMAL ECG Compared to ECG 10/25/2024 09:47:37 ATRIAL FLUTTER NO LONGER PRESENT Electronically Signed On 10-25-2024 13:20:12 DUMP MOTORMAN by Feng Reddy D.O.
[2024-10-25] MEDS: POTASSIUM CHLORIDE INJ 40 MEQ in SODIUM CHLORIDE 0.9% IV 500 ML 130 MEQ IVPB (14:00)
[2024-10-25] MEDS: VANCOMYCIN 1,500 MG/NS 500 ML 1,500 MG/500 ML BAG 250 MG IVPB (14:01)
[2024-10-25 16:22] LABS: Glucose Point of Care 101 mg/dl (65-105)
--- NOTE | 2024-10-25 18:07 | ECG_ITS ---
Test Date: 2024-10-25 18:07:09 Measurements Intervals [place] Rate: 75 P: 65 ME: 169 QRS: 18 QRSD: 98 T: 31 QT: 435 QTc: 487 Interpretive Statements SINUS RHYTHM WITH OCCASIONAL SUPRAVENTRICULAR PREMATURE COMPLEXES LOW QRS VOLTAGE IN PRECORDIAL LEADS ANTERIOR INFARCT, AGE INDETERMINATE ABNORMAL ECG Compared to ECG 10/25/2024 12:52:42 No significant changes Electronically Signed On 10-26-2024 07:34:17 COILED TUBING SUPERVISOR by Feng Reddy D.O.
[2024-10-25 20:24] LABS: Glucose Point of Care 90 mg/dl (65-105)
[2024-10-26] VITALS (18 sets, daily range): BP systolic 150–165; BP diastolic 71–118; PULSE 69–143; RESP 16–18; TEMP 36.5–37.4; O2SAT 95–98
[2024-10-26 05:08] LABS: Basophils Percent Auto 0.2 % (0.2-1.2); Eosinophils Absolute Auto 0.4 K/mm3 (0-0.3); Eosinophils Percent Auto 4.2 % (0-4.4); Hematocrit 34.2 % (42.0-52.0); Hemoglobin 10.8 g/dL (14.0-18.0); Immature Granulocyte Absolute 0.11 K/mm3 (0.00-0.031); Immature Granulocyte Percent A 1.3 % (0-0.5); Lymphocytes Absolute Auto 0.63 K/mm3 (0.9-3.2); Lymphocytes Percent Auto 7.4 % (18.3-44.2); Mean Corpuscular HGB Conc 31.6 g/dl (32-36); Mean Corpuscular Hemoglobin 26.3 pg (26-34); Mean Corpuscular Volume 83.4 fl (80-100); Mean Platelet Volume 10.3 fl (7.4-10.4); Monocytes Absolute Auto 0.8 K/mm3 (0.1-0.6); Monocytes Percent Auto 9.9 % (2.6-8.5); Neutrophils Absolute Auto 6.5 K/mm3 (1.3-6.7); Platelet Count Result 183 k/mm3 (150-375); Red Cell Distribution Width 15.9 % (11.5-14.5); White Blood Count 8.5 K/mm3 (4.5-10.0)
[2024-10-26 05:30] LABS: Alanine Aminotransferase 28 U/L (6-50); Albumin Level 2.6 g/dL (3.5-5.1); Alkaline Phosphatase 86 U/L (38-126); Anion Gap 4 mmol/L (4-12); Aspartate Amino Transferase 57 U/L (17-59); Bilirubin,Total 0.7 mg/dL (0.2-1.3); Blood Urea Nitrogen 25 mg/dL (9-20); Calcium 7.6 mg/dL (8.4-10.2); Carbon Dioxide 24 mmol/L (22-30); Chloride 104 mmol/L (98-107); Estimated CRCL calculation 56 ml/min; Estimated Glomerular Filt Rate > 60; Glucose 66 mg/dL (65-110); Magnesium 1.9 mg/dL (1.6-2.3); Potassium 3.5 mmol/L (3.4-5.0); Sodium 132 mmol/L (137-145)
[2024-10-26 07:46] LABS: Glucose Point of Care 67 mg/dl (65-105)
[2024-10-26] MEDS: SOTALOL HCL 80 MG TABLET PO ×2 (08:30→19:31)
[2024-10-26] MEDS: APIXABAN 5 MG TABLET PO ×2 (08:30→21:04)
[2024-10-26] MEDS: cefTRIAXone 2 GM/NS 100 ML 2 GM/100 ML BAG IVPB (08:31)
[2024-10-26] MEDS: ROSUVASTATIN 10 MG TABLET PO (08:31)
[2024-10-26] MEDS: FINASTERIDE 5 MG TABLET PO (08:31)
[2024-10-26] MEDS: TAMSULOSIN HCL 0.4 MG CAPSULE PO (08:31)
--- NOTE | 2024-10-26 09:30 | ECG_ITS ---
Test Date: 2024-10-26 09:39:06 Measurements Intervals [place] Rate: 69 P: 75 [place]: 180 QRS: 17 QRSD: 100 T: 26 QT: 440 QTc: 473 Interpretive Statements SINUS RHYTHM WITH SINUS ARRHYTHMIA LOW QRS VOLTAGE IN PRECORDIAL LEADS ANTEROSEPTAL INFARCT, AGE INDETERMINATE ABNORMAL ECG Compared to ECG 10/25/2024 18:07:09 No significant changes Electronically Signed On 10-26-2024 14:11:11 MASTER PLUMBER by Feng Reddy D.O.
[2024-10-26 11:17] LABS: Glucose Point of Care 69 mg/dl (65-105)
--- NOTE | 2024-10-26 11:49 | PM.IMPN ---
Progress Note: A&P Assessment and Plan (1) Sepsis: Code(s): A41.9 - Sepsis, unspecified organism Status: Acute Assessment and Plan: Patient blood culture is positive for gram negative rods. Ceftriaxone 2 g daily Urine culture 10/23: Providencia rettgeri Blood culture x2 Providencia rettgeri Urine culture 10/23: Enterococcus species Add vancomycin. Sensitive to ampicillin (2) Atrial fibrillation with RVR: Code(s): I48.91 - Unspecified atrial fibrillation Status: Acute Assessment and Plan: Patient on sotalol the dose of which is increased Plan cardioversion today Cardiology on board (3) Acute UTI: Code(s): N39.0 - Urinary tract infection, site not specified Status: Acute Assessment and Plan: Urine culture with Providencia and Enterococcus. On ceftriaxone will likely switch to Bactrim at discharge Add vancomycin for Enterococcus coverage. Sensitive to ampicillin will switch to amoxicillin (4) Diabetes: Code(s): E11.9 - Type 2 diabetes mellitus without complications Status: Acute Assessment and Plan: Continue home medication monitor closely. (5) Essential hypertension: Code(s): I10 - Essential (primary) hypertension Status: Acute Assessment and Plan: Continue with home medications and monitor closely (6) Renal insufficiency: Code(s): N28.9 - Disorder of kidney and ureter, unspecified Status: Acute Assessment and Plan: Gentle hydration and monitor closely. Admission creatinine 1.8 CHRISTOPHER resolved (7) Abnormal cardiac enzyme level: Code(s): R74.8 - Abnormal levels of other serum enzymes Status: Acute Assessment and Plan: Cardiology evaluation and serial cardiac enzymes. Plan DVT prophylaxis on Eliquis Code status full code Subjective Date/time seen: 10/26/24 11:49 Interval history: Working with therapy. Back to sinus rhythm. Weakness persists. Denies any other complaints. Review of Systems Review of Systems: All systems reviewed & are unremarkable except as noted in HPI and below (the history and physical examination.) Exam Narrative: Const: General: healthy appearing and no acute distress Nutritional Appearance: well nourished Orientation/consciousness: patient oriented x3 Limitations: no limitations HENMT: Mouth: Yes dry mucous membranes Cardio: Regular rate and rhythm GI: GI Palp: Yes Soft to palpation and Yes Tenderness to palpation present (GI) (low abdomen) Auscultation: normal bowel sounds Supra pubic catheter in place. Neuro: General: patient oriented x3, moves all extremities and no focal motor deficits Cranial nerves: Yes Nystagmus not present Speech: normal speech Extrem: General: normal to inspection and no clubbing, cyanosis or edema Psych: Mental Status: mental status grossly normal Affect: normal affect Attitude: cooperative Objective Data Vital Signs Vital Signs: Vital Signs - 24 hr 10/25/24 12:40 10/25/24 12:45 10/25/24 12:50 Temperature Pulse Rate 148 H 75 78 Respiratory Rate 22 H 19 20 Blood Pressure 146/109 H 130/91 H 143/76 H Pulse Oximetry 98 99 99 Oxygen Delivery Nasal Cannula Nasal Cannula Room Air Oxygen Flow Rate 2 2 10/25/24 13:00 10/25/24 13:15 10/25/24 13:30 Temperature Pulse Rate 77 81 77 Respiratory Rate 20 20 20 Blood Pressure 137/85 141/81 H 152/86 H Pulse Oximetry 98 98 98 Oxygen Delivery Room Air Room Air Room Air Oxygen Flow Rate 10/25/24 13:45 10/25/24 15:45 10/25/24 12:00 Temperature 98.5 F Pulse Rate 80 77 146 H Respiratory Rate 20 18 Blood Pressure 151/96 H 154/86 H Pulse Oximetry 98 98 Oxygen Delivery Room Air Oxygen Flow Rate 10/25/24 17:03 10/25/24 18:00 10/25/24 20:15 Temperature 98.5 F Pulse Rate 82 83 72 Respiratory Rate 18 Blood Pressure 151/73 H Pulse Oximetry 98 Oxygen Delivery Oxygen Flow Rate 10/25/24 20:00 10/25/24 22:00 10/25/24 22:54 Temperature 99.0 F Pulse Rate 73 71 75 Respiratory Rate 18 Blood Pressure 160/76 H Pulse Oximetry 96 Oxygen Delivery Oxygen Flow Rate 10/26/24 00:00 10/26/24 02:00 10/26/24 04:16 Temperature 98.9 F Pulse Rate 78 73 75 Respiratory Rate 18 Blood Pressure 165/81 H Pulse Oximetry 95 Oxygen Delivery Oxygen Flow Rate 10/26/24 04:00 10/26/24 06:00 10/26/24 08:15 Temperature 98.9 F Pulse Rate 76 78 72 Respiratory Rate 18 Blood Pressure 158/78 H Pulse Oximetry 96 Oxygen Delivery Oxygen Flow Rate 10/26/24 08:00 10/26/24 10:08 10/26/24 10:00 Temperature Pulse Rate 75 70 Respiratory Rate Blood Pressure Pulse Oximetry Oxygen Delivery Room Air Oxygen Flow Rate 10/26/24 11:20 10/26/24 11:36 Temperature 97.7 F Pulse Rate 74 Respiratory Rate 18 Blood Pressure 150/72 H Pulse Oximetry 96 Oxygen Delivery Room Air Oxygen Flow Rate Intake/Output Intake/Output: Intake & Output 10/23/24 10/24/24 10/25/24 10/26/24 23:59 23:59 23:59 23:59 Intake Total 3522.9 4590 1955 1390 Output Total 1100 2625 2009 999 Balance 2422.9 1965 - 390 Meds/Results Medications: Active Medications Generic Name Dose Route Start Last Admin Trade Name Freq PRN Reason Stop Dose Admin Acetaminophen 650 mg 10/23/24 06:20 10/23/24 23:19 Acetaminophen 325 Mg Tablet PO 650 mg Q4H PRN Administration Mild Pain (1-3) or Fever Apixaban 5 mg 10/23/24 09:30 10/26/24 08:30 Apixaban 5 Mg Tablet PO 5 mg Q12HR DEBORAH Administration Dextrose 12.5 gm 10/23/24 16:01 Dextrose 50% 25 Gm/50 Ml Syringe IV PUSH PRN PRN Hypoglycemia Protocol Finasteride 5 mg 10/23/24 09:30 10/26/24 08:31 Finasteride 5 Mg Tablet PO 5 mg QAM DEBORAH Administration Glucagon 1 mg 10/23/24 16:01 Glucagon For Inj 1 Mg Vial IM PRN PRN Hypoglycemia Protocol Glucose 15 gm 10/23/24 16:01 Glucose Oral Gel 15 Gm Of Glucse In 37.5 Gm Tube PO PRN PRN Hypoglycemia Protocol Dextrose 1,000 mls @ 100 mls/hr 10/23/24 16:01 Dextrose 5% 1,000 Ml IVPB PRN PRN Hypoglycemia Protocol Ceftriaxone Sodium 2 gm in 100 mls @ 200 mls/hr 10/25/24 09:00 10/26/24 08:31 Rocephin 2 Gm/Ns 100 Ml IVPB 200 mls/hr DAILY DEBORAH Administration Vancomycin HCl 1,500 mg in 500 mls @ 250 mls/hr 10/25/24 13:00 10/26/24 10:41 Vancomycin 1,500 Mg/Ns 500 Ml IVPB Infused Q24H DEBORAH Infusion Insulin Aspart 2 - 5 units 10/23/24 17:00 10/26/24 11:19 Insulin Aspart (*Bkc) 100 Units/Ml SUB-Q Not Given TIDWM [facility] Protocol Ondansetron HCl 4 mg 10/23/24 06:20 Ondansetron Inj 4 Mg/2 Ml Vial IV PUSH Q4H PRN Nausea Rosuvastatin Calcium 10 mg 10/23/24 09:30 10/26/24 08:31 Rosuvastatin 10 Mg Tablet PO 10 mg QAM DEBORAH Administration Sotalol HCl 80 mg 10/24/24 17:00 10/26/24 08:30 Sotalol Hcl 80 Mg Tablet PO 80 mg BID DEBORAH Administration Tamsulosin HCl 0.4 mg 10/23/24 09:30 10/26/24 08:31 Tamsulosin Hcl 0.4 Mg Capsule PO 0.4 mg QAM DEBORAH Administration Radiology Results: ITS Impressions Chest X-Ray 10/23/24 06:03 IMPRESSION: 1. Mild atelectasis at left lung base. Labs Labs: Laboratory Results - last 24 hr 10/25/24 10/25/24 10/26/24 16:11 20:21 04:24 WBC 8.5 RBC 4.10 L Hgb 10.8 L Hct 34.2 L MCV 83.4 MCH 26.3 MCHC 31.6 L RDW 15.9 H Plt Count 183 MPV 10.3 Immature Gran % (Auto) 1.3 H Neut % (Auto) 77.0 H Lymph % (Auto) 7.4 L [place] % (Auto) 9.9 H Eos % (Auto) 4.2 Baso % (Auto) 0.2 Lymph # (Auto) 0.63 L [place] # (Auto) 0.8 H Eos # (Auto) 0.4 H Baso # (Auto) 0.0 Abs Immat Gran (auto) 0.11 H Absolute Neuts (auto) 6.5 Absolute Nucleated RBC 0.000 Nucleated RBC % 0.0 Sodium 132 L Potassium 3.5 Chloride 104 Carbon Dioxide 24 Anion Gap 4 BUN 25 H Creatinine 1.10 Estim Creat Clear Calc 56 Estimated GFR > 60 Glucose 66 POC Capillary Glucose 101 90 Calcium 7.6 L Magnesium 1.9 Total Bilirubin 0.7 AST 57 ALT 28 Alkaline Phosphatase 86 Total Protein 6.0 L Albumin 2.6 L 10/26/24 10/26/24 07:43 11:12 WBC RBC Hgb Hct MCV MCH MCHC RDW Plt Count MPV Immature Gran % (Auto) Neut % (Auto) Lymph % (Auto) [place] % (Auto) Eos % (Auto) Baso % (Auto) Lymph # (Auto) [place] # (Auto) Eos # (Auto) Baso # (Auto) Abs Immat Gran (auto) Absolute Neuts (auto) Absolute Nucleated RBC Nucleated RBC % Sodium Potassium Chloride Carbon Dioxide Anion Gap BUN Creatinine Estim Creat Clear Calc Estimated GFR Glucose POC Capillary Glucose 67 69 Calcium Magnesium Total Bilirubin AST ALT Alkaline Phosphatase Total Protein Albumin
--- NOTE | 2024-10-26 14:30 | PC.NURSE ---
Patient blood glucose was 67 at time of breakfast. Patient asymptomatic, breakfast tray in front of him. Patient refused recheck. Patient blood sugar 69 at time of lunch. Patient asymptomatic, lunch tray in front of him. Patient refused recheck.
[2024-10-26 14:46] LABS: Glucose Point of Care 123 mg/dl (65-105)
--- NOTE | 2024-10-26 14:46 | PC.NURSE ---
This patient, Joo Forman, was received from IMU room 213 on 10/26/24 at 1446. Report received from PALLAVI Ward. Patient oriented to unit policies and routines.
[2024-10-26 18:30] LABS: Glucose Point of Care 92 mg/dl (65-105)
--- NOTE | 2024-10-26 20:46 | ECG_ITS ---
Test Date: 2024-10-26 20:59:16 Measurements Intervals [place] Rate: 130 P: 0 [place]: 0 QRS: 78 QRSD: 107 T: 39 QT: 358 QTc: 527 Interpretive Statements ATRIAL FLUTTER/TACHYCARDIA WITH RAPID VENTRICULAR RESPONSE WITH VENTRICULAR PREMATURE COMPLEX LOW QRS VOLTAGE IN LIMB LEADS ANTEROSEPTAL INFARCT, AGE INDETERMINATE INFERIOR INFARCT, AGE INDETERMINATE ABNORMAL ECG Compared to ECG 10/26/2024 09:39:06 SINUS RHYTHM NO LONGER PRESENT Electronically Signed On 10-26-2024 22:01:32 BUTTON BREAKER by Feng Reddy D.O.
[2024-10-26] MEDS: AMOXICILLIN/CLAVULANATE K 875-125 MG TAB 1 TABLET PO (21:04)
[2024-10-26] MEDS: lisinopriL 20 MG TABLET PO (21:04)
[2024-10-26 21:08] LABS: Glucose Point of Care 108 mg/dl (65-105)
--- NOTE | 2024-10-26 23:00 | PC.NURSE ---
This patient, Joo Forman, was received from [[id number] ] on 10/26/24 at 2300 for initiation of diltiazem drip. Patient/family oriented to unit policies and routines
--- NOTE | 2024-10-26 23:10 | PC.NURSE ---
This patient, Joo Forman, was transferred to [[facility]] on 10/26/24 at 2305. Personal belongings sent with patient. Report given to [Jaylyn]. Appropriate documentation sent with patient.
[2024-10-26] MEDS: dilTIAZem 100 MG/100 ML 100 MG/100 ML BAG IV CONT (23:16)
[2024-10-27] VITALS (25 sets, daily range): BP systolic 96–159; BP diastolic 55–99; PULSE 59–147; RESP 14–20; TEMP 36.6–37.7; O2SAT 96–100
[2024-10-27 04:56] LABS: Basophils Percent Auto 0.3 % (0.2-1.2); Eosinophils Absolute Auto 0.3 K/mm3 (0-0.3); Immature Granulocyte Absolute 0.39 K/mm3 (0.00-0.031); Immature Granulocyte Percent A 4.3 % (0-0.5); Lymphocytes Absolute Auto 0.73 K/mm3 (0.9-3.2); Mean Corpuscular HGB Conc 33.3 g/dl (32-36); Mean Corpuscular Hemoglobin 26.9 pg (26-34); Mean Corpuscular Volume 80.7 fl (80-100); Mean Platelet Volume 9.7 fl (7.4-10.4); Monocytes Absolute Auto 0.9 K/mm3 (0.1-0.6); Monocytes Percent Auto 9.6 % (2.6-8.5); Neutrophils Absolute Auto 6.8 K/mm3 (1.3-6.7); Neutrophils Percent Auto 74.8 % (45.5-73.1); Platelet Count Result 210 k/mm3 (150-375); Red Blood Count 4.46 M/mm3 (4.6-6.20); Red Cell Distribution Width 15.8 % (11.5-14.5); White Blood Count 9.1 K/mm3 (4.5-10.0)
[2024-10-27 05:14] LABS: Alanine Aminotransferase 33 U/L (6-50); Albumin Level 2.8 g/dL (3.5-5.1); Alkaline Phosphatase 88 U/L (38-126); Anion Gap 5 mmol/L (4-12); Aspartate Amino Transferase 53 U/L (17-59); Bilirubin,Total 0.7 mg/dL (0.2-1.3); Blood Urea Nitrogen 20 mg/dL (9-20); Calcium 7.7 mg/dL (8.4-10.2); Carbon Dioxide 25 mmol/L (22-30); Chloride 102 mmol/L (98-107); Estimated CRCL calculation 52 ml/min; Estimated Glomerular Filt Rate 59; Glucose 120 mg/dL (65-110); Magnesium 1.7 mg/dL (1.6-2.3); Potassium 3.2 mmol/L (3.4-5.0); Sodium 132 mmol/L (137-145)
[2024-10-27 08:06] LABS: Glucose Point of Care 122 mg/dl (65-105)
[2024-10-27] MEDS: dilTIAZem 100 MG/100 ML 100 MG/100 ML BAG 15 MG IV CONT (09:53)
[2024-10-27] MEDS: POTASSIUM CHLORIDE 20 MEQ ER TABLET 40 MEQ PO (09:56)
[2024-10-27] MEDS: TAMSULOSIN HCL 0.4 MG CAPSULE PO (09:57)
[2024-10-27] MEDS: APIXABAN 5 MG TABLET PO ×2 (09:57→20:17)
[2024-10-27] MEDS: FINASTERIDE 5 MG TABLET PO (09:57)
[2024-10-27] MEDS: SOTALOL HCL 80 MG TABLET PO (09:57)
[2024-10-27] MEDS: AMOXICILLIN/CLAVULANATE K 875-125 MG TAB 1 TABLET PO ×2 (09:57→20:18)
[2024-10-27] MEDS: LORATADINE 10 MG TABLET PO (09:57)
[2024-10-27] MEDS: ROSUVASTATIN 10 MG TABLET PO (09:57)
[2024-10-27] MEDS: cefTRIAXone 2 GM/NS 100 ML 2 GM/100 ML BAG IVPB (10:08)
--- NOTE | 2024-10-27 10:55 | ECG_ITS ---
Test Date: 2024-10-27 11:01:29 Measurements Intervals [place] Rate: 144 P: 0 [place]: 0 QRS: 6 QRSD: 110 T: 16 QT: 326 QTc: 506 Interpretive Statements ATRIAL FLUTTER/TACHYCARDIA WITH RAPID VENTRICULAR RESPONSE POSSIBLE INFERIOR MYOCARDIAL INFARCTION , PROBABLY OLD [30 ms Q WAVE IN II/aVF] ANTEROSEPTAL MYOCARDIAL INFARCTION , PROBABLY OLD [40+ ms Q WAVE IN V1-V4] Compared to ECG 10/26/2024 20:59:16 Ventricular premature complex(es) no longer present Electronically Signed On 10-27-2024 12:19:10 INVESTMENT DIRECTOR by Reno Stallworth M.D.
--- NOTE | 2024-10-27 11:00 | P.PNCA_ITS ---
Progress Note: A&P Assessment and Plan (1) Atrial fibrillation with RVR: Code(s): I48.91 - Unspecified atrial fibrillation Status: Acute Plan Paroxysmal atrial flutter recurrent episodes since yesterday not controlled with diltiazem Sepsis and UTI CHRISTOPHER improved Diabetes mellitus type 2 Hypertension controlled Plan NPO midnight for possible cardioversion tomorrow D/C sotalol and start amiodarone infusion tomorrow if frequent recurrences then consider A flutter ablation Continue lisinopril Continue apixaban Subjective Date/time seen: 10/27/24 11:00 Interval history: No acute events Tele: A flutter with RVR Review of Systems Review of Systems: All systems reviewed & are unremarkable except as noted in HPI and below Exam Const: General: comfortable and no acute distress HENMT: Face/Nose/Sinus: Normal nares present Eyes: Sclera: sclerae normal Pupils: Equal, round and reactive pupils present Neck: Neck: supple and no JVD Resp: Effort & Inspection: normal respiratory effort Auscultation: clear to auscultation bilaterally Cardio: Rate: tachycardic Rhythm: regular rhythm GI: GI Palp: Yes Soft to palpation Auscultation: normal bowel sounds Skin: General skin exam: normal color Neuro: Other: Alert and oriented x3 Extrem: General: normal to inspection Objective Data Vital Signs Vital Signs: Vital Signs - 24 hr 10/26/24 11:20 10/26/24 11:36 10/26/24 12:00 Temperature 36.5 C Pulse Rate 74 76 Respiratory Rate 18 Blood Pressure 150/72 H Pulse Oximetry 96 Oxygen Delivery Room Air 10/26/24 14:00 10/26/24 16:00 10/26/24 16:00 Temperature 36.7 C Pulse Rate 79 69 76 Respiratory Rate 16 Blood Pressure 156/71 H Pulse Oximetry 98 Oxygen Delivery 10/26/24 16:00 10/26/24 19:31 10/26/24 20:28 Temperature 37.4 C Pulse Rate 86 130 H Respiratory Rate 16 Blood Pressure 155/80 H Pulse Oximetry 98 Oxygen Delivery Room Air 10/26/24 20:00 10/26/24 20:00 10/26/24 20:32 Temperature Pulse Rate 78 143 H Respiratory Rate Blood Pressure Pulse Oximetry Oxygen Delivery Room Air 10/26/24 23:16 10/26/24 23:05 10/27/24 00:13 Temperature 36.8 C 37.1 C Pulse Rate 142 H 136 H 147 H Respiratory Rate 16 16 Blood Pressure 157/118 H 157/81 H 141/96 H Pulse Oximetry 95 96 Oxygen Delivery 10/27/24 00:00 10/27/24 00:00 10/26/24 23:05 Temperature Pulse Rate 144 H 130 H Respiratory Rate Blood Pressure Pulse Oximetry Oxygen Delivery Room Air 10/27/24 01:55 10/27/24 02:14 10/27/24 02:00 Temperature Pulse Rate 142 H 141 H 141 H Respiratory Rate Blood Pressure 129/93 H 129/93 H Pulse Oximetry Oxygen Delivery 10/27/24 03:49 10/27/24 04:00 10/27/24 04:00 Temperature 37.1 C Pulse Rate 141 H 142 H Respiratory Rate 16 Blood Pressure 122/81 Pulse Oximetry 98 Oxygen Delivery Room Air 10/27/24 06:06 10/27/24 06:10 10/27/24 06:00 Temperature Pulse Rate 142 H 142 H 142 H Respiratory Rate Blood Pressure 159/99 H 159/99 H Pulse Oximetry Oxygen Delivery 10/27/24 07:58 10/27/24 08:00 10/27/24 08:15 Temperature 37.2 C Pulse Rate 143 H 144 H 144 H Respiratory Rate 16 Blood Pressure 118/88 Pulse Oximetry 96 Oxygen Delivery 10/27/24 09:53 10/27/24 10:00 10/27/24 10:00 Temperature 36.6 C Pulse Rate 145 H 108 H 145 H Respiratory Rate 20 Blood Pressure 96/56 L 96/55 L Pulse Oximetry 100 Oxygen Delivery Intake/Output Intake/Output: Intake & Output 10/24/24 10/25/24 10/26/24 10/27/24 23:59 23:59 23:59 23:59 Intake Total 2895 0 3518 2057.4 Output Total 2 2009 5838 5 Balance 1965 -55 -807 -292.6 Meds/Results Medications: Active Medications Generic Name Dose Route Start Last Admin Trade Name Freq PRN Reason Stop Dose Admin Acetaminophen 650 mg 10/23/24 06:20 10/23/24 23:19 Acetaminophen 325 Mg Tablet PO 650 mg Q4H PRN Administration Mild Pain (1-3) or Fever Amoxicillin/Clavulanate Potassium 1 tablet 10/26/24 21:00 10/27/24 09:57 Amoxicillin/Clavulanate K 875-125 Mg Tab PO 1 tablet Q12HR DEBORAH Administration Apixaban 5 mg 10/23/24 09:30 10/27/24 09:57 Apixaban 5 Mg Tablet PO 5 mg Q12HR DEBORAH Administration Dextrose 12.5 gm 10/23/24 16:01 Dextrose 50% 25 Gm/50 Ml Syringe IV PUSH PRN PRN Hypoglycemia Protocol Finasteride 5 mg 10/23/24 09:30 10/27/24 09:57 Finasteride 5 Mg Tablet PO 5 mg QAM DEBORAH Administration Glucagon 1 mg 10/23/24 16:01 Glucagon For Inj 1 Mg Vial IM PRN PRN Hypoglycemia Protocol Glucose 15 gm 10/23/24 16:01 Glucose Oral Gel 15 Gm Of Glucse In 37.5 Gm Tube PO PRN PRN Hypoglycemia Protocol Dextrose 1,000 mls @ 100 mls/hr 10/23/24 16:01 Dextrose 5% 1,000 Ml IVPB PRN PRN Hypoglycemia Protocol Ceftriaxone Sodium 2 gm in 100 mls @ 200 mls/hr 10/25/24 09:00 10/27/24 10:08 Rocephin 2 Gm/Ns 100 Ml IVPB 200 mls/hr DAILY DEBORAH Administration Diltiazem HCl 100 mg in 100 mls @ 10 mls/hr 10/26/24 21:30 10/27/24 10:00 Cardizem 100 Mg/100 Ml IV CONT 10 mg/hr .Q10H DEBORAH 10 mls/hr Infusion 10 MG/HR Insulin Aspart 2 - 5 units 10/23/24 17:00 10/27/24 09:51 Insulin Aspart (*Bkc) 100 Units/Ml SUB-Q Not Given TIDWM [facility] Protocol Lisinopril 20 mg 10/26/24 21:00 10/26/24 21:04 Lisinopril 20 Mg Tablet PO 20 mg HS DEBORAH Administration Loratadine 10 mg 10/27/24 09:00 10/27/24 09:57 Loratadine 10 Mg Tablet PO 10 mg DAILY DEBORAH Administration Nitroglycerin 0.4 mg 10/26/24 12:12 Nitroglycerin Sl 0.4 Mg Tablet SUBLINGUAL DIRECTED DEBORAH Ondansetron HCl 4 mg 10/23/24 06:20 Ondansetron Inj 4 Mg/2 Ml Vial IV PUSH Q4H PRN Nausea Rosuvastatin Calcium 10 mg 10/23/24 09:30 10/27/24 09:57 Rosuvastatin 10 Mg Tablet PO 10 mg QAM DEBORAH Administration Sotalol HCl 80 mg 10/24/24 17:00 10/27/24 09:57 Sotalol Hcl 80 Mg Tablet PO 80 mg BID DEBORAH Administration Tamsulosin HCl 0.4 mg 10/23/24 09:30 10/27/24 09:57 Tamsulosin Hcl 0.4 Mg Capsule PO 0.4 mg QAM DEBORAH Administration Radiology Results: ITS Impressions Chest X-Ray 10/23/24 06:03 IMPRESSION: 1. Mild atelectasis at left lung base. Labs Labs: Laboratory Results - last 24 hr 10/26/24 10/26/24 10/26/24 11:12 14:29 17:12 WBC RBC Hgb Hct MCV MCH MCHC RDW Plt Count MPV Immature Gran % (Auto) Neut % (Auto) Lymph % (Auto) [place] % (Auto) Eos % (Auto) Baso % (Auto) Lymph # (Auto) [place] # (Auto) Eos # (Auto) Baso # (Auto) Abs Immat Gran (auto) Absolute Neuts (auto) Absolute Nucleated RBC Nucleated RBC % Sodium Potassium Chloride Carbon Dioxide Anion Gap BUN Creatinine Estim Creat Clear Calc Estimated GFR Glucose POC Capillary Glucose 69 123 H 92 Calcium Magnesium Total Bilirubin AST ALT Alkaline Phosphatase Total Protein Albumin 10/26/24 10/27/24 10/27/24 20:47 04:38 07:56 WBC 9.1 RBC 4.46 L Hgb 12.0 L Hct 36.0 L MCV 80.7 MCH 26.9 MCHC 33.3 RDW 15.8 H Plt Count 210 MPV 9.7 Immature Gran % (Auto) 4.3 H Neut % (Auto) 74.8 H Lymph % (Auto) 8.0 L [place] % (Auto) 9.6 H Eos % (Auto) 3.0 Baso % (Auto) 0.3 Lymph # (Auto) 0.73 L [place] # (Auto) 0.9 H Eos # (Auto) 0.3 Baso # (Auto) 0.0 Abs Immat Gran (auto) 0.39 H Absolute Neuts (auto) 6.8 H Absolute Nucleated RBC 0.000 Nucleated RBC % 0.0 Sodium 132 L Potassium 3.2 L Chloride 102 Carbon Dioxide 25 Anion Gap 5 BUN 20 Creatinine 1.20 Estim Creat Clear Calc 52 Estimated GFR 59 Glucose 120 H POC Capillary Glucose 108 H 122 H Calcium 7.7 L Magnesium 1.7 Total Bilirubin 0.7 AST 53 ALT 33 Alkaline Phosphatase 88 Total Protein 6.0 L Albumin 2.8 L
[2024-10-27 11:33] LABS: Glucose Point of Care 172 mg/dl (65-105)
[2024-10-27] MEDS: MAGNESIUM SULF 1 GM/D5W 100 ML 1 GM/100 ML BAG IVPB (12:02)
--- NOTE | 2024-10-27 13:15 | PM.IMPN ---
Progress Note: A&P Assessment and Plan (1) Sepsis: Code(s): A41.9 - Sepsis, unspecified organism Status: Acute Assessment and Plan: Patient blood culture is positive for gram negative rods. Ceftriaxone 2 g daily Urine culture 10/23: Providencia rettgeri Blood culture x2 Providencia rettgeri Urine culture 10/23: Enterococcus species Add vancomycin. Sensitive to ampicillin (2) Atrial fibrillation with RVR: Code(s): I48.91 - Unspecified atrial fibrillation Status: Acute Assessment and Plan: Patient on sotalol the dose of which is increased Status post cardioversion 10/25/2024 successfully converted to sinus rhythm however back again in AFib with RVR. Has been started on diltiazem drip. Sotalol discontinued and plan to start amiodarone in a.m.. Possible repeat cardioversion again in the a.m.. Cardiology on board (3) Acute UTI: Code(s): N39.0 - Urinary tract infection, site not specified Status: Acute Assessment and Plan: Urine culture with Providencia and Enterococcus. On ceftriaxone will likely switch to Bactrim at discharge Add vancomycin for Enterococcus coverage. Sensitive to ampicillin will switch to amoxicillin (4) Diabetes: Code(s): E11.9 - Type 2 diabetes mellitus without complications Status: Acute Assessment and Plan: Continue home medication monitor closely. (5) Essential hypertension: Code(s): I10 - Essential (primary) hypertension Status: Acute Assessment and Plan: Continue with home medications and monitor closely (6) Renal insufficiency: Code(s): N28.9 - Disorder of kidney and ureter, unspecified Status: Acute Assessment and Plan: Gentle hydration and monitor closely. Admission creatinine 1.8 CHRISTOPHER resolved (7) Abnormal cardiac enzyme level: Code(s): R74.8 - Abnormal levels of other serum enzymes Status: Acute Assessment and Plan: Cardiology evaluation and serial cardiac enzymes. Plan DVT prophylaxis on Eliquis Code status full code Subjective Date/time seen: 10/27/24 13:15 Interval history: Overnight patient went into AFib with RVR again. He has been started on diltiazem drip. He denies any chest pain or shortness of breath. Review of Systems Review of Systems: All systems reviewed & are unremarkable except as noted in HPI and below (the history and physical examination.) Exam Narrative: Const: General: healthy appearing and no acute distress Nutritional Appearance: well nourished Orientation/consciousness: patient oriented x3 Limitations: no limitations HENMT: Mouth: Yes dry mucous membranes Cardio: Regular AFib with RVR GI: GI Palp: Yes Soft to palpation and Yes Tenderness to palpation present (GI) (low abdomen) Auscultation: normal bowel sounds Supra pubic catheter in place. Neuro: General: patient oriented x3, moves all extremities and no focal motor deficits Cranial nerves: Yes Nystagmus not present Speech: normal speech Extrem: General: normal to inspection and no clubbing, cyanosis or edema Psych: Mental Status: mental status grossly normal Affect: normal affect Attitude: cooperative Objective Data Vital Signs Vital Signs: Vital Signs - 24 hr 10/26/24 14:00 10/26/24 16:00 10/26/24 16:00 Temperature 98.1 F Pulse Rate 79 69 76 Respiratory Rate 16 Blood Pressure 156/71 H Pulse Oximetry 98 Oxygen Delivery 10/26/24 16:00 10/26/24 19:31 10/26/24 20:28 Temperature 99.3 F Pulse Rate 86 130 H Respiratory Rate 16 Blood Pressure 155/80 H Pulse Oximetry 98 Oxygen Delivery Room Air 10/26/24 20:00 10/26/24 20:00 10/26/24 20:32 Temperature Pulse Rate 78 143 H Respiratory Rate Blood Pressure Pulse Oximetry Oxygen Delivery Room Air 10/26/24 23:16 10/26/24 23:05 10/27/24 00:13 Temperature 98.2 F 98.7 F Pulse Rate 142 H 136 H 147 H Respiratory Rate 16 16 Blood Pressure 157/118 H 157/81 H 141/96 H Pulse Oximetry 95 96 Oxygen Delivery 10/27/24 00:00 10/27/24 00:00 10/26/24 23:05 Temperature Pulse Rate 144 H 130 H Respiratory Rate Blood Pressure Pulse Oximetry Oxygen Delivery Room Air 10/27/24 01:55 10/27/24 02:14 10/27/24 02:00 Temperature Pulse Rate 142 H 141 H 141 H Respiratory Rate Blood Pressure 129/93 H 129/93 H Pulse Oximetry Oxygen Delivery 10/27/24 03:49 10/27/24 04:00 10/27/24 04:00 Temperature 98.7 F Pulse Rate 141 H 142 H Respiratory Rate 16 Blood Pressure 122/81 Pulse Oximetry 98 Oxygen Delivery Room Air 10/27/24 06:06 10/27/24 06:10 10/27/24 06:00 Temperature Pulse Rate 142 H 142 H 142 H Respiratory Rate Blood Pressure 159/99 H 159/99 H Pulse Oximetry Oxygen Delivery 10/27/24 07:58 10/27/24 08:00 10/27/24 08:15 Temperature 98.9 F Pulse Rate 143 H 144 H 144 H Respiratory Rate 16 Blood Pressure 118/88 Pulse Oximetry 96 Oxygen Delivery 10/27/24 09:53 10/27/24 10:00 10/27/24 10:00 Temperature 97.9 F Pulse Rate 145 H 108 H 145 H Respiratory Rate 20 Blood Pressure 96/56 L 96/55 L Pulse Oximetry 100 Oxygen Delivery 10/27/24 12:00 10/27/24 12:00 10/27/24 08:00 Temperature 99.9 F H Pulse Rate 107 H 110 H 143 H Respiratory Rate 20 Blood Pressure 117/81 Pulse Oximetry 98 Oxygen Delivery 10/27/24 10:00 10/27/24 12:00 Temperature Pulse Rate 145 H 107 H Respiratory Rate Blood Pressure Pulse Oximetry Oxygen Delivery Intake/Output Intake/Output: Intake & Output 10/24/24 10/25/24 10/26/24 10/27/24 23:59 23:59 23:59 23:59 Intake Total 4544 4219 4837 2277.4 Output Total 2625 2009 4321 4107 Balance 1965 -55 -807 -1822.6 Meds/Results Medications: Active Medications Generic Name Dose Route Start Last Admin Trade Name Freq PRN Reason Stop Dose Admin Acetaminophen 650 mg 10/23/24 06:20 10/23/24 23:19 Acetaminophen 325 Mg Tablet PO 650 mg Q4H PRN Administration Mild Pain (1-3) or Fever Amoxicillin/Clavulanate Potassium 1 tablet 10/26/24 21:00 10/27/24 09:57 Amoxicillin/Clavulanate K 875-125 Mg Tab PO 1 tablet Q12HR DEBORAH Administration Apixaban 5 mg 10/23/24 09:30 10/27/24 09:57 Apixaban 5 Mg Tablet PO 5 mg Q12HR DEBORAH Administration Dextrose 12.5 gm 10/23/24 16:01 Dextrose 50% 25 Gm/50 Ml Syringe IV PUSH PRN PRN Hypoglycemia Protocol Finasteride 5 mg 10/23/24 09:30 10/27/24 09:57 Finasteride 5 Mg Tablet PO 5 mg QAM DEBORAH Administration Glucagon 1 mg 10/23/24 16:01 Glucagon For Inj 1 Mg Vial IM PRN PRN Hypoglycemia Protocol Glucose 15 gm 10/23/24 16:01 Glucose Oral Gel 15 Gm Of Glucse In 37.5 Gm Tube PO PRN PRN Hypoglycemia Protocol Dextrose 1,000 mls @ 100 mls/hr 10/23/24 16:01 Dextrose 5% 1,000 Ml IVPB PRN PRN Hypoglycemia Protocol Ceftriaxone Sodium 2 gm in 100 mls @ 200 mls/hr 10/25/24 09:00 10/27/24 13:12 Rocephin 2 Gm/Ns 100 Ml IVPB Infused DAILY DEBORAH Infusion Diltiazem HCl 100 mg in 100 mls @ 10 mls/hr 10/26/24 21:30 10/27/24 12:00 Cardizem 100 Mg/100 Ml IV CONT 10 mg/hr .Q10H DEBORAH 10 mls/hr Infusion 10 MG/HR Insulin Aspart 2 - 5 units 10/23/24 17:00 10/27/24 12:05 Insulin Aspart (*Bkc) 100 Units/Ml SUB-Q Not Given TIDWM DEBORAH Protocol Lisinopril 20 mg 10/26/24 21:00 10/26/24 21:04 Lisinopril 20 Mg Tablet PO 20 mg HS DEBORAH Administration Loratadine 10 mg 10/27/24 09:00 10/27/24 09:57 Loratadine 10 Mg Tablet PO 10 mg DAILY DEBORAH Administration Nitroglycerin 0.4 mg 10/26/24 12:12 Nitroglycerin Sl 0.4 Mg Tablet SUBLINGUAL DIRECTED DEBORAH Ondansetron HCl 4 mg 10/23/24 06:20 Ondansetron Inj 4 Mg/2 Ml Vial IV PUSH Q4H PRN Nausea Rosuvastatin Calcium 10 mg 10/23/24 09:30 10/27/24 09:57 Rosuvastatin 10 Mg Tablet PO 10 mg QAM DEBORAH Administration Tamsulosin HCl 0.4 mg 10/23/24 09:30 10/27/24 09:57 Tamsulosin Hcl 0.4 Mg Capsule PO 0.4 mg QAM DEBORAH Administration Radiology Results: ITS Impressions Chest X-Ray 11/27/24 06:03 IMPRESSION: 1. Mild atelectasis at left lung base. Labs Labs: Laboratory Results - last 24 hr 10/26/24 10/26/24 10/26/24 14:29 17:12 20:47 WBC RBC Hgb Hct MCV MCH MCHC RDW Plt Count MPV Immature Gran % (Auto) Neut % (Auto) Lymph % (Auto) [place] % (Auto) Eos % (Auto) Baso % (Auto) Lymph # (Auto) [place] # (Auto) Eos # (Auto) Baso # (Auto) Abs Immat Gran (auto) Absolute Neuts (auto) Absolute Nucleated RBC Nucleated RBC % Sodium Potassium Chloride Carbon Dioxide Anion Gap BUN Creatinine Estim Creat Clear Calc Estimated GFR Glucose POC Capillary Glucose 123 H 92 108 H Calcium Magnesium Total Bilirubin AST ALT Alkaline Phosphatase Total Protein Albumin 10/27/24 10/27/24 10/27/24 04:38 07:56 11:29 WBC 9.1 RBC 4.46 L Hgb 12.0 L Hct 36.0 L MCV 80.7 MCH 26.9 MCHC 33.3 RDW 15.8 H Plt Count 210 MPV 9.7 Immature Gran % (Auto) 4.3 H Neut % (Auto) 74.8 H Lymph % (Auto) 8.0 L [place] % (Auto) 9.6 H Eos % (Auto) 3.0 Baso % (Auto) 0.3 Lymph # (Auto) 0.73 L [place] # (Auto) 0.9 H Eos # (Auto) 0.3 Baso # (Auto) 0.0 Abs Immat Gran (auto) 0.39 H Absolute Neuts (auto) 6.8 H Absolute Nucleated RBC 0.000 Nucleated RBC % 0.0 Sodium 132 L Potassium 3.2 L Chloride 102 Carbon Dioxide 25 Anion Gap 5 BUN 20 Creatinine 1.20 Estim Creat Clear Calc 52 Estimated GFR 59 Glucose 120 H POC Capillary Glucose 122 H 172 H Calcium 7.7 L Magnesium 1.7 Total Bilirubin 0.7 AST 53 ALT 33 Alkaline Phosphatase 88 Total Protein 6.0 L Albumin 2.8 L
[2024-10-27] MEDS: dilTIAZem 100 MG/100 ML 100 MG/100 ML BAG 10 MG IV CONT (16:29)
[2024-10-27] MEDS: lisinopriL 20 MG TABLET PO (20:18)
[2024-10-27 20:30] LABS: Glucose Point of Care 195 mg/dl (65-105)
--- NOTE | 2024-10-27 22:12 | PC.NURSE ---
Spoke with Dr. Trujillo regarding heart rate sustaining 130's-140's. Patient denies pain. Physician States No new orders, continue with plan to cardiovert in am.
[2024-10-28] VITALS (30 sets, daily range): BP systolic 106–152; BP diastolic 64–88; PULSE 69–155; RESP 14–21; TEMP 36.3–37.2; O2SAT 9–100
[2024-10-28 02:12] LABS: Alanine Aminotransferase 31 U/L (6-50); Albumin Level 2.6 g/dL (3.5-5.1); Alkaline Phosphatase 80 U/L (38-126); Anion Gap 2 mmol/L (4-12); Aspartate Amino Transferase 43 U/L (17-59); Bilirubin,Total 0.6 mg/dL (0.2-1.3); Blood Urea Nitrogen 16 mg/dL (9-20); Calcium 7.5 mg/dL (8.4-10.2); Carbon Dioxide 30 mmol/L (22-30); Chloride 102 mmol/L (98-107); Estimated CRCL calculation 51 ml/min; Estimated Glomerular Filt Rate 59; Glucose 168 mg/dL (65-110); Magnesium 1.8 mg/dL (1.6-2.3); Potassium 3.1 mmol/L (3.4-5.0); Sodium 134 mmol/L (137-145)
[2024-10-28] MEDS: MAGNESIUM SULF 1 GM/D5W 100 ML 1 GM/100 ML BAG IVPB (02:22)
[2024-10-28] MEDS: dilTIAZem 100 MG/100 ML 100 MG/100 ML BAG 10 MG IV CONT ×2 (02:23→12:23)
[2024-10-28] MEDS: POTASSIUM CHLORIDE 20 MEQ ER TABLET 60 MEQ PO (02:30)
[2024-10-28] MEDS: METOPROLOL TARTRATE 25 MG TABLET PO (02:30)
--- NOTE | 2024-10-28 02:37 | PC.NURSE ---
Patient having frequent runs of VTach. Denies symptoms. New orders received from hospitalist Master. New orders received from Dr. Stallworth.
[2024-10-28 05:18] LABS: Basophils Percent Auto 0.4 % (0.2-1.2); Eosinophils Absolute Auto 0.4 K/mm3 (0-0.3); Eosinophils Percent Auto 4.1 % (0-4.4); Hematocrit 34.2 % (42.0-52.0); Hemoglobin 11.3 g/dL (14.0-18.0); Immature Granulocyte Absolute 0.37 K/mm3 (0.00-0.031); Immature Granulocyte Percent A 3.9 % (0-0.5); Lymphocytes Absolute Auto 0.85 K/mm3 (0.9-3.2); Mean Corpuscular Hemoglobin 26.6 pg (26-34); Mean Corpuscular Volume 80.5 fl (80-100); Mean Platelet Volume 9.8 fl (7.4-10.4); Monocytes Absolute Auto 0.7 K/mm3 (0.1-0.6); Monocytes Percent Auto 7.7 % (2.6-8.5); Neutrophils Percent Auto 74.9 % (45.5-73.1); Platelet Count Result 233 k/mm3 (150-375); Red Blood Count 4.25 M/mm3 (4.6-6.20); Red Cell Distribution Width 15.9 % (11.5-14.5); White Blood Count 9.4 K/mm3 (4.5-10.0)
[2024-10-28 05:46] LABS: Alanine Aminotransferase 30 U/L (6-50); Albumin Level 2.7 g/dL (3.5-5.1); Alkaline Phosphatase 67 U/L (38-126); Anion Gap 4 mmol/L (4-12); Aspartate Amino Transferase 44 U/L (17-59); Bilirubin,Total 0.8 mg/dL (0.2-1.3); Blood Urea Nitrogen 16 mg/dL (9-20); Calcium 7.6 mg/dL (8.4-10.2); Carbon Dioxide 26 mmol/L (22-30); Chloride 104 mmol/L (98-107); Estimated CRCL calculation 61 ml/min; Estimated Glomerular Filt Rate > 60; Glucose 166 mg/dL (65-110); Potassium 4.2 mmol/L (3.4-5.0); Sodium 134 mmol/L (137-145)
[2024-10-28 08:10] LABS: Glucose Point of Care 156 mg/dl (65-105)
[2024-10-28] MEDS: APIXABAN 5 MG TABLET PO ×2 (09:19→20:32)
[2024-10-28] MEDS: AMOXICILLIN/CLAVULANATE K 875-125 MG TAB 1 TABLET PO (09:19)
[2024-10-28] MEDS: TAMSULOSIN HCL 0.4 MG CAPSULE PO (09:19)
[2024-10-28] MEDS: FINASTERIDE 5 MG TABLET PO (09:19)
[2024-10-28] MEDS: ROSUVASTATIN 10 MG TABLET PO (09:19)
[2024-10-28] MEDS: LORATADINE 10 MG TABLET PO (09:19)
[2024-10-28] MEDS: cefTRIAXone 2 GM/NS 100 ML 2 GM/100 ML BAG IVPB (09:22)
[2024-10-28] MEDS: polyethylene glycoL 3350 17 GM POWD.PACK PO (09:24)
--- NOTE | 2024-10-28 10:10 | PM.PNCARD ---
Progress Note: A&P Assessment and Plan (1) Atrial fibrillation with RVR: Code(s): I48.91 - Unspecified atrial fibrillation Status: Acute Plan 79-year-old man with longstanding persistent atrial fibrillation Longstanding persistent atrial fibrillation -sees Dr. Cannon outpatient and is on sotalol 80 mg p.o. b.i.d. which we will continue -he previously underwent cardioversion last week and has been on his anticoagulation without any interruptions -plan for repeat cardioversion today CAD status post PCI -continue rosuvastatin 10 mg p.o. daily Hyperlipidemia -continue rosuvastatin 10 mg p.o. daily Hypertension -continue lisinopril Subjective Date/time seen: 10/28/24 10:10 Interval history: No chest pain or shortness of breath Review of Systems Cardiovascular: Cardiovascular: Reports as per HPI Respiratory: Respiratory: Reports as per HPI Exam Const: General: comfortable HENMT: Mouth: Yes moist mucous membranes Eyes: EOM: EOMs intact bilaterally Neck: Neck: no JVD Resp: Auscultation: clear to auscultation bilaterally Cardio: Rate: tachycardic Rhythm: abnormal rhythm GI: GI Palp: Yes Soft to palpation Objective Data Vital Signs Vital Signs: Vital Signs - 24 hr 10/27/24 12:00 10/27/24 12:00 10/27/24 12:00 Temperature 37.7 C H Pulse Rate 107 H 110 H 107 H Respiratory Rate 20 Blood Pressure 117/81 Pulse Oximetry 98 Oxygen Delivery 10/27/24 14:00 10/27/24 14:00 10/27/24 14:00 Temperature Pulse Rate 59 L 102 H 102 H Respiratory Rate 20 Blood Pressure 108/69 Pulse Oximetry 97 Oxygen Delivery 10/27/24 16:06 10/27/24 16:29 10/27/24 16:29 Temperature Pulse Rate 122 H 102 H 102 H Respiratory Rate Blood Pressure Pulse Oximetry Oxygen Delivery 10/27/24 18:00 10/27/24 16:00 10/27/24 18:00 Temperature 37.2 C Pulse Rate 144 H 90 87 Respiratory Rate 18 Blood Pressure 107/71 Pulse Oximetry 99 Oxygen Delivery 10/27/24 18:00 10/27/24 19:29 10/27/24 20:00 Temperature 37.3 C Pulse Rate 87 115 H 115 H Respiratory Rate 14 14 Blood Pressure 100/74 Pulse Oximetry 98 98 Oxygen Delivery Room Air 10/27/24 20:00 10/27/24 21:56 10/27/24 22:16 Temperature Pulse Rate 96 144 H 144 H Respiratory Rate Blood Pressure 115/65 Pulse Oximetry 97 Oxygen Delivery 10/28/24 00:00 10/28/24 00:00 10/28/24 00:00 Temperature 36.9 C Pulse Rate 144 H 144 H 134 H Respiratory Rate 14 14 Blood Pressure 124/65 Pulse Oximetry 97 99 Oxygen Delivery Room Air 10/28/24 01:53 10/27/24 22:00 10/28/24 00:00 Temperature Pulse Rate 125 H 144 H 134 H Respiratory Rate 14 Blood Pressure 135/64 115/65 124/65 Pulse Oximetry 98 Oxygen Delivery 10/28/24 02:00 10/28/24 02:23 10/28/24 02:23 Temperature Pulse Rate 125 H 98 98 Respiratory Rate Blood Pressure 135/64 Pulse Oximetry Oxygen Delivery 10/28/24 02:30 10/28/24 02:00 10/28/24 04:00 Temperature Pulse Rate 110 H 117 H 110 H Respiratory Rate 14 Blood Pressure Pulse Oximetry 98 Oxygen Delivery Room Air 10/28/24 04:00 10/28/24 06:00 10/28/24 06:13 Temperature Pulse Rate 110 H 104 H 92 Respiratory Rate Blood Pressure 142/74 H Pulse Oximetry Oxygen Delivery 10/28/24 04:00 10/28/24 06:00 10/28/24 07:23 Temperature 37.2 C 36.8 C Pulse Rate 110 H 92 111 H Respiratory Rate 18 18 Blood Pressure 112/78 142/74 H 109/73 Pulse Oximetry 97 95 Oxygen Delivery 10/28/24 08:00 Temperature Pulse Rate 111 H Respiratory Rate Blood Pressure Pulse Oximetry Oxygen Delivery Intake/Output Intake/Output: Intake & Output 10/25/24 10/26/24 10/27/24 10/28/24 23:59 23:59 23:59 23:59 Intake Total 1954 5538 3167.4 299.9 Output Total 2009 4323 4100 2150 [facility]55 -807 -932.6 -1850.1 Meds/Results Medications: Active Medications Generic Name Dose Route Start Last Admin Trade Name Freq PRN Reason Stop Dose Admin Acetaminophen 650 mg 10/23/24 06:20 10/23/24 23:19 Acetaminophen 325 Mg Tablet PO 650 mg Q4H PRN Administration Mild Pain (1-3) or Fever Amoxicillin/Clavulanate Potassium 1 tablet 10/26/24 21:00 10/28/24 09:19 Amoxicillin/Clavulanate K 875-125 Mg Tab PO 1 tablet Q12HR DEBORAH Administration Apixaban 5 mg 10/23/24 09:30 10/28/24 09:19 Apixaban 5 Mg Tablet PO 5 mg Q12HR DEBORAH Administration Dextrose 12.5 gm 10/23/24 16:01 Dextrose 50% 25 Gm/50 Ml Syringe IV PUSH PRN PRN Hypoglycemia Protocol Finasteride 5 mg 10/23/24 09:30 10/28/24 09:19 Finasteride 5 Mg Tablet PO 5 mg QAM DEBORAH Administration Glucagon 1 mg 10/23/24 16:01 Glucagon For Inj 1 Mg Vial IM PRN PRN Hypoglycemia Protocol Glucose 15 gm 10/23/24 16:01 Glucose Oral Gel 15 Gm Of Glucse In 37.5 Gm Tube PO PRN PRN Hypoglycemia Protocol Dextrose 1,000 mls @ 100 mls/hr 10/23/24 16:01 Dextrose 5% 1,000 Ml IVPB PRN PRN Hypoglycemia Protocol Ceftriaxone Sodium 2 gm in 100 mls @ 200 mls/hr 10/25/24 09:00 10/28/24 09:22 Rocephin 2 Gm/Ns 100 Ml IVPB 200 mls/hr DAILY DEBORAH Administration Diltiazem HCl 100 mg in 100 mls @ 10 mls/hr 10/26/24 21:30 10/28/24 08:00 Cardizem 100 Mg/100 Ml IV CONT 10 mg/hr .Q10H DEBORAH 10 mls/hr Infusion 10 MG/HR Insulin Aspart 2 - 5 units 10/23/24 17:00 10/28/24 09:17 Insulin Aspart (*Bkc) 100 Units/Ml SUB-Q Not Given TIDWM DEBORAH Protocol Lisinopril 20 mg 10/26/24 21:00 10/27/24 20:18 Lisinopril 20 Mg Tablet PO 20 mg HS DEBORAH Administration Loratadine 10 mg 10/27/24 09:00 10/28/24 09:19 Loratadine 10 Mg Tablet PO 10 mg DAILY DEBORAH Administration Nitroglycerin 0.4 mg 10/26/24 12:12 Nitroglycerin Sl 0.4 Mg Tablet SUBLINGUAL DIRECTED DEBORAH Ondansetron HCl 4 mg 10/23/24 06:20 Ondansetron Inj 4 Mg/2 Ml Vial IV PUSH Q4H PRN Nausea Polyethylene Glycol 17 gm 10/28/24 01:00 10/28/24 09:24 Polyethylene Glycol 3350 17 Gm Powd.Pack PO 17 gm QAM PRN Administration Constipation Rosuvastatin Calcium 10 mg 10/23/24 09:30 10/28/24 09:19 Rosuvastatin 10 Mg Tablet PO 10 mg QAM DEBORAH Administration Senna 8.6 mg 10/28/24 21:00 Sennosides 8.6 Mg Tablet PO HS DEBORAH Sotalol HCl 80 mg 10/28/24 21:00 Sotalol Hcl 80 Mg Tablet PO Q12HR DEBORAH Tamsulosin HCl 0.4 mg 10/23/24 09:30 10/28/24 09:19 Tamsulosin Hcl 0.4 Mg Capsule PO 0.4 mg QAM DEBORAH Administration Radiology Results: ITS Impressions Chest X-Ray 10/23/24 06:03 IMPRESSION: 1. Mild atelectasis at left lung base. Labs Labs: Laboratory Results - last 24 hr 10/27/24 10/27/24 10/28/24 11:29 20:22 01:34 WBC RBC Hgb Hct MCV MCH MCHC RDW Plt Count MPV Immature Gran % (Auto) Neut % (Auto) Lymph % (Auto) [place] % (Auto) Eos % (Auto) Baso % (Auto) Lymph # (Auto) [place] # (Auto) Eos # (Auto) Baso # (Auto) Abs Immat Gran (auto) Absolute Neuts (auto) Absolute Nucleated RBC Nucleated RBC % Sodium 134 L Potassium 3.1 L Chloride 102 Carbon Dioxide 30 Anion Gap 2 L BUN 16 Creatinine 1.20 Estim Creat Clear Calc 51 Estimated GFR 59 Glucose 168 H POC Capillary Glucose 172 H 195 H Calcium 7.5 L Magnesium 1.8 Total Bilirubin 0.6 AST 43 ALT 31 Alkaline Phosphatase 80 Total Protein 5.0 L Albumin 2.6 L 10/28/24 10/28/24 05:04 07:34 WBC 9.4 RBC 4.25 L Hgb 11.3 L Hct 34.2 L MCV 80.5 MCH 26.6 MCHC 33.0 RDW 15.9 H Plt Count 233 MPV 9.8 Immature Gran % (Auto) 3.9 H Neut % (Auto) 74.9 H Lymph % (Auto) 9.0 L [place] % (Auto) 7.7 Eos % (Auto) 4.1 Baso % (Auto) 0.4 Lymph # (Auto) 0.85 L [place] # (Auto) 0.7 H Eos # (Auto) 0.4 H Baso # (Auto) 0.0 Abs Immat Gran (auto) 0.37 H Absolute Neuts (auto) 7.0 H Absolute Nucleated RBC 0.000 Nucleated RBC % 0.0 Sodium 134 L Potassium 4.2 Chloride 104 Carbon Dioxide 26 Anion Gap 4 BUN 16 Creatinine 1.00 Estim Creat Clear Calc 61 Estimated GFR > 60 Glucose 166 H POC Capillary Glucose 156 H Calcium 7.6 L Magnesium 2.0 Total Bilirubin 0.8 AST 44 ALT 30 Alkaline Phosphatase 67 Total Protein 6.0 L Albumin 2.7 L
--- NOTE | 2024-10-28 12:29 | PM.IMPN ---
Progress Note: A&P Assessment and Plan (1) Sepsis: Code(s): A41.9 - Sepsis, unspecified organism Status: Acute Assessment and Plan: Patient blood culture is positive for gram negative rods. Ceftriaxone 2 g daily Urine culture 10/23: Providencia rettgeri Blood culture x2 Providencia rettgeri Urine culture 10/23: Enterococcus species Add vancomycin. Sensitive to ampicillin Will switch antibiotics to Bactrim and amoxicillin as discussed (2) Atrial fibrillation with RVR: Code(s): I48.91 - Unspecified atrial fibrillation Status: Acute Assessment and Plan: Patient on sotalol the dose of which is increased Status post cardioversion 10/25/2024 successfully converted to sinus rhythm however back again in AFib with RVR. Has been started on diltiazem drip. Sotalol discontinued and plan to start amiodarone in a.m.. Possible repeat cardioversion again today Cardiology on board (3) Acute UTI: Code(s): N39.0 - Urinary tract infection, site not specified Status: Acute Assessment and Plan: Urine culture with Providencia and Enterococcus. On ceftriaxone will likely switch to Bactrim at discharge Add vancomycin for Enterococcus coverage. Sensitive to ampicillin will switch to amoxicillin (4) Diabetes: Code(s): E11.9 - Type 2 diabetes mellitus without complications Status: Acute Assessment and Plan: Continue home medication monitor closely. (5) Essential hypertension: Code(s): I10 - Essential (primary) hypertension Status: Acute Assessment and Plan: Continue with home medications and monitor closely (6) Renal insufficiency: Code(s): N28.9 - Disorder of kidney and ureter, unspecified Status: Acute Assessment and Plan: Gentle hydration and monitor closely. Admission creatinine 1.8 CHRISTOPHER resolved (7) Abnormal cardiac enzyme level: Code(s): R74.8 - Abnormal levels of other serum enzymes Status: Acute Assessment and Plan: Cardiology evaluation and serial cardiac enzymes. Plan DVT prophylaxis on Eliquis Code status full code Subjective Date/time seen: 10/28/24 12:29 Interval history: Patient remains in AFib. Plan for repeat cardioversion today. Denies any other complaints. Review of Systems Review of Systems: All systems reviewed & are unremarkable except as noted in HPI and below (the history and physical examination.) Exam Narrative: Const: General: healthy appearing and no acute distress Nutritional Appearance: well nourished Orientation/consciousness: patient oriented x3 Limitations: no limitations HENMT: Mouth: Yes dry mucous membranes Cardio: Regular AFib with RVR GI: GI Palp: Yes Soft to palpation and Yes Tenderness to palpation present (GI) (low abdomen) Auscultation: normal bowel sounds Supra pubic catheter in place. Neuro: General: patient oriented x3, moves all extremities and no focal motor deficits Cranial nerves: Yes Nystagmus not present Speech: normal speech Extrem: General: normal to inspection and no clubbing, cyanosis or edema Psych: Mental Status: mental status grossly normal Affect: normal affect Attitude: cooperative Objective Data Vital Signs Vital Signs: Vital Signs - 24 hr 10/27/24 14:00 10/27/24 14:00 10/27/24 14:00 Temperature Pulse Rate 59 L 102 H 102 H Respiratory Rate 20 Blood Pressure 108/69 Pulse Oximetry 97 Oxygen Delivery 10/27/24 16:06 10/27/24 16:29 10/27/24 16:29 Temperature Pulse Rate 122 H 102 H 102 H Respiratory Rate Blood Pressure Pulse Oximetry Oxygen Delivery 10/27/24 18:00 10/27/24 16:00 10/27/24 18:00 Temperature 98.9 F Pulse Rate 144 H 90 87 Respiratory Rate 18 Blood Pressure 107/71 Pulse Oximetry 99 Oxygen Delivery 10/27/24 18:00 10/27/24 19:29 10/27/24 20:00 Temperature 99.1 F Pulse Rate 87 115 H 115 H Respiratory Rate 14 14 Blood Pressure 100/74 Pulse Oximetry 98 98 Oxygen Delivery Room Air 10/27/24 20:00 10/27/24 21:56 10/27/24 22:16 Temperature Pulse Rate 96 144 H 144 H Respiratory Rate Blood Pressure 115/65 Pulse Oximetry 97 Oxygen Delivery 10/28/24 00:00 10/28/24 00:00 10/28/24 00:00 Temperature 98.5 F Pulse Rate 144 H 144 H 134 H Respiratory Rate 14 14 Blood Pressure 124/65 Pulse Oximetry 97 99 Oxygen Delivery Room Air 10/28/24 01:53 10/27/24 22:00 10/28/24 00:00 Temperature Pulse Rate 125 H 144 H 134 H Respiratory Rate 14 Blood Pressure 135/64 115/65 124/65 Pulse Oximetry 98 Oxygen Delivery 10/28/24 02:00 10/28/24 02:23 10/28/24 02:23 Temperature Pulse Rate 125 H 98 98 Respiratory Rate Blood Pressure 135/64 Pulse Oximetry Oxygen Delivery 10/28/24 02:30 10/28/24 02:00 10/28/24 04:00 Temperature Pulse Rate 110 H 117 H 110 H Respiratory Rate 14 Blood Pressure Pulse Oximetry 98 Oxygen Delivery Room Air 10/28/24 04:00 10/28/24 06:00 10/28/24 06:13 Temperature Pulse Rate 110 H 104 H 92 Respiratory Rate Blood Pressure 142/74 H Pulse Oximetry Oxygen Delivery 10/28/24 04:00 10/28/24 06:00 10/28/24 07:23 Temperature 99.0 F 98.3 F Pulse Rate 110 H 92 111 H Respiratory Rate 18 18 Blood Pressure 112/78 142/74 H 109/73 Pulse Oximetry 97 95 Oxygen Delivery 10/28/24 08:00 10/28/24 10:00 10/28/24 08:00 Temperature Pulse Rate 111 H 119 H 109 H Respiratory Rate Blood Pressure Pulse Oximetry Oxygen Delivery 10/28/24 10:00 10/28/24 10:00 10/28/24 11:27 Temperature 98.4 F Pulse Rate 119 H 104 H Respiratory Rate 18 Blood Pressure 112/78 106/79 Pulse Oximetry 99 Oxygen Delivery 10/28/24 12:23 10/28/24 12:23 Temperature Pulse Rate 105 H 105 H Respiratory Rate Blood Pressure Pulse Oximetry Oxygen Delivery Intake/Output Intake/Output: Intake & Output 10/25/24 10/26/24 10/27/24 10/28/24 23:59 23:59 23:59 23:59 Intake Total 1954 3518 3167.4 343.7 Output Total 2009 4325 4100 2150 [facility] -807 -932.6 -1806.3 Meds/Results Medications: Active Medications Generic Name Dose Route Start Last Admin Trade Name Freq PRN Reason Stop Dose Admin Acetaminophen 650 mg 10/23/24 06:20 10/23/24 23:19 Acetaminophen 325 Mg Tablet PO 650 mg Q4H PRN Administration Mild Pain (1-3) or Fever Amoxicillin 500 mg 10/28/24 21:00 Amoxicillin 500 Mg Capsule PO 11/02/24 14:30 Q8HR DEBORAH Apixaban 5 mg 10/23/24 09:30 10/28/24 09:19 Apixaban 5 Mg Tablet PO 5 mg Q12HR DEBORAH Administration Dextrose 12.5 gm 10/23/24 16:01 Dextrose 50% 25 Gm/50 Ml Syringe IV PUSH PRN PRN Hypoglycemia Protocol Finasteride 5 mg 10/23/24 09:30 10/28/24 09:19 Finasteride 5 Mg Tablet PO 5 mg QAM DEBORAH Administration Glucagon 1 mg 10/23/24 16:01 Glucagon For Inj 1 Mg Vial IM PRN PRN Hypoglycemia Protocol Glucose 15 gm 10/23/24 16:01 Glucose Oral Gel 15 Gm Of Glucse In 37.5 Gm Tube PO PRN PRN Hypoglycemia Protocol Dextrose 1,000 mls @ 100 mls/hr 10/23/24 16:01 Dextrose 5% 1,000 Ml IVPB PRN PRN Hypoglycemia Protocol Diltiazem HCl 100 mg in 100 mls @ 10 mls/hr 10/26/24 21:30 10/28/24 12:23 Cardizem 100 Mg/100 Ml IV CONT 10 mg/hr .Q10H DEBORAH 10 mls/hr Administration 10 MG/HR Insulin Aspart 2 - 5 units 10/23/24 17:00 10/28/24 12:25 Insulin Aspart (*Bkc) 100 Units/Ml SUB-Q Not Given TIDWM DEBORAH Protocol Lisinopril 20 mg 10/26/24 21:00 10/27/24 20:18 Lisinopril 20 Mg Tablet PO 20 mg HS DEBORAH Administration Loratadine 10 mg 10/27/24 09:00 10/28/24 09:19 Loratadine 10 Mg Tablet PO 10 mg DAILY DEBORAH Administration Nitroglycerin 0.4 mg 10/26/24 12:12 Nitroglycerin Sl 0.4 Mg Tablet SUBLINGUAL DIRECTED DEBORAH Ondansetron HCl 4 mg 10/23/24 06:20 Ondansetron Inj 4 Mg/2 Ml Vial IV PUSH Q4H PRN Nausea Polyethylene Glycol 17 gm 10/28/24 01:00 10/28/24 09:24 Polyethylene Glycol 3350 17 Gm Powd.Pack PO 17 gm QAM PRN Administration Constipation Rosuvastatin Calcium 10 mg 10/23/24 09:30 10/28/24 09:19 Rosuvastatin 10 Mg Tablet PO 10 mg QAM DEBORAH Administration Senna 8.6 mg 10/28/24 21:00 Sennosides 8.6 Mg Tablet PO HS [facility] Sotalol HCl 80 mg 10/28/24 21:00 Sotalol Hcl 80 Mg Tablet PO Q12HR [facility] Tamsulosin HCl 0.4 mg 10/23/24 09:30 10/28/24 09:19 Tamsulosin Hcl 0.4 Mg Capsule PO 0.4 mg QAM [facility] Administration Trimethoprim/Sulfamethoxazole 2 tab 10/29/24 09:00 Sulfamethoxazole/Trimethoprim 800/160 Mg Ds Tablet PO 11/02/24 23:59 Q12HR [facility] Radiology Results: ITS Impressions Chest X-Ray 10/23/24 06:03 IMPRESSION: 1. Mild atelectasis at left lung base. Labs Labs: Laboratory Results - last 24 hr 10/27/24 10/28/24 10/28/24 20:22 01:34 05:04 WBC 9.4 RBC 4.25 L Hgb 11.3 L Hct 34.2 L MCV 80.5 MCH 26.6 MCHC 33.0 RDW 15.9 H Plt Count 233 MPV 9.8 Immature Gran % (Auto) 3.9 H Neut % (Auto) 74.9 H Lymph % (Auto) 9.0 L [place] % (Auto) 7.7 Eos % (Auto) 4.1 Baso % (Auto) 0.4 Lymph # (Auto) 0.85 L [place] # (Auto) 0.7 H Eos # (Auto) 0.4 H Baso # (Auto) 0.0 Abs Immat Gran (auto) 0.37 H Absolute Neuts (auto) 7.0 H Absolute Nucleated RBC 0.000 Nucleated RBC % 0.0 Sodium 134 L 134 L Potassium 3.1 L 4.2 Chloride 102 104 Carbon Dioxide 30 26 Anion Gap 2 L 4 BUN 16 16 Creatinine 1.20 1.00 Estim Creat Clear Calc 51 61 Estimated GFR 59 > 60 Glucose 168 H 166 H POC Capillary Glucose 195 H Calcium 7.5 L 7.6 L Magnesium 1.8 2.0 Total Bilirubin 0.6 0.8 AST 43 44 ALT 31 30 Alkaline Phosphatase 80 67 Total Protein 5.0 L 6.0 L Albumin 2.6 L 2.7 L 10/28/24 07:34 WBC RBC Hgb Hct MCV MCH MCHC RDW Plt Count MPV Immature Gran % (Auto) Neut % (Auto) Lymph % (Auto) [place] % (Auto) Eos % (Auto) Baso % (Auto) Lymph # (Auto) [place] # (Auto) Eos # (Auto) Baso # (Auto) Abs Immat Gran (auto) Absolute Neuts (auto) Absolute Nucleated RBC Nucleated RBC % Sodium Potassium Chloride Carbon Dioxide Anion Gap BUN Creatinine Estim Creat Clear Calc Estimated GFR Glucose POC Capillary Glucose 156 H Calcium Magnesium Total Bilirubin AST ALT Alkaline Phosphatase Total Protein Albumin
[2024-10-28 12:30] LABS: Glucose Point of Care 158 mg/dl (65-105)
--- NOTE | 2024-10-28 14:32 | P.SEDATION_ITS ---
Moderate Sedation Note-Pt Data Patient Data Allergies Allergy/AdvReac Type Severity Reaction Status Date / Time No Known Allergies Allergy Verified 10/23/24 06:30 Home Medications Medication Instructions Recorded Confirmed Type loratadine 10 mg tablet 10 mg PO DAILY 01/26/22 10/23/24 History apixaban 5 mg tablet (Eliquis) 5 mg PO BID #200 tabs 06/21/24 10/23/24 Rx diltiazem HCl 180 mg 180 mg PO DAILY #100 caps 06/21/24 10/23/24 Rx capsule,extended release 24 hr, controlled (DILT-XR) glimepiride 4 mg tablet 4 mg PO DAILY #100 tabs 06/21/24 10/23/24 Rx lisinopril 20 mg tablet 20 mg PO HS #100 tabs 06/21/24 10/23/24 Rx sotalol 80 mg tablet 80 mg PO BID #200 tabs 06/21/24 10/23/24 Rx nitroglycerin 0.4 mg sublingual 0.4 mg sublingual DIRECTED 08/09/24 10/23/24 History tablet finasteride 5 mg tablet 5 mg PO HS #100 tabs 09/24/24 10/23/24 Rx metformin 1,000 mg tablet 1,000 mg PO BID #200 tabs 09/24/24 10/23/24 Rx rosuvastatin 10 mg tablet 10 mg PO DAILY #100 tabs 09/24/24 10/23/24 Rx hydrocortisone 2.5 % topical cream 1 applic RECTAL DAILY PRN 10/01/24 10/23/24 Rx with perineal applicator hemorrhoids #30 grams tamsulosin 0.4 mg capsule 0.4 mg PO DAILY 10/04/24 10/23/24 History Current Medications: Active Medications Acetaminophen (Acetaminophen 325 Mg Tablet) 650 mg PO Q4H PRN PRN Reason: Mild Pain (1-3) or Fever Last Admin: 10/23/24 23:19 Dose: 650 mg Amoxicillin (Amoxicillin 500 Mg Capsule) 500 mg PO Q8HR DEBORAH Stop: 11/02/24 14:30 Apixaban (Apixaban 5 Mg Tablet) 5 mg PO Q12HR DEBORAH Last Admin: 10/28/24 09:19 Dose: 5 mg Dextrose (Dextrose 50% 25 Gm/50 Ml Syringe) 12.5 gm IV PUSH PRN PRN; Protocol PRN Reason: Hypoglycemia Finasteride (Finasteride 5 Mg Tablet) 5 mg PO QAM [facility] Last Admin: 10/28/24 09:19 Dose: 5 mg Glucagon (Glucagon For Inj 1 Mg Vial) 1 mg IM PRN PRN; Protocol PRN Reason: Hypoglycemia Glucose (Glucose Oral Gel 15 Gm Of Glucse In 37.5 Gm Tube) 15 gm PO PRN PRN; Protocol PRN Reason: Hypoglycemia Dextrose (Dextrose 5% 1,000 Ml) 1,000 mls @ 100 mls/hr IVPB PRN PRN; Protocol PRN Reason: Hypoglycemia Diltiazem HCl (Cardizem 100 Mg/100 Ml) 100 mg in 100 mls @ 10 mls/hr IV CONT .Q10H [facility] Last Admin: 10/28/24 12:23 Dose: 10 mg/hr, 10 mls/hr Insulin Aspart (Insulin Aspart (*Bkc) 100 Units/Ml) 2 - 5 units SUB-Q TIDWM [facility]; Protocol Last Admin: 10/28/24 12:25 Dose: Not Given Lisinopril (Lisinopril 20 Mg Tablet) 20 mg PO [facility] Last Admin: 10/27/24 20:18 Dose: 20 mg Loratadine (Loratadine 10 Mg Tablet) 10 mg PO DAILY [facility] Last Admin: 10/28/24 09:19 Dose: 10 mg Nitroglycerin (Nitroglycerin Sl 0.4 Mg Tablet) 0.4 mg SUBLINGUAL DIRECTED [facility] Ondansetron HCl (Ondansetron Inj 4 Mg/2 Ml Vial) 4 mg IV PUSH Q4H PRN PRN Reason: Nausea Polyethylene Glycol (Polyethylene Glycol 3350 17 Gm Powd.Pack) 17 gm PO QAM PRN PRN Reason: Constipation Last Admin: 10/28/24 09:24 Dose: 17 gm Rosuvastatin Calcium (Rosuvastatin 10 Mg Tablet) 10 mg PO QAM [facility] Last Admin: 10/28/24 09:19 Dose: 10 mg Senna (Sennosides 8.6 Mg Tablet) 8.6 mg PO [facility] Sotalol HCl (Sotalol Hcl 80 Mg Tablet) 80 mg PO Q12HR [facility] Tamsulosin HCl (Tamsulosin Hcl 0.4 Mg Capsule) [facility] Last Admin: 10/28/24 09:19 Dose: 0.4 mg Trimethoprim/Sulfamethoxazole (Sulfamethoxazole/Trimethoprim 800/160 Mg Ds Tablet) 2 tab PO Q12HR DEBORAH Stop: 11/02/24 23:59 Sedation/Anesthesia: No previous sedation/anesthesia problems (including family history). [facility] Past Medical History Medical History Atherosclerosis of aorta Atherosclerotic heart disease of [place] coronary artery without angina pectoris Atrial fibrillation and flutter Bradycardia Chronic anticoagulation Diabetes Heart failure, unspecified Hypertensive heart disease with heart failure Male erectile dysfunction, unspecified Pulmonary hypertension, unspecified Pure hypercholesterolemia, unspecified Type 2 diabetes mellitus with diabetic neuropathy, 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 Other Unknown family medical history Social History Social History Smoking status: Never smoker Alcohol intake: never Substance use: never Substance use type: does not use Do You Feel Safe in your Home?: Yes Lack of Transportation: No Lack of Food: Never True Current Housing: I Have Housing Concerned About Future Housing: No Difficulty Paying Gas/Electric Bills: No Difficulty Paying for Meds: No Currently Unemployed: No Education: Associate Degree Difficulty w/ Childcare or Family Care: No Living arrangements: with family Additional living arrangements comments: & GRANDCHILDREN Occupation/Education: retired Gender identity (if verbalized by the patient): Male Sexual Orientation (if Verbalized by the Patient): Straight or Heterosexual Spiritual care concerns: No Mod Sed Physical Exam Physical Exam Pre Procedural Exam: Normal: Lungs and Variation: Heart Rate and Heart Rhythm Hours since solid foods: 15 Hours since liquid intake: 15 Mallampati Classification: class III Internal Medicine - PN: Obj Da Vital Signs Vital Signs: Vital Signs - 24 hr 10/27/24 16:06 10/27/24 16:29 10/27/24 16:29 Temperature Pulse Rate 122 H 102 H 102 H Respiratory Rate Blood Pressure Pulse Oximetry Oxygen Delivery 10/27/24 18:00 10/27/24 16:00 10/27/24 18:00 Temperature 37.2 C Pulse Rate 144 H 90 87 Respiratory Rate 18 Blood Pressure 107/71 Pulse Oximetry 99 Oxygen Delivery 10/27/24 18:00 10/27/24 19:29 10/27/24 20:00 Temperature 37.3 C Pulse Rate 87 115 H 115 H Respiratory Rate 14 14 Blood Pressure 100/74 Pulse Oximetry 98 98 Oxygen Delivery Room Air 10/27/24 20:00 10/27/24 21:56 10/27/24 22:16 Temperature Pulse Rate 96 144 H 144 H Respiratory Rate Blood Pressure 115/65 Pulse Oximetry 97 Oxygen Delivery 10/28/24 00:00 10/28/24 00:00 10/28/24 00:00 Temperature 36.9 C Pulse Rate 144 H 144 H 134 H Respiratory Rate 14 14 Blood Pressure 124/65 Pulse Oximetry 97 99 Oxygen Delivery Room Air 10/28/24 01:53 10/27/24 22:00 10/28/24 00:00 Temperature Pulse Rate 125 H 144 H 134 H Respiratory Rate 14 Blood Pressure 135/64 115/65 124/65 Pulse Oximetry 98 Oxygen Delivery 10/28/24 02:00 10/28/24 02:23 10/28/24 02:23 Temperature Pulse Rate 125 H 98 98 Respiratory Rate Blood Pressure 135/64 Pulse Oximetry Oxygen Delivery 10/28/24 02:30 10/28/24 02:00 10/28/24 04:00 Temperature Pulse Rate 110 H 117 H 110 H Respiratory Rate 14 Blood Pressure Pulse Oximetry 98 Oxygen Delivery Room Air 10/28/24 04:00 10/28/24 06:00 10/28/24 06:13 Temperature Pulse Rate 110 H 104 H 92 Respiratory Rate Blood Pressure 142/74 H Pulse Oximetry Oxygen Delivery 10/28/24 04:00 10/28/24 06:00 10/28/24 07:23 Temperature 37.2 C 36.8 C Pulse Rate 110 H 92 111 H Respiratory Rate 18 18 Blood Pressure 112/78 142/74 H 109/73 Pulse Oximetry 97 95 Oxygen Delivery 10/28/24 08:00 10/28/24 10:00 10/28/24 08:00 Temperature Pulse Rate 111 H 119 H 109 H Respiratory Rate Blood Pressure Pulse Oximetry Oxygen Delivery 10/28/24 10:00 10/28/24 10:00 10/28/24 11:27 Temperature 36.9 C Pulse Rate 119 H 104 H Respiratory Rate 18 Blood Pressure 112/78 106/79 Pulse Oximetry 99 Oxygen Delivery 10/28/24 12:23 10/28/24 12:23 10/28/24 12:00 Temperature Pulse Rate 105 H 105 H 148 H Respiratory Rate Blood Pressure Pulse Oximetry Oxygen Delivery 10/28/24 12:00 10/28/24 13:56 10/28/24 13:56 Temperature 36.3 C L 36.5 C Pulse Rate 96 155 H 151 H Respiratory Rate 18 18 Blood Pressure 152/88 H 110/69 Pulse Oximetry 97 96 Oxygen Delivery Intake/Output Intake/Output: Intake & Output 10/25/24 10/26/24 10/27/24 10/28/24 23:59 23:59 23:59 23:59 Intake Total 1954 3518 3167.4 343.7 Output Total 2009 4325 4100 2150 [facility] -55 -807 -932.6 -1806.3 Meds/Results Medications: Active Medications Generic Name Dose Route Start Last Admin Trade Name Freq PRN Reason Stop Dose Admin Acetaminophen 650 mg 10/23/24 06:20 10/23/24 23:19 Acetaminophen 325 Mg Tablet PO 650 mg Q4H PRN Administration Mild Pain (1-3) or Fever Amoxicillin 500 mg 10/28/24 21:00 Amoxicillin 500 Mg Capsule PO 11/02/24 14:30 Q8HR DEBORAH Apixaban 5 mg 10/23/24 09:30 10/28/24 09:19 Apixaban 5 Mg Tablet PO 5 mg Q12HR DEBORAH Administration Dextrose 12.5 gm 10/23/24 16:01 Dextrose 50% 25 Gm/50 Ml Syringe IV PUSH PRN PRN Hypoglycemia Protocol Finasteride 5 mg 10/23/24 09:30 10/28/24 09:19 Finasteride 5 Mg Tablet PO 5 mg QAM DEBORAH Administration Glucagon 1 mg 10/23/24 16:01 Glucagon For Inj 1 Mg Vial IM PRN PRN Hypoglycemia Protocol Glucose 15 gm 10/23/24 16:01 Glucose Oral Gel 15 Gm Of Glucse In 37.5 Gm Tube PO PRN PRN Hypoglycemia Protocol Dextrose 1,000 mls @ 100 mls/hr 10/23/24 16:01 Dextrose 5% 1,000 Ml IVPB PRN PRN Hypoglycemia Protocol Diltiazem HCl 100 mg in 100 mls @ 10 mls/hr 10/26/24 21:30 10/28/24 12:23 Cardizem 100 Mg/100 Ml IV CONT 10 mg/hr .Q10H DEBORAH 10 mls/hr Administration 10 MG/HR Insulin Aspart 2 - 5 units 10/23/24 17:00 10/28/24 12:25 Insulin Aspart (*Bkc) 100 Units/Ml SUB-Q Not Given TIDWM [facility] Protocol Lisinopril 20 mg 10/26/24 21:00 10/27/24 20:18 Lisinopril 20 Mg Tablet PO 20 mg HS [facility] Administration Loratadine 10 mg 10/27/24 09:00 10/28/24 09:19 Loratadine 10 Mg Tablet PO 10 mg DAILY [facility] Administration Nitroglycerin 0.4 mg 10/26/24 12:12 Nitroglycerin Sl 0.4 Mg Tablet SUBLINGUAL DIRECTED [facility] Ondansetron HCl 4 mg 10/23/24 06:20 Ondansetron Inj 4 Mg/2 Ml Vial IV PUSH Q4H PRN Nausea Polyethylene Glycol 17 gm 10/28/24 01:00 10/28/24 09:24 Polyethylene Glycol 3350 17 Gm Powd.Pack PO 17 gm QAM PRN Administration Constipation Rosuvastatin Calcium 10 mg 10/23/24 09:30 10/28/24 09:19 Rosuvastatin 10 Mg Tablet PO 10 mg QAM [facility] Administration Senna 8.6 mg 10/28/24 21:00 Sennosides 8.6 Mg Tablet PO HS [facility] Sotalol HCl 80 mg 10/28/24 21:00 Sotalol Hcl 80 Mg Tablet PO Q12HR [facility] Tamsulosin HCl 0.4 mg 10/23/24 09:30 10/28/24 09:19 Tamsulosin Hcl 0.4 Mg Capsule PO 0.4 mg QAM [facility] Administration Trimethoprim/Sulfamethoxazole 2 tab 10/29/24 09:00 Sulfamethoxazole/Trimethoprim 800/160 Mg Ds Tablet PO 11/02/24 23:59 Q12HR [facility] Radiology Results: ITS Impressions Chest X-Ray 10/23/24 06:03 IMPRESSION: 1. Mild atelectasis at left lung base. Labs 10/28/24 05:04 10/28/24 05:04 Labs: Laboratory Results - last 24 hr 10/27/24 10/28/24 10/28/24 20:22 01:34 05:04 WBC 9.4 RBC 4.25 L Hgb 11.3 L Hct 34.2 L MCV 80.5 MCH 26.6 MCHC 33.0 RDW 15.9 H Plt Count 233 MPV 9.8 Immature Gran % (Auto) 3.9 H Neut % (Auto) 74.9 H Lymph % (Auto) 9.0 L [place] % (Auto) 7.7 Eos % (Auto) 4.1 Baso % (Auto) 0.4 Lymph # (Auto) 0.85 L [place] # (Auto) 0.7 H Eos # (Auto) 0.4 H Baso # (Auto) 0.0 Abs Immat Gran (auto) 0.37 H Absolute Neuts (auto) 7.0 H Absolute Nucleated RBC 0.000 Nucleated RBC % 0.0 Sodium 134 L 134 L Potassium 3.1 L 4.2 Chloride 102 104 Carbon Dioxide 30 26 Anion Gap 2 L 4 BUN 16 16 Creatinine 1.20 1.00 Estim Creat Clear Calc 51 61 Estimated GFR 59 > 60 Glucose 168 H 166 H POC Capillary Glucose 195 H Calcium 7.5 L 7.6 L Magnesium 1.8 2.0 Total Bilirubin 0.6 0.8 AST 43 44 ALT 31 30 Alkaline Phosphatase 80 67 Total Protein 5.0 L 6.0 L Albumin 2.6 L 2.7 L 10/28/24 10/28/24 07:34 11:03 WBC RBC Hgb Hct MCV MCH MCHC RDW Plt Count MPV Immature Gran % (Auto) Neut % (Auto) Lymph % (Auto) [place] % (Auto) Eos % (Auto) Baso % (Auto) Lymph # (Auto) [place] # (Auto) Eos # (Auto) Baso # (Auto) Abs Immat Gran (auto) Absolute Neuts (auto) Absolute Nucleated RBC Nucleated RBC % Sodium Potassium Chloride Carbon Dioxide Anion Gap BUN Creatinine Estim Creat Clear Calc Estimated GFR Glucose POC Capillary Glucose 156 H 158 H Calcium Magnesium Total Bilirubin AST ALT Alkaline Phosphatase Total Protein Albumin ASA Classification/Sedation ASA Classification/Sedation ASA Class: III Emergent: No Risks: Risks, benefits and alternatives explained and patient/family accepted plan for sedation. Patient re-evaluated immediately prior to sedation.
--- NOTE | 2024-10-28 14:32 | WPDHPUPDATE1 ---
History and Physical Update Update Date/Time: 10/28/24 14:32 History and Physical has been reviewed, including an updated exam of the patient. There are NO changes in the patient's condition. Risks, benefits, and alternatives have been discussed and questions answered. Patient agrees to proceed with procedure.
--- NOTE | 2024-10-28 15:17 | ECG_ITS ---
Test Date: 2024-10-28 15:22:07 Measurements Intervals [place] Rate: 74 P: 24 RI: 165 QRS: 15 QRSD: 94 T: 47 QT: 409 QTc: 455 Interpretive Statements SINUS RHYTHM WITH OCCASIONAL VENTRICULAR PREMATURE COMPLEXES LOW QRS VOLTAGE IN PRECORDIAL LEADS [QRS DEFLECTION < 1.0 mV IN CHEST LEADS] ANTERIOR MYOCARDIAL INFARCTION , PROBABLY OLD [40+ ms Q WAVE AND/OR ST/T ABNORMALITY IN V3/V4] Compared to ECG 10/27/2024 11:01:29 SINUS RHYTHM NOW PRESENT Electronically Signed On 10-29-2024 15:02:06 [employer] by Bobbi Forrest M.D.
--- NOTE | 2024-10-28 15:18 | WPDCARDPROC ---
Cardiac Cath Procedure Note Date of procedure:: 10/28/24 Performing physician:: Hugh Lazcano MD Indication:: Atrial Fibrillation with RVR Procedure Procedure performed:: DCCV Sedation/Medication given:: 2mg Versed 100mcg Fentanyl Procedure note:: Sync is on. 200J was delivered. Findings:: Termination of atrial fibrillation with sabianism of sinus rhythm 70bpm Conclusion:: sinus rhythm restored Assessment and Plan Assessment and plan (1) Atrial fibrillation with RVR: Code(s): I48.91 - Unspecified atrial fibrillation Status: Acute Plan can discontinue diltiazem drip continue antiarrhythmic therapy repeat ECG tomorrow morning to ensure stability of QTc while on sotalol if stable, discharge tomorrow
[2024-10-28 17:43] LABS: Glucose Point of Care 148 mg/dl (65-105)
[2024-10-28 20:22] LABS: Glucose Point of Care 152 mg/dl (65-105)
[2024-10-28] MEDS: AMOXICILLIN 500 MG CAPSULE PO (20:32)
[2024-10-28] MEDS: lisinopriL 20 MG TABLET PO (20:32)
[2024-10-28] MEDS: SOTALOL HCL 80 MG TABLET PO (20:33)
[2024-10-28] MEDS: SENNOSIDES 8.6 MG TABLET PO (20:33)
--- NOTE | 2024-10-28 21:36 | ECG_ITS ---
Test Date: 2024-10-28 21:45:46 Measurements Intervals [place] Rate: 77 P: 111 AL: 191 QRS: 25 QRSD: 76 T: 32 QT: 408 QTc: 462 Interpretive Statements SINUS RHYTHM LOW QRS VOLTAGE IN PRECORDIAL LEADS [QRS DEFLECTION < 1.0 mV IN CHEST LEADS] ANTERIOR MYOCARDIAL INFARCTION , PROBABLY OLD3 BASELINE ARTIFACT LIMITS INTERPRETATION Compared to ECG 10/28/2024 15:22:07 NO SIGNIFICANT CHANGES Electronically Signed On 10-29-2024 15:13:39 MANUFACTURING SUPERVISOR by Bobbi Forrest M.D.
--- NOTE | 2024-10-28 22:08 | PC.NURSE ---
Spoke with Dr. Thao regarding post soltalol EKG (St elevation and prolonged QT/QTc), received orders for stat troponin and to call cardiology. Called exchange. Dr. Cannon paged. Troponin ordered stat. Patient denies chest pain, any other symptoms.
--- NOTE | 2024-10-28 22:36 | PC.NURSE ---
Spoke with Dr. Cannon regarding EKG and Troponin. Received orders to discontinue all orders for post soltalol EKG's. Dr. Cannon states no additional orders regarding current EKG, ST elevation, Prolonged QT/QTc.
[2024-10-28 23:31] LABS: Troponin I < 0.012 ng/mL (0.000-0.034)
[2024-10-29] VITALS (11 sets, daily range): BP systolic 146–163; BP diastolic 72–75; PULSE 75–91; RESP 16–20; TEMP 36.7–36.8; O2SAT 96–99
[2024-10-29] MEDS: AMOXICILLIN 500 MG CAPSULE PO ×2 (06:21→16:54)
[2024-10-29 08:20] LABS: Glucose Point of Care 108 mg/dl (65-105)
[2024-10-29] MEDS: SOTALOL HCL 80 MG TABLET PO (09:04)
[2024-10-29] MEDS: SULFAMETHOXAZOLE/TRIMETHOPRIM 800/160 MG DS TABLET 2 TAB PO (09:05)
[2024-10-29] MEDS: APIXABAN 5 MG TABLET PO (09:06)
[2024-10-29] MEDS: ROSUVASTATIN 10 MG TABLET PO (09:06)
[2024-10-29] MEDS: FINASTERIDE 5 MG TABLET PO (09:07)
[2024-10-29] MEDS: TAMSULOSIN HCL 0.4 MG CAPSULE PO (09:07)
[2024-10-29] MEDS: LORATADINE 10 MG TABLET PO (09:13)
--- NOTE | 2024-10-29 09:55 | PM.PNCARD ---
Progress Note: A&P Assessment and Plan (1) Atrial fibrillation with RVR: Code(s): I48.91 - Unspecified atrial fibrillation Status: Acute Plan Remains in sinus rhythm following repeat DCCV yesterday. Continue sotalol 80mg b.i.d. Continue anticoagulation with apixaban 5mg b.i.d Check ECG, QTc has been stable on sotalol so far Overall stable and appropriate for discharge today from a cardiac perspective Follow up in our office with Dr. Cannon Subjective Date/time seen: 10/29/24 09:55 Interval history: Patient remains in AFib. Plan for repeat cardioversion today. Denies any other complaints. Date of service 10/29/2024: Remains in sinus rhythm following cardioversion yesterday. He has no complaints. Review of Systems Review of Systems: All systems reviewed & are unremarkable except as noted in HPI and below Cardiovascular: Cardiovascular: Reports as per HPI Respiratory: Respiratory: Reports as per HPI Exam Const: General: comfortable and no acute distress HENMT: Face/Nose/Sinus: Normal nares present Mouth: Yes moist mucous membranes and Yes dry mucous membranes Eyes: General: appearance normal, both eyes and all related structures Sclera: sclerae normal Pupils: Equal, round and reactive pupils present EOM: EOMs intact bilaterally Neck: Neck: supple and no JVD Resp: Effort & Inspection: normal respiratory effort Auscultation: clear to auscultation bilaterally Cardio: Rate: regular rate Rhythm: regular rhythm Heart sounds: Murmur heart sound present systolic GI: Auscultation: normal bowel sounds Skin: General skin exam: normal color Neuro: Cranial nerves: Yes Equal, round and reactive pupils present Other: Alert and oriented x3 Extrem: General: normal to inspection Psych: Mental Status: mental status grossly normal Affect: normal affect Objective Data Vital Signs Vital Signs: Vital Signs - 24 hr 10/28/24 10:00 10/28/24 10:00 10/28/24 10:00 Temperature Pulse Rate 119 H 119 H Respiratory Rate Blood Pressure 112/78 Pulse Oximetry Oxygen Delivery Oxygen Flow Rate 10/28/24 11:27 10/28/24 12:23 10/28/24 12:23 Temperature 36.9 C Pulse Rate 104 H 105 H 105 H Respiratory Rate 18 Blood Pressure 106/79 Pulse Oximetry 99 Oxygen Delivery Oxygen Flow Rate 10/28/24 12:00 10/28/24 12:00 10/28/24 13:56 Temperature 36.3 C L Pulse Rate 148 H 96 155 H Respiratory Rate 18 Blood Pressure 152/88 H Pulse Oximetry 97 Oxygen Delivery Oxygen Flow Rate 10/28/24 13:56 10/28/24 15:15 10/28/24 15:20 Temperature 36.5 C Pulse Rate 151 H 120 H 69 Respiratory Rate 18 21 H 16 Blood Pressure 110/69 126/87 116/65 Pulse Oximetry 96 97 96 Oxygen Delivery Nasal Cannula Nasal Cannula Oxygen Flow Rate 2 2 10/28/24 15:25 10/28/24 15:40 10/28/24 15:55 Temperature Pulse Rate 77 76 72 Respiratory Rate 18 19 20 Blood Pressure 124/75 122/67 114/73 Pulse Oximetry 96 92 93 Oxygen Delivery Nasal Cannula Room Air Room Air Oxygen Flow Rate 2 10/28/24 16:10 10/28/24 16:34 10/28/24 10:00 Temperature Pulse Rate 74 73 Respiratory Rate 21 H 21 H Blood Pressure 114/73 120/73 Pulse Oximetry 93 94 97 Oxygen Delivery Room Air Room Air Room Air Oxygen Flow Rate 10/28/24 17:00 10/28/24 18:00 10/28/24 19:53 Temperature Pulse Rate 82 78 78 Respiratory Rate 21 H Blood Pressure Pulse Oximetry 94 Oxygen Delivery Room Air Oxygen Flow Rate 10/28/24 18:00 10/28/24 20:29 10/28/24 20:33 Temperature 36.6 C 36.6 C Pulse Rate 78 81 82 Respiratory Rate 16 16 Blood Pressure 135/68 147/68 H Pulse Oximetry 9 L 100 Oxygen Delivery Oxygen Flow Rate 10/28/24 20:00 10/28/24 23:29 10/28/24 22:00 Temperature 37.2 C Pulse Rate 79 74 77 Respiratory Rate 16 Blood Pressure 146/67 H Pulse Oximetry 98 Oxygen Delivery Oxygen Flow Rate 10/29/24 00:00 10/29/24 01:51 10/29/24 04:00 Temperature 36.7 C Pulse Rate 75 79 78 Respiratory Rate 16 Blood Pressure 152/73 H Pulse Oximetry 99 Oxygen Delivery Oxygen Flow Rate 10/29/24 04:00 10/29/24 04:00 10/29/24 06:00 Temperature Pulse Rate 78 80 84 Respiratory Rate 16 Blood Pressure Pulse Oximetry 99 Oxygen Delivery Room Air Oxygen Flow Rate 10/29/24 07:36 10/29/24 09:04 Temperature 36.8 C Pulse Rate 80 91 Respiratory Rate 16 Blood Pressure 163/75 H Pulse Oximetry 96 Oxygen Delivery Oxygen Flow Rate Intake/Output Intake/Output: Intake & Output 10/26/24 10/27/24 10/28/24 10/29/24 23:59 23:59 23:59 23:59 Intake Total 3518 3167.4 843.7 910 Output Total 4325 4100 2850 1750 [facility]807 -932.6 -2006.3 -840 Meds/Results Medications: Active Medications Generic Name Dose Route Start Last Admin Trade Name Freq PRN Reason Stop Dose Admin Acetaminophen 650 mg 10/23/24 06:20 10/23/24 23:19 Acetaminophen 325 Mg Tablet PO 650 mg Q4H PRN Administration Mild Pain (1-3) or Fever Amoxicillin 500 mg 10/28/24 21:00 10/29/24 06:21 Amoxicillin 500 Mg Capsule PO 11/02/24 14:30 500 mg Q8HR DEBORAH Administration Apixaban 5 mg 10/23/24 09:30 10/29/24 09:06 Apixaban 5 Mg Tablet PO 5 mg Q12HR DEBORAH Administration Dextrose 12.5 gm 10/23/24 16:01 Dextrose 50% 25 Gm/50 Ml Syringe IV PUSH PRN PRN Hypoglycemia Protocol Finasteride 5 mg 10/23/24 09:30 10/29/24 09:07 Finasteride 5 Mg Tablet PO 5 mg QAM DEBORAH Administration Glucagon 1 mg 10/23/24 16:01 Glucagon For Inj 1 Mg Vial IM PRN PRN Hypoglycemia Protocol Glucose 15 gm 10/23/24 16:01 Glucose Oral Gel 15 Gm Of Glucse In 37.5 Gm Tube PO PRN PRN Hypoglycemia Protocol Dextrose 1,000 mls @ 100 mls/hr 10/23/24 16:01 Dextrose 5% 1,000 Ml IVPB PRN PRN Hypoglycemia Protocol Insulin Aspart 2 - 5 units 10/23/24 17:00 10/29/24 09:13 Insulin Aspart (*Bkc) 100 Units/Ml SUB-Q Not Given TIDWM DEBORAH Protocol Lisinopril 20 mg 10/26/24 21:00 10/28/24 20:32 Lisinopril 20 Mg Tablet PO 20 mg HS DEBORAH Administration Loratadine 10 mg 10/27/24 09:00 10/29/24 09:13 Loratadine 10 Mg Tablet PO 10 mg DAILY DEBORAH Administration Nitroglycerin 0.4 mg 10/26/24 12:12 Nitroglycerin Sl 0.4 Mg Tablet SUBLINGUAL DIRECTED DEBORAH Ondansetron HCl 4 mg 10/23/24 06:20 Ondansetron Inj 4 Mg/2 Ml Vial IV PUSH Q4H PRN Nausea Polyethylene Glycol 17 gm 10/28/24 01:00 10/28/24 09:24 Polyethylene Glycol 3350 17 Gm Powd.Pack PO 17 gm QAM PRN Administration Constipation Rosuvastatin Calcium 10 mg 10/23/24 09:30 10/29/24 09:06 Rosuvastatin 10 Mg Tablet PO 10 mg QAM DEBORAH Administration Senna 8.6 mg 10/28/24 21:00 10/28/24 20:33 Sennosides 8.6 Mg Tablet PO 8.6 mg HS DEBORAH Administration Sotalol HCl 80 mg 10/28/24 21:00 10/29/24 09:04 Sotalol Hcl 80 Mg Tablet PO 80 mg Q12HR DEBORAH Administration Tamsulosin HCl 0.4 mg 10/23/24 09:30 10/29/24 09:07 Tamsulosin Hcl 0.4 Mg Capsule PO 0.4 mg QAM DEBORAH Administration Trimethoprim/Sulfamethoxazole 2 tab 10/29/24 09:00 10/29/24 09:05 Sulfamethoxazole/Trimethoprim 800/160 Mg Ds Tablet PO 11/02/24 23:59 2 tab Q12HR DEBORAH Administration Radiology Results: ITS Impressions Chest X-Ray 10/23/24 06:03 IMPRESSION: 1. Mild atelectasis at left lung base. Labs Labs: Laboratory Results - last 24 hr 10/28/24 10/28/24 10/28/24 11:03 17:16 20:18 POC Capillary Glucose 158 H 148 H 152 H Troponin I 10/28/24 10/29/24 22:42 07:34 POC Capillary Glucose 108 H Troponin I < 0.012 Quality VTE Prophylaxis VTE prophylaxis: pharmacologic ordered
--- NOTE | 2024-10-29 10:01 | ECG_ITS ---
Test Date: 2024-10-29 10:45:53 Measurements Intervals [place] Rate: 73 P: 65 [place]: 176 QRS: 11 QRSD: 105 T: 29 QT: 446 QTc: 493 Interpretive Statements SINUS RHYTHM ANTERIOR MYOCARDIAL INFARCTION , PROBABLY OLD [40+ ms Q WAVE AND/OR ST/T ABNORMALITY IN V3/V4] Compared to ECG 10/28/2024 21:45:46 No significant changes Electronically Signed On 10-29-2024 15:29:16 QUITLINE COUNSELOR by Bobbi Forrest M.D.
[2024-10-29 12:47] LABS: Glucose Point of Care 145 mg/dl (65-105)
--- NOTE | 2024-10-29 14:10 | PM.DS ---
DS: Admitting Diagnosis Discharge Date 10/29/2024 Admitting Diagnosis UTI DS: Discharge Diagnosis Discharge Diagnosis (1) Sepsis: Code(s): A41.9 - Sepsis, unspecified organism Status: Acute (2) Atrial fibrillation with RVR: Code(s): I48.91 - Unspecified atrial fibrillation Status: Acute (3) Acute UTI: Code(s): N39.0 - Urinary tract infection, site not specified Status: Acute (4) Diabetes: Code(s): E11.9 - Type 2 diabetes mellitus without complications Status: Acute (5) Essential hypertension: Code(s): I10 - Essential (primary) hypertension Status: Acute (6) Renal insufficiency: Code(s): N28.9 - Disorder of kidney and ureter, unspecified Status: Acute (7) Abnormal cardiac enzyme level: Code(s): R74.8 - Abnormal levels of other serum enzymes Status: Acute DS: Summary Hospital Course Hospital Course: This is a 79-year-old male who presented with generalized weakness and was found to be in AFib with RVR. He denied any chest pain initial laboratory workup revealed WBC count of 14.5 creatinine 1.7 suggesting CHRISTOPHER mild troponin elevation. Urinalysis suggestive of UTI. He was diagnosed with sepsis related to UTI. Urine culture grew Providencia rettgeri. He also had positive blood culture which came back positive for Providencia rettgeri. He was treated with ceftriaxone IV this was switched to Bactrim for discharge. Repeat urine culture on 10/23 also grew Enterococcus which was initially treated with vancomycin was was switched to amoxicillin. For his atrial fibrillation is sotalol dose was increased. He subsequently had cardioversion done on 10/25/2024 with successful conversion to sinus rhythm however he was back in AFib with RVR needing diltiazem drip. He had repeat cardioversion again on 10/27/2024 with subsequent conversion to sinus rhythm he remained on sinus rhythm and okayed for discharge per Cardiology. He will need EP evaluation and ablation as an outpatient basis he remained on apixaban for anticoagulation. He will continue his antibiotics for UTI and sepsis at home. He has underlying suprapubic catheter in place which was recently exchanged by his urologist. Time Spent with Patient Time attestation: Total time spent providing and/or coordinating discharge services: 35 minutes Exam Narrative: Const: General: healthy appearing and no acute distress Nutritional Appearance: well nourished Orientation/consciousness: patient oriented x3 Limitations: no limitations HENMT: Mouth: Yes dry mucous membranes Cardio: Sinus rhythm regular rate and rhythm GI: GI Palp: Yes Soft to palpation and Yes Tenderness to palpation present (GI) (low abdomen) Auscultation: normal bowel sounds Supra pubic catheter in place. Neuro: General: patient oriented x3, moves all extremities and no focal motor deficits Cranial nerves: Yes Nystagmus not present Speech: normal speech Extrem: General: normal to inspection and no clubbing, cyanosis or edema Psych: Mental Status: mental status grossly normal Affect: normal affect Attitude: cooperative DS: Data Data Completed and Pending Labs on day of discharge: Labs from last 24 hours 10/29/24 10/29/24 10/28/24 11:24 07:34 22:42 POC Capillary Glucose 145 H 108 H Troponin I < 0.012 10/28/24 10/28/24 20:18 17:16 POC Capillary Glucose 152 H 148 H Troponin I Imaging Radiologist's impression: ITS Impressions Chest X-Ray 10/23/24 06:03 IMPRESSION: 1. Mild atelectasis at left lung base. Discharge Plan Discharge Attending physician on discharge: Rigo Rm Consulting providers: Bobbi Forrest Discharging Clinician: Rigo Rm Anticipated Discharge Date/Time: 10/29/24 14:06 Patient Disposition: Home, Self-Care Activity: as tolerated Diet: heart healthy Discharge Instructions: Routine suprapubic catheter care Follow-up with Dr Morrison as previously scheduled Patient Instructions: Antibiotic Form Stand Alone Forms: General Discharge Information Follow-up/Referrals: Pratik Hernandez MD [Primary Care Provider] - 1 Week Bobbi Forrest MD [Physician] - 2 Weeks Discharge Medications: New amoxicillin 500 mg Capsule 500 mg PO Q8HR Qty: 15 0RF sulfamethoxazole-trimethoprim 800-160 mg Tablet 2 tab PO Q12HR Qty: 20 0RF Continued tamsulosin 0.4 mg capsule 0.4 mg PO DAILY loratadine 10 mg Tablet 10 mg PO DAILY nitroglycerin 0.4 mg tablet, sublingual 0.4 mg sublingual DIRECTED Patient Comments: Approximation on date last take. Couple of years diltiazem HCl [DILT-XR] 180 mg capsule,ext.rel 24h degradable 180 mg PO DAILY Qty: 100 1RF Patient Comments: QAM sotalol 80 mg tablet 80 mg PO BID Qty: 200 1RF lisinopril 20 mg tablet 20 mg PO HS Qty: 100 1RF glimepiride 4 mg tablet 4 mg PO DAILY Qty: 100 1RF Patient Comments: QAM Eliquis 5 mg tablet 5 mg PO BID Qty: 200 2RF Hold Instructions: Resume on 08/17/24. rosuvastatin 10 mg tablet 10 mg PO DAILY Qty: 100 1RF metformin 1,000 mg tablet 1,000 mg PO BID Qty: 200 1RF finasteride 5 mg tablet 5 mg PO HS Qty: 100 1RF hydrocortisone 2.5 % cream with perineal applicator 1 applic RECTAL DAILY PRN (Reason: hemorrhoids) Qty: 30 0RF Date of admission: 10/25/24 09:19 Primary Care Provider: Pratik Hernandez Admitting Provider: Luisa Mariscal Attending physician on admission: Luisa Mariscal Condition: Stable
[2024-10-29 16:17] LABS: Glucose Point of Care 134 mg/dl (65-105)
== END 2024-10-29 17:03 | disposition home or self-care (01) | DRG 698 ==
LOC: ANHED 06:22 → ANHIMU 11:11 → ANH3MED 10-30 15:00
PROVIDERS: Internal Medicine; Specialist; Admitting Provider Internal Medicine; Emergency Provider Emergency Medicine; PCP Family Medicine; Visit Provider Internal Medicine
PROC: 5A2204Z Restoration of Cardiac Rhythm, Single (ICD-10-PCS; principal; 2024-10-25 10:00)
DX: T83.510A Infection and inflammatory reaction due to cystostomy catheter, initial encounter (principal); A41.89 Other specified sepsis; N39.0 Urinary tract infection, site not specified; N17.9 Acute kidney failure, unspecified; I48.92 Unspecified atrial flutter; I48.11 Longstanding persistent atrial fibrillation; B96.89 Other specified bacterial agents as the cause of diseases classified elsewhere; B95.2 Enterococcus as the cause of diseases classified elsewhere; E78.5 Hyperlipidemia, unspecified; R74.8 Abnormal levels of other serum enzymes; I25.10 Atherosclerotic heart disease of native coronary artery without angina pectoris; I11.0 Hypertensive heart disease with heart failure; I50.9 Heart failure, unspecified; E11.42 Type 2 diabetes mellitus with diabetic polyneuropathy; I70.0 Atherosclerosis of aorta; Z79.01 Long term (current) use of anticoagulants; Z95.5 Presence of coronary angioplasty implant and graft; Z79.85 Long-term (current) use of injectable non-insulin antidiabetic drugs
CPT/HCPCS: 36415; 71045; 80053; 81001; 82948; 83605; 83735; 83880; 84484; 85025; 85027; 87040; 87077; 87086; 87088; 87181; 87186; 92960; 93005; 96361; 96365; 96366; 96367; 97110; 97161; 97165; 97530; 97535; 99285; A9270; G0378; J0696; J2250; J2704; J3010; J3370; J3475; J3480; J7030; J7040; J7050

== ENCOUNTER 2024-11-01 21:47 | Observation (INO) | payer MEDICARE, SELFPAY ==
--- NOTE | ~2024-11-01 | US_ITS ---
US venous doppler LE RT DATE: 11/02/2024 14:07 INDICATION: Right lower extremity swelling TECHNIQUE: Real-time and color flow imaging and Doppler analysis of the veins of the right lower extr emity COMPARISON: None FINDINGS: There is spontaneous and phasic flow and normal augmentation and color flow signal and norm al compression of the deep veins of the right lower extremity. The right greater saphenous vein is pa tent. IMPRESSION: No evidence of deep venous thrombosis of right lower extremity Reviewed, dictated and finalized at [facility]. Reviewed, dictated and finalized at [facility]. RAM MEDICAL DIRECTOR
--- NOTE | ~2024-11-01 | XR_ITS ---
XR chest 1V portable Ordering provider: Ramon Schwab MD History: 79 years Male with . weakness . Comparison: None. FINDINGS: MEDIASTINUM: The cardiac silhouette is slightly enlarged. Prominent wilfred. LUNGS: No effusions or pneumothorax. Bilateral interstitial changes suggestive of fibrotic changes. Superimposed pneumonitis is not exclud ed. OTHER: No free air under the diaphragm. Degenerative changes of the spine. IMPRESSION: Fibrotic changes of the lungs with possible superimposed pneumonitis. Clinical correlation advised. P ulmonary edema also cannot be excluded. Reviewed, dictated and finalized at [facility]. DING MOTHER IMPRESSION: Fibrotic changes of the lungs with possible superimposed pneumonitis. Clinical correlation advised. Pulmonary edema also cannot be excluded.
[2024-11-01 21:49] VITALS: BP 162/75; PULSE 64; RESP 18; TEMP 36.8; O2SAT 95
--- NOTE | 2024-11-01 22:39 | ECG_ITS ---
Test Date: 2024-11-01 22:48:54 Measurements Intervals [place] Rate: 54 P: -11 [place]: 181 QRS: 11 QRSD: 96 T: 7 QT: 530 QTc: 503 Interpretive Statements SINUS BRADYCARDIA LOW QRS VOLTAGE IN PRECORDIAL LEADS [QRS DEFLECTION < 1.0 mV IN CHEST LEADS] ANTERIOR MYOCARDIAL INFARCTION , OF INDETERMINATE AGE [40+ ms Q WAVE AND/OR ST/T ABNORMALITY IN V3/V4] Compared to ECG 10/29/2024 10:45:53 Sinus rhythm no longer present Electronically Signed On 11-02-2024 14:31:29 RHEUMATOLOGY NURSE by Reno Stallworth M.D.
[2024-11-01 22:47] LABS: Glucose Point of Care 56 mg/dl (65-105)
--- NOTE | 2024-11-01 22:48 | PC.NURSE ---
RN informed provider about B/G of 56.
[2024-11-01 22:50] LABS: Basophils Absolute Auto 0.1 K/mm3 (0.0-0.1); Basophils Percent Auto 0.3 % (0.2-1.2); Eosinophils Absolute Auto 0.2 K/mm3 (0-0.3); Hematocrit 40.3 % (42.0-52.0); Hemoglobin 12.5 g/dL (14.0-18.0); Immature Granulocyte Absolute 0.36 K/mm3 (0.00-0.031); Lymphocytes Absolute Auto 1.65 K/mm3 (0.9-3.2); Mean Corpuscular Hemoglobin 25.9 pg (26-34); Mean Corpuscular Volume 83.4 fl (80-100); Mean Platelet Volume 9.4 fl (7.4-10.4); Monocytes Absolute Auto 0.8 K/mm3 (0.1-0.6); Monocytes Percent Auto 4.3 % (2.6-8.5); Neutrophils Absolute Auto 15.2 K/mm3 (1.3-6.7); Neutrophils Percent Auto 83.4 % (45.5-73.1); Platelet Count Result 420 k/mm3 (150-375); Red Blood Count 4.83 M/mm3 (4.6-6.20); Red Cell Distribution Width 16.1 % (11.5-14.5); White Blood Count 18.3 K/mm3 (4.5-10.0)
[2024-11-01] MEDS: DEXTROSE 5%/0.9% SOD CHL 1,000 ML 100 ML IV CONT (22:56)
[2024-11-01 23:00] LABS: Alanine Aminotransferase 24 U/L (6-50); Albumin Level 3.8 g/dL (3.5-5.1); Alkaline Phosphatase 91 U/L (38-126); Anion Gap 10 mmol/L (4-12); Aspartate Amino Transferase 32 U/L (17-59); Bilirubin,Total 0.6 mg/dL (0.2-1.3); Blood Urea Nitrogen 9 mg/dL (9-20); Calcium 8.7 mg/dL (8.4-10.2); Carbon Dioxide 25 mmol/L (22-30); Chloride 100 mmol/L (98-107); Estimated CRCL calculation 49 ml/min; Estimated Glomerular Filt Rate > 60; Glucose 77 mg/dL (65-110); Magnesium 1.9 mg/dL (1.6-2.3); Sodium 135 mmol/L (137-145)
[2024-11-01 23:09] LABS: INR 1.4; Prothrombin Time 17.9 Seconds (11.1-14.7)
[2024-11-01 23:10] LABS: Partial Thromboplastin Time 37.3 Seconds (22.3-36.8)
[2024-11-01 23:12] LABS: Troponin I < 0.012 ng/mL (0.000-0.034)
[2024-11-01 23:19] LABS: Procalcitonin 0.2 ng/mL
[2024-11-01 23:21] LABS: Glucose Point of Care 49 mg/dl (65-105)
--- NOTE | 2024-11-01 23:21 | PC.NURSE ---
tech reports bg of 49. per md increase dextrose to 150 ml/hr. RN completed this task.
[2024-11-01] MEDS: DEXTROSE 50% 25 GM/50 ML SYRINGE IV PUSH (23:28)
[2024-11-01 23:49] LABS: Influenza A QL RT-PCR Negative (Negative); Influenza B QL RT-PCR Negative (Negative); RSV RNA, RT-PCR Negative (Negative); SARS-CoV-2 RNA PCR Negative (Negative)
[2024-11-02] VITALS (14 sets, daily range): BP systolic 114–150; BP diastolic 57–67; PULSE 58–66; RESP 12–18; TEMP 36.7–36.8; O2SAT 96–100; BMI 30.4
[2024-11-02 00:15] LABS: Add Urine Microscopic? YES; Appearance Urine Clear (Clear); Bacteria Urine None Seen /hpf; Bilirubin Urine Negative (Negative); Blood Urine 1+ (Negative); Color Urine Yellow (Yellow); Glucose Urine UA Negative (Negative); Ketones Urine Negative (Negative); Leukocyte Esterase Ur Trace LEU/UL (Negative); Nitrate Urine Negative (Negative); Non Pathogenic Casts 0-2; Protein Urine Trace mg/dL (Negative); Specific Grav Ur 1.015 (1.001-1.035); Squamous Epithelial Cell Urine None Seen /hpf (Few); Urobilinogen Urine 0.2 mg/dL (<2.0); WBC Urine 0-5 /hpf (0-3); pH Urine 5.5 (5.0-9.0)
--- NOTE | 2024-11-02 00:19 | ED_ITS ---
HPI - General Adult General Chief complaint: Altered Mental Status Stated complaint: altered, cool, diaphoretic, low glucose Time Seen by Provider: 11/01/24 22:18 History of Present Illness HPI narrative: The patient is a 79-year-old gentleman who presents emergency department with chief complaint of altered mental status. Patient was found slumped over his couch cooling clammy by EMS patient has had have a blood sugar of 49 was given dextrose by EMS his blood sugar came up to 104 the patient states he is not really sure what happened today the patient reports that he is not on insulin and reports that he takes metformin and glimepiride for his diabetes Related Data Home Medications Medication Instructions Recorded Confirmed loratadine 10 mg tablet 10 mg PO DAILY 01/26/22 10/23/24 nitroglycerin 0.4 mg sublingual 0.4 mg sublingual DIRECTED 08/09/24 10/23/24 tablet tamsulosin 0.4 mg capsule 0.4 mg PO DAILY 10/04/24 10/23/24 Allergies Allergy/AdvReac Type Severity Reaction Status Date / Time No Known Allergies Allergy Verified 10/23/24 06:30 Review of Systems Review of Systems: A 10 system review of systems was completed on the patient and is negative except for what is stated in the HPI. Nursing and ancillary documentation was reviewed. 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 Other Unknown family medical history Social History Social History Smoking status: Never smoker Alcohol intake: never Substance use: never Substance use type: does not use Do You Feel Safe in your Home?: Yes Lack of Transportation: No Lack of Food: Never True Current Housing: I Have Housing Concerned About Future Housing: No Difficulty Paying Gas/Electric Bills: No Difficulty Paying for Meds: No Currently Unemployed: No Education: Associate Degree Difficulty w/ Childcare or Family Care: No Living arrangements: with family Additional living arrangements comments: & GRANDCHILDREN Occupation/Education: retired Gender identity (if verbalized by the patient): Male Sexual Orientation (if Verbalized by the Patient): Straight or Heterosexual Spiritual care concerns: No Exam Narrative: GENERAL: Well-appearing, well-nourished, and in no acute distress. HEAD: Normocephalic, atraumatic. EYES: PERRLA and EOMI. ENT: Nares clear, no rhinorrhea or epistaxis. Mucous membranes moist. NECK: Supple. CHEST: Clear to auscultation. No respiratory distress. HEART: Regular rate and rhythm. No murmur heard. Normal peripheral pulses. ABDOMEN: Soft, nontender, nondistended, normal active bowel sounds. EXTREMITIES: Normal range of motion. No edema. SKIN: Warm, dry, no rash. NEURO: No focal deficits. Alert and oriented x3. PSYCH: Normal mood and affect. Course Vital Signs Vital signs: Vital Signs Temperature 36.8 C 11/01/24 21:49 Pulse Rate 64 11/01/24 21:49 Respiratory Rate 18 11/01/24 21:49 Blood Pressure 162/75 H 11/01/24 21:49 Pulse Oximetry 95 11/01/24 21:49 Oxygen Delivery Room Air 11/01/24 21:49 Temperature 36.8 C 11/01/24 21:49 Pulse Rate 64 11/01/24 21:49 Respiratory Rate 18 11/01/24 21:49 Blood Pressure 162/75 H 11/01/24 21:49 Pulse Oximetry 95 11/01/24 21:49 Oxygen Delivery Room Air 11/01/24 21:49 Medical Decision Making [facility] Narrative Medical decision making narrative: Differential diagnosis includes electrolyte abnormality, hypoglycemia, ACS, infection Chest x-ray showed Fibrotic changes of the lungs with possible superimposed pneumonitis. Clinical correlation advised. Pulmonary edema also cannot be excluded. The patient was found have a blood sugar of 56 patient was given dextrose and th en proceeded to decreased to 49 patient started on a dextrose drip current most recent blood sugar was in the 100s Laboratory studies were obtained showed white count 18.3 electrolytes showed a lactic acid of 4.0 troponin was negative procalcitonin 0.2 COVID flu and RSV are negative The case will be discussed with the hospitalist for observation Vital Signs Vital Signs: Vital Signs Temperature 36.8 C 11/01/24 21:49 Pulse Rate 64 11/01/24 21:49 Respiratory Rate 18 11/01/24 21:49 Blood Pressure 162/75 H 11/01/24 21:49 Pulse Oximetry 95 11/01/24 21:49 Oxygen Delivery Room Air 11/01/24 21:49 Temperature 36.8 C 11/01/24 21:49 Pulse Rate 64 11/01/24 21:49 Respiratory Rate 18 11/01/24 21:49 Blood Pressure 162/75 H 11/01/24 21:49 Pulse Oximetry 95 11/01/24 21:49 Oxygen Delivery Room Air 11/01/24 21:49 Lab Data 11/01/24 22:45 11/01/24 22:45 Labs: Lab Results 11/01/24 11/01/24 11/01/24 Range/Units 22:45 22:57 23:18 WBC 18.3 H (4.5-10.0) K/mm3 RBC 4.83 (4.6-6.20) M/mm3 Hgb 12.5 L (14.0-18.0) g/dL Hct 40.3 L (42.0-52.0) % MCV 83.4 (80-100) fl MCH 25.9 L (26-34) pg MCHC 31.0 L (32-36) g/dl RDW 16.1 H (11.5-14.5) % Plt Count 420 H D (150-375) k/mm3 MPV 9.4 (7.4-10.4) fl Immature Gran % (Auto) 2.0 H (0-0.5) % Neut % (Auto) 83.4 H (45.5-73.1) % Lymph % (Auto) 9.0 L (18.3-44.2) % [place] % (Auto) 4.3 (2.6-8.5) % Eos % (Auto) 1.0 (0-4.4) % Baso % (Auto) 0.3 (0.2-1.2) % Lymph # (Auto) 1.65 (0.9-3.2) K/mm3 [place] # (Auto) 0.8 H (0.1-0.6) K/mm3 Eos # (Auto) 0.2 (0-0.3) K/mm3 Baso # (Auto) 0.1 (0.0-0.1) K/mm3 Abs Immat Gran (auto) 0.36 H (0.00-0.031) K/mm3 Absolute Neuts (auto) 15.2 H (1.3-6.7) K/mm3 Absolute Nucleated RBC 0.000 (0.0-0.012) K/mm3 Nucleated RBC % 0.0 (0.0-0.2) % PT 17.9 H (11.1-14.7) Seconds INR 1.4 APTT 37.3 H (22.3-36.8) Seconds Sodium 135 L (137-145) mmol/L Potassium 5.0 (3.4-5.0) mmol/L Chloride 100 (98-107) mmol/L Carbon Dioxide 25 (22-30) mmol/L Anion Gap 10 (4-12) mmol/L BUN 9 D (9-20) mg/dL Creatinine 1.10 (0.7-1.3) mg/dL Estim Creat Clear Calc 49 ml/min Estimated GFR > 60 (59 - ) Glucose 77 (65-110) mg/dL POC Capillary Glucose 56 L* 49 L* (65-105) mg/dl Lactic Acid 4.0 H (0.7-2.0) mmol/L Calcium 8.7 (8.4-10.2) mg/dL Magnesium 1.9 (1.6-2.3) mg/dL Total Bilirubin 0.6 (0.2-1.3) mg/dL AST 32 (17-59) U/L ALT 24 (6-50) U/L Alkaline Phosphatase 91 (38-126) U/L Troponin I < 0.012 (0.000-0.034) ng/mL Total Protein 7.0 (6.3-8.2) g/dL Albumin 3.8 (3.5-5.1) g/dL Procalcitonin 0.2 ng/mL Urine Color (Yellow) Urine Appearance (Clear) Urine pH (5.0-9.0) Ur Specific [place] (1.001-1.035) Urine Protein (Negative) mg/dL Urine Glucose (UA) (Negative) mg/dL Urine Ketones (Negative) mg/dL Ur Blood (Man) (Negative) Urine Nitrate (Negative) Urine Bilirubin (Negative) Urine Urobilinogen (<2.0) mg/dL Leukocyte Esterase Rfl (Negative) SCAR/UL Urine RBC (0-2) /hpf Urine WBC (0-3) /hpf Ur Squamous Epith Cells (Few) /hpf Urine Bacteria /hpf Urine Casts Influenza A (RT-PCR) Negative (Negative) Influenza B (RT-PCR) Negative (Negative) RSV (RT-PCR) Negative (Negative) SARS-CoV-2 RNA (RT-PCR) Negative (Negative) 11/02/24 11/02/24 Range/Units 00:05 00:18 WBC (4.5-10.0) K/mm3 RBC (4.6-6.20) M/mm3 Hgb (14.0-18.0) g/dL Hct (42.0-52.0) % MCV (80-100) fl MCH (26-34) pg MCHC (32-36) g/dl RDW (11.5-14.5) % Plt Count (150-375) k/mm3 MPV (7.4-10.4) fl Immature Gran % (Auto) (0-0.5) % Neut % (Auto) (45.5-73.1) % Lymph % (Auto) (18.3-44.2) % [place] % (Auto) (2.6-8.5) % Eos % (Auto) (0-4.4) % Baso % (Auto) (0.2-1.2) % Lymph # (Auto) (0.9-3.2) K/mm3 [place] # (Auto) (0.1-0.6) K/mm3 Eos # (Auto) (0-0.3) K/mm3 Baso # (Auto) (0.0-0.1) K/mm3 Abs Immat Gran (auto) (0.00-0.031) K/mm3 Absolute Neuts (auto) (1.3-6.7) K/mm3 Absolute Nucleated RBC (0.0-0.012) K/mm3 Nucleated RBC % (0.0-0.2) % PT (11.1-14.7) Seconds INR APTT (22.3-36.8) Seconds Sodium (137-145) mmol/L Potassium (3.4-5.0) mmol/L Chloride (98-107) mmol/L Carbon Dioxide (22-30) mmol/L Anion Gap (4-12) mmol/L BUN (9-20) mg/dL Creatinine (0.7-1.3) mg/dL Estim Creat Clear Calc ml/min Estimated GFR (59 - ) Glucose (65-110) mg/dL POC Capillary Glucose 126 H (65-105) mg/dl Lactic Acid (0.7-2.0) mmol/L Calcium (8.4-10.2) mg/dL Magnesium (1.6-2.3) mg/dL Total Bilirubin (0.2-1.3) mg/dL AST (17-59) U/L ALT (6-50) U/L Alkaline Phosphatase (38-126) U/L Troponin I (0.000-0.034) ng/mL Total Protein (6.3-8.2) g/dL Albumin (3.5-5.1) g/dL Procalcitonin ng/mL Urine Color Yellow (Yellow) Urine Appearance Clear (Clear) Urine pH 5.5 (5.0-9.0) Ur Specific [place] 1.015 (1.001-1.035) Urine Protein Trace (Negative) mg/dL Urine Glucose (UA) Negative (Negative) mg/dL Urine Ketones Negative (Negative) mg/dL Ur Blood (Man) 1+ H (Negative) Urine Nitrate Negative (Negative) Urine Bilirubin Negative (Negative) Urine Urobilinogen 0.2 (<2.0) mg/dL Leukocyte Esterase Rfl Trace H (Negative) SCAR/UL Urine RBC 11-20 H (0-2) /hpf Urine WBC 0-5 (0-3) /hpf Ur Squamous Epith Cells None seen (Few) /hpf Urine Bacteria None seen /hpf Urine Casts 0-2 Influenza A (RT-PCR) (Negative) Influenza B (RT-PCR) (Negative) RSV (RT-PCR) (Negative) SARS-CoV-2 RNA (RT-PCR) (Negative) Discharge Plan Discharge Clinical Impression: Hypoglycemia secondary to sulfonylurea Patient Disposition: Still a Patient Condition: Stable Prescriptions: No Action tamsulosin 0.4 mg capsule 0.4 mg PO DAILY loratadine 10 mg Tablet 10 mg PO DAILY nitroglycerin 0.4 mg tablet, sublingual 0.4 mg sublingual DIRECTED Patient Comments: Approximation on date last take. Couple of years amoxicillin 500 mg Capsule 500 mg PO Q8HR Qty: 15 0RF sulfamethoxazole-trimethoprim 800-160 mg Tablet 2 tab PO Q12HR Qty: 20 0RF diltiazem HCl [DILT-XR] 180 mg capsule,ext.rel 24h degradable 180 mg PO DAILY Qty: 100 1RF Patient Comments: QAM sotalol 80 mg tablet 80 mg PO BID Qty: 200 1RF lisinopril 20 mg tablet 20 mg PO HS Qty: 100 1RF glimepiride 4 mg tablet 4 mg PO DAILY Qty: 100 1RF Patient Comments: QAM Eliquis 5 mg tablet 5 mg PO BID Qty: 200 2RF Hold Instructions: Resume on 08/17/24. rosuvastatin 10 mg tablet 10 mg PO DAILY Qty: 100 1RF metformin 1,000 mg tablet 1,000 mg PO BID Qty: 200 1RF finasteride 5 mg tablet 5 mg PO HS Qty: 100 1RF hydrocortisone 2.5 % cream with perineal applicator 1 applic RECTAL DAILY PRN (Reason: hemorrhoids) Qty: 30 0RF Follow-up/Referrals: Pratik Hernandez MD [Primary Care Provider] - Time of Disposition: 00:22
[2024-11-02 00:20] LABS: Glucose Point of Care 126 mg/dl (65-105)
[2024-11-02] MEDS: SODIUM CHLORIDE 0.9% IV 1,000 ML 999 ML IV CONT (00:30)
[2024-11-02 01:48] LABS: Reflex Lactic Acid Yes or No Add Lactic
[2024-11-02 01:53] LABS: Glucose Point of Care 90 mg/dl (65-105)
[2024-11-02 02:14] LABS: Lactic Acid 1.1 mmol/L (0.7-2.0)
[2024-11-02 02:27] LABS: Troponin I < 0.012 ng/mL (0.000-0.034)
--- NOTE | 2024-11-02 02:52 | ADMGEN ---
This patient, Joo Forman, was admitted to 2 Medical Room 254-01. Patient/family oriented to hospital policies and general routines including ID bracelet, bed and alarms, visiting hours, pain management, procedures, bathroom and other care routines, personal items, smoking policy, room service/diet, and visiting hours. Information on how to activate the Rapid Response Team has been discussed. Patient/Family are encouraged to report perceived risks to care and to ask questions if they do not understand what they are told or what they should do.
[2024-11-02 02:59] LABS: Glucose Point of Care 65 mg/dl (65-105)
[2024-11-02] MEDS: DEXTROSE 50% 25 GM/50 ML SYRINGE IV PUSH (03:30)
--- NOTE | 2024-11-02 03:41 | ECG_ITS ---
Test Date: 2024-11-02 08:41:06 Measurements Intervals Gantt Rate: 61 P: 75 CT: 184 QRS: 9 QRSD: 99 T: 21 QT: 498 QTc: 503 Interpretive Statements SINUS RHYTHM WITH OCCASIONAL SUPRAVENTRICULAR PREMATURE COMPLEXES ANTERIOR MYOCARDIAL INFARCTION , PROBABLY OLD [40+ ms Q WAVE AND/OR ST/T ABNORMALITY IN V3/V4] Compared to ECG 11/01/2024 22:48:54 Sinus bradycardia no longer present Electronically Signed On 11-02-2024 14:40:49 AUDIO/VIDEO ENGINEER by Reno Stallworth M.D.
[2024-11-02] MEDS: SODIUM CHLORIDE 23.4% INJ 77 MEQ in DEXTROSE 10% 1,000 ML 150 ML IV CONT ×2 (03:49→10:45)
[2024-11-02 03:54] LABS: Glucose Point of Care 130 mg/dl (65-105)
--- NOTE | 2024-11-02 05:50 | P.HP_ITS ---
H&P: HPI History of Present Illness Date/Time: 11/02/24 05:50 Chief Complaint: Hypoglycemia Narrative: 79-year-old male with past medical history of paroxysmal atrial fibrillation with recent cardioversion, BPH and neurogenic bladder with suprapubic catheter, essential hypertension, hyperlipidemia and type 2 diabetes mellitus who presented to the ER via EMS due to hypoglycemia. Patient was at home with his and was slumped over: Clammy to touch. When EMS arrived at the home patient's glucoses were 49. Patient received 125 mL of D10 with repeat glucose of 104. Shortly after arriving to the ER patient again became hypoglycemic and required 12.5 g and 25 g of dextrose IV push in was started on a D5 drip at 150 mL an hour. Initially patient's glucoses seem to be improving but patient glucoses again dropped by the time he got to the medical floor. He was then switched to D10 with improvement in his glucoses. The patient reports he does not really remember much from the day admission. He does not know if he was feeling particularly bad. Initially told me he was not having difficulty with his appetite but then later contradicted himself and stated that his appetite has been poor. He denies any abdominal pain. He has not had a bowel movement in several days. He does not know when his last catheter was exchanged. Although alert oriented the patient is not the best historian. Review of Systems Review of Systems: 12 systems were reviewed with pertinent positives and negatives per HPI. Except as documented in the HPI, all other systems were reviewed and are negative. [facility] Past Medical History Medical History (Updated 11/02/24 @ 08:59 by Luisa Mariscal DO) Atherosclerosis of aorta Atherosclerotic heart disease of [place] coronary artery without angina pectoris Atrial fibrillation and flutter Bradycardia Chronic anticoagulation Diabetes Heart failure, unspecified Hypertensive heart disease with heart failure Male erectile dysfunction, unspecified Pulmonary hypertension, unspecified Pure hypercholesterolemia, unspecified Type 2 diabetes mellitus with diabetic neuropathy, unspecified Type 2 diabetes mellitus with other circulatory complications Urinary retention Surgical History Surgical History (Updated 11/02/24 @ 08:57 by Luisa Mariscal DO) History of cardiac radiofrequency ablation History of suprapubic catheter Stented coronary artery Family History Family History (Updated 11/02/24 @ 06:43 by Luisa Mariscal DO) Father Cerebrovascular accident Heart disease, Onset Age: 66 Mother Lung cancer Sibling Heart disease COPD (chronic obstructive pulmonary disease) Social History Social History (Updated 11/02/24 @ 06:40 by Luisa Mariscal DO) Social History: The patient lives at home with his of approximately 58 years. He is retired from the [employer]. He and his raised 2 daughters and they have 5 grand children and 2 great grandchildren. He is a lifelong nonsmoker and denies any history of significant alcohol use. He ambulated with a walker until his recent hospital stay. Code status: Full code Surrogate decision maker: [place] () Smoking status: Never smoker Alcohol intake: never Substance use: never Substance use type: does not use Do You Feel Safe in your Home?: No Lack of Transportation: No Lack of Food: Never True Current Housing: I Have Housing Concerned About Future Housing: No Difficulty Paying Gas/Electric Bills: No Difficulty Paying for Meds: No Currently Unemployed: No Education: Associate Degree Difficulty w/ Childcare or Family Care: No Living arrangements: with family Additional living arrangements comments: & GRANDCHILDREN Occupation/Education: retired Gender identity (if verbalized by the patient): Male Sexual Orientation (if Verbalized by the Patient): Straight or Heterosexual Spiritual care concerns: No Meds Home Medications and Allergies Home Medications Medication Instructions Recorded Confirmed Type loratadine 10 mg tablet (Claritin) 10 mg PO DAILY 01/26/22 11/02/24 History apixaban 5 mg tablet (Eliquis) 5 mg PO BID #200 tabs 06/21/24 11/02/24 Rx diltiazem HCl 180 mg 180 mg PO DAILY #100 caps 06/21/24 11/02/24 Rx capsule,extended release 24 hr, controlled (DILT-XR) glimepiride 4 mg tablet 4 mg PO DAILY #100 tabs 06/21/24 11/02/24 Rx lisinopril 20 mg tablet 20 mg PO HS #100 tabs 06/21/24 11/02/24 Rx sotalol 80 mg tablet 80 mg PO BID #200 tabs 06/21/24 11/02/24 Rx nitroglycerin 0.4 mg sublingual 0.4 mg sublingual DIRECTED PRN 08/09/24 11/02/24 History tablet Chest Pain finasteride 5 mg tablet 5 mg PO HS #100 tabs 09/24/24 11/02/24 Rx metformin 1,000 mg tablet 1,000 mg PO BID #200 tabs 09/24/24 11/02/24 Rx rosuvastatin 10 mg tablet 10 mg PO DAILY #100 tabs 09/24/24 11/02/24 Rx amoxicillin 500 mg capsule 500 mg PO Q8HR #15 caps 10/29/24 11/02/24 Rx sulfamethoxazole 800 2 tab PO Q12HR #20 tabs 10/29/24 11/02/24 Rx mg-trimethoprim 160 mg tablet Allergies Allergy/AdvReac Type Severity Reaction Status Date / Time No Known Allergies Allergy Verified 10/23/24 06:30 Vital Signs Vital Signs - 24 hr 11/01/24 21:49 11/02/24 01:41 11/02/24 02:42 Temperature 98.2 F 98.1 F Pulse Rate 64 61 62 Respiratory Rate 18 18 16 Blood Pressure 162/75 H 131/67 150/66 H Pulse Oximetry 95 96 100 Oxygen Delivery Room Air 11/02/24 02:42 11/02/24 04:00 Temperature Pulse Rate 61 Respiratory Rate Blood Pressure Pulse Oximetry Oxygen Delivery Room Air Exam Narrative: Weight 93.6 kg BMI 30.5 Const: Other: Overweight, appears stated age, chronically deconditioned, no acute distress HENMT: Other: Mucous membranes are tacky, no oral pharyngeal erythema, head is normocephalic atraumatic Eyes: Other: Pupils are equal and reactive, positive conjunctival pallor, no scleral icterus Neck: Other: No JVD, no gross lymphadenopathy or thyromegaly Resp: Other: Clear to auscultation bilaterally, no increased work of breathing Cardio: Other: Regular rate rhythm, no JVD, no murmur, 2+ bilateral radial pedal pulses GI: Other: Soft, nontender, nondistended, positive bowel sounds : Other: Suprapubic catheter in place with clear pale yellow urine present Skin: Other: Generalized pallor, non jaundice, cool to touch Neuro: Other: Alert orient x4, speech is clear but slow, no obvious facial asymmetry, moves all extremities equally but is generalized weakness Extrem: Other: Moves all extremities equally was generally weak, bilateral lower extremity edema left is trace right is 1+ (patient is on chronic anticoagulation with Eliquis) Psych: Other: Flat affect, cooperative, calm, fair judgment and insight H&P: Results Labs Labs: Laboratory Tests 11/01/24 22:45 11/01/24 22:45 11/01/24 11/01/24 11/01/24 22:45 22:57 23:18 WBC 18.3 H RBC 4.83 Hgb 12.5 L Hct 40.3 L MCV 83.4 MCH 25.9 L MCHC 31.0 L RDW 16.1 H Plt Count 420 H D MPV 9.4 Immature Gran % (Auto) 2.0 H Neut % (Auto) 83.4 H Lymph % (Auto) 9.0 L [place] % (Auto) 4.3 Eos % (Auto) 1.0 Baso % (Auto) 0.3 Lymph # (Auto) 1.65 [place] # (Auto) 0.8 H Eos # (Auto) 0.2 Baso # (Auto) 0.1 Abs Immat Gran (auto) 0.36 H Absolute Neuts (auto) 15.2 H Absolute Nucleated RBC 0.000 Nucleated RBC % 0.0 PT 17.9 H INR 1.4 APTT 37.3 H Sodium 135 L Potassium 5.0 Chloride 100 Carbon Dioxide 25 Anion Gap 10 BUN 9 D Creatinine 1.10 Estim Creat Clear Calc 49 Estimated GFR > 60 Glucose 77 POC Capillary Glucose 56 L* 49 L* Lactic Acid 4.0 H Calcium 8.7 Magnesium 1.9 Total Bilirubin 0.6 AST 32 ALT 24 Alkaline Phosphatase 91 Troponin I < 0.012 Total Protein 7.0 Albumin 3.8 Procalcitonin 0.2 Urine Color Urine Appearance Urine pH Ur Specific [place] Urine Protein Urine Glucose (UA) Urine Ketones Ur Blood (Man) Urine Nitrate Urine Bilirubin Urine Urobilinogen Leukocyte Esterase Rfl Urine RBC Urine WBC Ur Squamous Epith Cells Urine Bacteria Urine Casts Influenza A (RT-PCR) Negative Influenza B (RT-PCR) Negative RSV (RT-PCR) Negative SARS-CoV-2 RNA (RT-PCR) Negative 11/02/24 11/02/24 11/02/24 00:05 00:18 01:49 WBC RBC Hgb Hct MCV MCH MCHC RDW Plt Count MPV Immature Gran % (Auto) Neut % (Auto) Lymph % (Auto) [place] % (Auto) Eos % (Auto) Baso % (Auto) Lymph # (Auto) [place] # (Auto) Eos # (Auto) Baso # (Auto) Abs Immat Gran (auto) Absolute Neuts (auto) Absolute Nucleated RBC Nucleated RBC % PT INR APTT Sodium Potassium Chloride Carbon Dioxide Anion Gap BUN Creatinine Estim Creat Clear Calc Estimated GFR Glucose POC Capillary Glucose 126 H 90 Lactic Acid Calcium Magnesium Total Bilirubin AST ALT Alkaline Phosphatase Troponin I Total Protein Albumin Procalcitonin Urine Color Yellow Urine Appearance Clear Urine pH 5.5 Ur Specific [place] 1.015 Urine Protein Trace Urine Glucose (UA) Negative Urine Ketones Negative Ur Blood (Man) 1+ H Urine Nitrate Negative Urine Bilirubin Negative Urine Urobilinogen 0.2 Leukocyte Esterase Rfl Trace H Urine RBC 11-20 H Urine WBC 0-5 Ur Squamous Epith Cells None seen Urine Bacteria None seen Urine Casts 0-2 Influenza A (RT-PCR) Influenza B (RT-PCR) RSV (RT-PCR) SARS-CoV-2 RNA (RT-PCR) 11/02/24 11/02/24 11/02/24 01:59 02:53 03:51 WBC RBC Hgb Hct MCV MCH MCHC RDW Plt Count MPV Immature Gran % (Auto) Neut % (Auto) Lymph % (Auto) [place] % (Auto) Eos % (Auto) Baso % (Auto) Lymph # (Auto) [place] # (Auto) Eos # (Auto) Baso # (Auto) Abs Immat Gran (auto) Absolute Neuts (auto) Absolute Nucleated RBC Nucleated RBC % PT INR APTT Sodium Potassium Chloride Carbon Dioxide Anion Gap BUN Creatinine Estim Creat Clear Calc Estimated GFR Glucose POC Capillary Glucose 65 130 H Lactic Acid 1.1 Calcium Magnesium Total Bilirubin AST ALT Alkaline Phosphatase Troponin I < 0.012 Total Protein Albumin Procalcitonin Urine Color Urine Appearance Urine pH Ur Specific [place] Urine Protein Urine Glucose (UA) Urine Ketones Ur Blood (Man) Urine Nitrate Urine Bilirubin Urine Urobilinogen Leukocyte Esterase Rfl Urine RBC Urine WBC Ur Squamous Epith Cells Urine Bacteria Urine Casts Influenza A (RT-PCR) Influenza B (RT-PCR) RSV (RT-PCR) SARS-CoV-2 RNA (RT-PCR) 11/02/24 05:50 WBC RBC Hgb Hct MCV MCH MCHC RDW Plt Count MPV Immature Gran % (Auto) Neut % (Auto) Lymph % (Auto) [place] % (Auto) Eos % (Auto) Baso % (Auto) Lymph # (Auto) [place] # (Auto) Eos # (Auto) Baso # (Auto) Abs Immat Gran (auto) Absolute Neuts (auto) Absolute Nucleated RBC Nucleated RBC % PT INR APTT Sodium Potassium Chloride Carbon Dioxide Anion Gap BUN Creatinine Estim Creat Clear Calc Estimated GFR Glucose POC Capillary Glucose 105 Lactic Acid Calcium Magnesium Total Bilirubin AST ALT Alkaline Phosphatase Troponin I Total Protein Albumin Procalcitonin Urine Color Urine Appearance Urine pH Ur Specific [place] Urine Protein Urine Glucose (UA) Urine Ketones Ur Blood (Man) Urine Nitrate Urine Bilirubin Urine Urobilinogen Leukocyte Esterase Rfl Urine RBC Urine WBC Ur Squamous Epith Cells Urine Bacteria Urine Casts Influenza A (RT-PCR) Influenza B (RT-PCR) RSV (RT-PCR) SARS-CoV-2 RNA (RT-PCR) Impressions Chest X-Ray 11/01/24 23:52 IMPRESSION: Fibrotic changes of the lungs with possible superimposed pneumonitis. Clinical correlation advised. Pulmonary edema also cannot be excluded. Assessment and Plan Assessment and plan (1) Leukocytosis: Qualifiers: Leukocytosis type: leukemoid reaction Qualified Code(s): D72.823 - Leukemoid reaction Code(s): D72.829 - Elevated white blood cell count, unspecified Status: Acute (2) Type 2 diabetes mellitus with hypoglycemia and coma, without long-term c urrent use of insulin: Code(s): E11.641 - Type 2 diabetes mellitus with hypoglycemia with coma Status: Acute (3) Physical deconditioning: Code(s): R53.81 - Other malaise Status: Acute Plan Patient leukocytosis without evidence of acute infection. His prior UTI has resolved. He would have completed his course of antibiotics with amoxicillin on the morning of the . These have subsequently been removed from the patient's current orders. Bactrim is also listed on the patient's medication reconciliation I do not know the patient is on this chronically or if this was entered in error. However will not continue Bactrim at this time. I suspect the leukocytosis is more due to acute look moist reaction from the patient's recurrent severe hypoglycemia. Will hold off on additional antibiotics and repeat CBC in a.m. and monitor. The patient has had recurrent hypoglycemia likely due to decreased oral intake and continued use of glimepiride. Patient did not have an overdose of med ications. Will continue D10 half-normal saline it is currently running at her 50 mL an hour. Given patient's history of pulmonary hypertension and AFib will need to watch closely for possible signs of fluid overload. Will monitor Accu- Cheks q.2 hours until above 100 x 2 then will switch to q.4 hours if greater than 100 times 2 for the q.4 hours will switch to a.c. HS Request PT OT eval. Patient may benefit from more managed rehab placement at least for short term. Quality VTE Prophylaxis VTE prophylaxis: pharmacologic ordered (Continue home Eliquis.) Hospitalist MIPS Advance Care Plan I have confirmed that the patient's Advanced Care Plan is present, code status is documented, or surrogate decision maker is listed in patient medical record.: Yes Medication Reconciliation I have utilized all available resources to obtain, update and review the patients current medications (includes all prescriptions, OTC, herbals, cannabis, and nutritional supplements).: Yes
[2024-11-02 05:52] LABS: Glucose Point of Care 105 mg/dl (65-105)
[2024-11-02 07:25] LABS: Basophils Percent Auto 0.2 % (0.2-1.2); Eosinophils Absolute Auto 0.2 K/mm3 (0-0.3); Eosinophils Percent Auto 1.6 % (0-4.4); Hematocrit 30.8 % (42.0-52.0); Hemoglobin 9.6 g/dL (14.0-18.0); Immature Granulocyte Absolute 0.13 K/mm3 (0.00-0.031); Lymphocytes Absolute Auto 1.37 K/mm3 (0.9-3.2); Lymphocytes Percent Auto 10.7 % (18.3-44.2); Mean Corpuscular HGB Conc 31.2 g/dl (32-36); Mean Corpuscular Hemoglobin 26.2 pg (26-34); Mean Corpuscular Volume 83.9 fl (80-100); Mean Platelet Volume 9.5 fl (7.4-10.4); Monocytes Absolute Auto 0.9 K/mm3 (0.1-0.6); Monocytes Percent Auto 6.9 % (2.6-8.5); Neutrophils Absolute Auto 10.2 K/mm3 (1.3-6.7); Neutrophils Percent Auto 79.6 % (45.5-73.1); Platelet Count Result 301 k/mm3 (150-375); Red Blood Count 3.67 M/mm3 (4.6-6.20); White Blood Count 12.8 K/mm3 (4.5-10.0)
[2024-11-02 07:31] LABS: Anion Gap 4 mmol/L (4-12); Blood Urea Nitrogen 9 mg/dL (9-20); Calcium 7.7 mg/dL (8.4-10.2); Carbon Dioxide 24 mmol/L (22-30); Chloride 105 mmol/L (98-107); Estimated CRCL calculation 56 ml/min; Estimated Glomerular Filt Rate > 60; Glucose 96 mg/dL (65-110); Potassium 4.1 mmol/L (3.4-5.0); Sodium 133 mmol/L (137-145)
[2024-11-02 08:50] LABS: Glucose Point of Care 91 mg/dl (65-105)
[2024-11-02 09:45] LABS: Glucose Point of Care 95 mg/dl (65-105)
[2024-11-02] MEDS: SOTALOL HCL 80 MG TABLET PO ×2 (09:57→20:58)
[2024-11-02] MEDS: LORATADINE 10 MG TABLET PO (09:57)
[2024-11-02] MEDS: dilTIAZem HCL CD 180 MG CAP.24HR PO (09:57)
[2024-11-02] MEDS: APIXABAN 5 MG TABLET PO ×2 (09:57→20:57)
--- NOTE | 2024-11-02 11:30 | PM.IMPN ---
Progress Note: A&P Assessment and Plan (1) Leukocytosis: Qualifiers: Leukocytosis type: leukemoid reaction Qualified Code(s): D72.823 - Leukemoid reaction Code(s): D72.829 - Elevated white blood cell count, unspecified Status: Acute (2) Type 2 diabetes mellitus with hypoglycemia and coma, without long-term current use of insulin: Code(s): E11.641 - Type 2 diabetes mellitus with hypoglycemia with coma Status: Acute (3) Physical deconditioning: Code(s): R53.81 - Other malaise Status: Acute Plan Patient leukocytosis without evidence of acute infection. His prior UTI has resolved. He would have completed his course of antibiotics with amoxicillin on the morning of the . cbc this am was 12.8-down from 18.3 The patient has had recurrent hypoglycemia likely due to decreased oral intake and continued use of glimepiride. will be stopped upon discharge Will continue D10 half-normal saline it is currently running at her 50 mL an hour. Given patient's history of pulmonary hypertension and AFib will need to watch closely for possible signs of fluid overload. Will monitor Accu-Cheks q.2 hours until above 100 x 2 then will switch to q.4 hours if greater than 100 times 2 for the q.4 hours will switch to a.c. HS once oral intake is better -will stop IV fluids Time Spent With Patient Time with patient: Greater than 35 minutes Subjective Date/time seen: 11/02/24 11:30 Interval history: narrative retrieved from h/p: 79-year-old male with past medical history of paroxysmal atrial fibrillation with recent cardioversion, BPH and neurogenic bladder with suprapubic catheter, essential hypertension, hyperlipidemia and type 2 diabetes mellitus who presented to the ER via EMS due to hypoglycemia. Patient was at home with his and was slumped over: Clammy to touch. When EMS arrived at the home patient's glucoses were 49. Patient received 125 mL of D10 with repeat glucose of 104. Shortly after arriving to the ER patient again became hypoglycemic and required 12.5 g and 25 g of dextrose IV push in was started on a D5 drip at 150 mL an hour. Initially patient's glucoses seem to be improving but patient glucoses again dropped by the time he got to the medical floor. He was then switched to D10 with improvement in his glucoses. The patient reports he does not really remember much from the day admission. His appetite was poor. He denies any abdominal pain. He has not had a bowel movement in several days. He does not know when his last catheter was exchanged. 11/02 pt is seen and examined. reports no acute issues. no nausea. ate lunch. weakness-pt/ot ordered Review of Systems Review of Systems: 12 systems were reviewed with pertinent positives and negatives per HPI. Except as documented in the HPI, all other systems were reviewed and are negative. Exam Narrative: Weight 93.6 kg BMI 30.5 Objective Data Vital Signs Vital Signs: Vital Signs - 24 hr 11/01/24 21:49 11/02/24 01:41 11/02/24 02:42 Temperature 98.2 F 98.1 F Pulse Rate 64 61 62 Respiratory Rate 18 18 16 Blood Pressure 162/75 H 131/67 150/66 H Pulse Oximetry 95 96 100 Oxygen Delivery Room Air 11/02/24 02:42 11/02/24 04:00 11/02/24 05:52 Temperature 98.1 F Pulse Rate 61 60 Respiratory Rate 12 Blood Pressure 132/57 L Pulse Oximetry 97 Oxygen Delivery Room Air 11/02/24 08:56 11/02/24 09:55 11/02/24 09:57 Temperature Pulse Rate 62 64 Respiratory Rate 16 Blood Pressure 114/57 L Pulse Oximetry 98 Oxygen Delivery Room Air 11/02/24 11:16 11/02/24 10:00 Temperature Pulse Rate Respiratory Rate Blood Pressure Pulse Oximetry 97 Oxygen Delivery Room Air Room Air Intake/Output Intake/Output: Intake & Output 10/30/24 10/31/24 11/01/24 11/02/24 23:59 23:59 23:59 23:59 Intake Total 1948 Output Total 500 Balance 1448 Meds/Results Medications: Active Medications Generic Name Dose Route Start Last Admin Trade Name Freq PRN Reason Stop Dose Admin Acetaminophen 650 mg 11/02/24 00:46 Acetaminophen 325 Mg Tablet PO Q4H PRN Mild Pain (1-3) or Fever Apixaban 5 mg 11/02/24 09:00 11/02/24 09:57 Apixaban 5 Mg Tablet PO 5 mg Q12HR DEBORAH Administration Dextrose 12.5 gm 11/02/24 00:52 Dextrose 50% 25 Gm/50 Ml Syringe IV PUSH PRN PRN Hypoglycemia Protocol Diltiazem HCl 180 mg 11/02/24 09:00 11/02/24 09:57 Diltiazem Hcl Cd 180 Mg Cap.24hr PO 180 mg DAILY DEBORAH Administration Finasteride 5 mg 11/02/24 21:00 Finasteride 5 Mg Tablet PO HS DEBORAH Glucagon 1 mg 11/02/24 00:52 Glucagon For Inj 1 Mg Vial IM PRN PRN Hypoglycemia Protocol Glucose 15 gm 11/02/24 00:52 Glucose Oral Gel 15 Gm Of Glucse In 37.5 Gm Tube PO PRN PRN Hypoglycemia Protocol Dextrose 1,000 mls @ 100 mls/hr 11/02/24 00:52 Dextrose 5% 1,000 Ml IVPB PRN PRN Hypoglycemia Protocol Sodium Chloride 77 meq/ 1,019.25 mls @ 150 mls/hr 11/02/24 04:00 11/02/24 03:49 Dextrose IV CONT 150 mls/hr .[id number] DEBORAH Administration Lisinopril 20 mg 11/02/24 21:00 Lisinopril 20 Mg Tablet PO HS DEBORAH Loratadine 10 mg 11/02/24 09:00 11/02/24 09:57 Loratadine 10 Mg Tablet PO 10 mg DAILY DEBORAH Administration Sotalol HCl 80 mg 11/02/24 09:00 11/02/24 09:57 Sotalol Hcl 80 Mg Tablet PO 80 mg Q12HR DEBORAH Administration Radiology Results: ITS Impressions Chest X-Ray 11/01/24 23:52 IMPRESSION: Fibrotic changes of the lungs with possible superimposed pneumonitis. Clinical correlation advised. Pulmonary edema also cannot be excluded. Labs Labs: Laboratory Results - last 24 hr 11/01/24 11/01/24 11/01/24 22:45 22:57 23:18 WBC 18.3 H RBC 4.83 Hgb 12.5 L Hct 40.3 L MCV 83.4 MCH 25.9 L MCHC 31.0 L RDW 16.1 H Plt Count 420 H D MPV 9.4 Immature Gran % (Auto) 2.0 H Neut % (Auto) 83.4 H Lymph % (Auto) 9.0 L [place] % (Auto) 4.3 Eos % (Auto) 1.0 Baso % (Auto) 0.3 Lymph # (Auto) 1.65 [place] # (Auto) 0.8 H Eos # (Auto) 0.2 Baso # (Auto) 0.1 Abs Immat Gran (auto) 0.36 H Absolute Neuts (auto) 15.2 H Absolute Nucleated RBC 0.000 Nucleated RBC % 0.0 PT 17.9 H INR 1.4 APTT 37.3 H Sodium 135 L Potassium 5.0 Chloride 100 Carbon Dioxide 25 Anion Gap 10 BUN 9 D Creatinine 1.10 Estim Creat Clear Calc 49 Estimated GFR > 60 Glucose 77 POC Capillary Glucose 56 L* 49 L* Lactic Acid 4.0 H Calcium 8.7 Magnesium 1.9 Total Bilirubin 0.6 AST 32 ALT 24 Alkaline Phosphatase 91 Troponin I < 0.012 Total Protein 7.0 Albumin 3.8 Procalcitonin 0.2 Urine Color Urine Appearance Urine pH Ur Specific [place] Urine Protein Urine Glucose (UA) Urine Ketones Ur Blood (Man) Urine Nitrate Urine Bilirubin Urine Urobilinogen Leukocyte Esterase Rfl Urine RBC Urine WBC Ur Squamous Epith Cells Urine Bacteria Urine Casts Influenza A (RT-PCR) Negative Influenza B (RT-PCR) Negative RSV (RT-PCR) Negative SARS-CoV-2 RNA (RT-PCR) Negative 11/02/24 11/02/24 11/02/24 00:05 00:18 01:49 WBC RBC Hgb Hct MCV MCH MCHC RDW Plt Count MPV Immature Gran % (Auto) Neut % (Auto) Lymph % (Auto) [place] % (Auto) Eos % (Auto) Baso % (Auto) Lymph # (Auto) [place] # (Auto) Eos # (Auto) Baso # (Auto) Abs Immat Gran (auto) Absolute Neuts (auto) Absolute Nucleated RBC Nucleated RBC % PT INR APTT Sodium Potassium Chloride Carbon Dioxide Anion Gap BUN Creatinine Estim Creat Clear Calc Estimated GFR Glucose POC Capillary Glucose 126 H 90 Lactic Acid Calcium Magnesium Total Bilirubin AST ALT Alkaline Phosphatase Troponin I Total Protein Albumin Procalcitonin Urine Color Yellow Urine Appearance Clear Urine pH 5.5 Ur Specific [place] 1.015 Urine Protein Trace Urine Glucose (UA) Negative Urine Ketones Negative Ur Blood (Man) 1+ H Urine Nitrate Negative Urine Bilirubin Negative Urine Urobilinogen 0.2 Leukocyte Esterase Rfl Trace H Urine RBC 11-20 H Urine WBC 0-5 Ur Squamous Epith Cells None seen Urine Bacteria None seen Urine Casts 0-2 Influenza A (RT-PCR) Influenza B (RT-PCR) RSV (RT-PCR) SARS-CoV-2 RNA (RT-PCR) 11/02/24 11/02/24 11/02/24 01:59 02:53 03:51 WBC RBC Hgb Hct MCV MCH MCHC RDW Plt Count MPV Immature Gran % (Auto) Neut % (Auto) Lymph % (Auto) [place] % (Auto) Eos % (Auto) Baso % (Auto) Lymph # (Auto) [place] # (Auto) Eos # (Auto) Baso # (Auto) Abs Immat Gran (auto) Absolute Neuts (auto) Absolute Nucleated RBC Nucleated RBC % PT INR APTT Sodium Potassium Chloride Carbon Dioxide Anion Gap BUN Creatinine Estim Creat Clear Calc Estimated GFR Glucose POC Capillary Glucose 65 130 H Lactic Acid 1.1 Calcium Magnesium Total Bilirubin AST ALT Alkaline Phosphatase Troponin I < 0.012 Total Protein Albumin Procalcitonin Urine Color Urine Appearance Urine pH Ur Specific [place] Urine Protein Urine Glucose (UA) Urine Ketones Ur Blood (Man) Urine Nitrate Urine Bilirubin Urine Urobilinogen Leukocyte Esterase Rfl Urine RBC Urine WBC Ur Squamous Epith Cells Urine Bacteria Urine Casts Influenza A (RT-PCR) Influenza B (RT-PCR) RSV (RT-PCR) SARS-CoV-2 RNA (RT-PCR) 11/02/24 11/02/24 11/02/24 05:50 07:02 08:48 WBC 12.8 H RBC 3.67 L Hgb 9.6 L Hct 30.8 L MCV 83.9 MCH 26.2 MCHC 31.2 L RDW 16.0 H Plt Count 301 MPV 9.5 Immature Gran % (Auto) 1.0 H Neut % (Auto) 79.6 H Lymph % (Auto) 10.7 L [place] % (Auto) 6.9 Eos % (Auto) 1.6 Baso % (Auto) 0.2 Lymph # (Auto) 1.37 [place] # (Auto) 0.9 H Eos # (Auto) 0.2 Baso # (Auto) 0.0 Abs Immat Gran (auto) 0.13 H Absolute Neuts (auto) 10.2 H Absolute Nucleated RBC 0.000 Nucleated RBC % 0.0 PT INR APTT Sodium 133 L Potassium 4.1 Chloride 105 Carbon Dioxide 24 Anion Gap 4 BUN 9 Creatinine 1.10 Estim Creat Clear Calc 56 Estimated GFR > 60 Glucose 96 POC Capillary Glucose 105 91 Lactic Acid Calcium 7.7 L Magnesium Total Bilirubin AST ALT Alkaline Phosphatase Troponin I Total Protein Albumin Procalcitonin Urine Color Urine Appearance Urine pH Ur Specific [place] Urine Protein Urine Glucose (UA) Urine Ketones Ur Blood (Man) Urine Nitrate Urine Bilirubin Urine Urobilinogen Leukocyte Esterase Rfl Urine RBC Urine WBC Ur Squamous Epith Cells Urine Bacteria Urine Casts Influenza A (RT-PCR) Influenza B (RT-PCR) RSV (RT-PCR) SARS-CoV-2 RNA (RT-PCR) 11/02/24 09:42 WBC RBC Hgb Hct MCV MCH MCHC RDW Plt Count MPV Immature Gran % (Auto) Neut % (Auto) Lymph % (Auto) [place] % (Auto) Eos % (Auto) Baso % (Auto) Lymph # (Auto) [place] # (Auto) Eos # (Auto) Baso # (Auto) Abs Immat Gran (auto) Absolute Neuts (auto) Absolute Nucleated RBC Nucleated RBC % PT INR APTT Sodium Potassium Chloride Carbon Dioxide Anion Gap BUN Creatinine Estim Creat Clear Calc Estimated GFR Glucose POC Capillary Glucose 95 Lactic Acid Calcium Magnesium Total Bilirubin AST ALT Alkaline Phosphatase Troponin I Total Protein Albumin Procalcitonin Urine Color Urine Appearance Urine pH Ur Specific [place] Urine Protein Urine Glucose (UA) Urine Ketones Ur Blood (Man) Urine Nitrate Urine Bilirubin Urine Urobilinogen Leukocyte Esterase Rfl Urine RBC Urine WBC Ur Squamous Epith Cells Urine Bacteria Urine Casts Influenza A (RT-PCR) Influenza B (RT-PCR) RSV (RT-PCR) SARS-CoV-2 RNA (RT-PCR) Quality VTE Prophylaxis VTE prophylaxis: pharmacologic ordered (Continue home Eliquis.)
[2024-11-02 12:20] LABS: Glucose Point of Care 106 mg/dl (65-105)
[2024-11-02 14:13] LABS: Glucose Point of Care 135 mg/dl (65-105)
[2024-11-02 16:18] LABS: Glucose Point of Care 118 mg/dl (65-105)
[2024-11-02] MEDS: SODIUM CHLORIDE 23.4% INJ 77 MEQ in DEXTROSE 10% 1,000 ML 50 ML IV CONT (18:03)
[2024-11-02 20:31] LABS: Glucose Point of Care 91 mg/dl (65-105)
[2024-11-02] MEDS: FINASTERIDE 5 MG TABLET PO (20:57)
[2024-11-02] MEDS: lisinopriL 20 MG TABLET PO (20:57)
[2024-11-02 21:12] LABS: Glucose Point of Care 117 mg/dl (65-105)
[2024-11-03] VITALS (13 sets, daily range): BP systolic 132–144; BP diastolic 53–70; PULSE 54–68; RESP 16–18; TEMP 36.2–36.8; O2SAT 96–100
[2024-11-03 06:14] LABS: Glucose Point of Care 106 mg/dl (65-105)
[2024-11-03 08:13] LABS: Glucose Point of Care 102 mg/dl (65-105)
[2024-11-03] MEDS: APIXABAN 5 MG TABLET PO ×2 (08:43→21:09)
[2024-11-03] MEDS: dilTIAZem HCL CD 180 MG CAP.24HR PO (08:43)
[2024-11-03] MEDS: SOTALOL HCL 80 MG TABLET PO ×2 (08:43→21:09)
[2024-11-03] MEDS: LORATADINE 10 MG TABLET PO (08:43)
[2024-11-03 09:14] LABS: Hematocrit 30.8 % (42.0-52.0); Hemoglobin 9.7 g/dL (14.0-18.0); Mean Corpuscular HGB Conc 31.5 g/dl (32-36); Mean Corpuscular Hemoglobin 26.1 pg (26-34); Mean Corpuscular Volume 82.8 fl (80-100); Platelet Count Result 261 k/mm3 (150-375); Red Blood Count 3.72 M/mm3 (4.6-6.20); Red Cell Distribution Width 16.3 % (11.5-14.5); White Blood Count 8.6 K/mm3 (4.5-10.0)
[2024-11-03 09:20] LABS: Anion Gap 4 mmol/L (4-12); Blood Urea Nitrogen 7 mg/dL (9-20); Carbon Dioxide 22 mmol/L (22-30); Chloride 107 mmol/L (98-107); Estimated CRCL calculation 51 ml/min; Estimated Glomerular Filt Rate 59; Glucose 152 mg/dL (65-110); Potassium 4.3 mmol/L (3.4-5.0); Sodium 133 mmol/L (137-145)
[2024-11-03 11:59] LABS: Glucose Point of Care 155 mg/dl (65-105)
--- NOTE | 2024-11-03 14:23 | PM.IMPN ---
Progress Note: A&P Assessment and Plan (1) Leukocytosis: Qualifiers: Leukocytosis type: leukemoid reaction Qualified Code(s): D72.823 - Leukemoid reaction Code(s): D72.829 - Elevated white blood cell count, unspecified Status: Acute (2) Type 2 diabetes mellitus with hypoglycemia and coma, without long-term current use of insulin: Code(s): E11.641 - Type 2 diabetes mellitus with hypoglycemia with coma Status: Acute (3) Physical deconditioning: Code(s): R53.81 - Other malaise Status: Acute Plan Patient leukocytosis without evidence of acute infection. His prior UTI has resolved. He would have completed his course of antibiotics with amoxicillin on the morning of the . These have subsequently been removed from the patient's current orders. Bactrim is also listed on the patient's medication reconciliation I do not know the patient is on this chronically or if this was entered in error. However will not continue Bactrim at this time. I suspect the leukocytosis is more due to acute look moist reaction from the patient's recurrent severe hypoglycemia. Will hold off on additional antibiotics and repeat CBC in a.m. and monitor. The patient has had recurrent hypoglycemia likely due to decreased oral intake and continued use of glimepiride. Patient did not have an overdose of medications. Will continue D10 half-normal saline it is currently running at her 50 mL an hour. Given patient's history of pulmonary hypertension and AFib will need to watch closely for possible signs of fluid overload. Will monitor Accu-Cheks q.2 hours until above 100 x 2 then will switch to q.4 hours if greater than 100 times 2 for the q.4 hours will switch to a.c. HS. Monitor overnight and if stable- anticipate discharge home. Request PT OT eval. did ok- will benefit from home health pt/ot Time Spent With Patient Time with patient: Greater than 35 minutes Subjective Date/time seen: 11/03/24 14:23 Interval history: dextrose infusion stopped. pt did well with pt/ot- will need home health pt. will observe overnight- if bs stable- anticipate discharge home Review of Systems Review of Systems: 12 systems were reviewed with pertinent positives and negatives per HPI. Except as documented in the HPI, all other systems were reviewed and are negative. Exam Narrative: Weight 93.6 kg BMI 30.5 Const: Other: Overweight, appears stated age, chronically deconditioned, no acute distress HENMT: Other: Mucous membranes are tacky, no oral pharyngeal erythema, head is normocephalic atraumatic Eyes: Other: Pupils are equal and reactive, positive conjunctival pallor, no scleral icterus Neck: Other: No JVD, no gross lymphadenopathy or thyromegaly Resp: Other: Clear to auscultation bilaterally, no increased work of breathing Cardio: Other: Regular rate rhythm, no JVD, no murmur, 2+ bilateral radial pedal pulses GI: Other: Soft, nontender, nondistended, positive bowel sounds : Other: Suprapubic catheter in place with clear pale yellow urine present Skin: Other: Generalized pallor, non jaundice, cool to touch Neuro: Other: Alert orient x4, speech is clear but slow, no obvious facial asymmetry, moves all extremities equally but is generalized weakness Extrem: Other: Moves all extremities equally was generally weak, bilateral lower extremity edema left is trace right is 1+ (patient is on chronic anticoagulation with Eliquis) Psych: Other: Flat affect, cooperative, calm, fair judgment and insight Objective Data Vital Signs Vital Signs: Vital Signs - 24 hr 11/02/24 16:00 11/02/24 20:58 11/02/24 20:30 Temperature 98.2 F Pulse Rate 65 62 63 Respiratory Rate 18 Blood Pressure 139/61 Pulse Oximetry 100 Oxygen Delivery Fraction of Inspired Oxygen 11/02/24 20:55 11/02/24 20:00 11/03/24 00:04 Temperature Pulse Rate 66 68 Respiratory Rate Blood Pressure Pulse Oximetry Oxygen Delivery Room Air Fraction of Inspired Oxygen 11/03/24 04:00 11/03/24 06:00 11/03/24 08:40 Temperature 98.2 F Pulse Rate 64 64 64 Respiratory Rate 18 16 Blood Pressure 140/60 143/70 H Pulse Oximetry 100 Oxygen Delivery Fraction of Inspired Oxygen 11/03/24 08:43 11/03/24 09:17 11/03/24 08:40 Temperature Pulse Rate 62 Respiratory Rate Blood Pressure Pulse Oximetry 100 Oxygen Delivery Room Air Room Air Fraction of Inspired Oxygen 21 11/03/24 08:00 11/03/24 12:00 11/03/24 14:00 Temperature 97.6 F Pulse Rate 60 59 L 55 L Respiratory Rate 18 Blood Pressure 132/53 L Pulse Oximetry 98 Oxygen Delivery Fraction of Inspired Oxygen Intake/Output Intake/Output: Intake & Output 10/31/24 11/01/24 11/02/24 11/03/24 23:59 23:59 23:59 23:59 Intake Total 4802.25 910 Output Total 1500 2000 Balance 3302.25 -1090 Meds/Results Medications: Active Medications Generic Name Dose Route Start Last Admin Trade Name Freq PRN Reason Stop Dose Admin Acetaminophen 650 mg 11/02/24 00:46 Acetaminophen 325 Mg Tablet PO Q4H PRN Mild Pain (1-3) or Fever Apixaban 5 mg 11/02/24 09:00 11/03/24 08:43 Apixaban 5 Mg Tablet PO 5 mg Q12HR DEBORAH Administration Dextrose 12.5 gm 11/02/24 00:52 Dextrose 50% 25 Gm/50 Ml Syringe IV PUSH PRN PRN Hypoglycemia Protocol Diltiazem HCl 180 mg 11/02/24 09:00 11/03/24 08:43 Diltiazem Hcl Cd 180 Mg Cap.24hr PO 180 mg DAILY DEBORAH Administration Finasteride 5 mg 11/02/24 21:00 11/02/24 20:57 Finasteride 5 Mg Tablet PO 5 mg HS DEBORAH Administration Glucagon 1 mg 11/02/24 00:52 Glucagon For Inj 1 Mg Vial IM PRN PRN Hypoglycemia Protocol Glucose 15 gm 11/02/24 00:52 Glucose Oral Gel 15 Gm Of Glucse In 37.5 Gm Tube PO PRN PRN Hypoglycemia Protocol Dextrose 1,000 mls @ 100 mls/hr 11/02/24 00:52 Dextrose 5% 1,000 Ml IVPB PRN PRN Hypoglycemia Protocol Lisinopril 20 mg 11/02/24 21:00 11/02/24 20:57 Lisinopril 20 Mg Tablet PO 20 mg HS DEBORAH Administration Loratadine 10 mg 11/02/24 09:00 11/03/24 08:43 Loratadine 10 Mg Tablet PO 10 mg DAILY DEBORAH Administration Sotalol HCl 80 mg 11/02/24 09:00 11/03/24 08:43 Sotalol Hcl 80 Mg Tablet PO 80 mg Q12HR DEBORAH Administration Radiology Results: ITS Impressions Chest X-Ray 11/01/24 23:52 IMPRESSION: Fibrotic changes of the lungs with possible superimposed pneumonitis. Clinical correlation advised. Pulmonary edema also cannot be excluded. Venous Doppler Study 11/02/24 15:16 IMPRESSION: No evidence of deep venous thrombosis of right lower extremity Labs Labs: Laboratory Results - last 24 hr 11/02/24 11/02/24 11/02/24 16:13 20:28 21:09 WBC RBC Hgb Hct MCV MCH MCHC RDW Plt Count MPV Sodium Potassium Chloride Carbon Dioxide Anion Gap BUN Creatinine Estim Creat Clear Calc Estimated GFR Glucose POC Capillary Glucose 118 H 91 117 H Calcium 11/03/24 11/03/24 11/03/24 05:46 07:52 09:05 WBC 8.6 RBC 3.72 L Hgb 9.7 L Hct 30.8 L MCV 82.8 MCH 26.1 MCHC 31.5 L RDW 16.3 H Plt Count 261 MPV 9.0 Sodium 133 L Potassium 4.3 Chloride 107 Carbon Dioxide 22 Anion Gap 4 BUN 7 L Creatinine 1.20 Estim Creat Clear Calc 51 Estimated GFR 59 Glucose 152 H POC Capillary Glucose 106 H 102 Calcium 8.0 L 11/03/24 11:50 WBC RBC Hgb Hct MCV MCH MCHC RDW Plt Count MPV Sodium Potassium Chloride Carbon Dioxide Anion Gap BUN Creatinine Estim Creat Clear Calc Estimated GFR Glucose POC Capillary Glucose 155 H Calcium Quality VTE Prophylaxis VTE prophylaxis: pharmacologic ordered (Continue home Eliquis.)
[2024-11-03 17:10] LABS: Glucose Point of Care 112 mg/dl (65-105)
[2024-11-03 20:38] LABS: Glucose Point of Care 143 mg/dl (65-105)
[2024-11-03] MEDS: lisinopriL 20 MG TABLET PO (21:09)
[2024-11-03] MEDS: FINASTERIDE 5 MG TABLET PO (21:09)
[2024-11-04 00:05] VITALS: PULSE 59
[2024-11-04 04:01] VITALS: PULSE 57
[2024-11-04 04:39] VITALS: BP 162/71; PULSE 96; RESP 16; TEMP 36.3; O2SAT 97
[2024-11-04 07:23] LABS: Hematocrit 31.9 % (42.0-52.0); Hemoglobin 10.1 g/dL (14.0-18.0); Mean Corpuscular HGB Conc 31.7 g/dl (32-36); Mean Corpuscular Hemoglobin 26.4 pg (26-34); Mean Corpuscular Volume 83.3 fl (80-100); Mean Platelet Volume 8.8 fl (7.4-10.4); Platelet Count Result 267 k/mm3 (150-375); Red Blood Count 3.83 M/mm3 (4.6-6.20); Red Cell Distribution Width 16.5 % (11.5-14.5); White Blood Count 7.7 K/mm3 (4.5-10.0)
[2024-11-04 07:36] LABS: Anion Gap 3 mmol/L (4-12); Blood Urea Nitrogen 9 mg/dL (9-20); Calcium 8.5 mg/dL (8.4-10.2); Carbon Dioxide 26 mmol/L (22-30); Chloride 107 mmol/L (98-107); Estimated CRCL calculation 51 ml/min; Estimated Glomerular Filt Rate 59; Glucose 107 mg/dL (65-110); Potassium 4.3 mmol/L (3.4-5.0); Sodium 136 mmol/L (137-145)
[2024-11-04 07:56] LABS: Glucose Point of Care 103 mg/dl (65-105)
[2024-11-04 08:00] VITALS: PULSE 56
[2024-11-04 08:47] VITALS: PULSE 96
[2024-11-04] MEDS: SOTALOL HCL 80 MG TABLET PO (08:47)
[2024-11-04] MEDS: LORATADINE 10 MG TABLET PO (08:47)
[2024-11-04] MEDS: APIXABAN 5 MG TABLET PO (08:48)
[2024-11-04] MEDS: dilTIAZem HCL CD 180 MG CAP.24HR PO (08:48)
[2024-11-04 11:32] LABS: Glucose Point of Care 105 mg/dl (65-105)
--- NOTE | 2024-11-04 11:54 | PM.DS ---
DS: Admitting Diagnosis Discharge Date 11/04 Admitting Diagnosis hypoglycemia DS: Discharge Diagnosis Discharge Diagnosis (1) Leukocytosis: Qualifiers: Leukocytosis type: leukemoid reaction Qualified Code(s): D72.823 - Leukemoid reaction Code(s): D72.829 - Elevated white blood cell count, unspecified Status: Acute (2) Type 2 diabetes mellitus with hypoglycemia and coma, without long-term current use of insulin: Code(s): E11.641 - Type 2 diabetes mellitus with hypoglycemia with coma Status: Acute (3) Physical deconditioning: Code(s): R53.81 - Other malaise Status: Acute DS: Summary Hospital Course Hospital Course: Patient leukocytosis without evidence of acute infection. His prior UTI has resolved. He would have completed his course of antibiotics with amoxicillin on the morning of the . These have subsequently been removed from the patient's current orders. The patient has had recurrent hypoglycemia likely due to decreased oral intake and continued use of glimepiride. Patient did not have an overdose of medications. He had received D10 half-normal saline until his sugar was consistently stable. We will STOP glimepiride and metformin. He will need to closely monitor his BS and keep log for his PCP review and med adjustment if needed. He is 79 and it is ok for hga1c to be on a slightly higher side- as long as he is below 7 and he was 5.6- so he might be overmedicated. In fact, he was under 6 since 2019. Request PT OT eval. did ok- will benefit from home health pt/ot Status at Discharge Functional status at discharge: uses cane/walker Overall status at discharge: patient is progressing back to baseline Time Spent with Patient Time attestation: Total time spent providing and/or coordinating discharge services: Time spent: Greater than 30 minutes Exam Narrative: Weight 93.6 kg BMI 30.5 Const: Other: Overweight, appears stated age, chronically deconditioned, no acute distress HENMT: Other: Mucous membranes are tacky, no oral pharyngeal erythema, head is normocephalic atraumatic Eyes: Other: Pupils are equal and reactive, positive conjunctival pallor, no scleral icterus Neck: Other: No JVD, no gross lymphadenopathy or thyromegaly Resp: Other: Clear to auscultation bilaterally, no increased work of breathing Cardio: Other: Regular rate rhythm, no JVD, no murmur, 2+ bilateral radial pedal pulses GI: Other: Soft, nontender, nondistended, positive bowel sounds : Other: Suprapubic catheter in place with clear pale yellow urine present Skin: Other: Generalized pallor, non jaundice, cool to touch Neuro: Other: Alert orient x4, speech is clear but slow, no obvious facial asymmetry, moves all extremities equally but is generalized weakness Extrem: Other: Moves all extremities equally was generally weak, bilateral lower extremity edema left is trace right is 1+ (patient is on chronic anticoagulation with Eliquis) Psych: Other: Flat affect, cooperative, calm, fair judgment and insight DS: Data Data Completed and Pending Labs on day of discharge: Labs from last 24 hours 11/04/24 11/04/24 11/04/24 11:25 07:44 07:19 WBC RBC Hgb Hct MCV MCH MCHC RDW Plt Count MPV Sodium 136 L Potassium 4.3 Chloride 107 Carbon Dioxide 26 Anion Gap 3 L BUN 9 Creatinine 1.20 Estim Creat Clear Calc 51 Estimated GFR 59 Glucose 107 POC Capillary Glucose 105 103 Calcium 8.5 11/04/24 11/03/24 11/03/24 07:18 19:35 17:08 WBC 7.7 RBC 3.83 L Hgb 10.1 L Hct 31.9 L MCV 83.3 MCH 26.4 MCHC 31.7 L RDW 16.5 H Plt Count 267 MPV 8.8 Sodium Potassium Chloride Carbon Dioxide Anion Gap BUN Creatinine Estim Creat Clear Calc Estimated GFR Glucose POC Capillary Glucose 143 H 112 H Calcium 11/03/24 11:50 WBC RBC Hgb Hct MCV MCH MCHC RDW Plt Count MPV Sodium Potassium Chloride Carbon Dioxide Anion Gap BUN Creatinine Estim Creat Clear Calc Estimated GFR Glucose POC Capillary Glucose 155 H Calcium Discharge Plan Discharge Attending physician on discharge: Ramon Almanza Discharging Clinician: Christina Edmond Patient Disposition: Home Health Service Activity: march shower Diet: as tolerated and diabetic Discharge Instructions: you were admitted for low blood sugar. As we discussed, please stop taking your diabetic meds- glimepiride and metformin. You will need to closely monitor his BS and keep log for his PCP review and med adjustment if needed. You are 79 and it is ok for hga1c to be on a slightly higher side- as long as it is below 7 and you were 5.6- so he might be overmedicated. In fact, you had under 6 since 2019. Technically metformin should not cause low blood sugar- but with your decreased oral intake- we don't want to take a chance. F/u with PCP within 2-3 month for hga1c recheck. Per Care Coordination: [facility] will contact you prior to their first visit. [facility] will follow for RN and PT/OT eval and treat services. [facility] can be contacted at [phone]. Patient Instructions: Antibiotic Form, Safe Use of Anticoagulants (GEN) Stand Alone Forms: General Discharge Information Follow-up/Referrals: Pratik Hernandez MD [Primary Care Provider] - 4 Weeks Discharge Medications: Continued loratadine [Claritin] 10 mg Tablet 10 mg PO DAILY nitroglycerin 0.4 mg tablet, sublingual 0.4 mg sublingual DIRECTED PRN (Reason: Chest Pain) diltiazem HCl [DILT-XR] 180 mg capsule,ext.rel 24h degradable 180 mg PO DAILY Qty: 100 1RF Patient Comments: QAM sotalol 80 mg tablet 80 mg PO BID Qty: 200 1RF lisinopril 20 mg tablet 20 mg PO HS Qty: 100 1RF Eliquis 5 mg tablet 5 mg PO BID Qty: 200 2RF Hold Instructions: Resume on 08/17/24. rosuvastatin 10 mg tablet 10 mg PO DAILY Qty: 100 1RF finasteride 5 mg tablet 5 mg PO HS Qty: 100 1RF Discontinued amoxicillin 500 mg Capsule 500 mg PO Q8HR Qty: 15 0RF Rx Instructions: started 12-3, to take for 5 days sulfamethoxazole-trimethoprim 800-160 mg Tablet 2 tab PO Q12HR Qty: 20 0RF Rx Instructions: started 12-3, pt to take for 5 days glimepiride 4 mg tablet 4 mg PO DAILY Qty: 100 1RF Patient Comments: QAM metformin 1,000 mg tablet 1,000 mg PO BID Qty: 200 1RF Date of admission: 11/02/24 00:46 Primary Care Provider: Pratik Hernandez Admitting Provider: Luisa Mariscal Attending physician on admission: Luisa Mariscal Condition: Stable Quality VTE Prophylaxis VTE prophylaxis: pharmacologic ordered (Continue home Eliquis.) Hospitalist MIPS Heart Failure (Exclusion) Patient has history of Heart Transplant or Left Ventricular Assistive Device?: No IF YES, STOP HERE Heart Failure (Qualifier) Patient has current or prior documentation of LVEF less than or equal to 40%, or mod/servere depressed LVSF?: No IF NO, STOP HERE
[2024-11-04 12:00] VITALS: PULSE 54
[2024-11-04] MEDS: INFLUENZA VACCINE HIGH DOSE (>64) 180 MCG/0.5 ML SYRINGE IM (13:30)
== END 2024-11-04 13:45 | disposition home health service (06) ==
LOC: ANHED 11-02 00:22 → ANH2MED 11-02 03:18
PROVIDERS: Nurse Practitioner; Admitting Provider Internal Medicine; Emergency Provider Emergency Medicine; PCP Family Medicine; Visit Provider Internal Medicine
DX: D72.823 Leukemoid reaction (principal); E11.649 Type 2 diabetes mellitus with hypoglycemia without coma; R53.81 Other malaise; R41.82 Altered mental status, unspecified; I25.10 Atherosclerotic heart disease of native coronary artery without angina pectoris; I11.0 Hypertensive heart disease with heart failure; I50.9 Heart failure, unspecified; M79.89 Other specified soft tissue disorders; I48.0 Paroxysmal atrial fibrillation; I27.20 Pulmonary hypertension, unspecified; E11.40 Type 2 diabetes mellitus with diabetic neuropathy, unspecified; E78.00 Pure hypercholesterolemia, unspecified; Z79.84 Long term (current) use of oral hypoglycemic drugs; Z95.5 Presence of coronary angioplasty implant and graft; Z79.01 Long term (current) use of anticoagulants; Z23 Encounter for immunization; Z20.822 Contact with and (suspected) exposure to COVID-19
CPT/HCPCS: 36415; 71045; 80048; 80053; 81001; 82948; 83605; 83735; 84145; 84484; 85025; 85027; 85610; 85730; 87637; 90471; 90662; 93005; 93971; 96361; 96374; 97116; 97161; 97165; 97530; 99285; A9270; G0008; G0378; J7030; J7042